=== PATIENT | female | born 1940 | race Caucasian/White ===

== ENCOUNTER → 2017-12-30 12:00 | Outpatient (REF) | payer MEDICARE, OTHER, SELFPAY ==
[2017-12-30 20:58] LABS: Anion Gap 12.4 mmol/L (3-11); BUN 18 mg/dL (7-18); CO2 23.6 mmol/L (21.0-32.0); CREATININE 1.13 mg/dL (0.55-1.02); Calcium 9.4 mg/dL (8.5-10.1); Chloride 106 mmol/L (98-107); Cholesterol 210 mg/dL (50-200); Estimated GFR 46.82 (mL/min/1.73m2); Glucose 87 mg/dL (70-100); HDL Cholesterol 91 mg/dL (40-60); LDL CHOLESTEROL 109 mg/dL (<100); Sodium 142 mmol/L (136-145); Triglyceride 83 mg/dL (30-150)
== END ==
LOC: NCHCN 12:00
PROVIDERS: PCP Physician Assistant Medical; Visit Provider Physician Assistant Medical
DX: I10 Essential (primary) hypertension (principal); N18.3 Chronic kidney disease, stage 3 (moderate)
CPT/HCPCS: 80048; 80061; 83721

== ENCOUNTER → 2018-01-01 09:00 | Outpatient (CLI) | payer MEDICARE, OTHER, SELFPAY ==
--- NOTE | 2018-01-01 09:00 | DI.REPORT_ITS ---
SYMPTOMS/DIAGNOSIS: F/U ORIF RIGHT WRIST: Two views were obtained and show previously described fractures of the distal radius and ulna with plate and screw fixation in place in the distal radius. The alignment appears essentially unchanged in comparison with previous films of December 04.
== END ==
PROVIDERS: PCP Physician Assistant Medical; Visit Provider Orthopaedic Surgery
DX: S52.501D Unspecified fracture of the lower end of right radius, subsequent encounter for closed fracture with routine healing (principal); S52.601D Unspecified fracture of lower end of right ulna, subsequent encounter for closed fracture with routine healing; W01.0XXD Fall on same level from slipping, tripping and stumbling without subsequent striking against object, subsequent encounter
CPT/HCPCS: 73100

== ENCOUNTER 2018-01-16 11:00 | Outpatient (RCR) | payer MEDICARE, OTHER, SELFPAY ==
--- NOTE | 2018-01-02 07:50 | IE_ITS ---
Date: 01/02/18 Referring: Sukhwinder Plummer MD M.D. Diagnosis: ORIF FX Distal Radius 11/20/17 P.T. Diagnosis: Same SUBJECTIVE: History of Present Illness: Pt is a 77 year old woman who presents to PT 6 weeks post op a ORIF Fx of the right distal radius/ulna on 11/07/17. Pt states that she was walking out on the two steps in her shed when she missed her step and fell on her right arm in the outstretched position. Pt reports that she presented to the emergency room that day where x rays were performed indicating a right distal radius/ulnar fx. On 11/20/[address] Mix who performed an ORIF fx surgery to her right wrist with insertion of plate. She was placed in a wrist cock up splint and followed up with Dr. Plummer on 01/01/18. Today she presents to PT no longer wearing the cock up splint as per Dr. 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 Pt states that she is right hand dominant. She also states that she falls a lot and this time was unable to catch her balance before she fell. Her incision is well healed with one 1cm spot of scabbing otherwise closed. Pain Rating: Pt reports that she has a movement induced pain which she would rate as a 2/10 on the VAS. Pain Location: Pain is located more centrally to the right wrist and also common on the ulnar side and volar aspect in supination/ pronation type movements. Prior Level of Function: (I) with all ADLs and IADLs. Current Level of Function: Difficulty with gardening tasks, she is currently using her left hand for the majority of tasks. 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 Previous Treatment: Nothing for this issue. 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 Her daughter lives next store and is able to help when needed. Comorbidities: Right knee replacement, left hip replacement x2, RA. Falls in the last year: ____ No __X__Yes - How many? __Pt is unable to quantify how many and states that she falls a lot. __ - (if over 2, balance SM needs to be completed) Reported hospitalizations in the last year - __X__ No ____ Yes - Dates of admission/reason: Medications: Hydroxychlor 200 mg, Methotrexate 2 mg tabs, Pramipexole 0.25mg. Quality of Life: __X__ Excellent Standardized Measures: DASH score: _27.7% Disability ___ OBJECTIVE: Posture: Pt has a slight rounded shoulder forward head posturing. Observation: (behavior, atrophy, skin color, etc.) Appropriate response to questions, pleasant. Palpation: Slight tenderness to palpation on the ulnar aspect of the right wrist. Edema: Circumferential measurements with tape measure were measured proximal to the ulnar styloid: Right : 16 cm Left: 17cm ROM: Right Forearm Supination: 70-75* Right Forearm Pronation: 80* Wrist Flexion: 20* Extension 10* Ulnar Deviation 10* Radial Deviation 5* Shoulder Flexion 145* Abduction 120* ER/IR WNL Elbow Flexion/ Extension WNL Tip of thumb to distal palmar crease right hand: 2.5cm Thumbs behind back to T9 Opposition WFL Strength: Dynamometer level 2 Field Ring Assembler strength: Right: 10-15# Left: 55# Lateral pinch strength: Right: 10# Left: 14# Neuro: Pt intact to light touch and sensation through volar and dorsal aspects of (B) wrists, along healed incision and throughout digits. Pt reports no numbness or tingling. Special Tests: Empty can testing negative, Tinels testing on right wrist negative. Treatment: Today s session consisted of initial evaluation and assessment of functional abilities. Pt was provided with a written, illustrated HEP consisting of PROM right wrist flexion and extension, AROM forearm supination/ pronation and AROM radial and ulnar deviation to the right wrist. Pt was able to perform exercises with minimal verbal cues. HEP can be found in pt s chart. IE: [id number] Therapeutic Exercise ([id number]) Patient Education: Pt was educated in proper arm positioning for HEP. Pt was informed to perform ROM until a stretch was felt but to avoid pain when possible. Full instructions for HEP can be found noted in chart. Pt was also instructed to continue to use her wrist cock up splint provided by Dr. Plummer when performing heavy activities around her home to avoid over use or strain to her right wrist. Direct treatment time: 60 minutes Total treatment time: 60 minutes ASSESSMENT: Patient is a 77-year-old female, referred for PT services with the diagnosis of ORIF FX Right Distal Radius/ Ulna on 11/20/17. Patient presents with clinical signs and symptoms consistent with this dx, as demonstrated by the following impairment level findings: Decreased ROM of the right wrist, decreased right cook room supervisor strength, decreased lateral pinch strength. Impairments are contributing to the following functional limitations: Difficulty grasping items, difficulty performing gardening tasks, difficulty performing heavy account support associate and activities. Patient is assessed as: __X__ Low 99402 ____ Moderate 86961 ____ High 84988 complexity, based on the following: History: See comorbidities and social history. Examination: See above for functional limitations and impairments. Presentation: X Evolving Decision-Making: X Low complexity 27.7 % Disability based on DASH __X__ Patient requires skilled PT intervention to remediate the above functional limitations to return to: __X__ Premorbid level of function Prognosis: __X__ Good G-Codes : Patient's primary functional limitation is in the category of: __X__ Carrying, moving and handling objects: [id number] based on DASH score of 27.7%. Projected goal: __X__ Carrying, moving, and handling objects [id number] to return pt to her premorbid level of function. GOALS: STG: __6__ weeks. 1.Pt will be (I) with HEP both verbally and with ideal technique demonstration. 2.Pt s right hand cook room supervisor strength will improve from 15# to 25# in order for her to perform better grasping of objects and household activities. LTG: __12__ weeks. __X__ Return to premorbid level of function including all heavy account support associate and activities, with increased ROM and strength. PLAN: Patient to be seen 2 x per week, for 12 weeks, adjusting frequency of visits per patient symptoms and response to treatment. Treatment to include: X Manual therapy - [id number]: Including AROM, PROM, muscle energy techniques, manual mobilization and soft tissue mobilization. X Therapeutic exercise - [id number]- For UE strengthening, fine motor strengthening and functional ROM. Next Session: Manual and soft tissue mobilization to the right wrist and forearm using muscle energy techniques. Review HEP and progress and modify as appropriate. Thank you for this referral. Please do not hesitate to contact me with any questions or concerns regarding this patient's plan of care. Dr. Plummer please sign below if you are in agreement with this pt s plan of care,
--- NOTE | 2018-01-06 14:30 | PTTR_ITS ---
DATE: 01/06/18 SUBJECTIVE: No new complaints. States she has been compliant with her HEP. OBJECTIVE: Had Pat demonstrate her HEP, had to tweak it around a little and give her some reminders on proper technique. I then proceed to mobilize her starting with the distal, radial, ulnar joint into supination/pronation, then radial carpal joint with mobilizing her accessory joints and working on flexion/extension. Digit motion is full. I upgrade her HEP to include some controlled weight bearing stretches into wrist extension and active wrist flexion/extension. Manual therapy: ([id number]). Direct treatment time: 30 mins Total treatment time: 30 mins Has a follow up later this week. DLW/dl
--- NOTE | 2018-01-09 07:30 | PTTR_ITS ---
DATE: 01/09/18 SUBJECTIVE: Tamy states she has been more active with her R hand. Minimal discomfort noted, other than some end range drawing. She has some questions about her HEP, particularly wrist extension, we review this. Manual therapy: ([id number]). Treatment today consisted of mobilizing her in the sitting position with her elbow flexed at 90 degrees, as well as isolate forearm supination/pronation. I mobilize the distal, radial, ulnar joint into supination and then pronation, followed by active movements. I then proceed to the wrist and perform PA glides to the radial carpal joints, then stretching into flexion, then finishing with extension. I also mobilize the CMC joint of the thumb, IP joint of the digits. Her IP flexion. Direct treatment time: 30 mins Total treatment time: 30 mins finishing with Rohithx in clinic (see her flow sheet). Has a follow up early next week. DLW/dl
--- NOTE | 2018-01-13 14:30 | PTTR_ITS ---
DATE: 01/13/18 SUBJECTIVE: Tamy notes she has been more active with her R UE. No significant pain noted other than occasional discomfort through the ulnar aspect of her distal forearm with end range movements. She notes she has been fairly compliant with her HEP. Manual therapy: ([id number]). I assess her movement patterns, she is little tight with her supination yet at around 70 degrees. I do some mobilization of the distal radial ulnar and the radial capitellum joint while applying some traction to the radial carpal joint. I can eventually get close to full supination. I then have her practice her active movements. We then transition to pronation, which is minimally limited. I mobilize her in this direction, then proceed to the wrist and perform PA glides to the radial carpal joint. Her accessory movements are greater than they were initially, although still hypomobile. I then work on her wrist flexion adding some light traction, then transition into extension while applying some light traction and a volar glide of the carpal row to assist the arthrokinematics of the joint. Direct treatment time: 30 mins Total treatment time: 50 mins with 20 mins of wellness (see her flow sheets) DLW/dl
--- NOTE | 2018-01-16 13:03 | PTTR_ITS ---
DATE: 01/16/18 OBJECTIVE: Co Treatment with PT Jayson Nguyễn Therapeutic procedures ([id number]). * X HEP review: Pt was issues peach T-Band and was shown how to complete biceps curls and triceps. Pt was also issued the yellow putty for hand inspector strengthening. Pt was educated to complete all exercises to fatigue. * X Provided skilled instruction in proper exercise performance: Pt completed UE strengthening, hand inspector strengthening, and cardio on the UBE. Please see flow sheet for specifics. Pt was able to tolerate a slight increase in her program today. Pt did require vc's for correction of her posture and mechanics with her ther ex. Direct treatment time: 20 Total treatment time: 30
--- NOTE | 2018-01-16 13:54 | PTTR_ITS ---
DATE: 01/16/18 SUBJECTIVE: Tamy states she is doing fine. No new complaints offered. She is doing more and more functionally everyday. She was vacuuming the other day for the first time and handled this fine. OBJECTIVE: Manual therapy: ([id number]).I begin with mobilizing her forearm by addressing the distal radial ulnar joint and supination is at around 60-65 degrees and eventually I can get close to 80, same with pronation. I then do some PA glides to the radial carpal joints and her joint play continues to be hypomobile. I then proceed to stretch her into flexion with a dorsal glide of the carpal row and then into extension with a volar stretch to the carpal row. Direct treatment time: 30 min Total treatment time: 30 min She is then seen by Palak Olguin PTA for therapeutic exercises for strengthening of elbow flexors/extensors, wrist flexor/extensors, as well as some putty for gripping. Assessment: Continues to improve. Plan: Have Tamy continue with her HEP with the new home exercises. She has a follow-up appt with CHERYLE Haddad next week. ANNEMARIE/brandon
== END 2018-01-16 23:59 | disposition home or self-care (01) ==
LOC: PT 11:00
PROVIDERS: PCP Physician Assistant Medical; Referring Provider Orthopaedic Surgery; Visit Provider Orthopaedic Surgery
DX: S52.571D Other intraarticular fracture of lower end of right radius, subsequent encounter for closed fracture with routine healing (principal); S52.611D Displaced fracture of right ulna styloid process, subsequent encounter for closed fracture with routine healing
CPT/HCPCS: 97110; 97140; 97161

== ENCOUNTER 2018-01-19 16:34 | Emergency (ER) | payer MEDICARE, OTHER, SELFPAY ==
[2018-01-19 16:36] VITALS: BP 142/78; PULSE 95; TEMP 37.4; O2SAT 98
--- NOTE | 2018-01-19 18:28 | W.ED.GENAD ---
Discharge Plan Disposition Patient Disposition: HOME Condition: Good Discharge Details Chief Complaint: Laceration Clinical Impression: Laceration of left upper arm Primary Care Provider: Marlene Pereira ED Provider: Andre Martinez Home Meds and New Rx's Prescriptions: Continue multivitamin 1 EACH tablet 1 ea PO DAILY Qty: 90 RF: 3 methotrexate sodium 2.5 MG tablet 10 mg PO WEEKLY Qty: 36 RF: 0 folic acid 1 MG tablet 1 mg PO DAILY Qty: 90 RF: 3 hydroxychloroquine [Plaquenil] 200 MG tablet PO as directed Qty: 180 RF: 3 latanoprost 2.5 ML drops 1 drp OU HS RF: 0 calcium carbonate [Tums] 200 MG tablet,chewable 500 mg PO PRN PRNRF: 0 acetaminophen [Tylenol] 325 MG tablet 650 mg PO Q4H PRN PRNRF: 0 tramadol 50 MG tablet 50 mg PO Q6H PRN (Reason: Pain) Qty: 8 RF: 0 hydrocodone-acetaminophen 1 EACH tablet 1 tab PO Q6H PRN PRNQty: 14 RF: 0 No Action triamterene-hydrochlorothiazid [Maxzide-25mg] 1 EACH tablet 0.5 ea PO DAILY Qty: 45 RF: 3 pramipexole 0.25 MG tablet 0.25 mg PO HS Qty: 90 RF: 3 Discharge Instructions Instructions: Care For Your Stitches (ED), Laceration (ED) Additional Instructions: Watch for any signs of infection which include redness, purulent drainage, fever chills or significant swelling. If these occur return immediately to the emergency department for reassessment. Otherwise keep wound clean and dry and keep initial bandage in place for 24-48 hours and then change bandage twice daily. Return to the emergency department 10 days for suture removal Referrals: [facility] Emergency Dept. [Outside] (Return to the emergency department 10 days for suture) Discharge Data Discharge Date/Time-TO BE ENTERED AT DEPARTURE: 01/19/18 18:54 Medical Decision Making MDM Narrative Medical decision making narrative: Patient presenting to the emergency department for laceration to left arm. Patient has a 5 cm laceration that is into the adipose tissue but no deep tissue injury noted to the left AC. Patient gave verbal consent to wound closure. Concerning wound was cleansed with Hibiclens and wound itself was thoroughly and copiously irrigated with normal saline. 5 simple interrupted sutures were placed using 4-0 Prolene. Wound edges were well approximated. Bacitracin was applied to the wound and sterile dressing on top of that. She was encouraged to watch for any signs of infection and return immediately if these occur. Patient's tetanus was 6 years ago given significant size and depth of cut I do feel that updating tetanus is needed and patient was agreeable. So tetanus was ordered. Patient to return in 10 days for suture removal. After discussion of diagnosis plan of care patient states no further needs, questions, or concerns at this time HPI - General Adult General Mode of arrival: ambulatory. Date/Time Provider Initiated Documentation: 01/19/18 16:37. Limitations to Documentation: no limitations. Information obtained by: patient. History of Present Illness 77 year old F presents to the emergency department with the chief complaint of fall with laceration to left arm, described as mild, with intensity rated at 3. Quality is described as aching, and is localized to the left and upper extremity. Patient reports no radiation. Patient started experiencing this minute(s) (30) and it has been constant. Patient notes no other symptoms.. Patient did receive the following treatments prior to arrival, none Related Data Home Medications Medication Instructions Recorded Confirmed folic acid 1 mg PO DAILY #90 tab-cap 08/21/12 11/20/17 hydroxychloroquine [Plaquenil] 0 mg PO as directed #180 tab-cap 08/21/12 11/20/17 methotrexate sodium 10 mg PO WEEKLY #36 08/21/12 11/20/17 multivitamin 1 ea PO DAILY #90 08/21/12 11/20/17 calcium carbonate [Tums] 500 mg PO PRN PRN 12/15/12 11/20/17 latanoprost 1 drp OU HS drp 02/27/16 11/20/17 triamterene-hydrochlorothiazid 0.5 ea PO DAILY #45 tab 08/15/16 [Maxzide-25mg] pramipexole 0.25 mg PO HS #90 tab-cap 01/27/17 Previous Rx's Medication Instructions Recorded acetaminophen [Tylenol] 650 mg PO Q4H PRN PRN tab 04/22/16 tramadol 50 mg PO Q6H PRN #8 tab 11/07/17 hydrocodone-acetaminophen 1 tab PO Q6H PRN PRN #14 tablet 11/20/17 Allergies Allergy/AdvReac Type Severity Reaction Status Date / Time acetaminophen [From Vicodin] AdvReac Intermediate Other (See Unverified 01/19/18 16:42 Comment) hydrocodone [From Vicodin] AdvReac Intermediate Other (See Unverified 01/19/18 16:42 Comment) lovastatin AdvReac Intermediate MUSCLE Unverified 01/19/18 16:42 ACHES oxycodone [From Percocet] AdvReac Intermediate Other (See Unverified 01/19/18 16:42 Comment) simvastatin AdvReac Intermediate MUSCLE Unverified 01/19/18 16:42 ACHES niacin AdvReac Mild MUSCLE Unverified 01/19/18 16:42 ACHES General Stated Complaint: Laceration MAXIMILIAN: 4 Review of Systems Constitutional Denies body ache(s), Denies chills and Denies fever(s) Cardiovascular Denies chest pain, Denies syncope, Denies rapid heart rate and Denies dyspnea Respiratory Denies dyspnea Gastrointestinal Denies abdominal pain, Denies nausea and Denies vomiting Musculoskeletal Denies limited range of motion, Denies muscle weakness and Denies numbness Integumentary/Breasts Reports as per HPI and Denies rash Neurologic Denies confusion, Denies syncope, Denies numbness and Denies sensory deficit Psychiatric Denies confusion PFSH Family History Mother Substance abuse Father Heart disease Brother No problems noted. Social History Smoking/Tobacco Use Status: Never Surgical History Arthroplasty (12/23/12) Biopsy of breast (12/29/14) Colonoscopy - MAC (10/15/12) Colonoscopy - MAC (01/17/16) Tooth extraction (05/19/63) 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) left hip revision (04/10/16) Exam Const General: cooperative, no acute distress and not ill appearing Orientation: alert, awake and oriented x3 HENMT Head: normal to inspection, normocephalic and atraumatic Mouth: moist mucous membranes Eyes General: appearance normal, both eyes and all related structures Resp Effort & Inspection: normal respiratory effort, able to speak in complete sentences and no respiratory distress Cardio Rate: regular rate Rhythm: regular rhythm Heart Sounds: S1 normal and S2 normal Skin General skin exam: no rashes or lesions noted Rashes: no rashes Neuro General: alert, awake, oriented x3, moves all extremities and no focal motor deficits Sensory Exam: no sensory deficits noted Extrem General: full ROM Left upper extremity: normal capillary refill and elbow/forearm Details: normal ROM, laceration (AC), distal pulses intact and other (CMS intact distal to injury) Course Vital Signs Temperature 37.4 C 01/19/18 16:36 Pulse 95 H 01/19/18 16:36 Blood Pressure 142/78 H 01/19/18 16:36 Pulse Oximetry 98 01/19/18 16:36 Temperature 37.4 C 01/19/18 16:36 Pulse 95 H 01/19/18 16:36 Blood Pressure 142/78 H 01/19/18 16:36 Pulse Oximetry 98 01/19/18 16:36
--- NOTE | 2018-01-19 18:31 | ED.GENADUL_ITS ---
Discharge Plan Disposition Patient Disposition: HOME Condition: Good Discharge Details Chief Complaint: Laceration Clinical Impression: Laceration of left upper arm Primary Care Provider: Marlene Pereira ED Provider: Andre Martinez Home Meds and New Rx's Prescriptions: Continue multivitamin 1 EACH tablet 1 ea PO DAILY Qty: 90 RF: 3 methotrexate sodium 2.5 MG tablet 10 mg PO WEEKLY Qty: 36 RF: 0 folic acid 1 MG tablet 1 mg PO DAILY Qty: 90 RF: 3 hydroxychloroquine [Plaquenil] 200 MG tablet PO as directed Qty: 180 RF: 3 latanoprost 2.5 ML drops 1 drp OU HS RF: 0 calcium carbonate [Tums] 200 MG tablet,chewable 500 mg PO PRN PRNRF: 0 acetaminophen [Tylenol] 325 MG tablet 650 mg PO Q4H PRN PRNRF: 0 tramadol 50 MG tablet 50 mg PO Q6H PRN (Reason: Pain) Qty: 8 RF: 0 hydrocodone-acetaminophen 1 EACH tablet 1 tab PO Q6H PRN PRNQty: 14 RF: 0 No Action triamterene-hydrochlorothiazid [Maxzide-25mg] 1 EACH tablet 0.5 ea PO DAILY Qty: 45 RF: 3 pramipexole 0.25 MG tablet 0.25 mg PO HS Qty: 90 RF: 3 Discharge Instructions Instructions: Care For Your Stitches (ED), Laceration (ED) Additional Instructions: Watch for any signs of infection which include redness, purulent drainage, fever chills or significant swelling. If these occur return immediately to the emergency department for reassessment. Otherwise keep wound clean and dry and keep initial bandage in place for 24-48 hours and then change bandage twice daily. Return to the emergency department 10 days for suture removal Referrals: [facility] Emergency Dept. [Outside] (Return to the emergency department 10 days for suture) Discharge Data Discharge Date/Time-TO BE ENTERED AT DEPARTURE: 01/19/18 18:54 Medical Decision Making MDM Narrative Medical decision making narrative: Patient presenting to the emergency department for laceration to left arm. Patient has a 5 cm laceration that is into the adipose tissue but no deep tissue injury noted to the left AC. Patient gave verbal consent to wound closure. Concerning wound was cleansed with Hibiclens and wound itself was thoroughly and copiously irrigated with normal saline. 5 simple interrupted sutures were placed using 4-0 Prolene. Wound edges were well approximated. Bacitracin was applied to the wound and sterile dressing on top of that. She was encouraged to watch for any signs of infection and return immediately if these occur. Patient's tetanus was 6 years ago given significant size and depth of cut I do feel that updating tetanus is needed and patient was agreeable. So tetanus was ordered. Patient to return in 10 days for suture removal. After discussion of diagnosis plan of care patient states no further needs, questions, or concerns at this time HPI - General Adult General Mode of arrival: ambulatory . Date/Time Provider Initiated Documentation: 01/19/18 16:37 . Limitations to Documentation: no limitations . Information obtained by: patient . History of Present Illness 77 year old F presents to the emergency department with the chief complaint of fall with laceration to left arm, described as mild, with intensity rated at 3. Quality is described as aching, and is localized to the left and upper extremity. Patient reports no radiation. Patient started experiencing this minute(s) (30) and it has been constant. Patient notes no other symptoms.. Patient did receive the following treatments prior to arrival, none Related Data Home Medications Medication Instructions Recorded Confirmed folic acid 1 mg PO DAILY #90 tab-cap 08/21/12 11/20/17 hydroxychloroquine [Plaquenil] 0 mg PO as directed #180 tab-cap 08/21/12 methotrexate sodium 10 mg PO WEEKLY #36 08/21/12 11/20/17 multivitamin 1 ea PO DAILY #90 08/21/12 11/20/17 calcium carbonate [Tums] 500 mg PO PRN PRN 12/15/12 11/20/17 latanoprost 1 drp OU HS drp 02/27/16 11/20/17 triamterene-hydrochlorothiazid 0.5 ea PO DAILY #45 tab 08/15/16 [Maxzide-25mg] pramipexole 0.25 mg PO HS #90 tab-cap 01/27/17 Previous Rx's Medication Instructions Recorded acetaminophen [Tylenol] 650 mg PO Q4H PRN PRN tab 04/22/16 tramadol 50 mg PO Q6H PRN #8 tab 11/07/17 hydrocodone-acetaminophen 1 tab PO Q6H PRN PRN #14 tablet 11/20/17 Allergies Allergy/AdvReac Type Severity Reaction Status Date / Time acetaminophen [From Vicodin] AdvReac Intermediate Other (See Unverified 16:42 Comment) hydrocodone [From Vicodin] AdvReac Intermediate Other (See Unverified 01/19/18 16:42 Comment) lovastatin AdvReac Intermediate MUSCLE Unverified 01/19/18 16:42 ACHES oxycodone [From Percocet] AdvReac Intermediate Other (See Unverified 01/19/18 16 :42 Comment) simvastatin AdvReac Intermediate MUSCLE Unverified 01/19/18 16:42 ACHES niacin AdvReac Mild MUSCLE Unverified 01/19/18 16:42 ACHES General Stated Complaint: Laceration MAXIMILIAN: 4 Review of Systems Constitutional Denies body ache(s), Denies chills and Denies fever(s) Cardiovascular Denies chest pain, Denies syncope, Denies rapid heart rate and Denies dyspnea Respiratory Denies dyspnea Gastrointestinal Denies abdominal pain, Denies nausea and Denies vomiting Musculoskeletal Denies limited range of motion, Denies muscle weakness and Denies numbness Integumentary/Breasts Reports as per HPI and Denies rash Neurologic Denies confusion, Denies syncope, Denies numbness and Denies sensory deficit Psychiatric Denies confusion PFSH Family History Mother Substance abuse Father Heart disease Brother No problems noted. Social History Smoking/Tobacco Use Status: Never Surgical History Arthroplasty (12/23/12) Biopsy of breast (12/29/14) Colonoscopy - MAC (10/15/12) Colonoscopy - MAC (01/17/16) Tooth extraction (05/19/63) 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) left hip revision (04/10/16) Exam Const General: cooperative, no acute distress and not ill appearing Orientation: alert, awake and oriented x3 HENMT Head: normal to inspection, normocephalic and atraumatic Mouth: moist mucous membranes Eyes General: appearance normal, both eyes and all related structures Resp Effort & Inspection: normal respiratory effort, able to speak in complete sentences and no respiratory distress Cardio Rate: regular rate Rhythm: regular rhythm Heart Sounds: S1 normal and S2 normal Skin General skin exam: no rashes or lesions noted Rashes: no rashes Neuro General: alert, awake, oriented x3, moves all extremities and no focal motor deficits Sensory Exam: no sensory deficits noted Extrem General: full ROM Left upper extremity: normal capillary refill and elbow/forearm Details: normal ROM, laceration (AC), distal pulses intact and other (CMS intact distal to injury) Course Vital Signs Temperature 37.4 C 01/19/18 16:36 Pulse 95 H 01/19/18 16:36 Blood Pressure 142/78 H 01/19/18 16:36 Pulse Oximetry 98 01/19/18 16:36 Temperature 37.4 C 01/19/18 16:36 Pulse 95 H 01/19/18 16:36 Blood Pressure 142/78 H 01/19/18 16:36 Pulse Oximetry 98 01/19/18 16:36
[2018-01-19] MEDS: Tetanus & Diphtheria Tox,ADULT 0.5 ML VIAL IM (18:50)
== END 2018-01-19 18:54 | disposition home or self-care (01) ==
PROVIDERS: Emergency Provider Nurse Practitioner Family; PCP Physician Assistant Medical
DX: S41.112A Laceration without foreign body of left upper arm, initial encounter (principal); W01.198A Fall on same level from slipping, tripping and stumbling with subsequent striking against other object, initial encounter
CPT/HCPCS: 12001; 90471

== ENCOUNTER → 2018-02-12 09:01 | Outpatient (BNVA) | payer MEDICARE, OTHER, SELFPAY | PROVIDERS: Visit Provider Orthopaedic Surgery | DX: S52.501D Unspecified fracture of the lower end of right radius, subsequent encounter for closed fracture with routine healing (principal); S52.601D Unspecified fracture of lower end of right ulna, subsequent encounter for closed fracture with routine healing; X58.XXXD Exposure to other specified factors, subsequent encounter | CPT/HCPCS: 99213 ==

== ENCOUNTER 2018-02-12 11:44 | Outpatient (CLI) | payer MEDICARE, OTHER, SELFPAY ==
--- NOTE | 2018-02-12 09:16 | DI.RAD_ITS ---
SYMPTOM/DIAGNOSIS: F/U ORIF RIGHT WRIST: Two projections are provided. Again noted is the fracture of the distal radius and ulna unchanged in alignment. Distal radial plate and compression screw fixation device in place with no interval change.
== END 2018-02-12 12:04 ==
PROVIDERS: Visit Provider Orthopaedic Surgery
DX: S52.571D Other intraarticular fracture of lower end of right radius, subsequent encounter for closed fracture with routine healing (principal); S52.611D Displaced fracture of right ulna styloid process, subsequent encounter for closed fracture with routine healing
CPT/HCPCS: 73100

== ENCOUNTER 2018-02-17 13:50 | Outpatient (CLI) | payer MEDICARE, OTHER, SELFPAY ==
[2018-02-17 14:38] LABS: Abs Immature Grans 0.01 k/cumm (0.0-0.09); Absolute Basophil Count 0.03 k/cumm (0.0-0.2); Absolute Eosinophil Count 0.05 k/cumm (0.0-0.7); Absolute Lymphocyte Count 0.92 k/cumm (1.2-3.4); Absolute Monocyte Count 0.34 k/cumm (0.11-0.7); Absolute Neutrophil Count 4.53 k/cumm (1.2-6.7); Basophils % 0.5; Eosinophils % 0.9; HGB 12.5 g/dL (12.0-15.5); Immature Grans % 0.2; Lymphocytes % 15.6; Mean Corp. HGB Concentration 32.9 g/dL (32.0-36.0); Mean Corpuscular Hemoglobin 31.5 pg (27.0-33.0); Mean Corpuscular Volume 95.7 fL (80-95); Mean Platelet Volume 10.2 fL (8.0-11.0); Monocytes % 5.8; Platelet Count 267 x1000/uL (130-400); RBC 3.97 m/cumm (4.00-5.20); RBC Distribution Width 13.9 % (11.7-14.6); White Blood Cell Count 5.88 k/cumm (4.4-10.8)
[2018-02-17 15:04] LABS: ALT 33 U/L (12-78); AST 23 U/L (15-37); Albumin 3.7 g/dL (3.4-5.0); Alkaline Phosphatase 99 U/L (46-116); Anion Gap 9.7 mmol/L (3-11); BUN 29 mg/dL (7-18); Bilirubin, Total 0.5 mg/dL (0.2-1.0); C-Reactive Protein 0.09 mg/dL (0.0-0.3); CO2 27.3 mmol/L (21.0-32.0); Calcium 9.4 mg/dL (8.5-10.1); Chloride 103 mmol/L (98-107); Estimated GFR 43.68 (mL/min/1.73m2); Glucose 155 mg/dL (70-100); Potassium 3.8 mmol/L (3.5-5.1); Sodium 140 mmol/L (136-145); Total Protein 6.7 g/dL (6.4-8.2)
== END 2018-02-17 14:10 ==
PROVIDERS: PCP Physician Assistant Medical; Visit Provider Internal Medicine Rheumatology
DX: M06.9 Rheumatoid arthritis, unspecified (principal); Z79.899 Other long term (current) drug therapy
CPT/HCPCS: 36415; 80053; 85025; 86140

== ENCOUNTER 2018-06-23 11:22 | Outpatient (CLI) | payer MEDICARE, OTHER, SELFPAY ==
[2018-06-23 13:07] LABS: ALT 42 U/L (12-78); AST 27 U/L (15-37); Albumin 3.6 g/dL (3.4-5.0); Alkaline Phosphatase 91 U/L (46-116); Anion Gap 9.8 mmol/L (3-11); BUN 22 mg/dL (7-18); Bilirubin, Total 0.7 mg/dL (0.2-1.0); C-Reactive Protein 0.06 mg/dL (0.0-0.3); CO2 29.2 mmol/L (21.0-32.0); CREATININE 1.13 mg/dL (0.55-1.02); Calcium 9.5 mg/dL (8.5-10.1); Chloride 104 mmol/L (98-107); Estimated GFR 46.82 (mL/min/1.73m2); Glucose 116 mg/dL (70-100); Sodium 143 mmol/L (136-145); Total Protein 6.9 g/dL (6.4-8.2)
[2018-06-23 15:30] LABS: Abs Immature Grans 0.01 k/cumm (0.0-0.09); Absolute Basophil Count 0.02 k/cumm (0.0-0.2); Absolute Eosinophil Count 0.05 k/cumm (0.0-0.7); Absolute Lymphocyte Count 0.78 k/cumm (1.2-3.4); Absolute Monocyte Count 0.45 k/cumm (0.11-0.7); Absolute Neutrophil Count 3.81 k/cumm (1.2-6.7); Basophils % 0.4; HCT 39.1 % (36.0-46.0); HGB 12.5 g/dL (12.0-15.5); Immature Grans % 0.2; Lymphocytes % 15.2; Mean Corpuscular Hemoglobin 30.6 pg (27.0-33.0); Mean Corpuscular Volume 95.6 fL (80-95); Mean Platelet Volume 10.4 fL (8.0-11.0); Monocytes % 8.8; Neutrophils % 74.4; Platelet Count 285 x1000/uL (130-400); RBC 4.09 m/cumm (4.00-5.20); RBC Distribution Width 14.5 % (11.7-14.6); White Blood Cell Count 5.12 k/cumm (4.4-10.8)
== END 2018-06-23 11:42 ==
PROVIDERS: PCP Physician Assistant Medical; Visit Provider Internal Medicine Rheumatology
DX: M06.9 Rheumatoid arthritis, unspecified (principal); Z79.899 Other long term (current) drug therapy
CPT/HCPCS: 36415; 80053; 85025; 86140

== ENCOUNTER 2018-10-28 07:32 | Outpatient (CLI) | payer MEDICARE, OTHER, SELFPAY ==
[2018-10-28 08:04] LABS: Abs Immature Grans 0.01 k/cumm (0.0-0.09); Absolute Basophil Count 0.04 k/cumm (0.0-0.2); Absolute Eosinophil Count 0.07 k/cumm (0.0-0.7); Absolute Lymphocyte Count 0.75 k/cumm (1.2-3.4); Absolute Monocyte Count 0.36 k/cumm (0.11-0.7); Absolute Neutrophil Count 3.27 k/cumm (1.2-6.7); Basophils % 0.9; Eosinophils % 1.6; HCT 39.9 % (36.0-46.0); HGB 13.3 g/dL (12.0-15.5); Immature Grans % 0.2; Lymphocytes % 16.7; Mean Corp. HGB Concentration 33.3 g/dL (32.0-36.0); Mean Corpuscular Volume 96.1 fL (80-95); Mean Platelet Volume 9.8 fL (8.0-11.0); Neutrophils % 72.6; Platelet Count 239 x1000/uL (130-400); RBC 4.15 m/cumm (4.00-5.20); RBC Distribution Width 13.8 % (11.7-14.6)
[2018-10-28 09:02] LABS: C-Reactive Protein 0.05 mg/dL (0.0-0.3)
[2018-10-29 13:30] LABS: ALT 34 U/L (12-78); AST 26 U/L (15-37); Albumin 3.5 g/dL (3.4-5.0); Alkaline Phosphatase 91 U/L (46-116); Anion Gap 11.7 mmol/L (3-11); BUN 19 mg/dL (7-18); Bilirubin, Total 0.5 mg/dL (0.2-1.0); CO2 26.3 mmol/L (21.0-32.0); CREATININE 1.08 mg/dL (0.55-1.02); Calcium 9.3 mg/dL (8.5-10.1); Chloride 106 mmol/L (98-107); Estimated GFR 49.19 (mL/min/1.73m2); Glucose 81 mg/dL (70-100); Potassium 3.8 mmol/L (3.5-5.1); Sodium 144 mmol/L (136-145); Total Protein 6.6 g/dL (6.4-8.2)
== END 2018-10-28 07:52 ==
PROVIDERS: PCP Physician Assistant Medical; Visit Provider Internal Medicine Rheumatology
DX: M06.9 Rheumatoid arthritis, unspecified (principal); Z79.899 Other long term (current) drug therapy
CPT/HCPCS: 36415; 80053; 85025; 86140

== ENCOUNTER 2019-02-08 22:20 | Outpatient (REF) | payer MEDICARE, OTHER, SELFPAY ==
[2019-02-08 21:46] LABS: CREATININE 1.09 mg/dL (0.55-1.02); Estimated GFR 48.67 (mL/min/1.73m2)
[2019-02-10 11:22] LABS: Lyme Ab w Rflx to Lyme Confirm Negative
[2019-02-10 22:24] LABS: Anaplasma phagocytophilum Negative (Negative); B. miyamotoi PCR Negative (Negative); Babesia divergens/MO-1 Negative (Negative); Babesia duncani Negative (Negative); Babesia microti Negative (Negative); Ehrlichia chaffeensis Negative (Negative); Ehrlichia ewingii/canis Negative (Negative); Ehrlichia muris eauclairensis Negative (Negative)
== END 2019-02-08 22:40 ==
LOC: NCHCN 22:20
PROVIDERS: PCP Physician Assistant Medical; Visit Provider Physician Assistant Medical
DX: R19.7 Diarrhea, unspecified (principal); R63.4 Abnormal weight loss; W57.XXXA Bitten or stung by nonvenomous insect and other nonvenomous arthropods, initial encounter; T14.8XXA Other injury of unspecified body region, initial encounter
CPT/HCPCS: 87798; 82565; 86618

== ENCOUNTER 2019-03-03 01:36 | Outpatient (CLI) | payer MEDICARE, OTHER, SELFPAY ==
[2019-03-03] MEDS: Omnipaque 350 MG/ML 50 ML BTL PO (09:15)
[2019-03-03] MEDS: Breeza Beverage 473 ML BTL PO ×2 (09:16→09:17)
[2019-03-03] MEDS: Normal Saline Flush 10 ML SYR IVP (10:44)
[2019-03-03] MEDS: Omnipaque 350 MG/ML 100 ML BTL IJ (10:44)
--- NOTE | 2019-03-03 10:44 | DI.CT_ITS ---
EXAM: CT ABDOMEN PELVIS W CLINICAL HISTORY: DIARRHEA R19.7, WEIGHT LOSS R63.4 TECHNIQUE: Post IV and oral contrast. FINDINGS: The heart size is normal. The lung bases show mild scarring. There is a moderate sized hiatal herni a. The gallbladder, liver, spleen, pancreas and adrenals are unremarkable. There are bilateral timothy l cysts. No hydronephrosis or urinary tract calculi are seen. There are bilateral hip prostheses wh ich create artifact in the pelvis, partially obscuring the bladder, uterus and ovaries. There is inc reased stool seen throughout the colon. No mass is visible. There is no small bowel dilatation. No adenopathy is seen. There are mild compression fractures of T12 and L1. Degenerative disc changes are seen. IMPRESSION: Large quantity of stool seen throughout the colon. No mass or adenopathy is identified.
== END 2019-03-03 01:56 ==
PROVIDERS: PCP Physician Assistant Medical; Visit Provider Physician Assistant Medical
DX: R19.7 Diarrhea, unspecified (principal); R63.4 Abnormal weight loss; J98.4 Other disorders of lung; K44.9 Diaphragmatic hernia without obstruction or gangrene; Z96.643 Presence of artificial hip joint, bilateral
CPT/HCPCS: 74177; J3490; Q9967

== ENCOUNTER 2019-03-08 07:58 | Outpatient (CLI) | payer MEDICARE, OTHER, SELFPAY ==
[2019-03-08 08:36] LABS: Absolute Basophil Count 0.03 k/cumm (0.0-0.2); Absolute Eosinophil Count 0.06 k/cumm (0.0-0.7); Absolute Lymphocyte Count 0.82 k/cumm (1.2-3.4); Absolute Neutrophil Count 3.37 k/cumm (1.2-6.7); Basophils % 0.6; Eosinophils % 1.3; HCT 41.1 % (36.0-46.0); HGB 13.6 g/dL (12.0-15.5); Lymphocytes % 17.2; Mean Corp. HGB Concentration 33.1 g/dL (32.0-36.0); Mean Corpuscular Hemoglobin 31.9 pg (27.0-33.0); Mean Corpuscular Volume 96.5 fL (80-95); Mean Platelet Volume 9.6 fL (8.0-11.0); Monocytes % 10.5; Neutrophils % 70.4; Platelet Count 274 x1000/uL (130-400); RBC 4.26 m/cumm (4.00-5.20); RBC Distribution Width 13.5 % (11.7-14.6); White Blood Cell Count 4.78 k/cumm (4.4-10.8)
[2019-03-08 09:18] LABS: ALT 29 U/L (14-59); AST 21 U/L (15-37); Albumin 3.8 g/dL (3.4-5.0); Alkaline Phosphatase 89 U/L (46-116); Anion Gap 10.7 mmol/L (3-11); BUN 16 mg/dL (7-18); C-Reactive Protein 0.06 mg/dL (0.0-0.3); CO2 27.3 mmol/L (21.0-32.0); CREATININE 1.11 mg/dL (0.55-1.02); Calcium 9.5 mg/dL (8.5-10.1); Chloride 105 mmol/L (98-107); Estimated GFR 47.66 (mL/min/1.73m2); Glucose 94 mg/dL (70-100); Sodium 143 mmol/L (136-145); Total Protein 6.8 g/dL (6.4-8.2)
== END 2019-03-08 08:18 ==
PROVIDERS: PCP Physician Assistant Medical; Visit Provider Internal Medicine Rheumatology
DX: M06.9 Rheumatoid arthritis, unspecified (principal); Z79.899 Other long term (current) drug therapy
CPT/HCPCS: 36415; 80053; 85025; 86140

== ENCOUNTER 2019-08-02 08:04 | Outpatient (CLI) | payer MEDICARE, OTHER, SELFPAY ==
[2019-08-02 09:29] LABS: Abs Immature Grans 0.01 k/cumm (0.0-0.09); Absolute Basophil Count 0.03 k/cumm (0.0-0.2); Absolute Eosinophil Count 0.06 k/cumm (0.0-0.7); Absolute Lymphocyte Count 0.66 k/cumm (1.2-3.4); Absolute Monocyte Count 0.41 k/cumm (0.11-0.7); Absolute Neutrophil Count 3.07 k/cumm (1.2-6.7); Basophils % 0.7; Eosinophils % 1.4; HCT 40.7 % (36.0-46.0); HGB 13.4 g/dL (12.0-15.5); Immature Grans % 0.2 %; Lymphocytes % 15.6; Mean Corp. HGB Concentration 32.9 g/dL (32.0-36.0); Mean Corpuscular Hemoglobin 31.2 pg (27.0-33.0); Mean Corpuscular Volume 94.9 fL (80-95); Mean Platelet Volume 9.5 fL (8.0-11.0); Monocytes % 9.7; Neutrophils % 72.4; Platelet Count 272 x1000/uL (130-400); RBC 4.29 m/cumm (4.00-5.20); RBC Distribution Width 13.5 % (11.7-14.6); White Blood Cell Count 4.24 k/cumm (4.4-10.8)
[2019-08-02 10:25] LABS: ALT 37 U/L (14-59); AST 25 U/L (15-37); Albumin 3.7 g/dL (3.4-5.0); Alkaline Phosphatase 86 U/L (46-116); Anion Gap 8.1 mmol/L (3-11); BUN 18 mg/dL (7-18); C-Reactive Protein 0.08 mg/dL (0.0-0.3); CO2 30.9 mmol/L (21.0-32.0); CREATININE 1.07 mg/dL (0.55-1.02); Calcium 9.2 mg/dL (8.5-10.1); Chloride 106 mmol/L (98-107); Estimated GFR 49.72 (mL/min/1.73m2); Glucose 96 mg/dL (74-106); Potassium 4.1 mmol/L (3.5-5.1); Sodium 145 mmol/L (136-145); Total Protein 6.7 g/dL (6.4-8.2)
== END 2019-08-02 08:24 ==
PROVIDERS: PCP Physician Assistant Medical; Visit Provider Internal Medicine Rheumatology
DX: M06.9 Rheumatoid arthritis, unspecified (principal); Z79.899 Other long term (current) drug therapy
CPT/HCPCS: 36415; 80053; 85025; 86140

== ENCOUNTER 2019-10-14 11:05 | Outpatient (CLI) | payer MEDICARE, OTHER, SELFPAY ==
--- NOTE | 2019-10-14 | DI.RAD_ITS ---
EXAM: XR KNEE RT 3V AP,LAT,SOLEDAD CLINICAL HISTORY: RT KNEE PAIN, M25.561 TECHNIQUE: 2D digital imaging was performed. COMPARISON: No exams were available for comparison FINDINGS: There has been no change in the total knee prosthesis or surrounding bone. No joint effusion is vis ible.
== END 2019-10-14 11:25 ==
PROVIDERS: PCP Physician Assistant Medical; Visit Provider Physician Assistant Medical
DX: M25.561 Pain in right knee (principal); Z96.651 Presence of right artificial knee joint
CPT/HCPCS: 73562

== ENCOUNTER → 2019-10-25 10:55 | Outpatient (BNVA) | payer MEDICARE, OTHER, SELFPAY | PROVIDERS: PCP Physician Assistant Medical; Referring Provider Physician Assistant Medical; Visit Provider Surgery | DX: B07.8 Other viral warts (principal); L98.8 Other specified disorders of the skin and subcutaneous tissue; I12.9 Hypertensive chronic kidney disease with stage 1 through stage 4 chronic kidney disease, or unspecified chronic kidney disease; N18.3 Chronic kidney disease, stage 3 (moderate) | CPT/HCPCS: 11102; 99201; 99212 ==

== ENCOUNTER 2019-10-25 11:55 | Outpatient (REF) | payer MEDICARE, OTHER, SELFPAY ==
--- NOTE | 2019-10-25 11:35 | SKI_PTH ---
PATIENT: Jo Pavon I LOC: [facility] U#:[id number] AGE/SX: 79/F ROOM: RE10/25/[address]: Tania Ren MD : [id number] BED: DIS: 10/25/2019 SPEC #: [id number] RECD: 10/25/19 15:34 STATUS: KEITH REEduardo #: [id number] SAVANA: 10/25/19 11:[address]: Tania Ren DEPT: Surgical Specimen RECD BY: Paula Ge ENTERED: 10/25/19 15:35 SP TYPE: SHAUNA MARROQUIN DR: Marlene Pereira Tissues: 1 - SKIN BIOPSY(SHAVE/PUNCH) Procedures: SKIN LEVEL 4 Comments: [id number]
== END 2019-10-25 12:15 ==
LOC: LBN 11:55
PROVIDERS: PCP Physician Assistant Medical; Visit Provider Surgery
DX: B07.8 Other viral warts
CPT/HCPCS: 88305

== ENCOUNTER 2019-12-06 18:30 | Emergency (ER) | payer MEDICARE, OTHER, SELFPAY ==
[2019-12-06 18:37] VITALS: BP 176/79; PULSE 76; RESP 18; TEMP 37.5; O2SAT 97
--- NOTE | 2019-12-06 19:15 | ED.GENADUL_ITS ---
Discharge Plan Disposition Patient Disposition: HOME Condition: Stable Discharge Details Chief Complaint: Laceration Clinical Impression: Laceration, Hip pain Primary Care Provider: Marlene Pereira ED Provider: Dayana Cazares Home Meds and New Rx's Prescriptions: Continued multivitamin 1 EACH tablet 1 ea PO DAILY Qty: 90 RF: 3 methotrexate sodium 2.5 MG tablet 10 mg PO WEEKLY Qty: 36 RF: 0 folic acid 1 MG tablet 1 mg PO DAILY Qty: 90 RF: 3 hydroxychloroquine [Plaquenil] 200 MG tablet 0 mg PO as directed Qty: 180 RF: 3 latanoprost 2.5 ML drops 1 drp OU HS RF: 0 pramipexole 0.25 MG tablet 0.25 mg PO HS Qty: 90 RF: 3 calcium carbonate [Tums] 200 MG tablet,chewable 500 mg PO PRN PRNRF: 0 acetaminophen [Tylenol] 325 MG tablet 650 mg PO Q4H PRN PRNRF: 0 Discharge Instructions Instructions: Laceration (ED), Hip Pain (ED) Additional Instructions: Please return immediately to the emergency department if you develop any new or worsening symptoms, if your condition does not improve as expected, or if you become otherwise concerned. It is extremely important that you call soon as possible to make an appointment to be seen in follow-up for this visit by your primary care doctor. You will need to have your stitches removed in 10 days either here in the emergency department or by your primary care doctor. Referrals: Marlene Pereira PA [Primary Care Provider] - Discharge Data Discharge Date/Time-TO BE ENTERED AT DEPARTURE: 12/06/19 20:20 Medical Decision Making Jo Pavon is a 79-year-old woman presenting to the emergency department with right hip pain and laceration to right elbow after mechanical fall. On exam patient is very well and nontoxic-appearing. She has no bony tenderness of the right elbow, full range of motion of the right elbow. No tenderness of the right wrist or forearm. Right upper extremity is neurovascularly intact. There is a 2 cm superficial laceration to the lateral right elbow, no bleeding, does not communicate with the joint. Right hip with mild tenderness to palpation, full painless range of motion of the right hip. Right lower extremity neurovascularly intact. Concern for possible pelvic fracture. Exam/history is not consistent with right upper extremity fracture, acute emergent intracranial trauma, nonmechanical etiology of fall. Plan for right hip/pelvic x-rays, laceration repair. Patient reports that last tetanus was 2017. Laceration repaired without issue. X-rays reviewed and negative. Patient ambulating without issue. I had a lengthy discussion with Patient regarding return to emergency department precautions, home care, and importance of outpatient follow-up. Pt verbalizes understanding of the plan and is amenable. Patient discharged to home with clear plan for outpatient follow-up. All questions were answered. Disposition decision was made weighing the risks and benefits of hospitalization versus outpatient treatment, the risk for further decompensation, and the patient's wishes. Medical Records Medical records reviewed: Yes I reviewed the patient's medical records. Imaging Data Radiologic Study: Attestation: I personally reviewed and interpreted this imaging study as follows: Radiologist's impression: EXAM: XR HIP RT COMPLETE AP PELVIS CLINICAL HISTORY: trauma, right hip pain. TECHNIQUE: 2D digital imaging was performed. COMPARISON: No exams were available for comparison FINDINGS: BONES: No acute fracture is present. No bony destructive lesion is seen. JOINTS: Bilateral total hip arthroplasties. No evidence of hardware failure. The sacroiliac joints and symphysis pubis are intact. SOFT TISSUE: There is a large amount of stool visualized in the colon suggesting constipation. IMPRESSION: 1. No acute fracture or dislocation. 2. Constipation. HPI General Mode of arrival: ambulatory . Date/Time Provider Initiated Documentation: 12/06/19 18:31 . Limitations to Documentation: no limitations . Information obtained by: patient, RN notes reviewed and old records reviewed . HPI Narrative: Jo Pavon is a 79-year-old woman with a history of GERD, rheumatoid arthritis, hyperlipidemia presenting to the emergency department after fall with elbow laceration and hip pain. Patient reports that just prior to arrival she was walking into her garage when she tripped and fell into her gardening tools landing on her right elbow and right hip. Patient reports that she had no preceding symptoms, including no lightheadedness, dizziness, or palpitations. She states that fall was mechanical secondary to tripping. Patient reports that she did not hit her head, did not lose consciousness. She reports that she has pain at the site of a cut on her right elbow, and also pain in her right hip. Patient reports that initially right hip pain was somewhat severe and it took her a few minutes to also walk, but she has walked since the fall without much difficulty. She denies any other pain. She denies any recent illness or preceding symptoms: No fever, shortness of breath, cough, vomiting, diarrhea, numbness, weakness. Patient denies elbow pain other than directly at the site of her cut. Related Data Home Medications Medication Instructions Recorded Confirmed folic acid 1 mg PO DAILY #90 tab-cap 08/21/12 12/06/19 hydroxychloroquine [Plaquenil] 0 mg PO as directed #180 tab-cap 08/21/12 12/06/19 methotrexate sodium 10 mg PO WEEKLY #36 08/21/12 12/06/19 multivitamin 1 ea PO DAILY #90 08/21/12 12/06/19 calcium carbonate [Tums] 500 mg PO PRN PRN 12/15/12 12/06/19 latanoprost 1 drp OU HS drp 02/27/16 12/06/19 acetaminophen [Tylenol] 650 mg PO Q4H PRN PRN tab 04/22/16 12/06/19 pramipexole 0.25 mg PO HS #90 tab-cap 01/27/17 12/06/19 Previous Rx's Medication Instructions Recorded acetaminophen [Tylenol] 650 mg PO Q4H PRN PRN tab 04/22/16 Allergies Allergy/AdvReac Type Severity Reaction Status Date / Time hydrocodone [From Vicodin] AdvReac Intermediate Other (See Unverified 12/06/19 18:43 Comment) lovastatin AdvReac Intermediate MUSCLE Unverified 12/06/19 18:43 ACHES oxycodone [From Percocet] AdvReac Intermediate Other (See Unverified 12/06/19 18:43 Comment) simvastatin AdvReac Intermediate MUSCLE Unverified 12/06/19 18:43 ACHES niacin AdvReac Mild MUSCLE Unverified 12/06/19 18:43 ACHES General Stated Complaint: Laceration MAXIMILIAN: 3 Review of Systems Narrative: Constitutional: denies fevers Eyes: denies eye pain ENT: denies ear pain, dental pain, sore throat Cardiovascular: denies chest pain, edema Respiratory: denies SOB, cough GI: denies abdominal pain, vomiting, diarrhea : denies flank pain MSK: denies back pain, neck pain, reports right hip pain Skin: denies rash, reports wound as per HPI Neuro: denies headaches, numbness, weakness [facility] Medical History Chronic kidney disease, stage 3 (Acute) Gastroesophageal reflux disease (Active) History of surgery (Active) T & A. Appendectomy. RTH arthroplasty 12/2007. LTH arthroplasty 03/2012. Right distal clavical excision 11/05/2009. Right bunionectomy x 2. Right leg venous ligation. Colonoscopy October 15 - found to have tubular adenoma. Hyperlipidemia (Active) Hypertension (Chronic) Nausea with vomiting (Inactive) Osteoarthritis of knee (Active 12/23/12) Rhematoid arthritis and DJD right knee wqith mild valgus deformity and flexion contracture. Right total knee arthroplasty, cemented by Dr. Case Valenzuela 12-23-2012 Osteoporosis (Inactive) Periprosthetic fracture around internal prosthetic left hip joint (Inactive) Postoperative anemia due to acute blood loss (Inactive) Restless legs (Active) Managed with Sinemet Rheumatoid arthritis (Active 12/23/12) Splenic mass (Acute) Tubular adenoma of colon (Acute) Weight loss (Acute) Surgical History (Updated 03/04/18 @ 14:35 by Liiiike DC) Arthroplasty (12/23/12) R total knee arthroplasty,cemented Dr Valenzuela Biopsy of breast (12/29/14) Left breast, [facility] [place], benign intraductal papilloma Colonoscopy - MAC (10/15/12) Colonoscopy - MAC (01/17/16) left hip revision (04/10/16) Dr Kang, periprosthetic fracture, revision, [facility] Tooth extraction (05/19/1963) COMPLETE UPPER AND LOWER EXTRACTIONS 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) POLO; LEFT; ALSO R HIP 01/06/08 Social History Smoking/Tobacco Use Status: Never Alcohol Intake: current Alcohol Intake frequency: 0-2 drinks per day Alcohol type: hard liquor Drug use: Never Do you feel safe at home: Yes Do you feel safe in your relationship?: Yes Exam Narrative Exam Narrative: Constitutional: well and [id number], pleasant, conversing normally HENT: head atraumatic/normocephalic/normal inspection, mucous membranes moist Eyes: conjunctiva normal, sclera normal, pupils 3mm b/l Neck: no stridor, normal ROM, trachea midline Chest: normal inspection Resp: normal work of breathing, LCTAB Cardio: normal rate, normal rhythm, no murmur appreciated GI: abdomen soft, non-tender, non-distended Back: normal inspection, no rash Skin: warm, dry, normal color, no rash Neuro: alert, not altered, grossly non-focal, normal tone, normal sensation of the right upper and lower extremity Ext: no edema, full range of motion of the right shoulder/elbow/wrist, no bony tenderness palpation of the right shoulder/humerus/elbow/forearm/wrist, radial pulses intact and symmetric, 1.5 cm laceration to right elbow, superficial, no bleeding, does not penetrate to joint capsule, no apparent contamination, right hip mildly tender to lateral palpation without overlying skin changes to the hip, nontender to anterior palpation, pelvis stable to anterior lateral compression, full range of motion bilateral hips, DP pulses intact and symmetric Psych: normal mood, normal affect, normal behavior Course Vital Signs Vital signs: Vital Signs Temperature 37.5 C 12/06/19 18:37 Pulse 76 12/06/19 18:37 Respiratory Rate 18 12/06/19 18:37 Blood Pressure 176/79 H 12/06/19 18:37 Pulse Oximetry 97 12/06/19 18:37 Temperature 37.5 C 12/06/19 18:37 Temperature Source Temporal Artery Scan 12/06/19 18:37 Pulse 76 12/06/19 18:37 Respiratory Rate 18 12/06/19 18:37 Respiratory Effort Non-Labored 12/06/19 18:42 Blood Pressure 176/79 H 12/06/19 18:37 Blood Pressure Position Supine 12/06/19 18:37 Pulse Oximetry 97 12/06/19 18:37 Oxygen Delivery Method Room Air 12/06/19 18:37 Oxygen Flow Rate 0 12/06/19 18:37 Pain Level 2 12/06/19 18:37 Procedures Laceration Laceration 1: Site: upper extremity Side (If applicable): right Size (cm): 1.5 Description: linear Depth: simple, single layer Local Anesthetic: Lidocaine 1% Amount of anesthesia used (mL): 4 Pre-repair: wound explored and irrigated extensively Skin layer closed with: nylon Size (cm): 4-0 Technique: simple, interrupted
--- NOTE | 2019-12-06 19:30 | DI.RAD_ITS ---
EXAM: XR HIP RT COMPLETE AP PELVIS CLINICAL HISTORY: trauma, right hip pain. TECHNIQUE: 2D digital imaging was performed. COMPARISON: No exams were available for comparison FINDINGS: BONES: No acute fracture is present. No bony destructive lesion is seen. JOINTS: Bilateral total hip arthroplasties. No evidence of hardware failure. The sacroiliac joints and symphysis pubis are intact. SOFT TISSUE: There is a large amount of stool visualized in the colon suggesting constipation. IMPRESSION: 1. No acute fracture or dislocation. 2. Constipation. DATA REPOSITORY: RADIATION DOSE DELIVERED:
--- NOTE | 2019-12-06 19:43 | DI.VRAD_ITS ---
PROCEDURE INFORMATION: Exam: XR Right Hip with Pelvis when Performed Exam date and time: 12/06/2019 7:28 PM Age: 79 years old Clinical indication: Hip pain; Right hip; Prior surgery; Surgery date: 6+ months; Surgery type: Replacement TECHNIQUE: Imaging protocol: XR Right hip with pelvis when performed. Views: 2 or 3 views. COMPARISON: CT ABDOMEN PELVIS W 03/03/2019 10:38 FINDINGS: Bones/joints: Total right hip arthroplasty. Soft tissues: Unremarkable. Vasculature: Vascular calcification. IMPRESSION: 1. No acute finding. 2. If clinical symptoms persist recommend followup film in 7-10 days. Dictated and Authenticated by: Ivy Shahid MD. Ordering:ILENE Anne MD
--- NOTE | 2019-12-06 20:03 | DI.VRAD_ITS ---
PROCEDURE INFORMATION: Exam: XR Right Hip with Pelvis when Performed Exam date and time: 12/06/2019 7:27 PM Age: 79 years old Clinical indication: Hip pain; Right hip; Prior surgery; Surgery date: 6+ months; Surgery type: Replacement TECHNIQUE: Imaging protocol: XR Right hip with pelvis when performed. Views: 2 or 3 views. COMPARISON: CT ABDOMEN PELVIS W 03/03/2019 10:38 FINDINGS: Bones/joints: Symmetric SI joints. Bilateral total hip arthroplasties. Osteophytes involving the left lesser trochanter. No acute bony injury. The distal aspect of the right and left femoral prosthesis is not identified on the AP view of the pelvis. Soft tissues: Unremarkable. Gastrointestinal tract: Constipation. Vasculature: Vascular calcification. IMPRESSION: 1. No evidence for acute bony injury of the right hip. 2. Total bilateral hip arthroplasties. 3. Constipation. Dictated and Authenticated by: Ivy Shahid MD. Ordering:ILENE Anne MD
== END 2019-12-06 20:20 | disposition home or self-care (01) ==
LOC: ER 20:24
PROVIDERS: Emergency Provider Student in an Organized Health Care Education/Training Program; PCP Physician Assistant Medical
DX: S51.011A Laceration without foreign body of right elbow, initial encounter (principal); M25.551 Pain in right hip; W01.118A Fall on same level from slipping, tripping and stumbling with subsequent striking against other sharp object, initial encounter; I12.9 Hypertensive chronic kidney disease with stage 1 through stage 4 chronic kidney disease, or unspecified chronic kidney disease; N18.3 Chronic kidney disease, stage 3 (moderate)
CPT/HCPCS: 12001; 99283; 73502

== ENCOUNTER 2019-12-13 02:23 | Outpatient (CLI) | payer MEDICARE, OTHER, SELFPAY ==
[2019-12-13 09:00] LABS: Absolute Basophil Count 0.02 k/cumm (0.0-0.2); Absolute Eosinophil Count 0.07 k/cumm (0.0-0.7); Absolute Lymphocyte Count 0.72 k/cumm (1.2-3.4); Absolute Monocyte Count 0.59 k/cumm (0.11-0.7); Basophils % 0.4; Eosinophils % 1.6; HGB 13.2 g/dL (12.0-15.5); Mean Corpuscular Volume 93.9 fL (80-95); Mean Platelet Volume 10.1 fL (8.0-11.0); Monocytes % 13.1; Neutrophils % 68.9; Platelet Count 281 x1000/uL (130-400); RBC 4.26 m/cumm (4.00-5.20)
[2019-12-13 09:55] LABS: ALT 38 U/L (14-59); AST 27 U/L (15-37); Albumin 3.7 g/dL (3.4-5.0); Alkaline Phosphatase 89 U/L (46-116); Anion Gap 9.3 mmol/L (3-11); BUN 28 mg/dL (7-18); CO2 26.7 mmol/L (21.0-32.0); CREATININE 1.14 mg/dL (0.55-1.02); Calcium 9.3 mg/dL (8.5-10.1); Chloride 105 mmol/L (98-107); Glucose 97 mg/dL (74-106); Potassium 4.3 mmol/L (3.5-5.1); Sodium 141 mmol/L (136-145); Total Protein 6.9 g/dL (6.4-8.2)
== END 2019-12-13 02:43 ==
PROVIDERS: PCP Physician Assistant Medical; Visit Provider Internal Medicine Rheumatology
DX: Z79.899 Other long term (current) drug therapy (principal); M06.9 Rheumatoid arthritis, unspecified
CPT/HCPCS: 36415; 80053; 85025; 86140

== ENCOUNTER 2019-12-16 12:01 | Emergency (ER) | payer MEDICARE, OTHER, SELFPAY ==
[2019-12-16 12:08] VITALS: BP 177/76; PULSE 87; RESP 12; TEMP 36.4; O2SAT 97
--- NOTE | 2019-12-16 12:20 | ED.GENADUL_ITS ---
Discharge Plan Disposition Patient Disposition: HOME Condition: Stable Discharge Details Chief Complaint: SutureRem Clinical Impression: Encounter for removal of sutures Primary Care Provider: Marlene Pereira ED Provider: Víctor Rose Home Meds and New Rx's Prescriptions: Continued multivitamin 1 EACH tablet 1 ea PO DAILY Qty: 90 RF: 3 methotrexate sodium 2.5 MG tablet 10 mg PO WEEKLY Qty: 36 RF: 0 folic acid 1 MG tablet 1 mg PO DAILY Qty: 90 RF: 3 hydroxychloroquine [Plaquenil] 200 MG tablet 0 mg PO as directed Qty: 180 RF: 3 latanoprost 2.5 ML drops 1 drp OU HS RF: 0 pramipexole 0.25 MG tablet 0.25 mg PO HS Qty: 90 RF: 3 calcium carbonate [Tums] 200 MG tablet,chewable 500 mg PO PRN PRNRF: 0 acetaminophen [Tylenol] 325 MG tablet 650 mg PO Q4H PRN PRNRF: 0 Discharge Instructions Instructions: Stitches Removal (ED) Additional Instructions: Sutures removed without difficulty. Keep the area clean and dry. May continue applying antibiotic ointment topically. Please watch for new or worsening symptoms and return to the ER for any concerns Medical Decision Making 4 sutures removed without difficulty. Patient has no additional questions or concerns and is comfortable discharge Medical Records Medical records reviewed: Yes I reviewed the patient's medical records. HPI General Mode of arrival: ambulatory . Date/Time Provider Initiated Documentation: 12/16/19 12:20 . Limitations to Documentation: no limitations . Information obtained by: patient . HPI Narrative: Patient seen in the ER 10 days ago status post mechanical fall and right arm laceration. She presents today for suture removal. She denies any pain, redness, discharge. She denies any fevers. No signs of infection. No numbness, tingling, weakness in the right arm. She has no additional questions or concerns Related Data Home Medications Medication Instructions Recorded Confirmed folic acid 1 mg PO DAILY #90 tab-cap 08/21/12 12/06/19 hydroxychloroquine [Plaquenil] 0 mg PO as directed #180 tab-cap 08/21/12 12/06/19 methotrexate sodium 10 mg PO WEEKLY #36 08/21/12 12/06/19 multivitamin 1 ea PO DAILY #90 08/21/12 12/06/19 calcium carbonate [Tums] 500 mg PO PRN PRN 12/15/12 12/06/19 latanoprost 1 drp OU HS drp 02/27/16 12/06/19 acetaminophen [Tylenol] 650 mg PO Q4H PRN PRN tab 04/22/16 12/06/19 pramipexole 0.25 mg PO HS #90 tab-cap 01/27/17 12/06/19 Previous Rx's Medication Instructions Recorded acetaminophen [Tylenol] 650 mg PO Q4H PRN PRN tab 04/22/16 Allergies Allergy/AdvReac Type Severity Reaction Status Date / Time hydrocodone [From Vicodin] AdvReac Intermediate Other (See Unverified 12/06/19 18:43 Comment) lovastatin AdvReac Intermediate MUSCLE Unverified 12/06/19 18:43 ACHES oxycodone [From Percocet] AdvReac Intermediate Other (See Unverified 12/06/19 18:43 Comment) simvastatin AdvReac Intermediate MUSCLE Unverified 12/06/19 18:43 ACHES niacin AdvReac Mild MUSCLE Unverified 12/06/19 18:43 ACHES General Stated Complaint: SutureRem MAXIMILIAN: 4 Review of Systems Constitutional Constitutional: Denies fever(s) Integumentary/Breasts Skin/Breast: Denies erythema [facility] Medical History Chronic kidney disease, stage 3 (Acute) Gastroesophageal reflux disease (Active) History of surgery (Active) T & A. Appendectomy. RT arthroplasty 12/2007. LT arthroplasty 03/2012. Right distal clavical excision 11/05/2009. Right bunionectomy x 2. Right leg venous ligation. Colonoscopy October 15 - found to have tubular adenoma. Hyperlipidemia (Active) Hypertension (Chronic) Nausea with vomiting (Inactive) Osteoarthritis of knee (Active 12/23/12) Rhematoid arthritis and DJD right knee wqith mild valgus deformity and flexion contracture. Right total knee arthroplasty, cemented by Dr. Case Valenzuela 12-23-2012 Osteoporosis (Inactive) Periprosthetic fracture around internal prosthetic left hip joint (Inactive) Postoperative anemia due to acute blood loss (Inactive) Restless legs (Active) Managed with Sinemet Rheumatoid arthritis (Active 12/23/12) Splenic mass (Acute) Tubular adenoma of colon (Acute) Weight loss (Acute) Surgical History Arthroplasty (12/23/12) R total knee arthroplasty,cemented Dr Valenzuela Biopsy of breast (12/29/14) [place] [facility] [place]rad[place] Colonoscopy - MAC (10/15/12) Colonoscopy - MAC (01/17/16) left hip revision (04/10/16) Dr Kang, periprosthetic fracture, revision, [facility] Tooth extraction (05/19/1963) COMPLETE UPPER AND LOWER EXTRACTIONS 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) POLO; LEFT; ALSO R HIP 01/06/08 Family History Mother , COPD at age 73. Substance abuse Father , heart at age 70. Heart disease Brother , accident at age 47. No problems noted. Social History Smoking/Tobacco Use Status: Never Alcohol Intake: current Alcohol Intake frequency: 0-2 drinks per day Alcohol type: hard liquor Drug use: Never Substance use type: does not use Do you feel safe at home: Yes Do you feel safe in your relationship?: Yes Exam Const General: cooperative, healthy appearing, comfortable and no acute distress Orientation: alert and awake HENMT Head: normal to inspection, normocephalic and atraumatic Mouth: moist mucous membranes Eyes Conjunctivae: conjunctivae normal Neck Neck: normal visual inspection, trachea midline and supple Resp Effort & Inspection: normal respiratory effort and able to speak in complete sentences Cardio Rate: regular rate Rhythm: regular rhythm Skin General skin exam: no rashes or lesions noted Neuro General: patient alert, patient awake, moves all extremities and no focal motor deficits Sensory Exam: no sensory deficits noted Extrem Other: Right proximal forearm with a well-healed laceration. Well approximated. No tenderness, warmth, erythema, drainage. 4 sutures intact. Neuro, vascular, tendon intact Psych Appearance: grossly normal Mental Status: mental status grossly normal Course Vital Signs Vital signs: Vital Signs Temperature 36.4 C L 12/16/19 12:08 Pulse 87 12/16/19 12:08 Respiratory Rate 12 12/16/19 12:08 Blood Pressure 177/76 H 12/16/19 12:08 Pulse Oximetry 97 12/16/19 12:08 Temperature 36.4 C L 12/16/19 12:08 Temperature Source Tympanic 12/16/19 12:08 Pulse 87 12/16/19 12:08 Respiratory Rate 12 12/16/19 12:08 Respiratory Effort Non-Labored 12/16/19 12:10 Blood Pressure 177/76 H 12/16/19 12:08 Blood Pressure Position Sitting 12/16/19 12:08 Pulse Oximetry 97 12/16/19 12:08 Oxygen Delivery Method Room Air 12/16/19 12:08 Oxygen Flow Rate 0 12/16/19 12:08 Pain Level 0 12/16/19 12:10
== END 2019-12-16 12:30 | disposition home or self-care (01) ==
PROVIDERS: Emergency Provider Physician Assistant; PCP Physician Assistant Medical
DX: Z48.02 Encounter for removal of sutures (principal); S51.011D Laceration without foreign body of right elbow, subsequent encounter; W19.XXXD Unspecified fall, subsequent encounter

== ENCOUNTER 2020-07-08 19:01 | Emergency (ER) | payer MEDICARE, OTHER, SELFPAY ==
[2020-07-08 19:15] VITALS: PULSE 80; RESP 19; TEMP 37.1; O2SAT 97
--- NOTE | 2020-07-08 20:12 | W.ED.GENAD ---
Discharge Plan Disposition Patient Disposition: HOME Condition: Good Discharge Details Clinical Impression: Nausea and vomiting in adult, Diarrhea Primary Care Provider: Marlene Pereira ED Provider: Paula Brantley Home Meds and New Rx's Prescriptions: No Action multivitamin 1 EACH tablet 1 ea PO DAILY Qty: 90 RF: 3 methotrexate sodium 2.5 MG tablet 10 mg PO WEEKLY Qty: 36 RF: 0 folic acid 1 MG tablet 1 mg PO DAILY Qty: 90 RF: 3 hydroxychloroquine [Plaquenil] 200 MG tablet 0 mg PO as directed Qty: 180 RF: 3 latanoprost 2.5 ML drops 1 drp OU HS RF: 0 pramipexole 0.25 MG tablet 0.25 mg PO HS Qty: 90 RF: 3 calcium carbonate [Tums] 200 MG tablet,chewable 500 mg PO PRN PRNRF: 0 acetaminophen [Tylenol] 325 MG tablet 650 mg PO Q4H PRN PRNRF: 0 Discharge Instructions Instructions: Acute Nausea and Vomiting (ED), Acute Diarrhea (ED) Additional Instructions: You have been given a tablet of Reglan, take this if you need it for nausea and vomiting supplied you with the prescription as well should you need Clear liquid diet as tolerated solid food tomorrow Recommend you bring a stool sample should you have persistent diarrhea Return earlier with intractable nausea, vomiting, diarrhea, or with any new or worsening complaints Medical Decision Making Patient is alert, oriented, of decisional capacity, she appears significantly improved after a liter and half of fluid, she is able to tolerate p.o. Her BUN is 30, consistent with dehydration, likely prerenal Creatinine initially 1.2, a liter and half of fluid initiated, patient is able to tolerate p.o. I do believe she is safe for discharge home She is comfortable with discharge and will be discharged home in care of daughter who will stay with her this evening She given a dose of Reglan for home although she is not been nauseous throughout the entirety of this visit She was not able to supply a stool sample, she has not had diarrhea or vomiting Durasphere evaluation in the emergency room She given the specialist return for new or complaints Discharge home condition No imaging was ordered as patient has a completely nontender evaluation and feels significantly symptomatically improved Differential Diagnosis Differential Diagnosis: Dehydration, gastroenteritis, colitis, bowel obstruction Medical Records Medical records reviewed: Yes I reviewed the patient's medical records. HPI This 79-year-old female who is otherwise healthy aside from history of hyperlipidemia presents for nausea, vomiting, diarrhea which started at approximately 10:00 morning. She has had many episodes of vomiting and diarrhea, too many to count per patient. She denies known sick contacts. She lives independently. She denies any known Covid exposure. She has not had antibiotics for the past 2 months. She denies any abdominal discomfort, chest pain, shortness of breath. She denies dysuria or frequency. She denies any blood in stool or vomitus. Her last episode of diarrhea was at 6:00 and her last episode of vomiting was at 12:00. She is not currently nauseous. She does feel slightly lightheaded but denies any dizziness or weakness. General Date/Time Provider Initiated Documentation: 07/08/20 20:09. Related Data Home Medications Medication Instructions Recorded Confirmed folic acid 1 mg PO DAILY #90 tab-cap 08/21/12 07/08/20 hydroxychloroquine [Plaquenil] 0 mg PO as directed #180 tab-cap 08/21/12 07/08/20 methotrexate sodium 10 mg PO WEEKLY #36 08/21/12 07/08/20 multivitamin 1 ea PO DAILY #90 08/21/12 07/08/20 calcium carbonate [Tums] 500 mg PO PRN PRN 12/15/12 07/08/20 latanoprost 1 drp OU HS drp 02/27/16 07/08/20 acetaminophen [Tylenol] 650 mg PO Q4H PRN PRN tab 04/22/16 07/08/20 pramipexole 0.25 mg PO HS #90 tab-cap 01/27/17 07/08/20 Previous Rx's Medication Instructions Recorded acetaminophen [Tylenol] 650 mg PO Q4H PRN PRN tab 04/22/16 Allergies Allergy/AdvReac Type Severity Reaction Status Date / Time hydrocodone [From Vicodin] AdvReac Intermediate Other (See Unverified 07/08/20 19:19 Comment) lovastatin AdvReac Intermediate MUSCLE Unverified 07/08/20 19:19 ACHES oxycodone [From Percocet] AdvReac Intermediate Other (See Unverified 07/08/20 19:19 Comment) simvastatin AdvReac Intermediate MUSCLE Unverified 07/08/20 19:19 ACHES niacin AdvReac Mild MUSCLE Unverified 07/08/20 19:19 ACHES General Stated Complaint: Nausea/Vomit/Diar MAXIMILIAN: 3 Review of Systems Narrative: Review of systems negative x7 aside from where indicated in HPI [facility] Medical History (Updated 07/08/20 @ 22:24 by LARRY Driver) Chronic kidney disease, stage 3 Gastroesophageal reflux disease History of surgery T & A. Appendectomy. RTH arthroplasty 12/2007. LTH arthroplasty 03/2012. Right distal clavical excision 11/05/2009. Right bunionectomy x 2. Right leg venous ligation. Colonoscopy October 15 - found to have tubular adenoma. Hyperlipidemia Hypertension Nausea with vomiting Osteoarthritis of knee (12/23/12) Rhematoid arthritis and DJD right knee wqith mild valgus deformity and flexion contracture. Right total knee arthroplasty, cemented by Dr. Case Valenzuela 12-23-2012 Osteoporosis Periprosthetic fracture around internal prosthetic left hip joint Postoperative anemia due to acute blood loss Restless legs Managed with Sinemet Rheumatoid arthritis (12/23/12) Splenic mass Tubular adenoma of colon Weight loss Surgical History Arthroplasty (12/23/12) R total knee arthroplasty,cemented Dr Valenzuela Biopsy of breast (12/29/14) Left breast, [facility], benign intraductal papilloma Colonoscopy - MAC (10/15/12) Colonoscopy - MAC (01/17/16) left hip revision (04/10/16) Dr Kang, periprosthetic fracture, revision, [facility] Tooth extraction (05/19/1963) COMPLETE UPPER AND LOWER EXTRACTIONS 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) POLO; LEFT; ALSO R HIP 01/06/08 Family History Mother , COPD at age 73. Substance abuse Father , heart at age 70. Heart disease Brother , accident at age 47. No problems noted. Social History Smoking/Tobacco Use Status: Never Smoking risk assessment performed?: Yes Alcohol Intake: current Alcohol Intake frequency: 0-2 drinks per day Alcohol type: hard liquor Drug use: Never Substance use type: does not use Do you feel safe at home: Yes Do you feel safe in your relationship?: Yes Exam Const General: cooperative, healthy appearing and comfortable HENMT Mouth: oral mucosae normal Eyes Pupils: PERRL Resp Effort & Inspection: normal respiratory effort Auscultation: clear to auscultation bilaterally Cardio Rate: regular rate Rhythm: regular rhythm GI Inspection: normal to inspection Palpation: nontender Skin Other: Pallor Neuro General: patient alert and patient oriented x3 Course Vital Signs Vital signs: Vital Signs Temperature 37.1 C 07/08/20 19:15 Pulse 80 07/08/20 19:15 Respiratory Rate 07/08/20 19:15 Pulse Oximetry 97 07/08/20 19:15 Temperature 37.1 C 07/08/20 19:15 Pulse 80 07/08/20 19:15 Respiratory Rate 07/08/20 19:15 Respiratory Effort 07/08/20 19:21 Blood Pressure Position Supine 07/08/20 19:15 Pulse Oximetry 97 07/08/20 19:15 Oxygen Delivery Method Room Air 07/08/20 19:15 Oxygen Flow Rate 0 07/08/20 19:15
[2020-07-08] MEDS: Normal Saline 1,000 ML 1000 ML IV (20:16)
[2020-07-08 20:28] LABS: Abs Immature Grans 0.02 10^3/uL (0.0-0.06); Absolute Basophil Count 0.05 10^3/uL (0.0-0.2); Absolute Eosinophil Count 0.05 10^3/uL (0.0-0.7); Absolute Lymphocyte Count 0.47 10^3/uL (1.2-3.4); Absolute Neutrophil Count 6.52 10^3/uL (1.2-6.7); Basophils % 0.6; Eosinophils % 0.6; HCT 38.8 % (36.0-46.0); HGB 13.1 g/dL (11.2-15.7); Immature Grans % 0.3; MCH 31.8 pg (27.0-33.0); MCHC 33.8 % (32.0-36.0); MCV 94.2 fL (80-95); MPV 10.5 fL (8.0-11.0); Neutrophils % 83.5; Nucleated RBC 0 %; Platelet Count 240 10^3/uL (130-400); RBC 4.12 10^6/uL (3.93-5.22); RDW-SD 45.1 fL; WBC 7.81 10^3/uL (4.4-10.8)
[2020-07-08 20:39] LABS: ALT 34 U/L (14-59); AST 31 U/L (15-37); Albumin 3.5 g/dL (3.4-5.0); Alkaline Phosphatase 95 U/L (46-116); BUN 30 mg/dL (7-18); Bilirubin, Total 0.5 mg/dL (0.2-1.0); CREATININE 1.2 mg/dL (0.55-1.02); Calcium 9.2 mg/dL (8.5-10.1); Chloride 105 mmol/L (98-107); Estimated GFR 43.45 (mL/min/1.73m2); Glucose 120 mg/dL (74-106); Lipase 231 U/L (73-393); Potassium 4.7 mmol/L (3.5-5.1); Sodium 140 mmol/L (136-145)
[2020-07-08] MEDS: Normal Saline 500 ML IV (21:38)
[2020-07-08 22:04] LABS: Bilirubin Negative (Negative); Blood Negative (Negative); Clarity Clear (Clear); Glucose Negative (Negative); Ketones Negative (Negative); Leukocyte Esterase Negative (Negative); Nitrite Negative (Negative)
[2020-07-08 22:35] VITALS: BP 170/70; PULSE 72; RESP 18; TEMP 36.8; O2SAT 98
[2020-07-08] MEDS: Metoclopramide 10 MG TAB PO (22:35)
== END 2020-07-08 22:40 | disposition home or self-care (01) ==
LOC: ER 22:39
PROVIDERS: Emergency Provider Physician Assistant; PCP Physician Assistant Medical
DX: R11.2 Nausea with vomiting, unspecified (principal); R19.7 Diarrhea, unspecified; E87.5 Hyperkalemia
CPT/HCPCS: 80053; 83690; 99283; 81003; 85025

== ENCOUNTER 2020-08-17 03:19 | Outpatient (CLI) | payer MEDICARE, OTHER, SELFPAY ==
[2020-08-17 10:33] LABS: HCT 41.3 % (36.0-46.0); HGB 13.5 g/dL (11.2-15.7); MCH 31.2 pg (27.0-33.0); MCHC 32.7 % (32.0-36.0); MCV 95.4 fL (80-95); MPV 9.8 fL (8.0-11.0); Platelet Count 296 10^3/uL (130-400); RBC 4.33 10^6/uL (3.93-5.22); RDW-SD 45.2 fL; WBC 5.07 10^3/uL (4.4-10.8)
[2020-08-17 11:46] LABS: ALT 46 U/L (14-59); AST 29 U/L (15-37); Albumin 3.9 g/dL (3.4-5.0); Alkaline Phosphatase 92 U/L (46-116); Anion Gap 9.8 mmol/L (3-11); BUN 24 mg/dL (7-18); Bilirubin, Total 0.8 mg/dL (0.2-1.0); C-Reactive Protein < 0.05 mg/dL (0.0-0.3); CO2 27.2 mmol/L (21.0-32.0); CREATININE 1.2 mg/dL (0.55-1.02); Calcium 10.1 mg/dL (8.5-10.1); Chloride 105 mmol/L (98-107); Estimated GFR 43.45 (mL/min/1.73m2); Glucose 91 mg/dL (74-106); Potassium 4.3 mmol/L (3.5-5.1); Sodium 142 mmol/L (136-145); Total Protein 7.2 g/dL (6.4-8.2)
== END 2020-08-17 03:20 | disposition home or self-care (01) ==
LOC: LBO 03:19
PROVIDERS: PCP Physician Assistant Medical; Visit Provider Internal Medicine Rheumatology
DX: M06.9 Rheumatoid arthritis, unspecified (principal); Z79.899 Other long term (current) drug therapy
CPT/HCPCS: 36415; 80053; 85027; 86140

== ENCOUNTER 2021-03-07 03:52 | Outpatient (CLI) | payer MEDICARE, OTHER, SELFPAY ==
[2021-03-07 12:44] LABS: Abs Immature Grans 0.01 10^3/uL (0.0-0.06); Absolute Basophil Count 0.04 10^3/uL (0.0-0.2); Absolute Eosinophil Count 0.06 10^3/uL (0.0-0.7); Absolute Lymphocyte Count 1.11 10^3/uL (1.2-3.4); Absolute Monocyte Count 0.61 10^3/uL (0.1-0.8); Absolute Neutrophil Count 4.96 10^3/uL (1.2-6.7); Basophils % 0.6; Eosinophils % 0.9; HCT 40.3 % (36.0-46.0); HGB 13.2 g/dL (11.2-15.7); Immature Grans % 0.1; Lymphocytes % 16.3; MCH 30.9 pg (27.0-33.0); MCHC 32.8 % (32.0-36.0); MCV 94.4 fL (80-95); MPV 9.9 fL (8.0-11.0); Neutrophils % 73.1; Nucleated RBC 0 %; Platelet Count 303 10^3/uL (130-400); RBC 4.27 10^6/uL (3.93-5.22); RDW 13.8 % (11.7-14.6); RDW-SD 47.3 fL; WBC 6.79 10^3/uL (4.4-10.8)
[2021-03-07 13:33] LABS: ALT 34 U/L (14-59); AST 25 U/L (15-37); Albumin 4.1 g/dL (3.4-5.0); Alkaline Phosphatase 90 U/L (46-116); Anion Gap 11.9 mmol/L (3-11); BUN 22 mg/dL (7-18); Bilirubin, Total 0.8 mg/dL (0.2-1.0); CO2 25.1 mmol/L (21.0-32.0); CREATININE 1.2 mg/dL (0.55-1.02); Calcium 9.6 mg/dL (8.5-10.1); Chloride 106 mmol/L (98-107); Estimated GFR 43.34 (mL/min/1.73m2); Glucose 93 mg/dL (74-106); Potassium 4.2 mmol/L (3.5-5.1); Sodium 143 mmol/L (136-145); Total Protein 7.2 g/dL (6.4-8.2)
[2021-03-07 13:34] LABS: C-Reactive Protein < 0.05 mg/dL (0.0-0.3)
== END 2021-03-07 03:53 | disposition home or self-care (01) ==
LOC: LBO 03:53
PROVIDERS: PCP Physician Assistant Medical; Visit Provider Internal Medicine Rheumatology
DX: M05.9 Rheumatoid arthritis with rheumatoid factor, unspecified (principal); Z79.899 Other long term (current) drug therapy
CPT/HCPCS: 36415; 80053; 85025; 86140

== ENCOUNTER 2021-03-30 08:57 | Emergency (ER) | payer MEDICARE, OTHER, SELFPAY ==
[2021-03-30] VITALS (12 sets, daily range): BP systolic 166–193; BP diastolic 62–92; PULSE 60–79; RESP 18; TEMP 37.2; O2SAT 98–100
--- NOTE | 2021-03-30 10:45 | DI.RAD_ITS ---
Exam(s) XR SACRUM COCCYX XR PELVIS AP EXAM: XR PELVIS AP CLINICAL HISTORY: trauma, pain with sitting TECHNIQUE: COMPARISON: CR,XR XR HIP RT COMPLETE AP PELVIS from 12/06/2019 CR XR SACRUM COCCYX from 03/30/2021 CR XR SACRUM COCCYX from 03/30/2021 FINDINGS: Single AP view of the pelvis was obtained along with three views of the sacrum. The sacrum is diffic ult to evaluate due to generalized bony demineralization. Sacral fracture not reliably excluded on t hese films. No pelvic fracture identified AP view. Bilateral hip prostheses are in place bilaterall y and these appear seated in the acetabula E and femurs. IMPRESSION: No gross fracture seen. If there is a high clinical suspicion of sacral fracture additional evaluati on with CT would be recommended. RADIATION DOSE DELIVERED: Total DLP
--- NOTE | 2021-03-30 11:23 | W.ED.GENAD ---
Discharge Plan Disposition Patient Disposition: HOME Condition: Stable Discharge Details Clinical Impression: Closed sacral fracture Primary Care Provider: Marlene Pereira ED Provider: Dayana Cazares Home Meds and New Rx's Prescriptions: Continued multivitamin 1 EACH tablet 1 ea PO DAILY Qty: 90 RF: 3 methotrexate sodium 2.5 MG tablet 10 mg PO WEEKLY Qty: 36 RF: 0 folic acid 1 MG tablet 1 mg PO DAILY Qty: 90 RF: 3 hydroxychloroquine [Plaquenil] 200 MG tablet 0 mg PO as directed Qty: 180 RF: 3 latanoprost 2.5 ML drops 1 drp OU HS RF: 0 pramipexole 0.25 MG tablet 0.25 mg PO HS Qty: 90 RF: 3 calcium carbonate [Tums] 200 MG tablet,chewable 500 mg PO PRN PRNRF: 0 acetaminophen [Tylenol] 325 MG tablet 650 mg PO Q4H PRN PRNRF: 0 Discharge Instructions Instructions: Sacral Fracture (ED) Additional Instructions: Please return immediately to the emergency department if you develop any new or worsening symptoms, if your condition does not improve as expected, or if you become otherwise concerned. It is extremely important that you call soon as possible to make an appointment to be seen in follow-up for this visit by your primary care doctor. Referrals: Marlene Pereira PA [Primary Care Provider] - Discharge Data Discharge Date/Time-TO BE ENTERED AT DEPARTURE: 03/30/21 13:41 Medical Decision Making Jo Pavon is a 80-year-old woman with history of hyperlipidemia, GERD, rheumatoid arthritis who presented to the emergency department with tailbone pain that began after fall 1-2 weeks ago. On exam Pt is very well and non-toxic appearing. Neurologically non-focal. No lumbar or sacral TTP. Suspect coccyx fracture. Doubt other pelvic pathology. Exam/hx at this time not c/w cauda equina syndrome, epidural abscess/hematoma, UTI, sepsis. Plan for sacral xrays. xrays negative for acute process. Given Pt's reported level of pain, plan for CT to ensure coccyx fx as etiology. CT shows occyx fracture. Plan for donut pillow for comfort. Pt reports that she feels she will be able to manage her pain at home without issue. I had a lengthy discussion with Patient regarding return to emergency department precautions, home care, and importance of outpatient follow-up. Pt verbalizes understanding of the plan and is amenable. Patient discharged to home with clear plan for outpatient follow-up. All questions were answered. Disposition decision was made weighing the risks and benefits of hospitalization versus outpatient treatment, the risk for further decompensation, and the patient's wishes. Medical Records Medical records reviewed: Yes I reviewed the patient's medical records. Imaging Data Radiologic Study: Attestation: I personally reviewed and interpreted this imaging study as follows: Radiologist's impression: EXAM: XR PELVIS AP CLINICAL HISTORY: trauma, pain with sitting TECHNIQUE: COMPARISON: CR,XR XR HIP RT COMPLETE AP PELVIS from 12/06/2019 CR XR SACRUM COCCYX from 03/30/2021 CR XR SACRUM COCCYX from 03/30/2021 FINDINGS: Single AP view of the pelvis was obtained along with three views of the sacrum. The sacrum is difficult to evaluate due to generalized bony demineralization. Sacral fracture not reliably excluded on these films. No pelvic fracture identified AP view. Bilateral hip prostheses are in place bilaterally and these appear seated in the acetabula E and femurs. IMPRESSION: No gross fracture seen. If there is a high clinical suspicion of sacral fracture additional evaluation with CT would be recommended. EXAM: CT PELVIC WO CLINICAL HISTORY: tailbone pain, trauma TECHNIQUE: COMPARISON: CT CT ABDOMEN PELVIS W from 03/03/2019 FINDINGS: CT examination of pelvis was without contrast administration. Urinary bladder appears intact as visualized. No adenopathy or bowel obstruction. There are bilateral hip prostheses which appear seated in the acetabulum femurs. There is deformity of the sacrum at the junction of the 3rd and 4th sacral segments, this appears to represent a fracture of uncertain age, probably acute, with some impaction at the fracture site. This was not present on prior CT examination of February 2019. IMPRESSION: Minimally displaced sacral fracture as described above, this is probably acute. HPI General Mode of arrival: ambulatory. Date/Time Provider Initiated Documentation: 03/30/21 09:17. Limitations to Documentation: no limitations. Information obtained by: patient, family, RN notes reviewed and old records reviewed. HPI Narrative: Jo Pavon is a 80-year-old woman with history of hyperlipidemia, GERD, rheumatoid arthritis presenting to emergency department with tailbone pain. Patient reports that some point between 1 and 2 weeks ago she lost her balance and fell. She believes that she landed on her left hip. Pt reports that ever since fall she has had pain in her tailbone area, worse mostly with sitting though sometimes aggravated by walking. Has been able to go about her activities as usual. She reports that fall was mechanical, had no preceding symptoms, did not lose consciousness, did not hit her head, no vomiting. She denies any other injury or pain, no back pain. No recent illness. Denies fever, SOB, cough, vomiting, diarrhea, constipation, numbness, weakness, rash. Related Data Home Medications Medication Instructions Recorded Confirmed folic acid 1 mg PO DAILY #90 tab-cap 08/21/12 03/30/21 hydroxychloroquine [Plaquenil] 0 mg PO as directed #180 tab-cap 08/21/12 03/30/21 methotrexate sodium 10 mg PO WEEKLY #36 08/21/12 03/30/21 multivitamin 1 ea PO DAILY #90 08/21/12 03/30/21 calcium carbonate [Tums] 500 mg PO PRN PRN 12/15/12 03/30/21 latanoprost 1 drp OU HS drp 02/27/16 03/30/21 acetaminophen [Tylenol] 650 mg PO Q4H PRN PRN tab 04/22/16 03/30/21 pramipexole 0.25 mg PO HS #90 tab-cap 01/27/17 03/30/21 Previous Rx's Medication Instructions Recorded acetaminophen [Tylenol] 650 mg PO Q4H PRN PRN tab 04/22/16 Allergies Allergy/AdvReac Type Severity Reaction Status Date / Time hydrocodone [From Vicodin] AdvReac Intermediate Other (See Unverified 03/30/21 09:13 Comment) lovastatin AdvReac Intermediate MUSCLE Unverified 03/30/21 09:13 ACHES oxycodone [From Percocet] AdvReac Intermediate Other (See Unverified 03/30/21 09:13 Comment) simvastatin AdvReac Intermediate MUSCLE Unverified 03/30/21 09:13 ACHES niacin AdvReac Mild MUSCLE Unverified 03/30/21 09:13 ACHES General Stated Complaint: Orthopedic MAXIMILIAN: 4 Review of Systems Narrative: Constitutional: denies fevers Eyes: denies eye pain ENT: denies ear pain, dental pain, sore throat Cardiovascular: denies chest pain, edema Respiratory: denies SOB, cough GI: denies abdominal pain, vomiting, diarrhea, constipation, pain with bowel movements : denies flank pain, dysuria, urinary changes MSK: denies back pain, neck pain, arthralgias, myalgias, reports tailbone pain Skin: denies rash Neuro: denies headaches, numbness, weakness [facility] Active Problem List (Updated 03/30/21 @ 13:05 by Dayana Cazares MD) Osteoarthritis of knee (Active 12/23/12) Rheumatoid arthritis (Active 12/23/12) Hyperlipidemia (Active) Gastroesophageal reflux disease (Active) Restless legs (Active) History of surgery (Active) Closed sacral fracture (Acute) Skin lesion (Acute) Medical History (Updated 03/30/21 @ 13:05 by Dayana Cazares MD) Chronic kidney disease, stage 3 Hypertension Nausea with vomiting Osteoporosis Periprosthetic fracture around internal prosthetic left hip joint Postoperative anemia due to acute blood loss Splenic mass Tubular adenoma of colon Weight loss Surgical History Arthroplasty (12/23/12) R total knee arthroplasty,cemented Dr Valenzuela Biopsy of breast (12/29/14) Left breast, [facility] [place], benign intraductal papilloma Colonoscopy - MAC (10/15/12) Colonoscopy - MAC (01/17/16) left hip revision (04/10/16) Dr Kang, periprosthetic fracture, revision, [facility] Tooth extraction (05/19/1963) COMPLETE UPPER AND LOWER EXTRACTIONS 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) POLO; LEFT; ALSO R HIP 01/06/08 Family History Mother , COPD at age 73. Substance abuse Father , heart at age 70. Heart disease Brother , accident at age 47. No problems noted. Social History Smoking/Tobacco Use Status: Never Smoking risk assessment performed?: Yes Alcohol Intake: current Alcohol Intake frequency: 0-2 drinks per day Alcohol type: hard liquor Drug use: Never Substance use type: does not use Do you feel safe at home: Yes Do you feel safe in your relationship?: Yes Exam Narrative Exam Narrative: Constitutional: well and [id number]-qjtjwojaq, pleasant, conversing normally HENT: head atraumatic/normocephalic/normal inspection, mucous membranes moist Eyes: conjunctiva normal, sclera normal, pupils 3mm b/l Neck: no stridor, normal ROM, trachea midline Resp: normal work of breathing, speaking in full sentences Cardio: normal rate, normal rhythm GI: abdomen soft, non-tender, non-distended Back: normal inspection, no rash, no tenderness to palpation of the lumbar spine or paraspinals, or of the sacral spine Skin: warm, dry, normal color, no rash Neuro: alert, not altered, grossly non-focal, normal tone Ext: no edema Psych: normal mood, normal affect, normal behavior Course Vital Signs Vital signs: Vital Signs Pulse 79 03/30/21 09:05 Respiratory Rate 18 03/30/21 09:05 Blood Pressure 193/84 H 03/30/21 09:05 Pulse Oximetry 98 03/30/21 09:05 Pulse 60 03/30/21 10:01 Respiratory Rate 18 03/30/21 09:05 Respiratory Effort 03/30/21 09:10 Blood Pressure 172/67 H 03/30/21 10:01 Blood Pressure Mean 93 03/30/21 10:01 Blood Pressure Position Supine 03/30/21 09:05 Pulse Oximetry 100 03/30/21 10:10 Oxygen Delivery Method Room Air 03/30/21 09:05 Oxygen Flow Rate 0 03/30/21 09:05 Pain Level 8 03/30/21 09:05 Comment 03/30/21 09:05
--- NOTE | 2021-03-30 12:32 | DI.CT_ITS ---
Exam(s) CT PELVIC WO EXAM: CT PELVIC WO CLINICAL HISTORY: tailbone pain, trauma TECHNIQUE: COMPARISON: CT CT ABDOMEN PELVIS W from 03/03/2019 FINDINGS: CT examination of pelvis was without contrast administration. Urinary bladder appears intact as visualized. No adenopathy or bowel obstruction. There are bilateral hip prostheses which appear seated in the acetabulum femurs. There is deformity of the sacrum at the junction of the 3rd and 4th sacral segments, this appears to represent a fracture of uncertain age, probably acute, with some impaction at the fracture site. Thi s was not present on prior CT examination of February 2019. IMPRESSION: Minimally displaced sacral fracture as described above, this is probably acute. RADIATION DOSE DELIVERED: 399.11mGy.cm Total DLP CTDIvol RADIATION OPTIMIZATION: All CT scans at this facility use at least one of these dose optimization te chniques: automated exposure control; mA and/or kV adjustment per patient size (includes targeted exa ms where dose is matched to clinical indication); or iterative reconstruction.
== END 2021-03-30 13:41 | disposition home or self-care (01) ==
PROVIDERS: Emergency Provider Student in an Organized Health Care Education/Training Program; PCP Physician Assistant Medical
DX: S32.19XA Other fracture of sacrum, initial encounter for closed fracture (principal); W01.0XXA Fall on same level from slipping, tripping and stumbling without subsequent striking against object, initial encounter
CPT/HCPCS: 99284; 72170; 72192; 72220; 99283

== ENCOUNTER 2021-04-20 15:03 | Outpatient (REF) | payer MEDICARE, OTHER, SELFPAY ==
[2021-04-20 14:53] LABS: Anion Gap 8.5 mmol/L (3-11); BUN 20 mg/dL (7-18); CO2 28.5 mmol/L (21.0-32.0); Calcium 9.6 mg/dL (8.5-10.1); Chloride 104 mmol/L (98-107); Estimated GFR 53.48 (mL/min/1.73m2); Glucose 85 mg/dL (74-106); Potassium 4.2 mmol/L (3.5-5.1); Sodium 141 mmol/L (136-145)
== END 2021-04-20 15:04 | disposition home or self-care (01) ==
LOC: NCHCN 15:03
PROVIDERS: PCP Physician Assistant Medical; Visit Provider Physician Assistant Medical
DX: I10 Essential (primary) hypertension (principal)
CPT/HCPCS: 80048

== ENCOUNTER 2021-08-30 02:19 | Outpatient (CLI) | payer MEDICARE, OTHER, SELFPAY ==
[2021-08-30 13:39] LABS: Abs Immature Grans 0.01 10^3/uL (0.0-0.06); Absolute Basophil Count 0.06 10^3/uL (0.0-0.2); Absolute Eosinophil Count 0.05 10^3/uL (0.0-0.7); Absolute Lymphocyte Count 1.09 10^3/uL (1.2-3.4); Absolute Monocyte Count 0.59 10^3/uL (0.1-0.8); Absolute Neutrophil Count 4.07 10^3/uL (1.2-6.7); Eosinophils % 0.9; HCT 39.4 % (36.0-46.0); HGB 12.7 g/dL (11.2-15.7); Immature Grans % 0.2; Lymphocytes % 18.6; MCH 31.6 pg (27.0-33.0); MCHC 32.2 % (32.0-36.0); MPV 9.4 fL (8.0-11.0); Monocytes % 10.1; Neutrophils % 69.2; Nucleated RBC 0 %; Platelet Count 283 10^3/uL (130-400); RBC 4.02 10^6/uL (3.93-5.22); RDW 13.2 % (11.7-14.6); RDW-SD 46.6 fL; WBC 5.87 10^3/uL (4.4-10.8)
[2021-08-30 14:32] LABS: ALT 38 U/L (14-59); AST 29 U/L (15-37); Alkaline Phosphatase 104 U/L (46-116); Anion Gap 10.7 mmol/L (3-11); BUN 25 mg/dL (7-18); Bilirubin, Total 0.5 mg/dL (0.2-1.0); C-Reactive Protein 0.06 mg/dL (0.0-0.3); CO2 26.3 mmol/L (21.0-32.0); Calcium 9.3 mg/dL (8.5-10.1); Chloride 105 mmol/L (98-107); Estimated GFR 53.48 (mL/min/1.73m2); Glucose 87 mg/dL (74-106); Sodium 142 mmol/L (136-145)
== END 2021-08-30 02:20 | disposition home or self-care (01) ==
LOC: LBO 02:19
PROVIDERS: PCP Physician Assistant Medical; Visit Provider Internal Medicine Rheumatology
DX: M05.9 Rheumatoid arthritis with rheumatoid factor, unspecified (principal); Z79.899 Other long term (current) drug therapy
CPT/HCPCS: 36415; 80053; 85025; 86140

== ENCOUNTER 2021-10-14 08:37 | Emergency (ER) | payer MEDICARE, OTHER, SELFPAY ==
[2021-10-14 08:45] VITALS: BP 152/70; PULSE 91; RESP 16; TEMP 36.4; O2SAT 99
--- NOTE | 2021-10-14 09:44 | ED.GENADUL_ITS ---
Discharge Plan Disposition Patient Disposition: HOME Condition: Stable Discharge Details Clinical Impression: Coccyx pain Primary Care Provider: Marlene Pereira ED Provider: Víctor Rose Home Meds and New Rx's Prescriptions: Continued multivitamin 1 EACH tablet 1 ea PO DAILY Qty: 90 methotrexate sodium 2.5 MG tablet 10 mg PO WEEKLY Qty: 36 Label Comments: reduce dose due to elevated creatinine 09/17/16 Rx Instructions: Dr. Meadows; dose decr 09/2016 due to Cr folic acid 1 MG tablet 1 mg PO DAILY Qty: 90 hydroxychloroquine [Plaquenil] 200 MG tablet 0 mg PO as directed Qty: 180 Label Comments: takes 1 tablet in AM, 1/2 tablet in evening Rx Instructions: 1 tab AM, 1/[address] Meadows 6.26.18 pt states she believes she only takes in AM.HE latanoprost 2.5 ML drops 1 drp OU HS pramipexole 0.25 MG tablet 0.25 mg PO HS Qty: 90 Rx Instructions: for restless leg syndrome calcium carbonate [Tums] 200 MG tablet,chewable 500 mg PO PRN PRN acetaminophen [Tylenol] 325 MG tablet 650 mg PO Q4H PRN PRN0RF lisinopril 10 mg tablet 10 tab PO DAILY Discharge Instructions Instructions: Coccyx Injury (ED) Additional Instructions: X-ray does not reveal any obvious fracture. Cool and/or warm compresses every 2 hours for 20 minutes. Continue [id number] Tylenol as directed. Watch for new or worsening symptoms and return to the ER for any concerns. Lastly, please contact your primary care provider tomorrow to discuss your ER visit and need for outpatient reevaluation Medical Decision Making This is an 81-year-old female, not anticoagulated, presenting to the ER for evaluation of potential tailbone injury. She states that yesterday she slipped when getting up off the commode from a sitting position, landing downward onto her buttocks. She denies any other injury. She does tell me that she fairly recently had a similar injury, told she had a slightly broken tailbone. She did not like using the donut sitting device that was provided. She has not taken any lqbr-oof-auknuqs medications for her symptoms. Denies striking her head head, LOC, headache, neck pain, chest pain, shortness of breath, any symptoms prior to the fall, numbness or weakness. Reports baseline paresthesias to her left leg status post surgery nearly 6 years ago. Clinically she appears well, nontoxic. Plan is to give p.o. Tylenol and obtain an x-ray of her sacrum- coccyx. Patient and daughter are comfortable with this plan X-ray unremarkable for acute pathology per radiology. MRI may be indicated if symptoms were to persist. Clinically patient appears well, nontoxic, neurologically intact. Patient reports some relief with Tylenol. She has no additional questions or concerns, relieved the x-ray is unremarkable, and comfortable discharge Standard discharge and return precautions were provided. Patient understands, is agreeable to this plan, and has no additional questions or concerns upon discharge. This documentation was generated using [employer] system, please disregard any oddities of phrase or misspellings. Medical Records Medical records reviewed: Yes I reviewed the patient's medical records. Imaging Data Radiologic Study: Attestation: I personally reviewed and interpreted this imaging study as follows: Imaging: X-Ray Radiologist's impression: PROCEDURE INFORMATION: Exam: XR Sacrum and Coccyx, 2 or More Views Exam date and time: 10/14/2021 10:01 AM Age: 81 years old Clinical indication: Mass, lump, or swelling sacral or coccyx; Prior surgery; Surgery date: 6+ months; Patient HX: Fall/pain TECHNIQUE: Imaging protocol: XR of the sacrum and coccyx, 2 or more views. COMPARISON: XR SACRUM COCCYX 03/30/2021 11:24 AM FINDINGS: Bones/joints: No definite fracture is identified. The bones again appear osteopenic. Bilateral hip prostheses are again present. Lower lumbar spondylosis is again partially included. Soft tissues: The soft tissues appear grossly unremarkable. IMPRESSION: No definite fracture identified with the bones appearing osteopenic. MRI would be more sensitive to sacral fracture as clinically appropriate. Thank you for allowing us to participate in the care of your patient. HPI General Mode of arrival: ambulatory . Date/Time Provider Initiated Documentation: 10/14/21 09:03 . Limitations to Documentation: no limitations . Information obtained by: patient and family . History of Present Illness 81 year old F presents to the emergency department with the chief complaint of Tailbone pain, described as moderate, with intensity rated at 6. Quality is described as aching, and is localized to the buttocks. Patient reports no radiation. Patient started experiencing this day(s) (1) and it has been constant. Immobilization improves symptom(s), Movement worsens symptoms . Patient notes no other symptoms.. Patient did receive the following treatmen ts prior to arrival, none Related Data Home Medications Medication Instructions Recorded Confirmed folic acid 1 mg tablet 1 mg PO DAILY #90 tab-caps 08/21/12 10/14/21 hydroxychloroquine 200 mg tablet 0 mg PO as directed #180 tab-caps 08/21/12 10/14/21 (Plaquenil) methotrexate sodium 2.5 mg tablet 10 mg PO WEEKLY ##36 08/21/12 10/14/21 multivitamin 1 ea PO DAILY ##90 08/21/12 10/14/21 calcium carbonate 200 mg calcium 500 mg PO PRN PRN 12/15/12 10/14/21 (500 mg) chewable tablet (Tums) latanoprost 0.005 % eye drops 1 drp OU HS 02/27/16 10/14/21 acetaminophen 325 mg tablet 650 mg PO Q4H PRN PRN 04/22/16 10/14/21 (Tylenol) pramipexole 0.25 mg tablet 0.25 mg PO HS #90 tab-caps 01/27/17 10/14/21 lisinopril 10 mg tablet 10 tab PO DAILY 10/14/21 10/14/21 Previous Rx's Medication Instructions Recorded acetaminophen 325 mg tablet 650 mg PO Q4H PRN PRN 04/22/16 (Tylenol) Allergies Allergy/AdvReac Type Severity Reaction Status Date / Time hydrocodone [From Vicodin] AdvReac Intermediate N/V Unverified 10/14/21 08:55 lovastatin AdvReac Intermediate MUSCLE Unverified 10/14/21 08:51 ACHES oxycodone [From Percocet] AdvReac Intermediate N/V Unverified 10/14/21 08:55 simvastatin AdvReac Intermediate MUSCLE Unverified 10/14/21 08:51 ACHES niacin AdvReac Mild MUSCLE Unverified 10/14/21 08:51 ACHES General Stated Complaint: Nk/Back Pain MAXIMILIAN: 3 Review of Systems Constitutional Constitutional: Denies fever(s) ENT Ears, Nose, Mouth, and Throat: Denies neck pain Cardiovascular Cardiovascular: Denies chest pain and Denies dyspnea Respiratory Respiratory: Denies cough and Denies dyspnea Gastrointestinal Gastrointestinal: Denies abdominal pain, Denies nausea and Denies vomiting Genitourinary Genitourinary: Denies dysuria Musculoskeletal Musculoskeletal: Reports back pain, Denies deformity, Denies neck pain, Denies numbness, Reports stiffness and Reports tingling (L leg, baseline) Integumentary/Breasts Skin/Breast: Denies rash Neurologic Neurologic: Denies numbness and Reports tingling (L leg, baseline) [facility] All Active Problems (Updated 10/14/21 @ 10:43 by LARRY Delaney) Osteoarthritis of knee (Active 12/23/12) Rhematoid arthritis and DJD right knee wqith mild valgus deformity and flexion contracture. Right total knee arthroplasty, cemented by Dr. Case Valenzuela 12-23-2012 Rheumatoid arthritis (Active 12/23/12) Hyperlipidemia (Active) Gastroesophageal reflux disease (Active) Restless legs (Active) Managed with Sinemet History of surgery (Active) T & A. Appendectomy. [facility] arthroplasty 12/2007. [facility] arthroplasty 03/2012. Right distal clavical excision 11/05/2009. Right bunionectomy x 2. Right leg venous ligation. Colonoscopy October 15 - found to have tubular adenoma. Closed sacral fracture (Acute) Coccyx pain (Acute) Skin lesion (Acute) Medical History (Updated 10/14/21 @ 10:43 by LARRY Delaney) Chronic kidney disease, stage 3 Hypertension Nausea with vomiting Osteoporosis Periprosthetic fracture around internal prosthetic left hip joint Postoperative anemia due to acute blood loss Splenic mass Tubular adenoma of colon Weight loss Surgical History Arthroplasty (12/23/12) R total knee arthroplasty,cemented Dr Valenzuela Biopsy of breast (12/29/14) Left breast, [facility] [place], benign intraductal papilloma Colonoscopy - MAC (10/15/12) Colonoscopy - MAC (01/17/16) left hip revision (04/10/16) Dr Kang, periprosthetic fracture, revision, [facility] Tooth extraction (05/19/1963) COMPLETE UPPER AND LOWER EXTRACTIONS 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) POLO; LEFT; ALSO R HIP 01/06/08 Family History Mother , COPD at age 73. Substance abuse Father , heart at age 70. Heart disease Brother , accident at age 47. No problems noted. Social History Smoking/Tobacco Use Status: Never Smoking risk assessment performed?: Yes Alcohol Intake: current Alcohol Intake frequency: 0-2 drinks per day Alcohol type: hard liquor Drug use: Never Substance use type: does not use Do you feel safe at home: Yes Do you feel safe in your relationship?: Yes Exam Const General: cooperative, healthy appearing, comfortable and no acute distress Orientation: alert and awake [facility] Head: normal to inspection, normocephalic and atraumatic Mouth: moist mucous membranes Eyes General: appearance normal, both eyes and all related structures Conjunctivae: conjunctivae normal Neck Neck: normal visual inspection, full ROM, trachea midline, supple and nontender Resp Effort & Inspection: normal respiratory effort and able to speak in complete sentences Auscultation: clear to auscultation bilaterally Cardio Rate: regular rate Rhythm: regular rhythm GI Palpation: soft and nontender Back/Spine/Pelvis Back: no CVA tenderness and No back tenderness Coccyx: tenderness Skin General skin exam: no rashes or lesions noted Neuro General: patient alert, patient awake, patient oriented x3, moves all extremit ies and no focal motor deficits Cognition: normal cognition Speech: speech normal Gait: antalgic Sensory Exam: no sensory deficits noted Extrem General: normal to inspection, full ROM and capillary refill normal Psych Appearance: grossly normal Mental Status: mental status grossly normal Course Vital Signs Vital signs: Vital Signs Temperature 36.4 C L 10/14/21 08:45 Pulse 91 H 10/14/21 08:45 Respiratory Rate 16 10/14/21 08:45 Blood Pressure 152/70 H 10/14/21 08:45 Pulse Oximetry 99 10/14/21 08:45 Temperature 36.4 C L 10/14/21 08:45 Temperature Source Oral 10/14/21 08:45 Pulse 91 H 10/14/21 08:45 Respiratory Rate 16 10/14/21 08:45 Respiratory Effort 10/14/21 08:45 Blood Pressure 152/70 H 10/14/21 08:45 Blood Pressure Position Sitting 10/14/21 08:45 Pulse Oximetry 99 10/14/21 08:45 Oxygen Delivery Method Room Air 10/14/21 08:45 Oxygen Flow Rate 0 10/14/21 08:45 Pain Level 4 10/14/21 08:45
--- NOTE | 2021-10-14 09:45 | DI.RAD_ITS ---
Exam(s) XR SACRUM COCCYX EXAM: XR SACRUM COCCYX CLINICAL HISTORY: fall/pain. TECHNIQUE: 2D digital imaging was performed. Four images were obtained. COMPARISON: CR XR SACRUM COCCYX from 03/30/2021 FINDINGS: BONES: No acute fracture is present. No bony destructive lesion is seen. The bones are osteopenic. JOINTS: No dislocation present. The patient has bilateral incompletely imaged total hip replacements . SOFT TISSUE: Normal. IMPRESSION: No acute fracture is identified. DATA REPOSITORY: RADIATION DOSE DELIVERED:
[2021-10-14] MEDS: Acetaminophen 325 MG TAB (10:28)
--- NOTE | 2021-10-14 10:29 | DI.VRAD_ITS ---
PROCEDURE INFORMATION: Exam: XR Sacrum and Coccyx, 2 or More Views Exam date and time: 10/14/2021 10:01 AM Age: 81 years old Clinical indication: Mass, lump, or swelling sacral or coccyx; Prior surgery; Surgery date: 6+ months; Patient HX: Fall/pain TECHNIQUE: Imaging protocol: XR of the sacrum and coccyx, 2 or more views. COMPARISON: XR SACRUM COCCYX 03/30/2021 11:24 AM FINDINGS: Bones/joints: No definite fracture is identified. The bones again appear osteopenic. Bilateral hip prostheses are again present. Lower lumbar spondylosis is again partially included. Soft tissues: The soft tissues appear grossly unremarkable. IMPRESSION: No definite fracture identified with the bones appearing osteopenic. MRI would be more sensitive to sacral fracture as clinically appropriate. Dictated and Authenticated by: Michael Monroy MD. Ordering:YARED Renee MD
== END 2021-10-14 10:47 | disposition home or self-care (01) ==
PROVIDERS: Emergency Provider Physician Assistant; PCP Physician Assistant Medical
DX: S39.82XA Other specified injuries of lower back, initial encounter (principal); W01.0XXA Fall on same level from slipping, tripping and stumbling without subsequent striking against object, initial encounter
CPT/HCPCS: 99283; 72220

== ENCOUNTER 2021-12-14 02:00 | Outpatient (CLI) | payer MEDICARE, OTHER, SELFPAY ==
[2021-12-14 14:50] LABS: Abs Immature Grans 0.02 10^3/uL (0.0-0.06); Absolute Basophil Count 0.05 10^3/uL (0.0-0.2); Absolute Eosinophil Count 0.05 10^3/uL (0.0-0.7); Absolute Lymphocyte Count 1.01 10^3/uL (1.2-3.4); Absolute Monocyte Count 0.48 10^3/uL (0.1-0.8); Absolute Neutrophil Count 4.44 10^3/uL (1.2-6.7); Basophils % 0.8; Eosinophils % 0.8; HCT 37.7 % (36.0-46.0); HGB 12.7 g/dL (11.2-15.7); Immature Grans % 0.3; Lymphocytes % 16.7; MCHC 33.7 % (32.0-36.0); MCV 95 fL (80-95); MPV 10.2 fL (8.0-11.0); Monocytes % 7.9; Neutrophils % 73.5; Platelet Count 294 10^3/uL (130-400); RBC 3.97 10^6/uL (3.93-5.22); RDW 14.8 % (11.7-14.6); RDW-SD 50.6 fL; WBC 6.05 10^3/uL (4.4-10.8)
[2021-12-14 15:29] LABS: ALT 46 U/L (14-59); AST 26 U/L (15-37); Albumin 3.7 g/dL (3.4-5.0); Alkaline Phosphatase 142 U/L (46-116); Anion Gap 8.5 mmol/L (3-11); BUN 24 mg/dL (7-18); Bilirubin, Total 0.5 mg/dL (0.2-1.0); C-Reactive Protein 0.06 mg/dL (0.0-0.3); CO2 26.5 mmol/L (21.0-32.0); Calcium 9.3 mg/dL (8.5-10.1); Chloride 105 mmol/L (98-107); Estimated GFR 53.35 (mL/min/1.73m2); Glucose 108 mg/dL (74-106); Potassium 3.9 mmol/L (3.5-5.1); Sodium 140 mmol/L (136-145); Total Protein 7.2 g/dL (6.4-8.2)
== END 2021-12-14 02:01 | disposition home or self-care (01) ==
LOC: LBO 02:01
PROVIDERS: PCP Physician Assistant Medical; Visit Provider Internal Medicine Rheumatology
DX: M05.9 Rheumatoid arthritis with rheumatoid factor, unspecified (principal); Z79.899 Other long term (current) drug therapy
CPT/HCPCS: 36415; 80053; 85025; 86140

== ENCOUNTER → 2021-12-26 02:05 | Outpatient (CLI) | payer MEDICARE, OTHER, SELFPAY ==
--- NOTE | 2021-12-26 | DI.DEXA_ITS ---
Exam(s) XR DEXA BONE DENSITY W/WO OSCAR EXAM: XR DEXA BONE DENSITY W/WO OSCAR CLINICAL HISTORY: POSTMENOPAUSAL STATE, Z78.0, OSTEOPOROSIS, M81.0 TECHNIQUE: COMPARISON: CT CT ABDOMEN PELVIS W from 03/03/[address] PELVIC WO from 03/30/2021 CR XR SACRUM COCCYX from 03/30/2021 CR,XR XR SACRUM COCCYX from 10/14/2021 FINDINGS: DEXA scan was performed according to the usual protocol. Please see the accompanying data sheets. H ip scanning was obtained due to the presence of bilateral hip prostheses. Lateral vertebral scanogram shows a mild anterior compression fracture of L1 which is chronic and was previously present on CT of February 2019. Lumbar spine scanning shows T-score -0.9. This is unchanged from prior examination of October 2013. Left forearm scanning shows T-score -4.5. Prior examination of October 2013 showed left forearm T-score -4.1. IMPRESSION: Measurements are consistent with osteoporosis according to the WHO criteria. Chronic L1 vertebral compression fracture noted. Prior CT also showed T12 vertebral compression frac ture. RADIATION DOSE DELIVERED: Total DLP
== END ==
PROVIDERS: PCP Physician Assistant Medical; Visit Provider Physician Assistant Medical
DX: Z78.0 Asymptomatic menopausal state (principal); Z13.820 Encounter for screening for osteoporosis; M81.0 Age-related osteoporosis without current pathological fracture; S32.010A Wedge compression fracture of first lumbar vertebra, initial encounter for closed fracture; X58.XXXA Exposure to other specified factors, initial encounter
CPT/HCPCS: 77080

== ENCOUNTER 2022-03-21 19:15 | Emergency (ER) | payer MEDICARE, OTHER, SELFPAY ==
[2022-03-21 19:58] VITALS: BP 168/72; PULSE 80; RESP 16; TEMP 36.6; O2SAT 99
--- NOTE | 2022-03-21 20:00 | DI.RAD_ITS ---
Exam(s) XR ANKLE LT COMPLETE EXAM: XR ANKLE LT COMPLETE CLINICAL HISTORY: lateral pain. TECHNIQUE: 2D digital imaging was performed. COMPARISON: No exams were available for comparison FINDINGS: 3 views Mild soft tissue swelling noted laterally but no evidence of acute fracture or widening of the mortis e. Talar dome unremarkable. Base of the 5th metatarsal unremarkable. No osseous lesions. IMPRESSION: No significant osseous findings. DATA REPOSITORY: RADIATION DOSE DELIVERED:
--- NOTE | 2022-03-21 20:05 | W.ED.GENAD ---
Discharge Plan Disposition Patient Disposition: HOME Condition: Improving Discharge Details Clinical Impression: Sprain of ankle, left Primary Care Provider: Marlene Pereira ED Provider: Sukhwinder Carreno Home Meds and New Rx's Prescriptions: Continued multivitamin 1 EACH tablet 1 ea PO DAILY Qty: 90 methotrexate sodium 2.5 MG tablet 10 mg PO WEEKLY Qty: 36 Label Comments: reduce dose due to elevated creatinine 09/17/16 Rx Instructions: Dr. Meadows; dose aprr 09/2016 due to Cr folic acid 1 MG tablet 1 mg PO DAILY Qty: 90 hydroxychloroquine [Plaquenil] 200 MG tablet 0 mg PO as directed Qty: 180 Label Comments: takes 1 tablet in AM, 1/2 tablet in evening Rx Instructions: 1 tab AM, 1/[address] Meadows 6.26.18 pt states she believes she only takes in AM.HE latanoprost 2.5 ML drops 1 drp OU HS pramipexole 0.25 MG tablet 0.25 mg PO HS Qty: 90 Rx Instructions: for restless leg syndrome calcium carbonate [Tums] 200 MG tablet,chewable 500 mg PO PRN PRN acetaminophen [Tylenol] 325 MG tablet 650 mg PO Q4H PRN PRN0RF lisinopril 10 mg tablet 10 tab PO DAILY Discharge Instructions Instructions: Ankle Sprain (ED) Additional Instructions: May remove boot at bedtime and for bathing. May remove to apply ice to decrease pain and swelling. You may have spreading of bruising throughout the ankle and foot. Tylenol and/or ibuprofen as needed for pain. Continue your routine medications. Anticipate 7 to 10 days time in walking boot. We have placed a referral to orthopedics on your behalf. Please call the office for a follow-up time. The office #[phone]. Discharge Data Discharge Date/Time-TO BE ENTERED AT DEPARTURE: 03/21/22 21:56 Medical Decision Making 81-year-old female with left ankle pain after she twisted the joint and stumbled to the floor over a threshold on level ground today. She was not injured in any other way. She developed left lateral malleolus pain and swelling. Referred for x-ray: No evidence of bony injury. Will trial walking boot HPI General Mode of arrival: ambulatory. Date/Time Provider Initiated Documentation: 03/21/22 20:05. Limitations to Documentation: no limitations. Information obtained by: patient. History of Present Illness 81 year old F presents to the emergency department with the chief complaint of Left ankle pain after fall this afternoon/twist, described as mild, and is localized to the left and lower extremity. Patient reports no radiation. Patient started experiencing this hour(s) and it has been constant. Rest improves symptom(s), Movement worsens symptoms . Patient notes denies syncope and weakness. Patient did receive the following treatments prior to arrival, none Related Data Home Medications Medication Instructions Recorded Confirmed folic acid 1 mg tablet 1 mg PO DAILY #90 tab-caps 08/21/12 10/14/21 hydroxychloroquine 200 mg tablet 0 mg PO as directed #180 tab-caps 08/21/12 10/14/21 (Plaquenil) methotrexate sodium 2.5 mg tablet 10 mg PO WEEKLY ##36 08/21/12 10/14/21 multivitamin 1 ea PO DAILY ##90 08/21/12 10/14/21 calcium carbonate 200 mg calcium 500 mg PO PRN PRN 12/15/12 10/14/21 (500 mg) chewable tablet (Tums) latanoprost 0.005 % eye drops 1 drp OU HS 02/27/16 10/14/21 acetaminophen 325 mg tablet 650 mg PO Q4H PRN PRN 04/22/16 10/14/21 (Tylenol) pramipexole 0.25 mg tablet 0.25 mg PO HS #90 tab-caps 01/27/17 10/14/21 lisinopril 10 mg tablet 10 tab PO DAILY 10/14/21 10/14/21 Previous Rx's Medication Instructions Recorded acetaminophen 325 mg tablet 650 mg PO Q4H PRN PRN 04/22/16 (Tylenol) Allergies Allergy/AdvReac Type Severity Reaction Status Date / Time hydrocodone [From Vicodin] AdvReac Intermediate N/V Unverified 10/14/21 08:55 lovastatin AdvReac Intermediate MUSCLE Unverified 10/14/21 08:51 ACHES oxycodone [From Percocet] AdvReac Intermediate N/V Unverified 10/14/21 08:55 simvastatin AdvReac Intermediate MUSCLE Unverified 10/14/21 08:51 ACHES niacin AdvReac Mild MUSCLE Unverified 10/14/21 08:51 ACHES General Stated Complaint: Orthopedic MAXIMILIAN: 4 Review of Systems Narrative: Otherwise healthy. No other injury. [facility] Active Problems (Updated 03/21/22 @ 21:12 by Sukhwinder Carreno MD) Osteoarthritis of knee (Active 12/23/12) Rhematoid arthritis and DJD right knee wqith mild valgus deformity and flexion contracture. Right total knee arthroplasty, cemented by Dr. Case Valenzuela 12-23-2012 Rheumatoid arthritis (Active 12/23/12) Hyperlipidemia (Active) Gastroesophageal reflux disease (Active) Restless legs (Active) Managed with Sinemet History of surgery (Active) T & A. Appendectomy. RTH arthroplasty 12/2007. LTH arthroplasty 03/2012. Right distal clavical excision 11/05/2009. Right bunionectomy x 2. Right leg venous ligation. Colonoscopy October 15 - found to have tubular adenoma. Closed sacral fracture (Acute) Sprain of ankle, left (Acute) Skin lesion (Acute) Medical History (Updated 03/21/22 @ 21:12 by Sukhwinder Carreno MD) Chronic kidney disease, stage 3 Hypertension Nausea with vomiting Osteoporosis Periprosthetic fracture around internal prosthetic left hip joint Postoperative anemia due to acute blood loss Splenic mass Tubular adenoma of colon Weight loss Surgical History Arthroplasty (12/23/12) R total knee arthroplasty,cemented Dr Valenzuela Biopsy of breast (12/29/14) Left breast, [facility] [place], benign intraductal papilloma Colonoscopy - MAC (10/15/12) Colonoscopy - MAC (01/17/16) left hip revision (04/10/16) Dr Kang, periprosthetic fracture, revision, [facility] Tooth extraction (05/19/1963) COMPLETE UPPER AND LOWER EXTRACTIONS 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) POLO; LEFT; ALSO R HIP 01/06/08 Family History Mother , COPD at age 73. Substance abuse Father , heart at age 70. Heart disease Brother , accident at age 47. No problems noted. Social History Smoking/Tobacco Use Status: Never Smoking risk assessment performed?: Yes Alcohol Intake: current Alcohol Intake frequency: 0-2 drinks per day Alcohol type: hard liquor Drug use: Never Substance use type: does not use Do you feel safe at home: Yes Do you feel safe in your relationship?: Yes Exam Narrative Exam Narrative: GEN: awake, alert, oriented 3. Pleasant, well groomed, interactive. HEAD: Normocephalic, atraumatic ENT: Mucous membranes moist, oropharynx unremarkable, External ear exam unremarkable EYES: PERRL, EOMI NECK: Full ROM, no BUTCH, no menigismus CHEST/RESP: No respiratory distress EXT: Full ROM, edematous left lateral malleolus with tenderness present. Palpable DP. No bony crepitus Neuro: Grossly normal neurologic exam, conversant, interactive. Psych: Speech fluent, thoughts congruent, affect normal Course Vital Signs Vital signs: Vital Signs Temperature 36.6 C 03/21/22 19:58 Pulse 80 03/21/22 19:58 Respiratory Rate 16 03/21/22 19:58 Blood Pressure 168/72 H 03/21/22 19:58 Pulse Oximetry 99 03/21/22 19:58 Temperature 36.6 C 03/21/22 19:58 Temperature Source Oral 03/21/22 19:58 Pulse 80 03/21/22 19:58 Respiratory Rate 16 03/21/22 19:58 Respiratory Effort 03/21/22 20:03 Blood Pressure 168/72 H 03/21/22 19:58 Blood Pressure Position Sitting 03/21/22 19:58 Pulse Oximetry 99 03/21/22 19:58 Oxygen Delivery Method Room Air 03/21/22 19:58 Oxygen Flow Rate 0 03/21/22 19:58 Pain Level 5 03/21/22 19:58
--- NOTE | 2022-03-21 21:14 | DI.VRAD_ITS ---
PROCEDURE INFORMATION: Exam: XR Left Ankle Exam date and time: 03/21/2022 8:54 PM Age: 81 years old Clinical indication: Other: Lateral pain TECHNIQUE: Imaging protocol: Radiologic exam of the Left ankle. Views: 3 or more views. COMPARISON: No relevant prior studies available. FINDINGS: Bones/joints: Question joint effusion. No acute fracture or dislocation. Mild calcaneal enthesophyte/spur Soft tissues: Swelling noted laterally and anteriorly IMPRESSION: Swelling as described and possible joint effusion. No acute fracture detected Dictated and Authenticated by: Aayush Mike MD. Ordering:KATYA Pretty MD
--- NOTE | 2022-03-30 08:13 | NUR.NOTE ---
Nursing Note: Accessed patient chart to print provider note to fax to [facility] for billing purposes.
== END 2022-03-21 21:56 | disposition home or self-care (01) ==
PROVIDERS: Emergency Provider Emergency Medicine; PCP Physician Assistant Medical
DX: S93.492A Sprain of other ligament of left ankle, initial encounter (principal); X50.1XXA Overexertion from prolonged static or awkward postures, initial encounter
CPT/HCPCS: 29515; 99283; 73610; 99282

== ENCOUNTER 2022-06-20 04:21 | Outpatient (CLI) | payer MEDICARE, OTHER, SELFPAY ==
[2022-06-20 13:37] LABS: Abs Immature Grans 0.02 10^3/uL (0.0-0.06); Absolute Basophil Count 0.06 10^3/uL (0.0-0.2); Absolute Eosinophil Count 0.06 10^3/uL (0.0-0.7); Absolute Lymphocyte Count 0.95 10^3/uL (1.2-3.4); Absolute Monocyte Count 0.52 10^3/uL (0.1-0.8); Absolute Neutrophil Count 5.04 10^3/uL (1.2-6.7); Basophils % 0.9; Eosinophils % 0.9; HCT 36.5 % (36.0-46.0); HGB 12.2 g/dL (11.2-15.7); Immature Grans % 0.3; Lymphocytes % 14.3; MCH 31.8 pg (27.0-33.0); MCHC 33.4 % (32.0-36.0); MCV 95 fL (80-95); MPV 9.8 fL (8.0-11.0); Monocytes % 7.8; Neutrophils % 75.8; Platelet Count 297 10^3/uL (130-400); RBC 3.84 10^6/uL (3.93-5.22); RDW 14.1 % (11.7-14.6); WBC 6.65 10^3/uL (4.4-10.8)
[2022-06-20 13:48] LABS: ALT 31 U/L (14-59); AST 29 U/L (15-37); Albumin 3.7 g/dL (3.4-5.0); Alkaline Phosphatase 93 U/L (46-116); Anion Gap 7.7 mmol/L (3-11); BUN 32 mg/dL (7-18); Bilirubin, Total 0.4 mg/dL (0.2-1.0); CO2 29.3 mmol/L (21.0-32.0); CREATININE 1.2 mg/dL (0.55-1.02); Calcium 9.8 mg/dL (8.5-10.1); Chloride 107 mmol/L (98-107); Estimated GFR 45.76 (mL/min/1.73m2); Glucose 113 mg/dL (74-106); Potassium 4.2 mmol/L (3.5-5.1); Sodium 144 mmol/L (136-145); Total Protein 7.1 g/dL (6.4-8.2)
[2022-06-20 13:49] LABS: C-Reactive Protein < 0.05 mg/dL (0.0-0.3)
== END 2022-06-20 04:22 | disposition home or self-care (01) ==
LOC: LBO 04:22
PROVIDERS: PCP Physician Assistant Medical; Visit Provider Internal Medicine Rheumatology
DX: M05.9 Rheumatoid arthritis with rheumatoid factor, unspecified (principal); Z79.899 Other long term (current) drug therapy
CPT/HCPCS: 36415; 80053; 85025; 86140

== ENCOUNTER 2022-11-27 02:37 | Outpatient (CLI) | payer MEDICARE, OTHER, SELFPAY ==
[2022-11-27 07:39] LABS: Abs Immature Grans 0.01 10^3/uL (0.0-0.06); Absolute Basophil Count 0.06 10^3/uL (0.0-0.2); Absolute Eosinophil Count 0.09 10^3/uL (0.0-0.7); Absolute Lymphocyte Count 1.09 10^3/uL (1.2-3.4); Absolute Monocyte Count 0.42 10^3/uL (0.1-0.8); Basophils % 1.2; Eosinophils % 1.8; HCT 39.6 % (36.0-46.0); HGB 12.9 g/dL (11.2-15.7); Immature Grans % 0.2; Lymphocytes % 22.4; MCHC 32.6 % (32.0-36.0); MCV 92 fL (80-95); MPV 9.2 fL (8.0-11.0); Monocytes % 8.6; Neutrophils % 65.8; Platelet Count 243 10^3/uL (130-400); RDW 14.2 % (11.7-14.6); RDW-SD 47.5 fL; WBC 4.87 10^3/uL (4.4-10.8)
[2022-11-27 07:52] LABS: Hemoglobin A1C 5.6 % (<5.7)
[2022-11-27 08:17] LABS: ALT 37 U/L (14-59); AST 30 U/L (15-37); Albumin 3.8 g/dL (3.4-5.0); Alkaline Phosphatase 87 U/L (46-116); Anion Gap 9.7 mmol/L (3-11); BUN 30 mg/dL (7-18); Bilirubin, Total 0.8 mg/dL (0.2-1.0); CO2 27.3 mmol/L (21.0-32.0); CREATININE 1.1 mg/dL (0.55-1.02); Calcium 9.3 mg/dL (8.5-10.1); Chloride 107 mmol/L (98-107); Estimated GFR 50.48 (mL/min/1.73m2); Glucose 93 mg/dL (74-106); Potassium 4.3 mmol/L (3.5-5.1); Sodium 144 mmol/L (136-145); Total Protein 7.2 g/dL (6.4-8.2)
[2022-11-27 08:18] LABS: C-Reactive Protein < 0.05 mg/dL (0.0-0.3)
[2022-11-27 08:55] LABS: Calculated LDL 131 mg/dL (<100); Cholesterol 224 mg/dL (<200); HDL Cholesterol 80 mg/dL (40-60); Triglyceride 66 mg/dL (<150)
== END 2022-11-27 02:38 | disposition home or self-care (01) ==
LOC: LBO 02:38
PROVIDERS: Internal Medicine Rheumatology; PCP Physician Assistant Medical; Visit Provider Physician Assistant Medical
DX: I10 Essential (primary) hypertension (principal); R73.9 Hyperglycemia, unspecified; M05.9 Rheumatoid arthritis with rheumatoid factor, unspecified; Z79.899 Other long term (current) drug therapy
CPT/HCPCS: 36415; 80053; 80061; 83036; 85025; 86140

== ENCOUNTER 2022-12-09 04:02 | Outpatient (RCR) | payer MEDICARE, OTHER, SELFPAY ==
[2022-12-09] MEDS: ZOLEDRONIC ACID/MANNITOL/WATER 5 MG/100 ML BTL 300 MG IVPB (07:44)
[2022-12-09] MEDS: Normal Saline Flush 10 ML SYR IVP (07:44)
== END 2022-12-16 23:59 | disposition home or self-care (01) ==
LOC: INF 04:02
PROVIDERS: PCP Physician Assistant Medical; Visit Provider Nurse Practitioner Acute Care
DX: M81.0 Age-related osteoporosis without current pathological fracture (principal)
CPT/HCPCS: 96365; J3489

== ENCOUNTER 2023-06-18 13:17 | Outpatient (CLI) | payer MEDICARE, OTHER, SELFPAY ==
[2023-06-18 10:57] LABS: Abs Immature Grans 0.02 10^3/uL (0.0-0.06); Absolute Basophil Count 0.05 10^3/uL (0.0-0.2); Absolute Eosinophil Count 0.05 10^3/uL (0.0-0.7); Absolute Lymphocyte Count 1.36 10^3/uL (1.2-3.4); Absolute Neutrophil Count 4.38 10^3/uL (1.2-6.7); Basophils % 0.8; Eosinophils % 0.8; HCT 39.6 % (36.0-46.0); HGB 13.2 g/dL (11.2-15.7); Immature Grans % 0.3; Lymphocytes % 21.7; MCH 29.7 pg (27.0-33.0); MCHC 33.3 % (32.0-36.0); MCV 89 fL (80-95); MPV 10.1 fL (8.0-11.0); Monocytes % 6.4; Platelet Count 286 10^3/uL (130-400); RBC 4.45 10^6/uL (3.93-5.22); RDW 14.4 % (11.7-14.6); RDW-SD 46.8 fL; WBC 6.26 10^3/uL (4.4-10.8)
[2023-06-18 11:14] LABS: ALT 29 U/L (14-59); AST 24 U/L (15-37); Albumin 3.5 g/dL (3.4-5.0); Alkaline Phosphatase 72 U/L (46-116); BUN 26 mg/dL (7-18); Bilirubin, Total 0.6 mg/dL (0.2-1.0); CREATININE 1.1 mg/dL (0.55-1.02); Calcium 9.4 mg/dL (8.5-10.1); Chloride 106 mmol/L (98-107); Estimated GFR 50.48 (mL/min/1.73m2); Glucose 163 mg/dL (74-106); Potassium 4.4 mmol/L (3.5-5.1); Sodium 142 mmol/L (136-145); Total Protein 7.2 g/dL (6.4-8.2)
[2023-06-18 11:15] LABS: C-Reactive Protein < 0.05 mg/dL (0.0-0.3)
== END 2023-06-18 13:18 | disposition home or self-care (01) ==
LOC: LBO 13:18
PROVIDERS: PCP Physician Assistant Medical; Visit Provider Internal Medicine Rheumatology
DX: M05.79 Rheumatoid arthritis with rheumatoid factor of multiple sites without organ or systems involvement (principal); Z79.899 Other long term (current) drug therapy
CPT/HCPCS: 36415; 80053; 85025; 86140

== ENCOUNTER 2023-07-15 17:24 | Outpatient (REF) | payer MEDICARE, OTHER, SELFPAY | END 2023-07-15 17:25 | disposition home or self-care (01) | LOC: NCHCN 17:24 | PROVIDERS: PCP Physician Assistant Medical; Visit Provider Physician Assistant Medical | DX: F44.89 Other dissociative and conversion disorders (principal) | CPT/HCPCS: 87086 ==

== ENCOUNTER → 2023-08-05 03:28 | Outpatient (CLI) | payer MEDICARE, OTHER, SELFPAY ==
--- NOTE | 2023-08-05 | DI.MRI_ITS ---
Exam(s) MR BRAIN WO EXAM: MR BRAIN WO CLINICAL HISTORY: Unspecified dementia, unspecified severity, with mood disturbance, F03.93 TECHNIQUE: Multiplanar multisequence MRI of the brain was performed. COMPARISON: CT HEAD WITHOUT CONTRAST from 04/16/2016 FINDINGS: CEREBRAL PARENCHYMA: There is no evidence of intracranial hemorrhage, mass effect, or shift of midline structures. There are no extra-axial fluid collections. Ventricles are not enlarged or shifted. There is no significant focal signal abnormality in the cerebellar hemispheres nor within the parish, m idbrain, and thalami. There is abundant bilateral signal abnormality in the periventricular white matter consistent with ch ronic small vessel disease. No evidence of restricted diffusion to suggest acute territorial nor acu te lacunar infarct. SWI reveals no evidence of microhemorrhages in the brain.. PITUITARY GLAND: No mass nor parasellar abnormality. No obvious abnormality in the cavernous sinuses. FLOW VOIDS: The expected flow void are noted. No evidence of obvious aneurysm nor obvious vascular ma lformation. PARANASAL SINUSES: The visualized paranasal sinuses appear unremarkable. No obvious finding ORBITS: No obvious findings. IMPRESSION: There is abundant confluence bilateral periventricular signal abnormality consistent with chronic sma ll vessel disease. No evidence of acute infarct nor intracranial hemorrhage. There is symmetrical involutional change consistent with this patient's advanced age. DATA REPOSITORY:
== END ==
PROVIDERS: PCP Physician Assistant Medical; Visit Provider Physician Assistant Medical
DX: I67.89 Other cerebrovascular disease (principal)
CPT/HCPCS: 70551

== ENCOUNTER 2023-08-07 05:45 | Outpatient (CLI) | payer MEDICARE, OTHER, SELFPAY ==
[2023-08-07 09:04] LABS: TSH (W/Ref FT4) 1.35 uIU/mL (0.36-3.74); Vitamin B12 327 pg/mL (193-986)
[2023-08-07 09:05] LABS: Folate > 20.0 ng/mL (8.6-20.0)
[2023-08-07 09:22] LABS: Vitamin D 25 Total 44.6 ng/mL (30-100)
[2023-08-08 11:51] LABS: Syphilis Serology (RPR) Negative (Negative)
== END 2023-08-07 05:46 | disposition home or self-care (01) ==
LOC: LBO 05:45
PROVIDERS: PCP Physician Assistant Medical; Visit Provider Physician Assistant Medical
DX: F44.89 Other dissociative and conversion disorders
CPT/HCPCS: 36415; 82306; 82607; 82746; 84443; 86592

== ENCOUNTER 2023-10-06 05:33 | Outpatient (CLI) | payer MEDICARE, OTHER, SELFPAY ==
[2023-10-06 14:56] LABS: Abs Immature Grans 0.01 10^3/uL (0.0-0.06); Absolute Basophil Count 0.04 10^3/uL (0.0-0.2); Absolute Eosinophil Count 0.09 10^3/uL (0.0-0.7); Absolute Lymphocyte Count 1.57 10^3/uL (1.2-3.4); Absolute Monocyte Count 0.46 10^3/uL (0.1-0.8); Absolute Neutrophil Count 3.72 10^3/uL (1.2-6.7); Basophils % 0.7 %; Eosinophils % 1.5 %; HCT 38.7 % (36.0-46.0); HGB 12.9 g/dL (11.2-15.7); Immature Grans % 0.2 %; Lymphocytes % 26.7 %; MCH 29.9 pg (27.0-33.0); MCHC 33.3 % (32.0-36.0); MCV 90 fL (80-95); MPV 10.2 fL (8.0-11.0); Monocytes % 7.8 %; Neutrophils % 63.1 %; Platelet Count 244 10^3/uL (130-400); RBC 4.32 10^6/uL (3.93-5.22); RDW 13.4 % (11.7-14.6); RDW-SD 43.8 fL; WBC 5.89 10^3/uL (4.4-10.8)
[2023-10-06 16:00] LABS: ALT 40 U/L (14-59); AST 27 U/L (15-37); Albumin 3.7 g/dL (3.4-5.0); Alkaline Phosphatase 79 U/L (46-116); Anion Gap 11.1 mmol/L (3-11); BUN 32 mg/dL (7-18); Bilirubin, Total 0.6 mg/dL (0.2-1.0); C-Reactive Protein < 0.50 mg/dL (<or=0.5); CO2 23.9 mmol/L (21.0-32.0); CREATININE 1.1 mg/dL (0.55-1.02); Calcium 9.2 mg/dL (8.5-10.1); Chloride 107 mmol/L (98-107); Estimated GFR 50.17 (mL/min/1.73m2); Glucose 90 mg/dL (74-106); Potassium 4.3 mmol/L (3.5-5.1); Sodium 142 mmol/L (136-145); Total Protein 7.2 g/dL (6.4-8.2)
== END 2023-10-06 05:34 | disposition home or self-care (01) ==
LOC: LBO 05:33
PROVIDERS: PCP Physician Assistant Medical; Visit Provider Internal Medicine Rheumatology
DX: M05.79 Rheumatoid arthritis with rheumatoid factor of multiple sites without organ or systems involvement (principal)
CPT/HCPCS: 36415; 80053; 85025; 86140

== ENCOUNTER 2023-12-18 03:37 | Outpatient (RCR) | payer MEDICARE, OTHER, SELFPAY ==
[2023-12-18 07:30] VITALS: BP 144/80; PULSE 73; RESP 17; TEMP 35.7; O2SAT 97
[2023-12-18] MEDS: Normal Saline Flush 10 ML SYR IVP (07:34)
[2023-12-18] MEDS: ZOLEDRONIC ACID/MANNITOL/WATER 5 MG/100 ML BTL 200 MG IVPB (07:34)
== END 2024-01-17 23:59 | disposition home or self-care (01) ==
LOC: INF 03:37
PROVIDERS: PCP Physician Assistant Medical; Visit Provider Family Medicine
DX: M81.0 Age-related osteoporosis without current pathological fracture (principal)
CPT/HCPCS: 96365; J3489

== ENCOUNTER 2024-04-07 02:22 | Outpatient (CLI) | payer MEDICARE, OTHER, SELFPAY ==
[2024-04-07 08:51] LABS: Abs Immature Grans 0.03 10^3/uL (0.0-0.06); Absolute Basophil Count 0.05 10^3/uL (0.0-0.2); Absolute Eosinophil Count 0.06 10^3/uL (0.0-0.7); Absolute Lymphocyte Count 0.76 10^3/uL (1.2-3.4); Absolute Monocyte Count 0.47 10^3/uL (0.1-0.8); Absolute Neutrophil Count 5.43 10^3/uL (1.2-6.7); Basophils % 0.7 %; Eosinophils % 0.9 %; HCT 35.6 % (36.0-46.0); HGB 11.1 g/dL (11.2-15.7); Immature Grans % 0.4 %; Lymphocytes % 11.2 %; MCH 28.1 pg (27.0-33.0); MCHC 31.2 % (32.0-36.0); MCV 90 fL (80-95); MPV 9.7 fL (8.0-11.0); Monocytes % 6.9 %; Neutrophils % 79.9 %; Platelet Count 399 10^3/uL (130-400); RBC 3.95 10^6/uL (3.93-5.22); RDW 13.4 % (11.7-14.6); RDW-SD 44.4 fL
[2024-04-07 09:08] LABS: ALT 21 U/L (14-59); AST 17 U/L (15-37); Albumin 2.9 g/dL (3.4-5.0); Alkaline Phosphatase 122 U/L (46-116); Anion Gap 7.7 mmol/L (3-11); BUN 24 mg/dL (7-18); Bilirubin, Total 0.43 mg/dL (0.2-1.0); C-Reactive Protein 2.55 mg/dL (<or=0.5); CO2 28.3 mmol/L (21.0-32.0); Calcium 9.1 mg/dL (8.5-10.1); Chloride 107 mmol/L (98-107); Estimated GFR 56.25 (mL/min/1.73m2); Glucose 96 mg/dL (74-106); Potassium 4.1 mmol/L (3.5-5.1); Sodium 143 mmol/L (136-145); Total Protein 7.4 g/dL (6.4-8.2)
== END 2024-04-07 02:23 | disposition home or self-care (01) ==
LOC: LBO 02:22
PROVIDERS: PCP Physician Assistant Medical; Visit Provider Internal Medicine Rheumatology
DX: M05.79 Rheumatoid arthritis with rheumatoid factor of multiple sites without organ or systems involvement (principal)
CPT/HCPCS: 36415; 80053; 85025; 86140

== ENCOUNTER 2024-05-03 12:16 | Outpatient (REF) | payer MEDICARE, OTHER, SELFPAY | END 2024-05-03 12:17 | disposition home or self-care (01) | LOC: NCHCN 12:16 | PROVIDERS: PCP Physician Assistant Medical; Visit Provider Physician Assistant Medical | DX: F44.89 Other dissociative and conversion disorders (principal) | CPT/HCPCS: 87086 ==

== ENCOUNTER 2024-08-02 13:07 | Emergency (ER) | payer MEDICARE, OTHER, SELFPAY ==
[2024-08-02] VITALS (64 sets, daily range): BP systolic 111–202; BP diastolic 41–86; PULSE 48–95; RESP 13–22; TEMP 36.6; O2SAT 94–99
--- NOTE | 2024-08-02 13:00 | DI.RAD_ITS ---
Exam(s) XR CHEST 1V IN DI DEPT EXAM: XR CHEST 1V IN DI DEPT CLINICAL HISTORY: Fall TECHNIQUE: 2D digital imaging was performed. COMPARISON: CR CHEST 2 VIEWS PA,LAT from 02/02/2016 FINDINGS: LUNGS: Clear. No pleural abnormality seen. HEART: Normal size. AORTA: Normal diameter. BONES: Scoliosis degenerative changes. Prior right distal clavicular resection. Soft tissues: Unremarkable. IMPRESSION: No acute findings. DATA REPOSITORY: RADIATION DOSE DELIVERED:
--- NOTE | 2024-08-02 13:00 | DI.RAD_ITS ---
Exam(s) XR HIP RT COMPLETE AP PELVIS EXAM: XR HIP RT COMPLETE AP PELVIS CLINICAL HISTORY: Right hip pain fall. TECHNIQUE: 2D digital imaging was performed. Two views COMPARISON: CR XR PELVIS AP from 03/30/2021 FINDINGS: Exam is limited by overlying clothing. Stool and bowel gas also partially obscure the sacrum. BONES: There is a right total hip prosthesis. There is an acute fracture in the intertrochanteric re gion with mild displacement.. No bony destructive lesion is seen. JOINTS: No dislocation present. SOFT TISSUE: vascular calcifications. Large quantity of stool. IMPRESSION: Intertrochanteric fracture of the right femur, around the femoral component of the prosthesis. DATA REPOSITORY: RADIATION DOSE DELIVERED:
--- NOTE | 2024-08-02 13:14 | W.ED.GENAD ---
Discharge Plan Discharge Details Chief Complaint: Fall/Non TraumaCriteria Clinical Impression: Periprosthetic fracture around internal prosthetic right hip joint, Hx of falling, Laceration of left upper arm, Immunization, tetanus-diphtheria, Skin tear of right upper extremity Primary Care Provider: Marlene Pereira ED Provider: Derek Trujillo [place] Meds and New Rx's Prescriptions: No Action multivitamin 1 EACH tablet 1 ea PO DAILY Qty: 90 methotrexate sodium 2.5 MG tablet 10 mg PO WEEKLY Qty: 36 Patient Comments: reduce dose due to elevated creatinine 09/17/16 Rx Instructions: Dr. Meadows; dose aprr 09/2016 due to Cr folic acid 1 MG tablet 1 mg PO DAILY Qty: 90 hydroxychloroquine [Plaquenil] 200 MG tablet 0 mg PO as directed Qty: 180 Patient Comments: takes 1 tablet in AM, 1/2 tablet in evening Rx Instructions: 1 tab AM, 1/[address] Meadows 6.26.18 pt states she believes she only takes in AM.HE latanoprost 2.5 ML drops 1 drp OU HS pramipexole 0.25 MG tablet 0.25 mg PO HS Qty: 90 Rx Instructions: for restless leg syndrome Paxlovid 300 mg (150 mg x 2)-100 mg tablets,dose pack See Rx Instructions PO .COMPLEX Qty: 30 0RF Rx Instructions: take TWO 150 mg tablets of nirmatrelvir with ONE 100 mg tablet of ritonavir twice daily for 5 days PO calcium carbonate [Tums] 200 MG tablet,chewable 500 mg PO PRN PRN acetaminophen [Tylenol] 325 MG tablet 650 mg PO Q4H PRN PRN0RF lisinopril 10 mg tablet 10 tab PO DAILY HPI General Date/Time Provider Initiated Documentation: 08/02/24 13:13. HPI Narrative: MDM Primary survey intact. Reassuring shock index. On secondary survey patient has right groin pain decreased range of motion concerning for the possibility of hip fracture for which patient will undergo x-ray. No preceding chest pain to suggest ACS however will obtain ECG if patient is found to have a hip fracture to risk stratify preoperatively. No shortness of breath to suggest PE. No dysuria or frequency to suggest UTI. I considered sepsis however patient is not hypotensive nor febrile so did not treat empirically with broad-spectrum antibiotics. No head strike nor LOC to suggest increased risk for intracranial hemorrhage however the patient is confused so obtain head CT. No pain or proportion to suggest necrotizing soft tissue infection. Will assess basic electrolytes keep patient n.p.o. provide acetaminophen and fentanyl for pain and reassess following imaging. Daughter notes that confusion over date is not uncommon for patient. 4 PM I was in touch with Dr. Kang who reviewed the patient's intertrochanteric periprosthetic fracture. He advised that the patient would benefit from tertiary care transfer. I updated patient and her daughter. Wrist films negative for fracture and right elbow films negative for fracture. I obtained preprocedure ECG which showed normal sinus rhythm at a rate of 70. Normal axis. Intervals within normal limits. Repeat vitals showed improved hypertension with blood pressure 134/58. Injuries identified: Right intertrochanteric periprosthetic hip fracture closed, Left volar distal forearm laceration that is hemostatic and closed primarily with Prolene sutures, and Right elbow skin tear. 4:20 PM As a touch with Dr. Edward [place] [facility] [place] did not have capacity to accept the patient for revision arthroplasty. He did have the following recommendations: 1. Full-length femur films in the right, 2. DVT prophylaxis using enoxaparin 30 mg twice daily, and 3. CT scan of the patient's pelvis and right lower extremity. Will sign patient out to Dr. Adams pending [facility] consult for transfer. Will update family and patient. HPI This is a [id number] 83-year-old female with a remote prior left hip fracture right emergency department following a fall this morning at 7:30 AM now with right hip pain. Patient cannot recall exact exactly how she fell. She reports that she may have tripped. She did not lose consciousness. She denies preceding chest pain nausea vomiting shortness of breath. She denies abdominal pain dysuria and frequency. She lives alone. Patient's daughter reports remote history of bilateral hip replacements. Exam General: Elderly-appearing in no acute distress speaking in complete sentences. Head: Normocephalic, atraumatic. Eye: Extraocular eye movements intact. No conjunctival injection. No scleral icterus. Ear, nose, mouth, throat: Grossly normal inspection. Normal voice, handling secretions normally. Neck: Trachea midline. Cardiovascular: Well-perfused distal extremities. Respiratory: Nonlabored respiration. Gastrointestinal: Nondistended abdomen. Musculoskeletal: Right hip internally rotated. Pain with passive range of motion right hip. Pelvis stable. Posterior aspect of right hip well-healed surgical incision. 5 out of 5 bilateral lower extremity strength. 2+ PT and DP pulses. Left upper extremity with hemostatic approximately 2 x 2 cm laceration to the distal forearm, volar aspect ulnar side. Full range of motion left hand. No significant wrist tenderness. Sensation motor function intact in the left hand across the radial, median, and ulnar nerve distributions. Right upper extremity skin tear overlying the right elbow with no underlying bony tenderness. Full range of motion right upper extremity with intact sensation in the right hand across the radial, median, and ulnar nerve distributions. Skin: Normal for age and race, grossly normal temperature and turgor. No acute rash. Neurologic: Alert to person and place but not time. Related Data Home Medications ?Medication ?Instructions ?Recorded ?Confirmed folic acid 1 mg tablet 1 mg PO DAILY #90 tab-caps 08/21/12 08/02/24 hydroxychloroquine 200 mg tablet 0 mg PO as directed #180 tab-caps 08/21/12 08/02/24 (Plaquenil) methotrexate sodium 2.5 mg tablet 10 mg PO WEEKLY ##36 08/21/12 08/02/24 multivitamin 1 ea PO DAILY ##90 08/21/12 08/02/24 calcium carbonate (Tums) 500 mg PO PRN PRN 12/15/12 08/02/24 latanoprost 0.005 % eye drops 1 drp OU HS 02/27/16 08/02/24 acetaminophen 325 mg tablet 650 mg (2 x 325 mg) PO Q4H PRN PRN 04/22/16 08/02/24 (Tylenol) pramipexole 0.25 mg tablet 0.25 mg PO HS #90 tab-caps 01/27/17 08/02/24 lisinopril 10 mg tablet 10 tab PO DAILY 10/14/21 08/02/24 nirmatrelvir 300 mg (150 mg See Rx Instructions PO .COMPLEX 05/18/23 x2)-ritonavir 100 mg tablet,dose #30 tabs pack (Paxlovid) Previous Rx's ?Medication ?Instructions ?Recorded acetaminophen 325 mg tablet 650 mg (2 x 325 mg) PO Q4H PRN PRN 04/22/16 (Tylenol) nirmatrelvir 300 mg (150 mg See Rx Instructions PO .COMPLEX 05/18/23 x2)-ritonavir 100 mg tablet,dose #30 tabs pack (Paxlovid) Allergies Allergy/AdvReac Type Severity Reaction Status Date / Time hydrocodone (From Vicodin) AdvReac Intermediate N/V Unverified 08/02/24 13:19 lovastatin AdvReac Intermediate MUSCLE Unverified 08/02/24 13:19 ACHES oxycodone (From Percocet) AdvReac Intermediate N/V Unverified 08/02/24 13:19 simvastatin AdvReac Intermediate MUSCLE Unverified 08/02/24 13:19 ACHES niacin AdvReac Mild MUSCLE Unverified 08/02/24 13:19 ACHES General MAXIMILIAN: 4 Procedure Laceration Laceration 1: Date of Procedure: 08/02/24 Time of procedure: 15:57 Provider that performed the procedure: Derek Trujillo Patient Consented: Verbally Site: upper extremity Side (If applicable): left Description: linear Depth: simple, single layer Local anesthetic: Lidocaine 1%, with Epi and LET(lidocaine epinephrine tetracaine) Amount of anesthesia used (mL): 5 Pre-repair:: wound explored, irrigated extensively and deep structures intact Skin layer closed with: other (Prolene) Suture size: 4-0 Number of sutures:: 4 Technique: simple, interrupted Medical Decision Making Quality:SDOH Health Related Social Needs: No Data to Display PFSH All Active Problems (Updated 08/02/24 @ 16:26 by Derek Trujillo MD) Skin tear of right upper extremity (Acute) Immunization, tetanus-diphtheria (Acute) Laceration of left upper arm (Acute) Hx of falling (Acute) Periprosthetic fracture around internal prosthetic right hip joint (Acute) Closed sacral fracture (Acute) History of surgery (Active) T & A. Appendectomy. RTH arthroplasty 12/2007. LTH arthroplasty 03/2012. Right distal clavical excision 11/05/2009. Right bunionectomy x 2. Right leg venous ligation. Colonoscopy October 15 - found to have tubular adenoma. Restless legs (Active) Managed with Sinemet Gastroesophageal reflux disease (Active) Hyperlipidemia (Active) Rheumatoid arthritis (Active 12/23/12) Osteoarthritis of knee (Active 12/23/12) Rhematoid arthritis and DJD right knee wqith mild valgus deformity and flexion contracture. Right total knee arthroplasty, cemented by Dr. Case Valenzuela 12-23-2012 Skin lesion (Acute) Medical History (Updated 08/02/24 @ 16:26 by Derek Trujillo MD) Splenic mass Hypertension Chronic kidney disease, stage 3 Weight loss Tubular adenoma of colon Nausea with vomiting Postoperative anemia due to acute blood loss Osteoporosis Periprosthetic fracture around internal prosthetic left hip joint Surgical History left hip revision (04/10/16) Dr Kang, periprosthetic fracture, revision, [facility] 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) POLO; LEFT; ALSO R HIP 01/06/08 Tooth extraction (05/19/1963) COMPLETE UPPER AND LOWER EXTRACTIONS Colonoscopy - MAC (01/17/16) Colonoscopy - MAC (10/15/12) Biopsy of breast (12/29/14) [place] [facility] [place] intraductal papilloma Arthroplasty (12/23/12) R total knee arthroplasty,cemented Dr Valenzuela Family History Mother , COPD at age 73. Substance abuse Father , heart at age 70. Heart disease Brother , accident at age 47. No problems noted. Social History Smoking/Tobacco Use Status: Never Smoking risk assessment performed?: Yes Alcohol Intake: current Alcohol Intake frequency: 0-2 drinks per day Alcohol type: hard liquor Drug use: Never Substance use type: does not use Do you feel safe at home: Yes Do you feel safe in your relationship?: Yes
--- NOTE | 2024-08-02 13:15 | DI.RAD_ITS ---
Exam(s) XR ELBOW RT COMPLETE EXAM: XR ELBOW RT COMPLETE CLINICAL HISTORY: Right elbow pain. TECHNIQUE: 2D digital imaging was performed. Three views. COMPARISON: No exams were available for comparison FINDINGS: BONES: No acute fracture is present. No bony destructive lesion is seen. JOINTS: The elbow is normally aligned. No joint effusion is seen. SOFT TISSUE: IV catheter in place. Soft tissue swelling IMPRESSION: Soft tissue swelling. No evidence of fracture. DATA REPOSITORY: RADIATION DOSE DELIVERED:
--- NOTE | 2024-08-02 13:15 | DI.CT_ITS ---
Exam(s) CT HEAD WO EXAM: CT HEAD WO CLINICAL HISTORY: History of fall confused. TECHNIQUE: Imaging Protocol: Axial computed tomography images with coronal and sagittal reformatted images were created and reviewed COMPARISON: CT HEAD WITHOUT CONTRAST from 04/16/2016 FINDINGS: Ventricles and Extra axial spaces: Normal in size and morphology for the patient's age. Hemorrhage: None. Cerebral parenchyma: No evidence of acute infarct or mass. Mild atrophy consistent with the patient's age. White matter changes of microvascular disease. 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 Coarse calcifications again noted in the left frontal lobe and basal ganglia.. Midline shift: None. Brainstem/Cerebellum: Normal. Calvarium: Normal. Visualized Paranasal sinuses:Clear. Mastoids: Clear. Soft Tissues: Unremarkable. ORBITS: Unremarkable. PITUITARY: Not enlarged. IMPRESSION: No acute intracranial process. RADIATION DOSE DELIVERED: 826.59mGy.cm Total DLP DATA REPOSITORY: All CT scans at this facility are submitted to the National Radiology Data Registry (NRDR) Dose Index Registry (DIR) with the [employer] (ACR). RADIATION OPTIMIZATION: All CT scans at this facility use at least one of these dose optimization te chniques: automated exposure control; mA and/or kV adjustment per patient size (includes targeted exa ms where dose is matched to clinical indication); or iterative reconstruction.
--- NOTE | 2024-08-02 13:15 | DI.RAD_ITS ---
Exam(s) XR WRIST LT COMPLETE EXAM: XR WRIST LT COMPLETE CLINICAL HISTORY: Fall skin tear. TECHNIQUE: 2D digital imaging was performed. Three views. COMPARISON: CR XR wrist RT limited from 02/12/2018 FINDINGS: BONES: No acute fracture is present. No bony destructive lesion is seen. JOINTS: Severe degenerative changes throughout the carpal region. SOFT TISSUE: Swelling. Ventral skin laceration. There is gauze overlying the wrist. IMPRESSION: Severe degenerative changes. No visible fracture. Soft tissue injury. DATA REPOSITORY: RADIATION DOSE DELIVERED:
[2024-08-02 13:40] LABS: Abs Immature Grans 0.04 10^3/uL (0.0-0.06); Absolute Basophil Count 0.04 10^3/uL (0.0-0.2); Absolute Lymphocyte Count 0.32 10^3/uL (1.2-3.4); Absolute Monocyte Count 0.62 10^3/uL (0.1-0.8); Absolute Neutrophil Count 9.25 10^3/uL (1.2-6.7); Basophils % 0.4 %; HCT 36.2 % (36.0-46.0); HGB 11.6 g/dL (11.2-15.7); Immature Grans % 0.4 %; Lymphocytes % 3.1 %; MCH 27.2 pg (27.0-33.0); MCV 85 fL (80-95); MPV 10.7 fL (8.0-11.0); Neutrophils % 90.1 %; Platelet Count 199 10^3/uL (130-400); RBC 4.26 10^6/uL (3.93-5.22); RDW 16.8 % (11.7-14.6); RDW-SD 51.6 fL; WBC 10.27 10^3/uL (4.4-10.8)
[2024-08-02] MEDS: fentaNYL 100 MCG/2 ML VIAL 50 MCG IVP ×2 (13:45→16:24)
[2024-08-02] MEDS: ACETAMINOPHEN 1,000 MG/100 ML BAG 400 MG IVPB (13:48)
[2024-08-02] MEDS: Diph,Pertuss(Acell),Tet Vac/Pf 0.5 ML SYR IM (13:50)
[2024-08-02 13:53] LABS: Anion Gap 8.4 mmol/L (3-11); BUN 30 mg/dL (7-18); CO2 26.6 mmol/L (21.0-32.0); CREATININE 0.9 mg/dL (0.55-1.02); Calcium 9.5 mg/dL (8.5-10.1); Chloride 108 mmol/L (98-107); Estimated GFR 63.83 (mL/min/1.73m2); Glucose 129 mg/dL (74-106); Potassium 3.9 mmol/L (3.5-5.1); Sodium 143 mmol/L (136-145)
[2024-08-02 15:00] LABS: Bilirubin Negative (Negative); Blood Negative (Negative); Clarity Clear (Clear); Glucose Negative (Negative); Ketones 40 mg/dL (Negative); Leukocyte Esterase Negative (Negative); Nitrite Negative (Negative); Specific Gravity >= 1.030 (1.005-1.025); Urobilinogen 0.2 mg/dL (Up to 0.2)
--- NOTE | 2024-08-02 15:00 | RT.EKG_ITS ---
APPROVED REPORT Exam: Resting ECG Reason for Exam: Preop Patient Location: E HR:70 bpm ECG Measurements Heart Rate 70 AXIS CA 148 P 57 QRSd 99 QRS 6 QT 443 T 61 QTc 470 Conclusion Sinus rhythm...normal P axis, V-rate 60- 99 Ventricular premature complex...V complex w/ short R-R interval Probable left atrial enlargement...P >50mS, <-0.10mV V1 No STEMI
--- NOTE | 2024-08-02 16:15 | DI.RAD_ITS ---
Exam(s) XR FEMUR RT EXAM: XR FEMUR RT CLINICAL HISTORY: Fracture femur. TECHNIQUE: 2D digital imaging was performed of the right femur. Three images were obtained. AP and lateral views were obtained. COMPARISON: CR XR HIP RT COMPLETE AP PELVIS from 08/02/2024 FINDINGS: BONES: There is again seen a mildly displaced acute comminuted fracture involving the proximal femur. The fracture involves the lesser trochanter and the proximal metaphysis of the right femur. No bon y destructive lesion is seen. The patient has a right total hip arthroplasty. The patient has a righ t total knee arthroplasty which appears grossly unremarkable. No distal femoral fracture is identifi ed. SOFT TISSUE: Atherosclerotic calcification is seen. IMPRESSION: Comminuted mildly displaced periprosthetic fracture involving the proximal right femur. DATA REPOSITORY: RADIATION DOSE DELIVERED:
--- NOTE | 2024-08-02 16:15 | DI.CT_ITS ---
Exam(s) CT PELVIC WO EXAM: CT PELVIC WO CLINICAL HISTORY: Intertrochanteric right fracture. TECHNIQUE: Imaging Protocol: Axial computed tomography images with coronal and sagittal reformatted images were created and reviewed. COMPARISON: CR XR WRIST LT COMPLETE from 08/02/2024 CR XR HIP RT COMPLETE AP PELVIS from 08/02/2024 FINDINGS: Bones: The patient has bilateral total hip arthroplasties. The left hip arthroplasty is unremarkabl e. There are wire seen again around the proximal left femur. There is an acute comminuted intertroc hanteric fracture of the right femur. There is mild displacement of a few of the fracture fragments. The fracture curves around the femoral prosthesis. No other acute fractures identified. No cellul itic or osteomyelitic changes are identified. There is no dislocation. The sacroiliac joints and sy mphysis pubis are intact. No lytic or sclerotic lesions are identified. Soft Tissues: There is diverticulosis seen in the colon. There is a large amount of stool in the col on suggesting constipation. IMPRESSION: Acute mildly displaced intertrochanteric periprosthetic fracture of the right femur. RADIATION DOSE DELIVERED: Total DLP Total DLP DATA REPOSITORY: All CT scans at this facility are submitted to the National Radiology Data Registry (NRDR) Dose Index Registry (DIR) with the [employer] (ACR). RADIATION OPTIMIZATION: All CT scans at this facility use at least one of these dose optimization te chniques: automated exposure control; mA and/or kV adjustment per patient size (includes targeted exa ms where dose is matched to clinical indication); or iterative reconstruction.
[2024-08-02] MEDS: MORPHine IR 15 MG TAB PO ×2 (16:58→21:03)
--- NOTE | 2024-08-02 17:04 | W.EDPROG ---
Date of service: 08/02/24 Time of Service: 17:00 Medical Decision Making This is AN 83-year-old female patient who sustained a slip and fall today resulting in a periprosthetic right intertrochanteric hip fracture. Prior to my taking over her care she had imaging performed demonstrating that fracture, as well as a Noncon head CT with no acute changes. She had suture repair of a laceration on her wrist, and otherwise reassuring imaging. We consulted orthopedics who felt that this patient would be better served in a tertiary facility given the complexity of the operation required to repair the fracture. She did receive medications for management of her pain as well as a dose of Lovenox for DVT prevention. I took over this patient's care prior to acceptance to an alternative facility. I did keep the patient n.p.o. and she had controlled pain here in our emergency department while under my care. Betty Adams MD Medical Records Medical records reviewed: Yes I reviewed the patient's medical records. Lab Data Lab results reviewed: Yes I reviewed the patient's lab results. Quality:SDOH Health Related Social Needs: No Data to Display Discharge Plan Disposition Patient Disposition: Transfer-Acute Inpatient Care Specific Acute Inpt Facility: [facility] Condition: Stable Discharge Details Chief Complaint: Fall/Non TraumaCriteria Clinical Impression: Periprosthetic fracture around internal prosthetic right hip joint, Hx of falling, Laceration of left upper arm, Immunization, tetanus-diphtheria, Skin tear of right upper extremity Primary Care Provider: Marlene Pereira ED Provider: Betty Adams Home Meds and New Rx's Prescriptions: No Action multivitamin 1 EACH tablet 1 ea PO DAILY Qty: 90 methotrexate sodium 2.5 MG tablet 10 mg PO WEEKLY Qty: 36 Patient Comments: reduce dose due to elevated creatinine 09/17/16 Rx Instructions: Dr. Meadows; dose decr 09/2016 due to Cr folic acid 1 MG tablet 1 mg PO DAILY Qty: 90 hydroxychloroquine [Plaquenil] 200 MG tablet 0 mg PO as directed Qty: 180 Patient Comments: takes 1 tablet in AM, 1/2 tablet in evening Rx Instructions: 1 tab AM, 1/[address] Meadows 6.26.18 pt states she believes she only takes in AM.HE latanoprost 2.5 ML drops 1 drp OU HS pramipexole 0.25 MG tablet 0.25 mg PO HS Qty: 90 Rx Instructions: for restless leg syndrome Paxlovid 300 mg (150 mg x 2)-100 mg tablets,dose pack See Rx Instructions PO .COMPLEX Qty: 30 0RF Rx Instructions: take TWO 150 mg tablets of nirmatrelvir with ONE 100 mg tablet of ritonavir twice daily for 5 days PO calcium carbonate [Tums] 200 MG tablet,chewable 500 mg PO PRN PRN acetaminophen [Tylenol] 325 MG tablet 650 mg PO Q4H PRN PRN0RF lisinopril 10 mg tablet 10 tab PO DAILY
[2024-08-02] MEDS: Enoxaparin 30 MG/0.3 ML SYR SC (17:08)
== END 2024-08-02 21:08 | disposition short-term general hospital (02) ==
PROVIDERS: Emergency Medicine; Emergency Provider Emergency Medicine; PCP Physician Assistant Medical
DX: S41.112A Laceration without foreign body of left upper arm, initial encounter (principal); S41.111A Laceration without foreign body of right upper arm, initial encounter; Z23 Encounter for immunization; M97.01XA Periprosthetic fracture around internal prosthetic right hip joint, initial encounter; W19.XXXA Unspecified fall, initial encounter
CPT/HCPCS: 00123; 12002; 36416; 73552; 80048; 82962; 86850; 86900; 86901; 90471; 90715; 93005; 96365; 96372; 96375; 96376; 99285; 70450; 71045; 72192; 73080; 73110; 73502; 81003; 85025; 93010; J0131; J1650; J3010

== ENCOUNTER 2024-08-03 17:25 | Inpatient (IN) | payer MEDICARE, OTHER, SELFPAY ==
[2024-08-04 00:55] VITALS: BP 111/56; PULSE 85; RESP 17; TEMP 37.8; O2SAT 97
[2024-08-04 01:01] VITALS: BP 111/56; PULSE 85; RESP 17; TEMP 37.8; O2SAT 97
[2024-08-04] MEDS: Normal Saline Flush 10 ML SYR (01:31)
[2024-08-04] MEDS: Ketorolac 15 MG/ML VIAL IVP ×4 (01:32→18:04)
--- NOTE | 2024-08-04 06:02 | HPE_ITS ---
Date of service: 08/04/24 Time of Service: 06:03 Assessment and Plan Assessment and plan (1) Periprosthetic fracture around internal prosthetic right hip joint: Status: Acute Assessment and plan: Jo is an 83-year-old female has a complex fracture about the right hip. Initially, concerns were for the component being loose given the potting and sclerosis seen at the distal and the stem and the change in appearance of the shoulder from the greater trochanter proximally on the x-ray. Given the complexity of this case I would recommend tertiary referral but she has been transferred back due to the decision for nonoperative treatment. I did have long discussion with Jo. I also reviewed this case with her colleagues. Unfortunate there are no beds to transfer to and my concern is that this is an unstable fracture variety which will need stabilization. Jo also expresses concern that this is unstable and she has so much pain when she tries to move that she would lean towards having some form of stabilization performed. Interviewing the case from [facility] and with some colleagues, my suspicion is that fixation is going to be required. This would help stabilize the bony fragments around the stem, encouraging stem stability assuming it is still fixed and potted in the shaft of the femur. Revising the femur would add another level of complexity and difficulty with the case and I think it is reasonable to move forward with fixation only. I do think this is the best next step. I will need to have equipment called in which will be available by tomorrow. Therefore, we will continue a nonoperative protocol today. I will ask physical therapy to see her and assess if a nonoperative protocol would be possible. The goals for physical therapy will be to mobilize to the edge of the bed and potentially stand with walker support. She has hip abduction precautions which means no active abduction, particularly when trying to move in the bed. There should be no flexion greater than 90 degrees as there is an increased risk of dislocation with the fracture. She may bear weight on the right leg although should be protected with a walker at all times. She does have sensitivity with pain medications but is done well currently with the Toradol. Other medications are available if necessary. We will move forward with planning for surgical fixation tomorrow. However, if she does do well with physical therapy today we could repeat an x-ray to see if there is been any displacement and consider a brief trial of purely nonoperative treatment, although unlikely to be successful. She also seems to be more confused and I remember. She reorients fairly easily but does seem to be loosely connecting details and confused on what is going on at times. This is likely related to her hospitalization but could be exposing what may be going on a baseline. She did asked me to call her daughter to update her which I will do and discussed that with her. I have also asked for medicine consult to help out with optimization and management during this hospitalization for her complex periprosthetic fracture of the right femur. History of Present Illness Narrative: Jo is an 83-year-old female who I know previously from a periprosthetic fracture of the left femur in addition to other musculoskeletal complaints. She was in her usual state health when she fell at home early on the morning of August 02. She is not exactly sure what happened but she thinks she tripped as she went down, landing eventually on the right side. She had immediate pain and inability to bear weight. She is brought to the emergency department diagnosed with a periprosthetic fracture of the right proximal femur I was called in consultation about this fracture and given the apparent change in the position of the shoulder of the implant and the comminution of the proximal femur fracture around the ingrowth portion of the stem I recommended this be managed at a tertiary center for likely fracture fixation and potential revision of the femoral component. Due to bed shortages she was unable to stay anywhere locally including [facility] but eventually is transferred to [facility]. She was accepted at [facility] after review of the information in the literature. She was transferred there. However, received a call on the following day, August 03, they recommended nonoperative treatment with no intervention of the fracture and follow-up in 2 weeks. They requested transfer back. I excepted her back in transfer for management of her complex fracture about the right hip. She reports continued pain. She has pain with all motion in the bed. She has been able to move with nursing with the use of ketorolac. However, she still continues report severe, limiting pain with any attempted motion in the bed. She denies chest pain or shortness of breath. She has fatigue. She denies numbness or tingling. She did have lacerations to the right elbow and left forearm which were cleaned and closed and dressed in the emergency department on August 02. Review of Systems All systems reviewed & are unremarkable except as noted in HPI and below PFSH All Active Problems Skin tear of right upper extremity (Acute) Immunization, tetanus-diphtheria (Acute) Laceration of left upper arm (Acute) Hx of falling (Acute) Periprosthetic fracture around internal prosthetic right hip joint (Acute) Closed sacral fracture (Acute) History of surgery (Active) T & A. Appendectomy. RTH arthroplasty 12/2007. LTH arthroplasty 03/2012. Right distal clavical excision 11/05/2009. Right bunionectomy x 2. Right leg venous ligation. Colonoscopy October 15 - found to have tubular adenoma. Restless legs (Active) Managed with Sinemet Gastroesophageal reflux disease (Active) Hyperlipidemia (Active) Rheumatoid arthritis (Active 12/23/12) Osteoarthritis of knee (Active 12/23/12) Rhematoid arthritis and DJD right knee wqith mild valgus deformity and flexion contracture. Right total knee arthroplasty, cemented by Dr. Case Valenzuela 12-23-2012 Skin lesion (Acute) Medical History Splenic mass Hypertension Chronic kidney disease, stage 3 Weight loss Tubular adenoma of colon Nausea with vomiting Postoperative anemia due to acute blood loss Osteoporosis Periprosthetic fracture around internal prosthetic left hip joint Surgical History left hip revision (04/10/16) Dr Kang, periprosthetic fracture, revision, [facility] 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) POLO; LEFT; ALSO R HIP 01/06/08 Tooth extraction (05/19/1963) COMPLETE UPPER AND LOWER EXTRACTIONS Colonoscopy - MAC (01/17/16) Colonoscopy - MAC (10/15/12) Biopsy of breast (12/29/14) Left breast, [facility], benign intraductal papilloma Arthroplasty (12/23/12) R total knee arthroplasty,cemented Dr Valenzuela Family History Mother , COPD at age 73. Substance abuse Father , heart at age 70. Heart disease Brother , accident at age 47. No problems noted. Social History Smoking/Tobacco Use Status: Never Smoking risk assessment performed?: Yes Alcohol Intake: former Drug use: Never Substance use type: does not use Details: used alcohol in distant past Housing: house Do you feel safe at home: Yes Meds Allergies and Home Medications Allergies Allergy/AdvReac Type Severity Reaction Status Date / Time hydrocodone (From Vicodin) AdvReac Intermediate N/V Unverified 08/02/24 13:19 lovastatin AdvReac Intermediate MUSCLE Unverified 08/02/24 13:19 ACHES oxycodone (From Percocet) AdvReac Intermediate N/V Unverified 08/02/24 13:19 simvastatin AdvReac Intermediate MUSCLE Unverified 08/02/24 13:19 ACHES niacin AdvReac Mild MUSCLE Unverified 08/02/24 13:19 ACHES Home Medications ?Medication ?Instructions ?Recorded ?Confirmed ?Type folic acid 1 mg tablet 1 mg PO DAILY #90 tab-caps 08/21/12 08/02/24 History hydroxychloroquine 200 mg tablet 0 mg PO as directed #180 tab-caps 08/21/12 08/02/24 History (Plaquenil) methotrexate sodium 2.5 mg tablet 10 mg PO WEEKLY ##36 08/21/12 08/02/24 History multivitamin 1 ea PO DAILY ##90 08/21/12 08/02/24 History calcium carbonate (Tums) 500 mg PO PRN PRN 12/15/12 08/02/24 History latanoprost 0.005 % eye drops 1 drp OU HS 02/27/16 08/02/24 History acetaminophen 325 mg tablet 650 mg (2 x 325 mg) PO Q4H PRN PRN 04/22/16 08/02/24 Rx (Tylenol) pramipexole 0.25 mg tablet 0.25 mg PO HS #90 tab-caps 01/27/17 08/02/24 History lisinopril 10 mg tablet 10 tab PO DAILY 10/14/21 08/02/24 History nirmatrelvir 300 mg (150 mg See Rx Instructions PO .COMPLEX 05/18/23 Rx x2)-ritonavir 100 mg tablet,dose #30 tabs pack (Paxlovid) Exam Const General: cooperative, uncomfortable, no acute distress and well developed Orientation: alert, awake, oriented to person and confused (Slightly confused on details throughout the interview although reorients) Extrem Other: Evaluation of the right hip and right leg shows a well-healed incision over the posterior lateral aspect of the right hip. There is some generalized swelling about the right hip and right thigh. No injury to the skin. No overlying skin changes. No signs of infection. There is pain to palpation about the proximal aspect of the right thigh and the right hip, worse laterally. No significant pain with palpation of the knee, leg, ankle, foot. Sensation intact to light touch of the femoral nerve and sciatic nerve distributions. Palpable DP and PT pulse. I am able to passively internally and actually rotate the right leg without significant pain. She does have some pain with rotation more than 30 degree arc. She has pain with attempted active range of motion of the right hip. She does allow me to passively flex the right hip up to about 20 to 25 degrees although she does guard. As I talk her through this she does seem to tolerate it reasonably well. Adding in any rotation in this slightly flexed position though causes increase in pain. Results Imaging Imaging Studies: Previous x-ray of the right hip and femur demonstrates a previously placed cementless hip arthroplasty. There is seems to be significant sclerosis at the tip of the stem, significant for cold welding or potting of the stem. Evaluation of the shoulder the implant seems to show some gap of the shoulder to the greater trochanter compared to previous images. There is a comminuted fracture about the intertrochanteric region involving the base of the greater trochanter, extending through the proximal femur to the lesser trochanter. CT scan of the right hip demonstrates the previously mentioned fracture. Fracture lines hard to fully evaluate down the length of the implant. However, there is notable comminution of the bone around the proximal femur within the intertrochanteric region. The fracture lines difficult to appreciate but it seems to be at the base of the greater trochanter extending towards the medial surface of proximal femur with some displacement of the fracture fragments. However, no significant diastases of the fracture from the host bone in the coronal view, no proximal migration of the greater trochanter. Labs 08/04/24 06:02 08/04/24 06:02 Last Vital Signs Temp 37.8 C H 08/04/24 01:01 Pulse 85 08/04/24 01:01 Resp 17 08/04/24 01:01 BP 111/56 L 08/04/24 01:01 Pulse Ox 97 08/04/24 01:01 Time Spent Time spent with Patient: 40-54 minutes Time was spent: preparing to see the patient(eg.review tests), obtaining and/or reviewing separately otained hiistory, ordering medications,tests, procedures, indepentently interpreting results, counseling the patient and care coordination
[2024-08-04] MEDS: Normal Saline Flush 10 ML SYR IVP ×3 (06:25→18:05)
[2024-08-04 06:35] LABS: HCT 32.6 % (36.0-46.0); HGB 10.4 g/dL (11.2-15.7); MCH 27.1 pg (27.0-33.0); MCHC 31.9 % (32.0-36.0); MCV 85 fL (80-95); MPV 11.3 fL (8.0-11.0); Platelet Count 206 10^3/uL (130-400); RBC 3.84 10^6/uL (3.93-5.22); RDW 17.3 % (11.7-14.6); RDW-SD 52.5 fL
[2024-08-04 06:46] VITALS: BP 136/63; PULSE 77; RESP 16; TEMP 36.4; O2SAT 98
[2024-08-04 06:53] LABS: Anion Gap 9.6 mmol/L (3-11); BUN 36 mg/dL (7-18); CO2 25.4 mmol/L (21.0-32.0); CREATININE 1.1 mg/dL (0.55-1.02); Calcium 8.9 mg/dL (8.5-10.1); Chloride 110 mmol/L (98-107); Estimated GFR 50.17 (mL/min/1.73m2); Glucose 109 mg/dL (74-106); Potassium 4.3 mmol/L (3.5-5.1); Sodium 145 mmol/L (136-145)
--- NOTE | 2024-08-04 07:49 | W.PC.ACHO ---
Registration Status: Primary Language: Preferred Language: Medical / Surgical History (Last Reviewed 08/04/24 @ 06:05 by Malachi Kang MD) Splenic mass Hypertension Chronic kidney disease, stage 3 Weight loss Tubular adenoma of colon Nausea with vomiting Postoperative anemia due to acute blood loss Osteoporosis Periprosthetic fracture around internal prosthetic left hip joint (Last Reviewed 08/04/24 @ 06:05 by Malachi Kang MD) left hip revision (04/10/16) 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) Tooth extraction (05/19/1963) Colonoscopy - MAC (01/17/16) Colonoscopy - MAC (10/15/12) Biopsy of breast (12/29/14) Arthroplasty (12/23/12) Most Recent Vital Signs Temperature 36.4 C L 08/04/24 06:46 Temperature Source Temporal Artery Scan 08/04/24 06:46 Pulse 77 08/04/24 06:46 Pulse Rhythm Regular 08/04/24 01:01 Respiratory Rate 16 08/04/24 06:46 Respiratory Effort Normal, Non-Labored 08/04/24 01:01 Respiratory Depth Normal 08/04/24 01:01 Respiratory Pattern Normal 08/04/24 01:01 Blood Pressure 136/63 08/04/24 06:46 Pulse Oximetry 98 08/04/24 06:46 Oxygen Delivery Method Room Air 08/04/24 06:46 Oxygen Flow Rate 0 08/04/24 06:46 Pain Level 2 08/04/24 01:01 Allergies hydrocodone (From Vicodin) Adverse Reaction (Intermediate, Unverified 08/02/24 13:19) N/V pt. reports N/V, pt. states she get violently ill lovastatin Adverse Reaction (Intermediate, Unverified 08/02/24 13:19) MUSCLE ACHES oxycodone (From Percocet) Adverse Reaction (Intermediate, Unverified 08/02/24 13:19) N/V pt. reports N/V, pt. states she get violently ill simvastatin Adverse Reaction (Intermediate, Unverified 08/02/24 13:19) MUSCLE ACHES niacin Adverse Reaction (Mild, Unverified 08/02/24 13:19) MUSCLE ACHES Active Medications Generic Name Dose Route Start Last Admin Trade Name Freq PRN Reason Stop Dose Admin Ketorolac Tromethamine 15 mg 08/03/24 18:00 08/04/24 06:25 Ketorolac 15 Mg/Ml Vial IVP 08/08/24 17:59 15 mg Q6H SONIA Administration Sodium Chloride 0 ml 08/04/24 01:30 08/04/24 06:25 Normal Saline Flush 10 Ml Syr IVP 20 ml PRN PRN Administration IV IV Catheter Type [] Saline Lock IV Catheter Type [Left Saline Lock Antecubital] IV Catheter Gauge [Left 22 Antecubital] Diagnostics 08/04/24 Range/Units 06:02 WBC 9.70 (4.4-10.8) 10^3/uL RBC 3.84 L (3.93-5.22) 10^6/uL Hgb 10.4 L (11.2-15.7) g/dL Hct 32.6 L (36.0-46.0) % MCV 85 (80-95) fL MCH 27.1 (27.0-33.0) pg MCHC 31.9 L (32.0-36.0) % RDW 17.3 H (11.7-14.6) % Plt Count 206 (130-400) 10^3/uL MPV 11.3 H (8.0-11.0) fL Sodium Pending Potassium Pending Chloride Pending Carbon Dioxide Pending Anion Gap Pending BUN Pending Creatinine Pending Est GFR (CKD-EPI 2020) Pending Glucose Pending Calcium Pending Intake and Output - 24 Hour Total 08/03/24 thru 08/04/24 06:34 Intake Total 30 Output Total 400 Balance -370 Weight 58.4 kg Intake: IV 30 Output: Urine 400 Other: Urine Color Light Leah Urine Odor Strong Stool Size Small Stool Characteristics Soft Falls Risk Assessment History of Falls Admit Due to Fall 08/04/24 01:01 Contributing Factors Confusion,Impairments, 08/04/24 01:01 Incontinence,Medications Ambulatory Aids Uses ambulatory device + 08/04/24 01:01 Tubes/Lines None 08/04/24 01:01 Gait Evaluation W/any additional score 08/04/24 01:01 Cognition Cognitive impairment 08/04/24 01:01 Fall Total Score 102 08/04/24 01:01 Level of Risk Maximum Risk 08/04/24 01:01 Problems (Last Reviewed 08/04/24 @ 06:05 by Malachi Kang MD) Periprosthetic fracture around internal prosthetic right hip joint (Acute) v v v v v v v v v Sending and/or Receiving Nurses: Please use comment section below to note any information pertinent to the patient hand-off not included above. Information / Comments: Report received from: 08/03/24 @ [address] [place] ([facility]) R femur fx, RLE swollen, good pedal pulses, ortho recommends nonoperative management with PT and OT. Baseline confusion, calm and cooperative, VSS, RAC, no pain medications needed today, ? last BM, purewick, not oob at all, REG diet. Report from EMS: 0.4mg dilaudid given prior to transfer.
--- NOTE | 2024-08-04 09:22 | PDOC.CMIN ---
Date of service: 08/04/24 Time of Service: 09:22 Care Management Initial Assmt Initial Assessment Reason for Hospitalization: right hip fracture Functional Status/Living Situation Patient Presentation: Tamy was sitting up in bed visiting with her family when CM met with her. She was very pleasant and easily engaged with CM, however she was also forgetful and a bit confused. Tamy was admitted with a complex hip fracture. She was initially sent to [facility] for surgical repair but was sent back to [facility]. At this time it is not certain if she will have surgery. She had a PT evaluation today and did much better than expected. It is possible that she may continue with nonoperative management. Tamy lives alone in a single family home in [place]. Her daughter Reina lives next door and provides transportation and other assistance as needed. Tamy also has 2 sons, Sukhwinder and Case who are supportive. After CM met with Tamy, her son Sukhwinder and his and one of Tamy's granddaughters asked to meet with CM. They expressed concern about Tamy's mental acuity. They informed CM that she had been scheduled for a Neurological evaluation for memory loss at [facility] but reused to go. They requested that CM and/or the providers at [facility] encourage her to participate in the evaluation. Based on Tamys age, memory issues and complex unstable fracture, it is likely that she will need to transfer to a SNF for at least short term rehab following this admission. Tamy's family shared that her memory has been declining in the recent past and feel she may not be safe to live alone anymore. CM talked a bit about LTM with the family and provided them with an application. Town of Residence: [place] Resides with: Alone Significant Other/Family: [facility] Employment Status: Retired Instrumental Activities of Daily Living (ADLs): Independent Medications Medication Management: No Issues/Barriers identified Physical Functioning/Mobility Assistive Device: FWW Advance Directives Advance Directives: Do you have an Advance Directive: Y 02/09/19 12:00 AD On File at [facility]: Y 02/09/19 12:00 Date Asked 08/02/24 08/02/24 13:08 AD Date Reviewed 08/04/24 08/04/24 00:25 COLST On File at [facility] COLST Date Scanned Comment: health care agent daughter Reina Ricci Code Status Resuscitation Status Full Code Portal Pt does not currently have a portal and education provided: Yes Insurance Coverage/Financial Issues Insurance: Medicare [employer] Care Team Visit Care Team Role Provider Type LARRY Vale Primary Care Provider PHYSICIANS ASSISTANT [facility] Other Providers OTHER Malachi Kang MD Admit Provider MD MILLS STAFF PHYSICIAN Attending Provider Discharge Potential Discharge Needs: Surgical F/U Appt Anticipated Barriers to Discharge: Bed availability and Medical Status Patient/Family Education Needs: Review discharge instructions, discuss Ask Me Three Transportation: Other (to be determined by disposition) Plan: Anabela's discharge plan is unclear at this time. She has a very complex, unstable hip fracture which, at this time, is being managed without surgery. She will almost certainly require SNF placement for at least short term rehab. CM will follow and continue to assess for discharge needs. Social Determinants of Health Screening Social Determinants of Health last assessed: 08/04/24 Will the Patient Participate in the Screening?: Yes Do you worry about having a steady place to live?: no Problems where you live: no known problems In the past 12 months, have you had to go without electric, gas, oil or water in your home?: no Have you or anyone in your house had to go without enough food to eat?: no Has lack of transportation kept you from medical appointments or from doing things needed for daily living?: no Has anyone in your life made you feel unsafe or unsupported?: no How hard is it for you to pay for the very basics like food, housing, medical care, and heating? Would you say it is:: Not hard at all Do you want help finding or keeping work or a job?: I do not need or want help If for any reason you need help with day-to-day activities such as bathing, preparing meals, shopping, managing finances, etc., do you get the help you need?: I get all the help I need How often do you feel lonely or isolated from those around you?: Never Do you speak a language other than Nigerien at home?: No Does the patient want assistance with any of the above?: No PFSH All Active Problems Skin tear of right upper extremity (Acute) Immunization, tetanus-diphtheria (Acute) Laceration of left upper arm (Acute) Hx of falling (Acute) Periprosthetic fracture around internal prosthetic right hip joint (Acute) Closed sacral fracture (Acute) History of surgery (Active) T & A. Appendectomy. RTH arthroplasty 12/2007. LT arthroplasty 03/2012. Right distal clavical excision 11/05/2009. Right bunionectomy x 2. Right leg venous ligation. Colonoscopy October 15 - found to have tubular adenoma. Restless legs (Active) Managed with Sinemet Gastroesophageal reflux disease (Active) Hyperlipidemia (Active) Rheumatoid arthritis (Active 12/23/12) Osteoarthritis of knee (Active 12/23/12) Rhematoid arthritis and DJD right knee wqith mild valgus deformity and flexion contracture. Right total knee arthroplasty, cemented by Dr. Case Valenzuela 12-23-2012 Skin lesion (Acute) Medical History Splenic mass Hypertension Chronic kidney disease, stage 3 Weight loss Tubular adenoma of colon Nausea with vomiting Postoperative anemia due to acute blood loss Osteoporosis Periprosthetic fracture around internal prosthetic left hip joint Surgical History left hip revision (04/10/16) Dr Kang, periprosthetic fracture, revision, [facility] 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) [facility]O; LEFT; ALSO R HIP 01/06/08 Tooth extraction (05/19/1963) COMPLETE UPPER AND LOWER EXTRACTIONS Colonoscopy - MAC (01/17/16) Colonoscopy - MAC (10/15/12) Biopsy of breast (12/29/14) Left breast, [facility], benign intraductal papilloma Arthroplasty (12/23/12) R total knee arthroplasty,cemented Dr Valenzuela Family History Mother , COPD at age 73. Substance abuse Father , heart at age 70. Heart disease Brother , accident at age 47. No problems noted. Social History Smoking/Tobacco Use Status: Never Smoking risk assessment performed?: Yes Alcohol Intake: former Drug use: Never Substance use type: does not use Details: used alcohol in distant past Housing: house Do you feel safe at home: Yes
[2024-08-04] MEDS: Enoxaparin 40 MG/0.4 ML SYR SC (09:47)
--- NOTE | 2024-08-04 09:57 | IN_ITS ---
PT Notes Visit Reasons: Right Periprosthetic Hip Fracture Physical Therapy Inpatient Initial Evaluation Date: 08/04/2024 Referring Doctor: Dr Kang PT Orders: PT CONSULT: Safety Consult for D/C Precautions:RLE :Protective WB with walker, No Hip abduction No Hip flexion beyond 90 degrees , Standard, IV Access RUE Patient Profile/Admitting Diagnosis: Pt is an 83 yo female who fell at home on 08/02/2024 she presented to the ED with right lower extremity pain and unable to weight-bear x-rays revealed periprosthetic fracture of right femur. She was assessed by Ortho recommended transfer to [facility] for surgical repair. She was transferred to [facility] however Ortho there recommended nonoperative treatment and follow-up in 2 weeks therefore she returned to [facility]. Ortho recommended PT consult with repeat x-rays after consult to determine surgical intervention or continue with conservative nonoperative management. PMHX: Skin tear of right upper extremity (Acute) Immunization, tetanus-diphtheria (Acute) Laceration of left upper arm (Acute) Hx of falling (Acute) Periprosthetic fracture around internal prosthetic right hip joint (Acute) Closed sacral fracture (Acute) History of surgery (Active) T & A. Appendectomy. RT arthroplasty 12/2007. [facility] arthroplasty 03/2012. Right distal clavical excision 11/05/2009. Right bunionectomy x 2. Right leg venous ligation. Colonoscopy October 15 - found to have tubular adenoma.Restless legs (Active) Managed with SinemetGastroesophageal reflux disease (Active) Hyperlipidemia (Active) Rheumatoid arthritis (Active 12/23/12) Osteoarthritis of knee (Active 12/23/12) Rhematoid arthritis and DJD right knee wqith mild valgus deformity and flexion contracture. Right total knee arthroplasty, cemented by Dr. Case Valenzuela [id number] lesion (Acute) Medical History Splenic mass Hypertension Chronic kidney disease, stage 3 Weight loss Tubular adenoma of colon Nausea with vomiting Postoperative anemia due to acute blood loss Osteoporosis Periprosthetic fracture around internal prosthetic left hip joint Surgical History left hip revision (04/10/16) Dr [place], periprosthetic fracture, 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; LEFT; ALSO R HIP 01/06/08Tooth extraction (05/19/1963) COMPLETE UPPER AND LOWER EXTRACTIONSColonoscopy - MAC (01/17/16) Colonoscopy - MAC (10/15/12) Biopsy of breast (12/29/14) Left breast, [facility], benign intraductal papillomaArthroplasty (12/23/12) R total knee arthroplasty,cemented Dr Valenzuela Social History/Home Situation: Patient resides in a two-story home alone with 3 steps to enter with no rail. Patient stays on the first floor. Patient independent with ambulation intermittently use of a cane when in community. Her daughter lives next-door and assist with transportation to appointments. Patient reports she sponge bathes as she is afraid to get into her tub to take a shower. Equipment Owned/DME: FWW, cane Subjective: Patient reports she is doing well. She states her leg only hurts when she moves it. Patient's daughter reports recent increase in forgetfulness. Objective: [] General Observation: Female semireclined in bed with IV access left upper extremity. Right lower extremity shortened and externally rotated Mental Status: Alert and oriented to person and situation. Some confusion noted and forgetfulness unable to recall hip precautions. Patient appears to get anxious at times when she cannot remember something Pain: No pain right hip at rest; with mobility I can feel it but I have had worse pain patient unable to use numeric pain scale ROM: [] BUE: WNL Right Lower Extremity: Passive hip flexion to 90 degrees, abduction not tested, abduction 5 degrees rotation not assessed knee and ankle within normal limits Left Lower Extremity: WNL Strength: [] BUE: Grossly 4/5 Right Lower Extremity: Hip flexion 2+/5, abduction not tested, adduction 2 -/5, knee 3/5 ankle 3/5 Left Lower Extremity: Grossly 3+/5 Sensation: [] Intact Bed Mobility/Transfers: [] Supine to sit mod assist via left side of bed to prevent abduction Sit to stand min assist x 1 with verbal and tactile cues to prevent excessive hip flexion/maintain hip precautions Stand to sit min assist x 1 with verbal and tactile cues to prevent excessive hip flexion/maintain hip precautions Bed to chair min assist x 1 with FWW step turn toward the left. Gait: Deferred due to pending x-rays however patient able to perform step turn transfers as stated above. Balance: [] Static Sitting: Good Dynamic Sitting: Fair Static Standing: Fair minus Dynamic Standing: Poor plus Special Tests: [] Mobility Limitations Standardized Measure [] [facility] AM-PAC 6 clicks Basic Mobility Inpatient Short Form: [] Raw Score: 10 CMS Score: 76.75% Informed Consent/Education: Patient instructed in purpose of PT consult. Treatment 56104 patient education providing on hip precautions of no abduction and no hip flexion greater than 90 degrees. Patient with poor carryover within session but will benefit from ongoing education repetition Sidestepping with FWW toward the left in preparation for step turn transfers with min assist of 1 and continuous cues for rolling walker management and sequencing x 2 trials LNAbianca Espinoza and nurse Elinor educated on technique to assist patient while maintaining hip precautions. Both demonstrate safe technique. Assessment: Patient is 83-year-old female presenting status post periprosthetic fracture currently nonoperative management pending x-rays after this assessment. Patient demonstrates cognitive impairment with poor carryover of precautions. Patient at risk for further falls. Patient's functional mobility may be limited due to current nonoperative management with emphasis on maintaining alignment of right lower extremity. Patient presents with clinical signs and symptoms consistent with current/admitting diagnoses that have resulted to mobility limitations, gait instability, generalized weakness, and impairment of motor control as demonstrated by the following impairment level findings: 1. Decreased strength to right hip major muscle groups 2. Impaired standing balance 3. Limitation of joint range of motion in right hip 4. Impaired functional activity tolerance 5. Right hip range of motion precautions Impairments are contributing to the following functional limitations: 1. Inability to safely ambulate without assistive device 2. Increase completion time for mobility ADL performance 3. Increased fall risk 4. Decline in bed mobility skills 5. Declining transfer skills 6. Inability to perform stairs Patient is assessed as a moderate complexity based on the following: History: 83-year-old female with impairment level findings, functional limitations, and past medical history as indicated above Examination: Demonstrable impairment in strength, balance, and mobility level with underlying impairments and functional limitations as documented above Presentation: [] Evolving Decision Making: Moderate Goals: 1. Min assist bed mobility with use of leg nonfarm animal caretaker 2. Contact-guard assist transfers with FWW 3. Ambulate with FWW contact-guard assist with wheelchair follow greater than 20 feet 4. Patient will demonstrate carryover of hip precautions during functional tasks with minimal cues Plan of Care/Treatment Plan: 1-2x/day, 7 days/week x 1 week. Plan of care has been reviewed with the UNDERWRITING SUPPORT SPECIALIST providing the service under Physical Therapy direction. Initiate Physical Therapy intervention for strengthening, bed mobility, transfers, gait, stairs, balance training, use of assistive device. DISCHARGE RECOMMENDATIONS: SNF, question patient ability to return home safely due to cognitive impairment TREATMENT CODE/TIME: 96139, [id number] Thank you for the opportunity to participate in the care of this patient. Kelley Dyson, PT [facility]
--- NOTE | 2024-08-04 12:29 | DI.RAD_ITS ---
Exam(s) XR HIP RT AP LAT ONLY EXAM: XR HIP RT AP LAT ONLY INDICATION: post-mobilization periprosthetic hip fracture. COMPARISON: CR,XR XR HIP RT COMPLETE AP PELVIS from 12/06/2019 CR XR FEMUR RT from 08/02/2024 CR XR HIP RT COMPLETE AP PELVIS from 08/02/2024 TECHNIQUE: 2D digital imaging was performed. Two views. FINDINGS: There has been no change in the alignment of the periprosthetic fracture of the proximal femur. The right total hip prosthesis is unchanged in alignment. DATA REPOSITORY: RADIATION DOSE DELIVERED:
--- NOTE | 2024-08-04 15:33 | PT.INTREAT ---
PT Notes Visit Reasons: Right Periprosthetic Hip Fracture Inpatient Physical Therapy Treatment Note [facility] Date: 08/04/2024 (second session) PRECAUTIONS:RLE :Protective WB with walker, No Hip abduction No Hip flexion beyond 90 degrees , Standard, IV Access RUE SUBJECTIVE: Patient reports she is not having any pain at this time while sitting in chair. OBJECTIVE: Patient presented in chair with bilateral lower extremities elevated visiting with her daughter? PAIN: Denies at rest Therapeutic Activities (64570p[]): Direct one-on-one instruction in dynamic activities to improve functional performance. ?? Provided skilled cues and instruction on performance and technique throughout. ? BED MOBILITY/TRANSFERS? Rolling L/R: Max assist of 2 with pillow between legs to maintain right lower extremity hip in neutral position Supine-sit: Toward the left side of the bed to maintain no abduction of right lower extremity, mod assist of 1 with head of bed elevated ? Sit-supine: Max Assist for BLE and min A for trunk? Sit-stand: min A and cues for hand placement and maintaining hip flexion precaution ? Stand-sit:min A ?and cues for hand placement and maintaining hip flexion precaution ? Chair-bed: min A with FWW?and cues for hand placement and maintaining hip flexion precaution Side stepping with FWW toward the left only 6 steps for safe approach to bed in prep for sit to supine transfer ASSESSMENT: Patient tolerated session well with emphasis on performing transfers toward the left to reduce potential for abduction of right lower extremity. Patient demonstrates poor carryover of hip precautions and safe hand placement. Patient would benefit from repetition. Visual cue of precautions posted in room. PLAN: 1-2x/day, 7 days/week x 1 week. Plan of care has been reviewed with the DIRECTOR PROCESS IMPROVEMENT providing the service under Physical Therapy direction. Initiate Physical Therapy intervention for strengthening, bed mobility, transfers, gait, stairs, balance training, use of assistive device. TREATMENT CODE/TIME: [id number]/[id number], 1230?1245 DISCHARGE RECOMMENDATION: SNF
[2024-08-04 16:15] VITALS: BP 137/70; PULSE 82; RESP 16; TEMP 36.2; O2SAT 97
--- NOTE | 2024-08-04 16:48 | NUR.NOTE ---
Nursing Note: Dr. Kang in to see pt and family and discuss options: 1) can have surgery to secure fx 2) can hold off, work with PT to strengthen gently. At any time if she has more pain or mvmt issues, can go in to OR for fixation. Pt and family are leaning towards working with PT and holding off on surgery. Encouraged to ask questions.
[2024-08-04 19:54] VITALS: BP 122/59; PULSE 82; RESP 20; TEMP 37.4; O2SAT 96
[2024-08-05] MEDS: Ketorolac 15 MG/ML VIAL IVP ×4 (00:13→18:14)
[2024-08-05] MEDS: Normal Saline Flush 10 ML SYR IVP ×7 (00:14→22:24)
[2024-08-05 08:11] VITALS: BP 143/67; PULSE 71; RESP 18; TEMP 37.2; O2SAT 95
[2024-08-05] MEDS: Enoxaparin 40 MG/0.4 ML SYR SC (08:41)
--- NOTE | 2024-08-05 10:49 | PDOC.CMPRO ---
Date of service: 08/05/24 Time of Service: 10:49 Care Management Progress Note Progress Note Text Progress Note Text: Tamy was sitting up in bed when CM met with her. She appeared to be in good spirits and was quite talkative. Tamy stated that she is feeling really good today and has very little pain. She was able to ambulate for short distances today with PT using a FWW. Per her physical therapist, Tamy may have been experiencing visual hallucinating during her sessions, describing a little man in the corner staring at her. Tamy talked a bit about Dr. Kang today and how much she likes and trusts him. The current plan is to repeat her xrays tomorrow. If everything is stable, Dr. Kang plans to continue with non-operative treatment and pursue transfer to SNF for short term rehab. If fractures are not stable, surgery may be indicated. Tamy seems to be amenable to either plan and is agreeable to going to rehab. CM briefly discussed options but stated that it can be discussed in more detail when her family is present. Discharge Potential Discharge Needs: Other (likely SNF) Anticipated Barriers to Discharge: Medical Status Patient/Family Education Needs: Review discharge instructions, discuss Ask Me Three Transportation: Other (to be determined by disposition) Plan: Jo's discharge plan is unclear at this time. She has a very complex hip fracture which, at this time, is being managed without surgery. She will almost certainly require SNF placement for at least short term rehab. CM will follow and continue to assess for discharge needs. Social Determinants of Health Screening Social Determinants of Health last assessed: 08/05/24 Will the Patient Participate in the Screening?: Yes Do you worry about having a steady place to live?: no Problems where you live: no known problems In the past 12 months, have you had to go without electric, gas, oil or water in your home?: no Have you or anyone in your house had to go without enough food to eat?: no Has lack of transportation kept you from medical appointments or from doing things needed for daily living?: no Has anyone in your life made you feel unsafe or unsupported?: no How hard is it for you to pay for the very basics like food, housing, medical care, and heating? Would you say it is:: Not hard at all Do you want help finding or keeping work or a job?: I do not need or want help If for any reason you need help with day-to-day activities such as bathing, preparing meals, shopping, managing finances, etc., do you get the help you need?: I get all the help I need How often do you feel lonely or isolated from those around you?: Never Do you speak a language other than Macedonian at home?: No Does the patient want assistance with any of the above?: No
--- NOTE | 2024-08-05 10:53 | W.PM.PROGNOT ---
Date of Service Date of service: 08/05/24 Time of Service: 17:35 Objective Last Vital Signs Temp 37.2 C 08/05/24 08:11 Pulse 71 08/05/24 08:11 Resp 18 08/05/24 08:11 BP 143/67 H 08/05/24 08:11 Pulse Ox 95 08/05/24 08:11 Time Spent with Patient Time Spent with Patient: 25-34 minutes Time was spent: preparing to see the patient(eg.review tests), obtaining and/or reviewing separately otained hiistory, ordering medications,tests, procedures, referring, communicating with other health landcare facilitator, indepentently interpreting results, counseling the patient and care coordination
--- NOTE | 2024-08-05 14:41 | CHAPLAIN ---
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 She was very pleasant and easily engaged in conversation. She said she's felt confused at times, after being here, transferred to another hospital, then back here again. Her three granddaughters visited and she said that although she didn't keep up with all of their conversations, she was glad they were her to visit. According to Care Management notes, Tamy lives alone at her home in [place], with family nearby. I explained my role and offered support.
--- NOTE | 2024-08-05 15:43 | PT.INTREAT ---
PT Notes Visit Reasons: Right Periprosthetic Hip Fracture Inpatient Physical Therapy Treatment Note [facility] Date: 08/05/2024 PRECAUTIONS:RLE :Protective WB with walker, No Hip abduction No Hip flexion beyond 90 degrees , Standard, IV Access RUE SUBJECTIVE:(am) Patient reports she is not having any pain at this time while sitting in chair.Pt reporting the litle man over there with the one short leg just keeps looking at me. (Pt pointing to the wall there was not a man present) (pm) pt reporting she does not know how long she has been here. OBJECTIVE: (am) pt presented in bed with legs shifted toward right side of bed (pm)Patient presented in chair with bilateral lower extremities elevated visiting with her daughter? PAIN: Denies at rest Therapeutic Activities ([id number][]): Direct one-on-one instruction in dynamic activities to improve functional performance. ?? Provided skilled cues and instruction on performance and technique throughout. ? BED MOBILITY/TRANSFERS? Rolling L/R: Max assist of 2 with pillow between legs to maintain right lower extremity hip in neutral position (am)Supine-sit: Toward the left side of the bed to maintain no abduction of right lower extremity, mod assist of 1 with head of bed elevated ? (pm)Sit-supine: Max Assist for BLE ?legs moved together to prevent abduction ? (am/pm) Sit-stand: min A and cues for hand placement and maintaining hip flexion precaution ? ( am/pm)Stand-sit:min A ?and cues for hand placement and maintaining hip flexion precaution ? (am/pm) Surface to surface: x 3 trials min A with FWW?and cues for hand placement and maintaining hip flexion precaution Side stepping with FWW toward the left only 6 steps for safe approach to bed in prep for sit to supine transfer (pm)ambulated 10 feet with FWW with Min A for FWW mgmt and sequencing. Pt with narrow CONTRERAS with rle adducted, impaired step length, step to pattern (am) static stand at FWW facilitating ankle and hip strategies with CGA and cues for FWW placement slightly away from body to increase CONTRERAS. ASSESSMENT: Patient tolerated session well with emphasis on performing transfers toward the left to reduce potential for abduction of right lower extremity. Pt able to participate in ambulation this session with ability to advance RLE forward and adducted . Status discussed with Dr Kang who reported plan to continue PT and then repeat Xrays on Friday. If fractures remain stable then will continue with conservative mgmt and transition to SNF. If fractures have moved then discussion of surgical intervention. Patient demonstrates poor carryover of hip precautions and safe hand placement. Patient would benefit from repetition. Visual cue of precautions posted in room.MD and nurse notified of pt visual hallucination this am. No hallucinations noted during pm session. PLAN: 1-2x/day, 7 days/week x 1 week. Plan of care has been reviewed with the INTERIOR DESIGN PROGRAM CHAIR providing the service under Physical Therapy direction. Initiate Physical Therapy intervention for strengthening, bed mobility, transfers, gait, stairs, balance training, use of assistive device. TREATMENT CODE/TIME: 51645,71654/ [id number] second session) 49035/ [id number] DISCHARGE RECOMMENDATION: SNF
[2024-08-05 15:47] VITALS: BP 142/61; PULSE 70; RESP 20; TEMP 36.2; O2SAT 97
--- NOTE | 2024-08-05 16:46 | PGE_ITS ---
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 All initially the fracture extended around the proximal portion of the stem and seem to be unstable. She has been able to mobilize physical therapy. Her pain has been controlled. Post mobilization x- rays do not show any significant change in position of the fracture. Therefore, at this point I recommend we continue with a nonoperative course. I encouraged her to work with physical therapy twice per day. She will be weightbearing as tolerated with a walker. No active hip flexion or hip abduction. No hip flexion past 90 degrees. We will recheck x-rays on Friday to ensure that there is been no further displacement. If there is any worsening pain limiting motion or change in the x-ray then we will consider operative fixation of the fracture. Otherwise, we will continue with a nonoperative treatment course. Subjective Subjective Interval history since last seen: Overall Tamy reports be doing well. She was able to mobilize physical therapy this morning. She reports that her pain is controlled. She does have some pain when she tries to actively flex or abduct the right hip but otherwise has been able to mobilize. She denies any other acute issues. There was concern about potential visual hallucinations expressed to staff. Hospitalist team has been consulted. Exam Narrative Exam Narrative: Sitting up in the chair. No acute distress. Right lower extremity is slightly externally rotated although she tolerates internal and external rotation passively without significant increase in pain. Sensation to light touch over the femoral and sciatic nerve distributions. She is able to actively dorsiflex and plantarflex ankle as well as extend and flex the great toe. Objective Last Vital Signs Temp 36.2 C L 08/05/24 15:47 Pulse 70 08/05/24 15:47 Resp 20 08/05/24 15:47 BP 142/61 H 08/05/24 15:47 Pulse Ox 97 08/05/24 15:47 Time Spent with Patient Time Spent with Patient: 25-34 minutes Time was spent: obtaining and/or reviewing separately otained hiistory, indepentently interpreting results and counseling the patient
[2024-08-05 19:54] VITALS: BP 133/58; PULSE 88; RESP 17; TEMP 37.9; O2SAT 95
[2024-08-05] MEDS: MORPHine 4 MG/ML SYR IVP (22:23)
[2024-08-06] MEDS: Normal Saline Flush 10 ML SYR IVP ×3 (01:43→21:30)
[2024-08-06] MEDS: Ketorolac 15 MG/ML VIAL IVP ×4 (01:43→21:30)
--- NOTE | 2024-08-06 05:34 | NUR.NOTE ---
Spoke to Dr Albrecht, pt is asymptomatic with the irregular heart rhythm so will do EKG during day and consult with Dr Kang for plan of treatment.
--- NOTE | 2024-08-06 07:30 | RT.EKG_ITS ---
APPROVED REPORT Exam: Resting ECG Reason for Exam: irregular heart rhythm Patient Location: I HR:85 bpm ECG Measurements Heart Rate 85 AXIS SD 149 P 34 QRSd 97 QRS 21 QT 391 T 55 QTc 465 Conclusion Sinus rhythm...normal P axis, V-rate 50- 99 Ventricular premature complex...V complex w/ short R-R interval Otherwise unremarkable given baseline artifact
[2024-08-06 07:55] LABS: HCT 30.5 % (36.0-46.0); HGB 9.8 g/dL (11.2-15.7); MCH 27.5 pg (27.0-33.0); MCHC 32.1 % (32.0-36.0); MCV 85 fL (80-95); MPV 10.8 fL (8.0-11.0); Platelet Count 203 10^3/uL (130-400); RBC 3.57 10^6/uL (3.93-5.22); RDW 17.6 % (11.7-14.6); RDW-SD 54.2 fL; WBC 6.68 10^3/uL (4.4-10.8)
[2024-08-06 08:00] VITALS: BP 145/81; PULSE 77; RESP 20; TEMP 36.9; O2SAT 97
[2024-08-06 08:18] LABS: ALT 35 U/L (14-59); AST 29 U/L (15-37); Albumin 2.6 g/dL (3.4-5.0); Alkaline Phosphatase 69 U/L (46-116); Anion Gap 6.7 mmol/L (3-11); BUN 56 mg/dL (7-18); Bilirubin, Total 0.7 mg/dL (0.2-1.0); CO2 26.3 mmol/L (21.0-32.0); CREATININE 1.1 mg/dL (0.55-1.02); Calcium 8.7 mg/dL (8.5-10.1); Chloride 110 mmol/L (98-107); Estimated GFR 50.17 (mL/min/1.73m2); Glucose 106 mg/dL (74-106); Potassium 4.5 mmol/L (3.5-5.1); Sodium 143 mmol/L (136-145); Total Protein 6.3 g/dL (6.4-8.2)
[2024-08-06] MEDS: Enoxaparin 40 MG/0.4 ML SYR SC (09:08)
--- NOTE | 2024-08-06 09:20 | PTTR_ITS ---
PT Notes Visit Reasons: Right Periprosthetic Hip Fracture Inpatient Physical Therapy Treatment Note [facility] Date: 08/06/2024 PRECAUTIONS:RLE :Protective WB with walker, No Hip abduction No Hip flexion beyond 90 degrees , Standard, IV Access RUE SUBJECTIVE:Pt stating she has not seen Dr Kang in several days. (He saw her on 08/05) She is wondering what the plan will be moving forward. OBJECTIVE: PAIN: Denies at rest, It hurts when I stand up (pt given pain meds by Nurse Mo) Therapeutic Activities ([id number][]): Direct one-on-one instruction in dynamic activities to improve functional performance. ?? Provided skilled cues and instruction on performance and technique throughout. ? BED MOBILITY/TRANSFERS? Rolling L/R: Max assist of 2 with pillow between legs to maintain right lower extremity hip in neutral position Supine-sit: Toward the left side of the bed to maintain no abduction of right lower extremity, min assist of 1 with head of bed elevated ? Sit-stand: min A and cues for hand placement and maintaining hip flexion precaution by placing right foot slightly forward? Stand-sit:min A ?and cues for hand placement and maintaining hip flexion precaution by placing right foot slightly forward? Side stepping with FWW toward the left only 6 steps ambulated 12 feet x2 with FWW with Min A for FWW mgmt and sequencing. Pt with narrow CONTRERAS with RLE adducted, impaired step length, step to pattern static stand at FWW facilitating ankle and hip strategies with SBA and cues for FWW placement slightly away from body to increase CONTRERAS. ASSESSMENT: Pt noted with confusion this am stating she has not seen Dr Kang for several days. Pt needs to exit bed to the left to ensure no abduction. She is able to enter the bed from the left side of the bed if BLE are lifted at the same time maintaining neutral position of BLE. When entering from the right side pt has increase discomfort at this time. She responds well and is able to assist with RLE movement when staff count 1,2,3 then assist moving limb. Dr Kang updated on her ability to ambulate 12 feet x 2 today Xray showed no change in alignment therefore will continue with conservative management. Anticipate pt to transition to SNF to maximize functional mobility with these current restrictions. PLAN: 1-2x/day, 7 days/week x 1 week. Plan of care has been reviewed with the CREASING MACHINE OPERATOR providing the service under Physical Therapy direction. Initiate Physical Therapy intervention for strengthening, bed mobility, transfers, gait, stairs, balance training, use of assistive device. TREATMENT CODE/TIME: 12830/ [id number] DISCHARGE RECOMMENDATION: SNF
--- NOTE | 2024-08-06 10:51 | NUR.NOTE ---
patient AxOx4 this shift, reports pain is tolerable with IV toradol ATC, pt had xray of R hip this AM showing no changes/misalignment of fracture. Up to chair with PT this AM, EKG done and swnt to chart due to concern for irregular heart rate, PVCs noted but otherwise in NSR. Patient with crackles to bilateral bases of lungs, educated on I.S. and pulm hygiene. Hip flexion and abduction restrictions >90 degrees. Pending SNF placement. Chair alarm on, call stinson in reach, denies further needs. Nursing Note:
--- NOTE | 2024-08-06 12:23 | W.PM.PROGNOT ---
Date of Service Date of service: 08/06/24 Time of Service: 12:23 Assessment and Plan Assessment and plan (1) Periprosthetic fracture around internal prosthetic right hip joint: Status: Acute Assessment and plan: Tamy is doing well status post a periprosthetic fracture of her right hip. The fracture has remained unchanged despite being able to ambulate with physical therapy over the last couple of days. She is able to ambulate without considerable pain. At this point, the recommendation continues to be a nonoperative and she can plan to be discharged to a senior care facility where she continues to rehab as the fracture heals. If there is any change in her condition with continued conservative treatment including worsening pain or function, she is to have new x-rays and surgical options could be reconsidered. Subjective Subjective Interval history since last seen: Tamy states that she has been working well with PT and was able to mobilize with manageable pain. Pt has been transferred to the hospitalist service and they are following any heart rhythm issues she may have after reported irregular heartbeat last night. EKG read as normal today. Denies any acute issues today. Exam Narrative Exam Narrative: Pt is sitting comfortably in the chair and eating lunch. She is in no acute distress. Gentle internal and external rotation passively illicit very little pain. Objective Last Vital Signs Temp 98.4 F 08/06/24 08:00 Pulse 77 08/06/24 08:00 Resp 20 08/06/24 08:00 BP 145/81 H 08/06/24 08:00 Pulse Ox 97 08/06/24 08:00 Laboratory Results - last 24 hr 08/06/24 07:47 WBC 6.68 RBC 3.57 L Hgb 9.8 L Hct 30.5 L MCV 85 MCH 27.5 MCHC 32.1 RDW 17.6 H Plt Count 203 MPV 10.8 Sodium 143 Potassium 4.5 Chloride 110 H Carbon Dioxide 26.3 Anion Gap 6.7 BUN 56 H Creatinine 1.1 H Est GFR (CKD-EPI 2020) 50.17 Glucose 106 Calcium 8.7 Total Bilirubin 0.7 AST 29 ALT 35 Alkaline Phosphatase 69 Total Protein 6.3 L Albumin 2.6 L Objective Narrative Objective Narrative: X-rays taken today were reviewed and compared to previous x-rays, they reveal periprosthetic fracture of the right hip which remains unchanged when compared to x-rays taken previously. There is been no displacement of the fracture compared to previous x-rays. Time Spent with Patient Time Spent with Patient: <25 minutes Time was spent: preparing to see the patient(eg.review tests), indepentently interpreting results and counseling the patient
--- NOTE | 2024-08-06 13:51 | W.PM.PROGNOT ---
Date of Service Date of service: 08/06/24 Time of Service: 13:51 Assessment and Plan Assessment and plan (1) Periprosthetic fracture around internal prosthetic right hip joint: Status: Acute Assessment and plan: Pat is doing well status post a periprosthetic fracture of her right hip. The fracture has remained unchanged despite being able to ambulate with physical therapy over the last couple of days. She is able to ambulate without considerable pain. At this point, the recommendation continues to be a nonoperative and she can plan to be discharged to a half-way facility where she continues to rehab as the fracture heals. If there is any change in her condition with continued conservative treatment including worsening pain or function, she is to have new x-rays and surgical options could be reconsidered. 08/06/24 PT seeing pt this afternoon, will await formal eval report (2) Dysrhythmia: Status: Acute Assessment and plan: exact etiology and history is a bit of a mystery. I will place on telemetry for tonight and recheck strips in am. Subjective Subjective Interval history since last seen: Discussed with Ortho (Jorge Luis) yesterday about assuming care. Pt is non-operative at this time so the Hospitalist service with become the attending physician group. There was mention about a dysrhythmia last night but pt did not have any complaints and she was not on telemetry. EKG was essentially benign with some PVC's. Exam Narrative Exam Narrative: HEENT: NCAT MMM EOMI PERRLA NECK: NO LAD NO JVD NO THYROIDMEGALY CV: RRR NO MRG PULM: CTAB NO AMU NEURO: CN 2-12 INTACT TESTED/REFLEXES IN UE INTACT TESTED Objective Last Vital Signs Temp 36.9 C 08/06/24 08:00 Pulse 77 08/06/24 08:00 Resp 20 08/06/24 08:00 BP 145/81 H 08/06/24 08:00 Pulse Ox 97 08/06/24 08:00 Laboratory Results - last 24 hr 08/06/24 07:47 WBC 6.68 RBC 3.57 L Hgb 9.8 L Hct 30.5 L MCV 85 MCH 27.5 MCHC 32.1 RDW 17.6 H Plt Count 203 MPV 10.8 Sodium 143 Potassium 4.5 Chloride 110 H Carbon Dioxide 26.3 Anion Gap 6.7 BUN 56 H Creatinine 1.1 H Est GFR (CKD-EPI 2020) 50.17 Glucose 106 Calcium 8.7 Total Bilirubin 0.7 AST 29 ALT 35 Alkaline Phosphatase 69 Total Protein 6.3 L Albumin 2.6 L Time Spent with Patient Time Spent with Patient: 25-34 minutes Time was spent: preparing to see the patient(eg.review tests), obtaining and/or reviewing separately otained hiistory, ordering medications,tests, procedures, referring, communicating with other health palliative care nurse, indepentently interpreting results, counseling the patient and care coordination
--- NOTE | 2024-08-06 14:38 | PT.INTREAT ---
PT Notes Visit Reasons: Right Periprosthetic Hip Fracture Inpatient Physical Therapy Treatment Note [facility] Date: 08/06/24 PRECAUTIONS:No right hip flex >90, no active right hip abd. SUBJECTIVE: Jo reports that she is waiting for whats next. She is curious to know a plan of care. Grand daughter visiting and states that she seems antsy and maybe a walk will help. OBJECTIVE: []? PAIN: only hurts when I move on it. ? Therapeutic Activities (48369c3): Direct one-on-one instruction in dynamic activities to improve functional performance. ? BED MOBILITY/TRANSFERS? pt seated in recliner? Sit-stand: min A/CGA? Stand-sit: CGA ? Provided skilled cues and instruction on performance and technique throughout. GAIT? Assistive Device: FWW? Weight bearing: AT Assist: CGA ? Distance:?approx 15'x2? cues for proper gait sequencing and management of walker during turn ASSESSMENT:? tolerated session well. Seems a bit confused. She did not remember having PT in AM. She does not remember her precautions. PLAN: will continue to work on her functional mobility and gait to tolerance following PT POC. TREATMENT CODE/TIME: 23 min DISCHARGE RECOMMENDATION: SNF
--- NOTE | 2024-08-06 15:00 | DI.RAD_ITS ---
Exam(s) XR HIP RT AP LAT ONLY EXAM: XR HIP RT AP LAT ONLY INDICATION: f/u R periprosthetic femur frx. COMPARISON: CR XR HIP RT AP LAT ONLY from 08/04/2024 TECHNIQUE: 2D digital imaging was performed. Two views. FINDINGS: No change of alignment of periprosthetic fracture of the proximal femur. No new abnormalities. Hip prosthesis is unchanged. DATA REPOSITORY: RADIATION DOSE DELIVERED:
[2024-08-06 15:11] VITALS: BP 132/63; PULSE 82; RESP 18; TEMP 37; O2SAT 96
--- NOTE | 2024-08-06 17:21 | PDOC.CMPRO ---
Date of service: 08/06/24 Time of Service: 17:22 Care Management Progress Note Progress Note Text Progress Note Text: Grupo was sitting up in bed visiting with her family when CM met with her. She was in good spirits and was joking with her daughter and granddaughter. Pat continues to work with PT and is doing quite well. Repeat imaging done this morning shows a stable fracture despite ambulation with weight bearing as tolerated. She will continue with non-operative management and transition to a SNF for rehab. [facility]errals were sent to [facility] and [facility]. Grupo has already received bed offers from [facility] for Friday. CM will contact the other facilities on Friday and a final decision will be made at that time. CM met with Grupo's daughter Reina and granddaughter Adriana privately this afternoon. 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 CM encouraged them to complete as much as they could and submit it to the state. Inevitably there will be more information needed which they can provide at that time. Reina and Adriana also talked a bit more about Grupo's memory issues and their concerns for her safety at home by herself. They are pleased that she will be able to go to a SNF for a few weeks until a more permanent plan is made. Discharge Potential Discharge Needs: Other (SNF) Anticipated Barriers to Discharge: None Identified Patient/Family Education Needs: Review discharge instructions, discuss Ask Me Three Transportation: [facility] Plan: Grupo will likely transfer to a SNF for short term rehab prior to returning home. Referrals have been sent to the above facilities and bed offers have been received from the [facility]. In the meantime her family is working on a [place] [facility] medicaid application. If approved, it will afford the family more options for care as grupo's memory issues progress. Pat will follow up with the facility providers and plan of care and will transport with [facility]. CM will follow and continue to assess for discharge concerns. Social Determinants of Health Screening Social Determinants of Health last assessed: 08/06/24 Will the Patient Participate in the Screening?: Yes Do you worry about having a steady place to live?: no Problems where you live: no known problems In the past 12 months, have you had to go without electric, gas, oil or water in your home?: no Have you or anyone in your house had to go without enough food to eat?: no Has lack of transportation kept you from medical appointments or from doing things needed for daily living?: no Has anyone in your life made you feel unsafe or unsupported?: no How hard is it for you to pay for the very basics like food, housing, medical care, and heating? Would you say it is:: Not hard at all Do you want help finding or keeping work or a job?: I do not need or want help If for any reason you need help with day-to-day activities such as bathing, preparing meals, shopping, managing finances, etc., do you get the help you need?: I get all the help I need How often do you feel lonely or isolated from those around you?: Never Do you speak a language other than [place] at home?: No Does the patient want assistance with any of the above?: No
[2024-08-06 20:10] VITALS: BP 141/66; PULSE 80; RESP 18; TEMP 36.2; O2SAT 97
[2024-08-07] MEDS: MORPHine 4 MG/ML SYR IVP (00:03)
[2024-08-07] MEDS: Normal Saline Flush 10 ML SYR IVP ×3 (00:04→21:45)
[2024-08-07 06:43] LABS: Abs Immature Grans 0.02 10^3/uL (0.0-0.06); Absolute Basophil Count 0.04 10^3/uL (0.0-0.2); Absolute Eosinophil Count 0.25 10^3/uL (0.0-0.7); Absolute Lymphocyte Count 1.13 10^3/uL (1.2-3.4); Absolute Monocyte Count 0.53 10^3/uL (0.1-0.8); Absolute Neutrophil Count 3.47 10^3/uL (1.2-6.7); Basophils % 0.7 %; Eosinophils % 4.6 %; HCT 27.6 % (36.0-46.0); HGB 8.9 g/dL (11.2-15.7); Immature Grans % 0.4 %; Lymphocytes % 20.8 %; MCH 27.8 pg (27.0-33.0); MCHC 32.2 % (32.0-36.0); MCV 86 fL (80-95); MPV 10.8 fL (8.0-11.0); Monocytes % 9.7 %; Neutrophils % 63.8 %; Platelet Count 205 10^3/uL (130-400); RDW 17.9 % (11.7-14.6); WBC 5.44 10^3/uL (4.4-10.8)
[2024-08-07 07:09] LABS: ALT 33 U/L (14-59); AST 22 U/L (15-37); Albumin 2.2 g/dL (3.4-5.0); Alkaline Phosphatase 62 U/L (46-116); Anion Gap 7.7 mmol/L (3-11); BUN 60 mg/dL (7-18); Bilirubin, Total 0.6 mg/dL (0.2-1.0); CO2 26.3 mmol/L (21.0-32.0); CREATININE 1.1 mg/dL (0.55-1.02); Calcium 8.6 mg/dL (8.5-10.1); Chloride 111 mmol/L (98-107); Estimated GFR 50.17 (mL/min/1.73m2); Glucose 92 mg/dL (74-106); Potassium 5.2 mmol/L (3.5-5.1); Sodium 145 mmol/L (136-145); Total Protein 5.5 g/dL (6.4-8.2)
[2024-08-07] MEDS: Ketorolac 15 MG/ML VIAL IVP ×3 (07:27→21:44)
[2024-08-07] MEDS: Enoxaparin 40 MG/0.4 ML SYR SC (07:28)
[2024-08-07 07:50] VITALS: BP 150/70; PULSE 67; RESP 16; TEMP 36.4; O2SAT 99
--- NOTE | 2024-08-07 09:31 | NUR.NOTE ---
patient Axox3 this AM, mild confusion about her timeline/situation at times. Family has reported this is patient's recent baseline x2 months and is supposed to f/u outpatient with neurology at for head MRI. Otherwise pain is well controlled with toradol, encouraging PO intake based on kidney functions and concentrated urine. I.S. and pulm hygiene education completed, lungs sound improved since prior shift 08/06, patient ambulated in [place] with PT today and is currently sitting in chair. Tolerating diet well, hip precautions reinforced with pt, chair alarm on, SCDs on, call stnison in reach, denies needs at this time. R elbow dsg changed. Nursing Note:
[2024-08-07] MEDS: Docusate Sodium 100 MG CAP PO (10:45)
--- NOTE | 2024-08-07 13:09 | PTTR_ITS ---
PT Notes Visit Reasons: Right Periprosthetic Hip Fracture Inpatient Physical Therapy Treatment [facility] Date: 08/07/24 PRECAUTIONS:No right hip flex >90, no active right hip abd. SUBJECTIVE: Patient reports she is unsure whether she received pain meds prior to treatment today patient continues to report only having pain when she moves.(Patient did receive meds prior to treatment verified with nurse Yang ) OBJECTIVE: Patient presented seated in chair with ice pack to right lateral hip.? PAIN: only hurts when I move on it. ? Therapeutic Activities (45520z6): Direct one-on-one instruction in dynamic activities to improve functional performance. ? BED MOBILITY/TRANSFERS? pt seated in recliner? Sit-stand: min A/CGA? , patient min assist on initial stand 1/3 then required contact-guard and verbal cues for hand placement 2/3? Stand-sit: CGA ? Provided skilled cues and instruction on performance and technique throughout. GAIT? Assistive Device: FWW? Weight bearing: AT Assist: CGA ? Distance:?approx 36'x2? cues for proper gait sequencing and management of walker during turn ASSESSMENT:?Patient tolerated session well however remains confused and fo rgetful. With poor carryover of precautions and safe hand placement for sit to stand. Patient able to carryover within session proper hand placement once cues given. Patient with increased distance however noted increased hip flexion/antalgic gait with distance greater than 20 feet. Patient hesitant to stop and perform rest. Despite visible change in gait pattern. After rest patient again able to ambulate with FWW which was shortened to promote increased use of triceps to unweight lower extremity. Patient continues to benefit from SNF placement for strengthening, gait training, functional mobility training including self-care management and ADL management within restrictions prior to discharge to home. PLAN: will continue to work on her functional mobility and gait to tolerance silvio peguero PT POC. TREATMENT CODE/TIME: 05097, 65314/0830?0857 DISCHARGE RECOMMENDATION: SNF
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
[2024-08-07 14:47] VITALS: BP 114/69; PULSE 80; RESP 16; TEMP 37.4; O2SAT 95
--- NOTE | 2024-08-07 15:40 | PT.INTREAT ---
PT Notes Visit Reasons: Right Periprosthetic Hip Fracture Inpatient Physical Therapy Treatment Note [facility] Date: 08/07/24 pm session PRECAUTIONS:No right hip flex >90, no active right hip abd. SUBJECTIVE: Patient reports she is tired OBJECTIVE: Patient presents reclined in chair. Daughter visiting? PAIN: 2/10 with use of numeric/faces scale ? Therapeutic Activities (01243g5): Direct one-on-one instruction in dynamic activities to improve functional performance. ? BED MOBILITY/TRANSFERS? pt seated in recliner? Sit-stand: min A? x2 trials from chair, mod assist from toilet? Stand-sit: CGA at chair, min assist at toilet with grab bar? Provided skilled cues and instruction on performance and technique throughout. GAIT? Assistive Device: FWW? Weight bearing: AT Assist: CGA ? Distance:?approx 15'x2? cues for proper gait sequencing and management of walker during turn ASSESSMENT:?Patient noted with slight antalgic gait distance reduced due to report of pain 1-2 using the scale. Patient able to utilize triceps with shortened height of FWW to unweight with cueing for sequencing of step to pattern. Patient required increased assist for sit to stand this session. PLAN: will continue to work on her functional mobility and gait to tolerance following PT POC. TREATMENT CODE/TIME: 51543/0200-02:25 p.m. DISCHARGE RECOMMENDATION: SNF
[2024-08-07] MEDS: Acetaminophen 325 MG TAB 650 MG PO ×2 (16:20→21:44)
[2024-08-07] MEDS: Sodium Zirconium Cyclosilicate 10 GM PKT PO (16:20)
[2024-08-07 20:28] VITALS: BP 153/78; PULSE 73; RESP 18; TEMP 36; O2SAT 98
[2024-08-07] MEDS: Pramipexole 0.25 MG TAB PO (21:44)
[2024-08-08] MEDS: Acetaminophen 325 MG TAB 650 MG PO ×4 (04:18→21:10)
[2024-08-08 06:45] LABS: Abs Immature Grans 0.03 10^3/uL (0.0-0.06); Absolute Basophil Count 0.04 10^3/uL (0.0-0.2); Absolute Eosinophil Count 0.22 10^3/uL (0.0-0.7); Absolute Lymphocyte Count 0.98 10^3/uL (1.2-3.4); Absolute Monocyte Count 0.55 10^3/uL (0.1-0.8); Absolute Neutrophil Count 3.91 10^3/uL (1.2-6.7); Basophils % 0.7 %; Eosinophils % 3.8 %; HCT 29.2 % (36.0-46.0); HGB 9.2 g/dL (11.2-15.7); Immature Grans % 0.5 %; Lymphocytes % 17.1 %; MCH 27.3 pg (27.0-33.0); MCHC 31.5 % (32.0-36.0); MCV 87 fL (80-95); MPV 11.2 fL (8.0-11.0); Monocytes % 9.6 %; Neutrophils % 68.3 %; Platelet Count 234 10^3/uL (130-400); RBC 3.37 10^6/uL (3.93-5.22); RDW 17.9 % (11.7-14.6); RDW-SD 55.1 fL; WBC 5.73 10^3/uL (4.4-10.8)
[2024-08-08 07:12] LABS: BUN 61 mg/dL (7-18); CREATININE 1.1 mg/dL (0.55-1.02); Calcium 8.9 mg/dL (8.5-10.1); Chloride 109 mmol/L (98-107); Estimated GFR 50.17 (mL/min/1.73m2); Glucose 99 mg/dL (74-106); Potassium 5.2 mmol/L (3.5-5.1); Sodium 144 mmol/L (136-145)
[2024-08-08 07:15] LABS: Iron 34 ug/dL (50-170); Total Iron Binding Capacity 331 ug/dL (250-450); Transferrin Sat 10 % (15-50)
[2024-08-08 07:28] LABS: Ferritin 94 ng/mL (8-252)
[2024-08-08] MEDS: Ketorolac 15 MG/ML VIAL IVP ×2 (07:36→13:43)
[2024-08-08] MEDS: Folic Acid 1 MG TAB PO (07:36)
[2024-08-08] MEDS: Enoxaparin 40 MG/0.4 ML SYR SC (07:36)
[2024-08-08] MEDS: Normal Saline Flush 10 ML SYR IVP ×2 (07:36→19:57)
[2024-08-08 08:19] VITALS: BP 159/71; PULSE 72; RESP 20; TEMP 36.9; O2SAT 96
--- NOTE | 2024-08-08 12:06 | PT.INTREAT ---
PT Notes Visit Reasons: Right Periprosthetic Hip Fracture Inpatient Physical Therapy Treatment Note [facility] Date: 08/08/24 PRECAUTIONS:No right hip flex >90, no active right hip abd. SUBJECTIVE: Patient reports she is feeling okay, but has a light congestion OBJECTIVE: Patient presents upright in bed cheeks flushed? PAIN: 1-2/10 with use of numeric/faces scale ? Therapeutic Activities (21510x5): Direct one-on-one instruction in dynamic activities to improve functional performance. ? BED MOBILITY/TRANSFERS?semirecline to sit with CGA toward left side of bed. ? Sit-stand: CGA trials from chair and bed, min assist from commode over toilet? Stand-sit: CGA at chair, bed and commode over toilet? Provided skilled cues and instruction on performance and technique throughout. GAIT? Assistive Device: FWW? Weight bearing: AT Assist: CGA ? Distance:?approx 15'x2?, 48' x 1 ? cues for proper gait sequencing and management of walker during turn ASSESSMENT:?Patient tolerated session well. pt able to get to edge of left side of bed with cues and CGA. Commode placed over toilet for BUE support and to raise height. PLAN: will continue to work on her functional mobility and gait to tolerance following PT POC. TREATMENT CODE/TIME: 07882. 10626/0901?0924 DISCHARGE RECOMMENDATION: SNF
--- NOTE | 2024-08-08 15:03 | PT.INTREAT ---
PT Notes Visit Reasons: Right Periprosthetic Hip Fracture Inpatient Physical Therapy Treatment Note [facility] Date: 08/08/24 (pm Session) PRECAUTIONS:No right hip flex >90, no active right hip abd. SUBJECTIVE: Patient reports she is feeling good. OBJECTIVE: Patient presents in chair visiting with her dtr, grand dtr and son? PAIN: 1-2/10 with use of numeric/faces scale ? Therapeutic Activities (58000g1): Direct one-on-one instruction in dynamic activities to improve functional performance. ? BED MOBILITY/TRANSFERS? Sit-stand: min A x 1 trial then CGA 2trials from chair , min assist from wheelchair ? Stand-sit: CGA at chair,wheelchair? Provided skilled cues and instruction on performance and technique throughout. GAIT? Assistive Device: FWW? Weight bearing: AT Assist: CGA cues for sequencing walker right left? ?and for posture ? Distance:?approx 50 feet x2 ? ? ?stand rest at 25 feet to promote upright posture. ? ASSESSMENT:?Patient tolerated session well. Pt noted to require increased assist on initial stand from chair after sitting for greater than 2 hours. Patient can continues to present with forgetfulness inability to recall what she has eaten or if she has gone to the bathroom. Patient also poor carryover of hip restrictions/precautions PLAN: will continue to work on her functional mobility and gait to tolerance following PT POC. TREATMENT CODE/TIME: 15717. 30227/1355?1428 DISCHARGE RECOMMENDATION: SNF
[2024-08-08 15:13] VITALS: BP 150/70; PULSE 69; RESP 20; TEMP 36.4; O2SAT 99
--- NOTE | 2024-08-08 17:04 | PGE_ITS ---
Date of Service Date of service: 08/08/24 Time of Service: 17:04 Assessment and Plan Assessment and plan (1) Periprosthetic fracture around internal prosthetic right hip joint: Status: Acute Assessment and plan: likely mechanical fall with isolated right hip periprosthetic hip fracture Ortho consulted and plan for non- operative management at this time can bear weight on the right leg but protected with a walker at all times. safely re-ambulate with physical therapy without considerable pain. Discharge to a care home facility on Friday for ongoing rehab as the fracture heals. Consider re-imaging if changes in her condition, thus far has been stable Pain management: scheduled ketorolac completed today- now on scheduled APAP with oral morphine 7.5 mg Q4 PRN- give PRN prior to PT continue PT (2) Hypertension: Assessment and plan: blood pressures elevated with lisinopril on hold, will resume and continue to monitor (3) Anemia: Status: Chronic Assessment and plan: normocytic stable Iron deficient will add oral supplementation (4) Hyperkalemia: Status: Acute Assessment and plan: K 5.2 monitor (5) Chronic kidney disease, stage 3: Assessment and plan: Stable and at baseline continue to monitor and adjust meds as needed. (6) Discharge planning issues: Status: Acute Assessment and plan: anticipate discharge to SNF Friday if bed available. discussed with DR Beckman Subjective Subjective Patient reports: no new complaints, tolerating liquids well, tolerating a regular diet and afebrile Interval history since last seen: working with PT, medically stable, pain managed Exam Const General: cooperative, healthy appearing, comfortable and no acute distress Orientation: alert, awake, oriented to person and other (poor historian with cognitive impairment) [facility] Head: normal to inspection, normocephalic and atraumatic Mouth: moist mucous membranes Eyes General: appearance normal, both eyes and all related structures Conjunctivae: conjunctivae normal Neck Neck: normal visual inspection and full ROM Resp Effort & Inspection: normal respiratory effort and able to speak in complete sentences Auscultation: clear to auscultation bilaterally Cardio Rate: regular rate Rhythm: regular rhythm GI Palpation: soft and nontender Skin General skin exam: no rashes or lesions noted Neuro General: patient alert, patient awake, moves all extremities and no focal motor deficits Speech: speech normal Extrem General: normal to inspection, full ROM and capillary refill normal Psych Appearance: grossly normal Mental Status: mental status grossly normal Objective Last Vital Signs Temp 36.4 C L 08/08/24 15:13 Pulse 69 08/08/24 15:13 Resp 20 08/08/24 15:13 BP 150/70 H 08/08/24 15:13 Pulse Ox 99 08/08/24 15:13 Laboratory Results - last 24 hr 08/08/24 06:02 WBC 5.73 RBC 3.37 L Hgb 9.2 L Hct 29.2 L MCV 87 MCH 27.3 MCHC 31.5 L RDW 17.9 H Plt Count 234 MPV 11.2 H Immature Gran % 0.5 Neutrophils % 68.3 Lymphocytes % 17.1 Monocytes % 9.6 Eosinophils % 3.8 Basophils % 0.7 Nucleated RBC % 0.0 Absolute Neutrophils 3.91 Absolute Lymphocytes 0.98 L Absolute Monocytes 0.55 Absolute Eosinophils 0.22 Absolute Basophils 0.04 Sodium 144 Potassium 5.2 H Chloride 109 H Carbon Dioxide 26.0 Anion Gap 9.0 BUN 61 H Creatinine 1.1 H Est GFR (CKD-EPI 2020) 50.17 Glucose 99 Calcium 8.9 Iron 34 L TIBC 331 Transferrin % Sat 10 L Ferritin 94 Time Spent with Patient Time Spent with Patient: 35-49 minutes Time was spent: preparing to see the patient(eg.review tests), obtaining and/or reviewing separately otained hiistory, ordering medications,tests, procedures, indepentently interpreting results and counseling the patient
[2024-08-08] MEDS: Lisinopril 10 MG TAB PO (17:36)
[2024-08-08] MEDS: Pramipexole 0.25 MG TAB PO (19:56)
[2024-08-08] MEDS: Latanoprost 0.005% 2.5 ML BTL OU (19:56)
[2024-08-08 20:35] VITALS: BP 147/69; PULSE 80; RESP 15; TEMP 36.5; O2SAT 97
[2024-08-08 23:25] VITALS: BP 150/66; PULSE 64; RESP 15; TEMP 36.5; O2SAT 100
[2024-08-09] MEDS: Acetaminophen 325 MG TAB 650 MG PO ×2 (03:37→09:46)
[2024-08-09 03:49] VITALS: BP 160/74; PULSE 62; RESP 15; TEMP 36.9; O2SAT 100
[2024-08-09 06:10] LABS: Abs Immature Grans 0.02 10^3/uL (0.0-0.06); Absolute Basophil Count 0.05 10^3/uL (0.0-0.2); Absolute Eosinophil Count 0.19 10^3/uL (0.0-0.7); Absolute Lymphocyte Count 0.95 10^3/uL (1.2-3.4); Absolute Neutrophil Count 5.66 10^3/uL (1.2-6.7); Basophils % 0.7 %; Eosinophils % 2.5 %; HCT 30.5 % (36.0-46.0); HGB 9.5 g/dL (11.2-15.7); Immature Grans % 0.3 %; Lymphocytes % 12.7 %; MCH 27.4 pg (27.0-33.0); MCHC 31.1 % (32.0-36.0); MCV 88 fL (80-95); MPV 11.3 fL (8.0-11.0); Neutrophils % 75.8 %; Platelet Count 245 10^3/uL (130-400); RBC 3.47 10^6/uL (3.93-5.22); RDW 17.8 % (11.7-14.6); WBC 7.47 10^3/uL (4.4-10.8)
[2024-08-09 07:47] VITALS: BP 153/66; PULSE 73; RESP 18; TEMP 36.8; O2SAT 97
--- NOTE | 2024-08-09 07:58 | W.PM.PROGNOT ---
Date of Service Date of service: 08/09/24 Time of Service: 07:45 Assessment and Plan Assessment and plan (1) Periprosthetic fracture around internal prosthetic right hip joint: Status: Acute Assessment and plan: Jo is an 83-year-old female with a periprosthetic fracture about the right proximal femur. Fortunately, she has been able to manage physical therapy and weightbearing with restrictions without any significant displacement in the fracture. Repeat x-rays performed this morning do not show any displacement of the fracture fragments, no change from the previous x-rays. At this point we may continue with a nonoperative recovery protocol. She may be weightbearing as tolerated with an assistive device. No active abduction. No adduction past neutral, knees wider than hips. No flexion greater than 90 degrees. I will plan to see her back in 4 weeks for repeat evaluation and x-ray. Subjective Subjective Interval history since last seen: Tamy reportedly doing well. She did have more pain last night that she has had. She has been able to ambulate with PT and with nursing without any significant change. Previous x-ray on Friday did not show any displacement of the fracture fragments or change in position of the implant. Blood levels have been low but seem to be improving on their own. She has been without symptoms. Exam Narrative Exam Narrative: Evaluated in the chair. No acute distress. She tolerates passive internal and external rotation of the right hip without any significant pain. He is able demonstrate some active flexion with minimal pain. Sensation intact light touch over the femoral sided nerve distributions. No significant swelling. No notable bruising. Objective Last Vital Signs Temp 36.8 C 08/09/24 07:47 Pulse 73 08/09/24 07:47 Resp 18 08/09/24 07:47 BP 153/66 H 08/09/24 07:47 Pulse Ox 97 08/09/24 07:47 Laboratory Results - last 24 hr 08/09/24 05:59 WBC 7.47 RBC 3.47 L Hgb 9.5 L Hct 30.5 L MCV 88 MCH 27.4 MCHC 31.1 L RDW 17.8 H Plt Count 245 MPV 11.3 H Immature Gran % 0.3 Neutrophils % 75.8 Lymphocytes % 12.7 Monocytes % 8.0 Eosinophils % 2.5 Basophils % 0.7 Nucleated RBC % 0.0 Absolute Neutrophils 5.66 Absolute Lymphocytes 0.95 L Absolute Monocytes 0.60 Absolute Eosinophils 0.19 Absolute Basophils 0.05 Time Spent with Patient Time Spent with Patient: 25-34 minutes Time was spent: preparing to see the patient(eg.review tests), obtaining and/or reviewing separately otained hiistory, ordering medications,tests, procedures, indepentently interpreting results and counseling the patient
[2024-08-09] MEDS: Lisinopril 10 MG TAB PO (08:15)
[2024-08-09] MEDS: Enoxaparin 40 MG/0.4 ML SYR SC (08:15)
[2024-08-09] MEDS: Ferrous Sulfate 325 MG TAB PO (08:15)
[2024-08-09] MEDS: Folic Acid 1 MG TAB PO (08:16)
--- NOTE | 2024-08-09 08:49 | PDOC.CMPRO ---
Date of service: 08/09/24 Time of Service: 08:49 Care Management Progress Note Discharge Potential Discharge Needs: Other (SNF) Anticipated Barriers to Discharge: Bed availability Patient/Family Education Needs: Review discharge instructions, discuss [facility] Me [facility] Transportation: Other (to be determined by disposition) Plan: Jo's discharge plan is unclear at this time. She has a very complex, unstable hip fracture which, at this time, is being managed without surgery. She will almost certainly require SNF placement for at least short term rehab. CM will follow and continue to assess for discharge needs. Social Determinants of Health Screening Social Determinants of Health last assessed: 08/09/24 Will the Patient Participate in the Screening?: Yes Do you worry about having a steady place to live?: no Problems where you live: no known problems In the past 12 months, have you had to go without electric, gas, oil or water in your home?: no Have you or anyone in your house had to go without enough food to eat?: no Has lack of transportation kept you from medical appointments or from doing things needed for daily living?: no Has anyone in your life made you feel unsafe or unsupported?: no How hard is it for you to pay for the very basics like food, housing, medical care, and heating? Would you say it is:: Not hard at all Do you want help finding or keeping work or a job?: I do not need or want help If for any reason you need help with day-to-day activities such as bathing, preparing meals, shopping, managing finances, etc., do you get the help you need?: I get all the help I need How often do you feel lonely or isolated from those around you?: Never Do you speak a language other than [place] at home?: No Does the patient want assistance with any of the above?: No
--- NOTE | 2024-08-09 09:20 | DI.RAD_ITS ---
Exam(s) XR HIP RT AP LAT ONLY EXAM: XR HIP RT AP LAT ONLY CLINICAL HISTORY: f/u after mobilization, slight increase in pain. TECHNIQUE: 2D digital imaging was performed. COMPARISON: CR XR HIP RT AP LAT ONLY from 08/06/2024 FINDINGS: Two views Again noted is a right hip prosthesis. The previously described periprosthetic inter-subtrochanteric fracture appears radiographically uncha nged from . IMPRESSION: As above. Radiographically unchanged from 08/06/2024 DATA REPOSITORY: RADIATION DOSE DELIVERED:
--- NOTE | 2024-08-09 12:31 | PTTR_ITS ---
PT Notes Visit Reasons: Right Periprosthetic Hip Fracture Inpatient Physical Therapy Treatment Note [facility] Date: 08/09/24 PRECAUTIONS:No right hip flex >90, no active right hip abd. SUBJECTIVE: Patient reports she has more pain this morning.She reports the pain started lat night while moving in the bed OBJECTIVE: ? PAIN: 4/10 with use of numeric/faces scale ? Therapeutic Activities (30101e1): Direct one-on-one instruction in dynamic activities to improve functional performance. ? BED MOBILITY/TRANSFERS? supine to sit min A to left side of bed? Sit-stand: min A x 1 to stand with cues for hand placement and to increase knee flexion.x 3 trials? Stand-sit: CGA at chair,wheelchair,?toilet ? Provided skilled cues and instruction on performance and technique throughout. GAIT? Assistive Device: FWW? Weight bearing: AT Assist: CGA cues for sequencing walker right left? ?and for posture ? Distance:?10 feet x 2 ? ASSESSMENT:Pt with increase pain distance of ambulation limited by increase pain. Increased antalgic pattern Pt is awaiting follow up xray prior to discharge to SNF. Patient continues to present with forgetfulness inability to recall what she has eaten or if she has gone to the bathroom. Patient also poor carryover of hip restrictions/precautions PLAN: will continue to work on her functional mobility and gait to tolerance following PT POC. TREATMENT CODE/TIME: 92766m 25 mins. [phone], [id number] DISCHARGE RECOMMENDATION: SNF
--- NOTE | 2024-08-09 13:12 | DSE_ITS ---
Date of service: 08/09/24 Time of Service: 13:13 DS: Diagnosis Discharge Diagnosis (1) Periprosthetic fracture around internal prosthetic right hip joint: Status: Acute Discharge Plan Disposition Patient Disposition: Longterm Facility(SNF) Condition: Fair Discharge Details Reason For Visit: Right Periprosthetic Hip Fracture Admit Date/Time: 08/03/24 17:25 Admit Provider: Bakari Beckman Attending Provider: Bakari Beckman Primary Care Provider: Marlene Pereira Hospital Course Hospital Course: Clinical Impression: * Periprosthetic fracture around internal prosthetic right hip joint * History of falling * Laceration of left upper arm (hemostatic closure performed) * Skin tear of right upper extremity * Immunization, tetanus-diphtheria administered HPI and Course: Jo is an 83-year-old female with a history of a left hip periprosthetic fracture, who presented to the emergency department on 08/02/2024 after a fall at home. She fell early in the morning and landed on her right side, resulting in a right proximal femur periprosthetic fracture. Physical Therapy Consult: Physical therapy was initiated during the hospitalization. The primary goals of therapy were to improve functional mobility, gait, and bed mobility, while respecting hip precautions. Therapy sessions included: * Bed Mobility/Transfers: Jo required minimal assistance for [id number] and [id number] transfers. She also needed cues for proper hand placement and knee flexion during [id number]. * Gait Training: Jo used a front-wheeled walker (FWW) for support. She was able to ambulate 10 feet in two trials with contact guard assistance and cues for sequencing her steps and posture. * Pain and Function: Pain has been limiting the distance of ambulation and leading to an increased antalgic gait pattern. The patient's ability to mobilize was restricted due to increased pain. Additionally, there is a noted issue with poor carryover of hip precautions, and the patient displayed some cognitive confusion, such as forgetfulness about recent meals or bathroom use. Physical Therapy Recommendations: * Continued Focus on Functional Mobility: Jo will need continued work on improving bed mobility and gait, following her physical therapy plan of care (POC). * Gait Training: Continue using a front-wheeled walker (FWW) with contact guard assistance, working towards increased ambulation distance and independence as tolerated. * Precaution Awareness: Reinforce the importance of adhering to hip precautions, especially with active abduction and flexion restrictions to prevent further i njury or dislocation. * Pain Management: Address pain issues, potentially modifying or adjusting medication if necessary to allow for better functional participation in PT. * Cognitive and Physical Monitoring: Given her cognitive concerns and forgetfulness, it is important for caregivers or PT staff to monitor her ability to follow instructions and carry over safety measures. * Discharge to SNF: Given her complex fracture and cognitive status, she will be transferred to a care home facility (SNF) for further rehabilitation and support in managing mobility and cognitive challenges. Plan: * Monitor cognitive status and continue with care to optimize medication management. * Transfer to SNF for continued rehabilitation and recovery, where PT will continue to assist with mobility and precaution management. * Follow-up care: Regular follow-up with orthopedics and physical therapy after discharge from the hospital. Discharge Medications: * Continue current medications. Home Meds and New Rx's Prescriptions: Continued multivitamin 1 EACH tablet 1 ea PO DAILY Qty: 90 methotrexate sodium 2.5 MG tablet 10 mg PO WEEKLY Qty: 36 Patient Comments: reduce dose due to elevated creatinine 09/17/16 Rx Instructions: Dr. Meadows; dose decr 09/2016 due to Cr folic acid 1 MG tablet 1 mg PO DAILY Qty: 90 hydroxychloroquine [Plaquenil] 200 MG tablet 200 mg PO as directed Qty: 180 Rx Instructions: 1 tab AM, 1/[address] Meadows 6.26.18 pt states she believes she only takes in AM. latanoprost 2.5 ML drops 1 drp OU HS pramipexole 0.25 MG tablet 0.25 mg PO HS Qty: 90 Rx Instructions: for restless leg syndrome acetaminophen [Tylenol] 325 MG tablet 650 mg PO Q4H PRN PRN0RF lisinopril 10 mg tablet 10 tab PO DAILY Discharge Instructions Additional Instructions: Periprosthetic Hip Fracture Recommendations: - WBAT with walker at all times - No active abduction - No adduction past neutral, knees wider than hips - No flexion > 90 degrees - PT concentration on mobilizing with these restrictions, ADLs for safe return home. - F/U 4 weeks. Activity:: Activity as Tolerated Equipment/Supplies:: Walker Diet:: As Tolerated Discharge Orders Discharge Orders: Discharge Order (Routine); Ordered 08/09/24 Ordered By: Brina Pike DS: Summary Time Spent with Patient providing and/or coordinating discharge services: Greater than 30 minutes Status at Discharge Functional status at discharge: uses cane/walker Overall status at discharge: patient is progressing back to baseline Mental Status: mental status grossly normal Speech and Movement: speech and movement normal Mood: congruent mood Affect: normal affect Quality:SDOH Health Related Social Needs: No Data to Display Exam Const General: cooperative, healthy appearing, comfortable and no acute distress Orientation: alert, awake, oriented to person and other (poor historian with cognitive impairment) [facility] Head: normal to inspection, normocephalic and atraumatic Mouth: moist mucous membranes Eyes General: appearance normal, both eyes and all related structures Conjunctivae: conjunctivae normal Neck Neck: normal visual inspection and full ROM Resp Effort & Inspection: normal respiratory effort and able to speak in complete sentences Auscultation: clear to auscultation bilaterally Cardio Rate: regular rate Rhythm: regular rhythm GI Palpation: soft and nontender Skin General skin exam: no rashes or lesions noted Neuro General: patient alert, patient awake, moves all extremities and no focal motor deficits Speech: speech normal Extrem General: normal to inspection, full ROM and capillary refill normal Psych Appearance: grossly normal Mental Status: mental status grossly normal Speech and Movement: speech and movement normal Mood: congruent mood Affect: normal affect DS: Data Vitals/I&O Vitals and I&O: Vital Signs Temperature 36.8 C 08/09/24 07:47 Temperature Source Temporal Artery Scan 08/09/24 07:47 Pulse 73 08/09/24 07:47 Pulse Rhythm Regular 08/04/24 01:01 Respiratory Rate 18 08/09/24 07:47 Respiratory Effort Normal, Non-Labored 08/04/24 01:01 Respiratory Depth Normal 08/04/24 01:01 Respiratory Pattern Normal 08/04/24 01:01 Blood Pressure 153/66 H 08/09/24 07:47 Pulse Oximetry 97 08/09/24 07:47 Oxygen Delivery Method Room Air 08/09/24 07:47 Oxygen Flow Rate 0 08/09/24 07:47 Pain Level 0 08/08/24 23:25 Comment Rn notified. 08/06/24 08:00 Intake & Output 08/08/24 08/09/24 08/09/24 23:59 11:59 23:59 Intake Total 230 / 230 Output Total 450 / 850 950 / 950 Balance -440 / -840 -720 / -720 Intake: IV Oral 230 / 230 Output: Urine 450 / 850 950 / 950 Other: Urine Color Yellow Yellow Urine Appearance Clear Clear Urine Odor Normal Normal Comment Patient voided in the toilet with two person assist and a walker. Stool Size Small Stool Characteristics Soft Data Completed and Pending Labs on day of discharge: Labs from last 24 hours 08/09/24 05:59 WBC 7.47 RBC 3.47 L Hgb 9.5 L Hct 30.5 L MCV 88 MCH 27.4 MCHC 31.1 L RDW 17.8 H Plt Count 245 MPV 11.3 H Immature Gran % 0.3 Neutrophils % 75.8 Lymphocytes % 12.7 Monocytes % 8.0 Eosinophils % 2.5 Basophils % 0.7 Nucleated RBC % 0.0 Absolute Neutrophils 5.66 Absolute Lymphocytes 0.95 L Absolute Monocytes 0.60 Absolute Eosinophils 0.19 Absolute Basophils 0.05 PFSH All Active Problems (Updated 08/08/24 @ 17:19 by Collette Gurrola NP) Discharge planning issues (Acute) Hyperkalemia (Acute) Anemia (Chronic) Dysrhythmia (Acute) Skin tear of right upper extremity (Acute) Immunization, tetanus-diphtheria (Acute) Laceration of left upper arm (Acute) Hx of falling (Acute) Periprosthetic fracture around internal prosthetic right hip joint (Acute) Closed sacral fracture (Acute) History of surgery (Active) T & A. Appendectomy. RTH arthroplasty 12/2007. LTH arthroplasty 03/2012. Right distal clavical excision 11/05/2009. Right bunionectomy x 2. Right leg venous ligation. Colonoscopy October 15 - found to have tubular adenoma. Restless legs (Active) Managed with Sinemet Gastroesophageal reflux disease (Active) Hyperlipidemia (Active) Rheumatoid arthritis (Active 12/23/12) Osteoarthritis of knee (Active 12/23/12) Rhematoid arthritis and DJD right knee wqith mild valgus deformity and flexion contracture. Right total knee arthroplasty, cemented by Dr. Case Valenzuela 12-23-2012 Skin lesion (Acute) Medical History (Updated 08/08/24 @ 17:19 by Collette Gurrola NP) Splenic mass Hypertension Chronic kidney disease, stage 3 Weight loss Tubular adenoma of colon Nausea with vomiting Postoperative anemia due to acute blood loss Osteoporosis Periprosthetic fracture around internal prosthetic left hip joint Surgical History left hip revision (04/10/16) Dr Kang, periprosthetic fracture, revision, [facility] 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) POLO; LEFT; ALSO R HIP 01/06/08 Tooth extraction (05/19/1963) COMPLETE UPPER AND LOWER EXTRACTIONS Colonoscopy - MAC (01/17/16) Colonoscopy - MAC (10/15/12) Biopsy of breast (12/29/14) Left breast, [facility] [place], benign intraductal papilloma Arthroplasty (12/23/12) R total knee arthroplasty,cemented Dr Dreisbach Family History Mother , COPD at age 73. Substance abuse Father , heart at age 70. Heart disease Brother , accident at age 47. No problems noted. Social History Smoking/Tobacco Use Status: Never Smoking risk assessment performed?: Yes Alcohol Intake: former Drug use: Never Substance use type: does not use Details: used alcohol in distant past Housing: house Do you feel safe at home: Yes Time Spent with Patient Time Spent with Patient: <45 minutes Time was spent: preparing to see the patient(eg.review tests), ordering medications,tests, procedures, referring, communicating with other health progressive care manager, indepentently interpreting results, counseling the patient and care coordination
--- NOTE | 2024-08-09 15:30 | PT.INTREAT ---
PT Notes Visit Reasons: Right Periprosthetic Hip Fracture Inpatient Physical Therapy Treatment Note [facility] Date: 08/09/2024 p.m. session PRECAUTIONS:No right hip flex >90, no active right hip abd. SUBJECTIVE: OBJECTIVE: ? PAIN: 2/10 with use of numeric/faces scale ? Therapeutic Activities (83089h8): Direct one-on-one instruction in dynamic activities to improve functional performance. ?? Provided skilled cues and instruction on performance and technique throughout. ? BED MOBILITY/TRANSFERS? Sit-stand: CGA x 1 to stand with cues for hand placement and to increase knee flexion.x 3 trials? Stand-sit: CGA at ,wheelchair,? Car transfer performed to elevated seat height of daughters SUV: Patient required min assist and use of stepstool to boost up into vehicle patient required continuous 100% cueing for technique. Patient's daughter present and instructed on exiting vehicle patient will need to keep bilateral lower extremities together and rotate her legs to maintain no abduction of right lower extremity. ? ASSESSMENT: Patient able to perform car transfer into elevated seat height with use of stepstool without increase in pain. PLAN: Discharge to SNF TREATMENT CODE/TIME: 46233/ 1:30?1:54pm DISCHARGE RECOMMENDATION: SNF
--- NOTE | 2024-08-09 16:48 | CMDISCH_ITS ---
Date of service: 08/09/24 Time of Service: 16:48 LACE Index Scoring Tool Questions: Length of Stay (in days): 4 - 6 Was the patient admitted via the E.D.?: Yes Comorbidities: Dementia and Liver or Renal Disease E.D. Visits: 1 Answers: Total Score: 13 Risk of Readmission: High Risk Care Management Discharge Plan Reason for Hospitalization: hip fracture Discharge Plan: Tamy will be transferred to [facility] for short term rehab prior to returning home. She will follow up with the facility providers and plan of care and transport with family. Patient/Family Education Needs: review discharge instructions, limitations, follow up plan and discuss Ask Me Three. Services Needed at Discharge: Longterm Facility SDOH Health Related Social Needs: No Data to Display
== END 2024-08-09 13:45 | disposition skilled nursing facility (03) | DRG 536 ==
PROVIDERS: Nurse Practitioner Acute Care; Student in an Organized Health Care Education/Training Program; Admitting Provider Hospitalist; PCP Physician Assistant Medical; Responsible Provider Nurse Practitioner Family; Visit Provider Hospitalist
DX: S72.121A Displaced fracture of lesser trochanter of right femur, initial encounter for closed fracture (principal); M97.01XA Periprosthetic fracture around internal prosthetic right hip joint, initial encounter; E87.5 Hyperkalemia; N18.30 Chronic kidney disease, stage 3 unspecified; I12.9 Hypertensive chronic kidney disease with stage 1 through stage 4 chronic kidney disease, or unspecified chronic kidney disease; W01.0XXA Fall on same level from slipping, tripping and stumbling without subsequent striking against object, initial encounter; G25.81 Restless legs syndrome; K21.9 Gastro-esophageal reflux disease without esophagitis; Z96.651 Presence of right artificial knee joint; Z96.643 Presence of artificial hip joint, bilateral; I49.3 Ventricular premature depolarization; D50.9 Iron deficiency anemia, unspecified; M81.0 Age-related osteoporosis without current pathological fracture
CPT/HCPCS: 00123; 36415; 80048; 80053; 85027; 97112; 97116; 97162; 97530; 99222; 99231; 99232; J1650; 73502; 82728; 83540; 83550; 85025; 99233; 99239; J1885; J2270

== ENCOUNTER 2024-09-06 11:36 | Outpatient (CLI) | payer MEDICARE, OTHER, SELFPAY ==
--- NOTE | 2024-09-06 11:15 | DI.RAD_ITS ---
Exam(s) XR HIP RT AP LAT ONLY EXAM: XR HIP RT AP LAT ONLY CLINICAL HISTORY: fx f/u. TECHNIQUE: 2D digital imaging was performed. Two images were obtained. AP and lateral views were ob tained. COMPARISON: CR XR HIP RT AP LAT ONLY from 08/06/2024 CR XR HIP RT AP LAT ONLY from 08/09/2024 FINDINGS: BONES: There again seen postoperative changes of a right total hip arthroplasty. There does not appe ar to be significant change in alignment of the periprosthetic fracture involving the proximal right femur. There has been some callus formation developing about the fracture. The bones are osteopenic . JOINTS: The orthopedic hardware is in good position. No evidence of hardware loosening. SOFT TISSUE: Atherosclerotic calcification is present. IMPRESSION: Given the slight changes in positioning, there does not appear to be significant change in alignment of the periprosthetic fracture involving the proximal right femur. DATA REPOSITORY: RADIATION DOSE DELIVERED:
== END 2024-09-06 11:37 | disposition home or self-care (01) ==
LOC: DIORS 11:37
PROVIDERS: PCP Physician Assistant Medical; Referring Provider Physician Assistant Medical; Visit Provider Physician Assistant
DX: M97.01XD Periprosthetic fracture around internal prosthetic right hip joint, subsequent encounter; X58.XXXD Exposure to other specified factors, subsequent encounter
CPT/HCPCS: 99213; 73502

== ENCOUNTER 2024-09-11 22:28 | Outpatient (REF) | payer SELFPAY ==
[2024-09-11 20:00] LABS: HCT 35.1 % (36.0-46.0); HGB 10.8 g/dL (11.2-15.7); MCH 27.7 pg (27.0-33.0); MCHC 30.8 % (32.0-36.0); MCV 90 fL (80-95); MPV 10.6 fL (8.0-11.0); Platelet Count 319 10^3/uL (130-400); RDW 17.2 % (11.7-14.6); RDW-SD 56.1 fL
[2024-09-11 20:22] LABS: ALT 20 U/L (14-59); AST 17 U/L (15-37); Albumin 3.1 g/dL (3.4-5.0); Alkaline Phosphatase 178 U/L (46-116); Anion Gap 11.2 mmol/L (3-11); BUN 21 mg/dL (7-18); Bilirubin, Total 0.4 mg/dL (0.2-1.0); CO2 28.8 mmol/L (21.0-32.0); Calcium 9.5 mg/dL (8.5-10.1); Chloride 109 mmol/L (98-107); Estimated GFR 56.25 (mL/min/1.73m2); Glucose 156 mg/dL (74-106); NT-proBNP 918 pg/mL (<300); Sodium 149 mmol/L (136-145); Total Protein 6.7 g/dL (6.4-8.2)
== END 2024-09-11 22:29 | disposition home or self-care (01) ==
LOC: LBN 22:28
PROVIDERS: PCP Physician Assistant Medical; Visit Provider Physician Assistant Medical
DX: R60.9 Edema, unspecified (principal); N89.1 Moderate vaginal dysplasia
CPT/HCPCS: 80053; 85027; 87077; 83880; 87086; 87186

== ENCOUNTER 2024-10-05 18:27 | Outpatient (REF) | payer MEDICARE, OTHER, SELFPAY ==
[2024-10-05 16:52] LABS: Abs Immature Grans 0.03 10^3/uL (0.0-0.06); Absolute Basophil Count 0.06 10^3/uL (0.0-0.2); Absolute Eosinophil Count 0.09 10^3/uL (0.0-0.7); Absolute Lymphocyte Count 1.51 10^3/uL (1.2-3.4); Absolute Monocyte Count 0.62 10^3/uL (0.1-0.8); Absolute Neutrophil Count 8.16 10^3/uL (1.2-6.7); Basophils % 0.6 %; Eosinophils % 0.9 %; HCT 34.8 % (36.0-46.0); HGB 10.8 g/dL (11.2-15.7); Immature Grans % 0.3 %; Lymphocytes % 14.4 %; MCH 26.4 pg (27.0-33.0); MCV 85 fL (80-95); MPV 11.6 fL (8.0-11.0); Monocytes % 5.9 %; Neutrophils % 77.9 %; Platelet Count 391 10^3/uL (130-400); RBC 4.09 10^6/uL (3.93-5.22); RDW 15.9 % (11.7-14.6); RDW-SD 49.5 fL; WBC 10.47 10^3/uL (4.4-10.8)
[2024-10-05 17:14] LABS: ALT 15 U/L (14-59); AST 16 U/L (15-37); Albumin 2.8 g/dL (3.4-5.0); Alkaline Phosphatase 142 U/L (46-116); Anion Gap 13.1 mmol/L (3-11); BUN 19 mg/dL (7-18); Bilirubin, Total 0.4 mg/dL (0.2-1.0); CO2 23.9 mmol/L (21.0-32.0); CREATININE 0.8 mg/dL (0.55-1.02); Calcium 9.3 mg/dL (8.5-10.1); Chloride 104 mmol/L (98-107); Estimated GFR 73.06 (mL/min/1.73m2); Glucose 127 mg/dL (74-106); Potassium 4.3 mmol/L (3.5-5.1); Sodium 141 mmol/L (136-145); Total Protein 7.2 g/dL (6.4-8.2)
== END 2024-10-05 18:28 | disposition home or self-care (01) ==
LOC: LBN 18:27
PROVIDERS: PCP Physician Assistant Medical; Visit Provider Family Medicine
DX: M05.9 Rheumatoid arthritis with rheumatoid factor, unspecified (principal)
CPT/HCPCS: 80053; 85025

== ENCOUNTER 2024-10-17 14:18 | Emergency (ER) | payer MEDICARE, OTHER, SELFPAY ==
[2024-10-17 14:23] VITALS: BP 146/117; PULSE 90; RESP 14; O2SAT 95
--- NOTE | 2024-10-17 14:24 | ED.GENADUL_ITS ---
Discharge Plan Disposition Patient Disposition: Home Condition: Stable Discharge Details Clinical Impression: Contusion of right shoulder Primary Care Provider: Marlene Pereira ED Provider: La Fiore Home Meds and New Rx's Prescriptions: No Action multivitamin 1 EACH tablet 1 ea PO DAILY Qty: 90 methotrexate sodium 2.5 MG tablet 10 mg PO WEEKLY Qty: 36 Patient Comments: reduce dose due to elevated creatinine 09/17/16 Rx Instructions: Dr. Meadows; dose 09/2016 due to Cr folic acid 1 MG tablet 1 mg PO DAILY Qty: 90 hydroxychloroquine [Plaquenil] 200 MG tablet 200 mg PO as directed Qty: 180 Rx Instructions: 1 tab AM, 1/[address] Meadows 6.26.18 pt states she believes she only takes in AM. latanoprost 2.5 ML drops 1 drp OU HS pramipexole 0.25 MG tablet 0.25 mg PO HS Qty: 90 Rx Instructions: for restless leg syndrome acetaminophen [Tylenol] 325 MG tablet 650 mg PO Q4H PRN PRN0RF lisinopril 10 mg tablet 10 tab PO DAILY Discharge Instructions Instructions: Minor Contusion ED Additional Instructions: Please follow-up with your primary care provider. In the meantime if you do get worse or develop any new or concerning symptoms please return to the emergency department. HPI General Date/Time Provider Initiated Documentation: 10/17/24 14:20 . HPI Narrative: The patient is an 84-year-old female with a history of dementia who comes the emergency department for right shoulder pain. History is obtained from the patient and her family. Reports that she is at a rehab facility when they found her sitting up after having fallen without first asking for assistance. Reports this was unwitnessed. The patient does not think she hit her head. Reports that the injury happened last night. Reports that since then the patient has been complaining of right shoulder pain so the patient was brought to the emergency department. Reports that nothing else hurts out of the ordinary. Reports the patient is currently not on any blood thinning medication but had been on it with shots but discontinued last week. Reports that she is in rehab after recently suffering a fracture from a fall. Reports that the patient seems to be acting at baseline now. Reports that she gets worse at night when she sundowns but is fine right now. Patient denies any chest pain or shortness of breath. Denies abdominal pain, nausea or vomiting. Related Data Home Medications ?Medication ?Instructions ?Recorded ?Confirmed folic acid 1 mg tablet 1 mg PO DAILY #90 tab-caps 08/21/12 10/17/24 hydroxychloroquine 200 mg tablet 200 mg PO as directed #180 tab-caps 08/21/12 (Plaquenil) methotrexate sodium 2.5 mg tablet 10 mg PO WEEKLY ##36 08/21/12 10/17/24 multivitamin 1 ea PO DAILY ##90 08/21/12 10/17/24 latanoprost 0.005 % eye drops 1 drp OU HS 02/27/16 10/17/24 acetaminophen 325 mg tablet 650 mg (2 x 325 mg) PO Q4H PRN PRN 04/22/16 10/17/24 (Tylenol) pramipexole 0.25 mg tablet 0.25 mg PO HS #90 tab-caps 01/27/17 10/17/24 lisinopril 10 mg tablet 10 tab PO DAILY 10/14/21 10/17/24 Previous Rx's ?Medication ?Instructions ?Recorded acetaminophen 325 mg tablet 650 mg (2 x 325 mg) PO Q4H PRN PRN 04/22/16 (Tylenol) Allergies Allergy/AdvReac Type Severity Reaction Status Date / Time hydrocodone (From Vicodin) AdvReac Intermediate N/V Unverified 10/17/24 14:30 lovastatin AdvReac Intermediate MUSCLE Unverified 10/17/24 14:30 ACHES oxycodone (From Percocet) AdvReac Intermediate N/V Unverified 10/17/24 14:30 simvastatin AdvReac Intermediate MUSCLE Unverified 10/17/24 14:30 ACHES niacin AdvReac Mild MUSCLE Unverified 10/17/24 14:30 ACHES General MAXIMILIAN: 4 Review of Systems Narrative: Review of systems are negative except as mentioned. Exam Narrative Exam Narrative: General appearance: The patient is alert, has no immediate need for airway protection and no signs of toxicity. Eyes: Pupils are round, equal and reactive. Mouth: Oral mucosal membranes are moist. Neck: No midline C-spine tenderness is noted to palpation. Respiratory: There are no retractions, lung are clear to auscultation bilaterally. Cardiovascular: Regular in rate and rhythm. Radial pulses are intact and equal. Gastrointestinal: Abdomen is soft and non-tender to palpation throughout with normal bowel sounds. Neurologic: The patient is alert, awake and oriented to person and place. She has no facial asymmetry. Speech is clear. Skin: No scalp laceration or hematoma noted. Musculoskeletal: The patient has tenderness palpation along the right shoulder without obvious deformity. No tenderness is noted to palpation along the scapula, clavicle. She has tenderness palpation along the right proximal humerus without tenderness palpation along the elbow, forearm, wrist, hand. Range of motion testing to the shoulder is deferred secondary to discomfort but has no limitation in range of motion testing to the right elbow, wrist or hand. She has strong apartment maintenance technician strength on the right and intact station to light touch throughout the entire right upper extremity and hand in particular along the right deltoid distribution. She has strong right radial pulse. Back: No rib tenderness is noted to palpation throughout. No midline lumbar or thoracic spine tenderness is noted to palpation. The left upper extremity and bilateral lower extremities are nontender to palpation and range of motion testing. Medical Decision Making X-ray has been ordered in light of fall and trauma history. This was an unwitnessed fall from a patient with a history of dementia therefore I spoke with the patient's family regarding obtaining imaging study of her head in the form of CAT scan to rule out bleed. They are thinking about it at this point. The patient had x-ray done and she is found to have no acute osseous finding. I updated the patient and her family of workup result and they are relieved. They would like to hold off on CAT scan since has not been ordered. For the shoulder I recommended conservative management and outpatient follow-up. She is to be discharged shortly. In the meantime she is asked to return to the emergency department with any worsening symptoms or any other concerns Imaging Data Radiologic Study: Imaging: X-Ray Radiologist's impression: No acute osseous findings. Chronic widening of the right AC joint which is postsurgical. Quality:SDOH Health Related Social Needs: No Data to Display PFSH All Active Problems (Updated 10/17/24 @ 15:41 by La Fiore DO) Contusion of right shoulder (Acute) Skin tear of right upper extremity (Acute) Immunization, tetanus-diphtheria (Acute) Laceration of left upper arm (Acute) Hx of falling (Acute) Periprosthetic fracture around internal prosthetic right hip joint (Acute 08/02/24) Closed sacral fracture (Acute) History of surgery (Active) T & A. Appendectomy. RT arthroplasty 12/2007. LT arthroplasty 03/2012. Right distal clavical excision 11/05/2009. Right bunionectomy x 2. Right leg venous ligation. Colonoscopy October 15 - found to have tubular adenoma. Restless legs (Active) Managed with Sinemet Gastroesophageal reflux disease (Active) Hyperlipidemia (Active) Rheumatoid arthritis (Active 12/23/12) Osteoarthritis of knee (Active 12/23/12) Rhematoid arthritis and DJD right knee wqith mild valgus deformity and flexion contracture. Right total knee arthroplasty, cemented by Dr. Case Valenzuela 12-23-2012 Skin lesion (Acute) Medical History (Updated 10/17/24 @ 15:41 by La Fiore DO) Hyperkalemia Anemia Dysrhythmia Splenic mass Hypertension Chronic kidney disease, stage 3 Weight loss Tubular adenoma of colon Nausea with vomiting Postoperative anemia due to acute blood loss Osteoporosis Periprosthetic fracture around internal prosthetic left hip joint Surgical History left hip revision (04/10/16) Dr Kang, periprosthetic fracture, revision, [facility] 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) POLO; LEFT; ALSO R HIP 01/06/08 Tooth extraction (05/19/1963) COMPLETE UPPER AND LOWER EXTRACTIONS Colonoscopy - MAC (01/17/16) Colonoscopy - MAC (10/15/12) Biopsy of breast (12/29/14) Left breast, [facility] [place], benign intraductal papilloma Arthroplasty (12/23/12) R total knee arthroplasty,cemented Dr Valenzuela Family History Mother , COPD at age 73. Substance abuse Father , heart at age 70. Heart disease Brother , accident at age 47. No problems noted. Social History Smoking/Tobacco Use Status: Never Smoking risk assessment performed?: Yes Alcohol Intake: former Drug use: Never Substance use type: does not use Details: used alcohol in distant past Housing: house Do you feel safe at home: Yes Do you feel safe in your relationship?: Yes
[2024-10-17 14:29] VITALS: TEMP 36.6
--- NOTE | 2024-10-17 14:33 | DI.RAD_ITS ---
Exam(s) XR SHOULDER RT COMPLETE 2+V EXAM: XR SHOULDER RT COMPLETE 2+V CLINICAL HISTORY: pain after a fall. TECHNIQUE: 2D digital imaging was performed. COMPARISON: CR XR CHEST 1V IN DI DEPT from 08/02/2024 FINDINGS: 3 views No evidence of acute fracture or dislocation of the glenohumeral joint and no abnormal soft tissue ca lcifications. There is chronic widening of the AC joint, unchanged from 08/02/2024 and most probably postsurgical coracoid process appears intact. Adjacent ribs appear intact and there is no pneumotho rax nor obvious lung contusion IMPRESSION: No acute osseous findings. Chronic widening of the right AC joint which is postsurgical. DATA REPOSITORY: RADIATION DOSE DELIVERED:
[2024-10-17 15:03] VITALS: BP 135/73; PULSE 82; O2SAT 95
[2024-10-17 15:31] VITALS: BP 148/76; PULSE 81; O2SAT 96
== END 2024-10-17 15:59 | disposition home or self-care (01) ==
PROVIDERS: Emergency Provider Emergency Medicine; PCP Physician Assistant Medical
DX: S40.011A Contusion of right shoulder, initial encounter (principal); X58.XXXA Exposure to other specified factors, initial encounter
CPT/HCPCS: 99283 ×2; 73030

== ENCOUNTER 2024-11-22 13:33 | Outpatient (REF) | payer MEDICARE, OTHER, SELFPAY ==
[2024-11-22 13:52] LABS: Abs Immature Grans 0.04 10^3/uL (0.0-0.06); HCT 34.2 % (36.0-46.0); HGB 10.5 g/dL (11.2-15.7); Immature Grans % 0.3 %; MCH 24.2 pg (27.0-33.0); MCHC 30.7 % (32.0-36.0); MCV 79 fL (80-95); MPV 11.2 fL (8.0-11.0); Platelet Count 480 10^3/uL (130-400); RBC 4.34 10^6/uL (3.93-5.22); RDW 15.0 % (11.7-14.6); RDW-SD 43.2 fL; WBC 13.01 10^3/uL (4.4-10.8)
[2024-11-22 16:46] LABS: Anion Gap 12.7 mmol/L (3-11); BUN 16 mg/dL (7-18); CO2 25.3 mmol/L (21.0-32.0); Calcium 8.8 mg/dL (8.5-10.1); Chloride 97 mmol/L (98-107); Estimated GFR 89.01 (mL/min/1.73m2); Glucose 143 mg/dL (74-106); NT-proBNP 2810 pg/mL (<300); Potassium 3.8 mmol/L (3.5-5.1); Sodium 135 mmol/L (136-145)
== END 2024-11-22 13:34 | disposition home or self-care (01) ==
LOC: LBN 13:33
PROVIDERS: PCP Physician Assistant Medical; Visit Provider Nurse Practitioner Adult Health
DX: N18.30 Chronic kidney disease, stage 3 unspecified (principal)
CPT/HCPCS: 80048; 83880; 85025

== ENCOUNTER 2024-11-23 10:12 | Inpatient (IN) | payer MEDICARE, OTHER, SELFPAY ==
[2024-11-23] VITALS (50 sets, daily range): BP systolic 121–184; BP diastolic 51–96; PULSE 60–110; RESP 16–37; TEMP 36.9–37.2; O2SAT 88–98
--- NOTE | 2024-11-23 10:13 | ED.GENADUL_ITS ---
Discharge Plan Disposition Patient Disposition: Admit to [facility] Discharge Details Clinical Impression: Pneumonia Admit Date/Time: 11/23/24 13:35 Admit Provider: Jarrett Millan Attending Provider: Jarrett Millan Primary Care Provider: Marlene Pereira ED Provider: Lori Hay Discharge Data Discharge Date/Time-TO BE ENTERED AT DEPARTURE: 11/23/24 15:18 HPI General Date/Time Provider Initiated Documentation: 11/23/24 10:15 . HPI Narrative: Jo is a 84-year-old female who presents to the emergency department from [facility] for evaluation of 3-day history of cough producing yellow sputum and low energy. Brought in by EMS. Denies fevers/chills, headaches, dizziness, congestion, runny nose, sore throat, chest pain, difficulty breathing, nausea/vomiting, appetite changes, change in bowel or bladder function. Primary concern is persistent cough, productive of sputum. No history of cancer, blood clots, recent surgery, heart or lung problems, or diabetes. Not on hormone therapy. Usually walks independently but has not due to low energy. Never smoked and no history of breathing treatments. Albuterol treatment by EMS was beneficial. Related Data Home Medications ?Medication ?Instructions ?Recorded ?Confirmed folic acid 1 mg tablet 1 mg PO DAILY #90 tab-caps 0 08/21/12 11/23/24 hydroxychloroquine 200 mg tablet 200 mg PO as directed #180 tab-caps 08/21/12 11/23/24 (Plaquenil) methotrexate sodium 2.5 mg tablet 10 mg PO WEEKLY ##36 08/21/12 11/23/24 multivitamin 1 ea PO DAILY ##90 08/21/12 11/23/24 latanoprost 0.005 % eye drops 1 drp OU HS 02/27/1601/10 acetaminophen 325 mg tablet 650 mg (2 x 325 mg) PO Q4H PRN PRN 04/22/16 11/23/24 (Tylenol) pramipexole 0.25 mg tablet 0.25 mg PO HS #90 tab-caps 01/27/17 11/23/24 lisinopril 10 mg tablet 10 tab PO DAILY 10/14/2101/10 mirtazapine 7.5 mg tablet 7.5 mg PO .bedtime 11/23/24 11/23/24 Previous Rx's ?Medication ?Instructions ?Recorded acetaminophen 325 mg tablet 650 mg (2 x 325 mg) PO Q4H PRN PRN 04/22/16 (Tylenol) Allergies Allergy/AdvReac Type Severity Reaction Status Date / Time hydrocodone (From Vicodin) AdvReac Intermediate N/V Unverified 11/23/24 10:26 lovastatin AdvReac Intermediate MUSCLE Unverified 11/23/24 10:26 ACHES oxycodone (From Percocet) AdvReac Intermediate N/V Unverified 11/23/24 10:26 simvastatin AdvReac Intermediate MUSCLE Unverified 11/23/24 10:26 ACHES niacin AdvReac Mild MUSCLE Unverified 11/23/24 10:26 ACHES General MAXIMILIAN: 4 Exam Narrative Exam Narrative: General Appearance: Patient appears fatigued, is easily conversational, answers questions appropriate Vital signs: Mild tachycardia, HR 98. Respiratory: Coarse wheezes in all lung alejandro. Frequent coarse cough. Cardiovascular: Normal heart sounds, mild tachycardia noted. No obvious murmur Gastrointestinal: Abdomen is soft, nondistended, nontender to palpation. Back, Musculoskeletal: No new swelling in ankles or feet. Extremities: No new swelling in ankles or feet. Skin: Warm and dry, no rash. Psychiatric: Normal. Medical Decision Making Initial Assessment: 84-year-old female with a 3-day history of productive cough, mild tachycardia, and new O2 requirement Differential Diagnosis includes but is not limited to: Pneumonia, CHF, reactive airway/new onset lung disease, viral illness, ED Course: - HR 98, RR 23. - EMS reported O2 sat 89% on room air, up to mid 90s on 1 L O2 via nasal cannula - DuoNeb given with moderate improvement of symptoms; Solu-Medrol also given I independently interpreted the following tests: EKG shows sinus tachycardia, rate 100, occasional PVC, no changes consistent with acute ischemia, normal intervals CBC shows mild leukocytosis, 12.95. BUN slightly elevated at 24. BNP elevated at 3627, elevated from 2810 on 11/22/2024. X-ray shows infiltrates in both lung bases with moderate-sized bilateral pleural effusions, likely infectious versus neoplastic Inpatient treatment advised per PSI criteria. Initiated IV antibiotics-cefepime and Levaquin. Discussed case with Dr. Millan and Destini Bales, SHOVEL LOG LOADER OPERATOR, hospitalist team. Patient to be admitted for community-acquired pneumonia. Patient consented to the use of PAULO Quality:SDOH Health Related Social Needs: Health related social needs daily activities education Health related social needs details lives at [facility] All Active Problems (Updated 11/23/24 @ 16:51 by Lori Bourne) Sepsis (Acute) Bilateral pleural effusion (Acute) On deep vein thrombosis (DVT) prophylaxis (Acute) Pneumonia (Acute) Microcytic anemia (Acute) Hyponatremia (Acute) Skin tear of right upper extremity (Acute) Immunization, tetanus-diphtheria (Acute) Laceration of left upper arm (Acute) Hx of falling (Acute) Periprosthetic fracture around internal prosthetic right hip joint (Acute 08/02/24) Closed sacral fracture (Acute) History of surgery (Active) T & A. Appendectomy. [facility] arthroplasty 12/2007. LT arthroplasty 03/2012. Right distal clavical excision 11/05/2009. Right bunionectomy x 2. Right leg venous ligation. Colonoscopy October 15 - found to have tubular adenoma. Restless legs (Active) Managed with Sinemet Gastroesophageal reflux disease (Active) Hyperlipidemia (Active) Rheumatoid arthritis (Active 12/23/12) Osteoarthritis of knee (Active 12/23/12) Rhematoid arthritis and DJD right knee wqith mild valgus deformity and flexion contracture. Right total knee arthroplasty, cemented by Dr. Case Valenzuela 12-23-2012 Skin lesion (Acute) Medical History (Updated 11/23/24 @ 16:51 by Lori Bourne) Hyperkalemia Anemia Dysrhythmia Splenic mass Hypertension Chronic kidney disease, stage 3 Weight loss Tubular adenoma of colon Nausea with vomiting Postoperative anemia due to acute blood loss Osteoporosis Periprosthetic fracture around internal prosthetic left hip joint Surgical History left hip revision (04/10/16) Dr Kang, periprosthetic fracture, revision, [facility] 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) POLO; LEFT; ALSO R HIP 01/06/08 Tooth extraction (05/19/1963) COMPLETE UPPER AND LOWER EXTRACTIONS Colonoscopy - MAC (01/17/16) Colonoscopy - MAC (10/15/12) Biopsy of breast (12/29/14) Left breast, [facility], benign intraductal papilloma Arthroplasty (12/23/12) R total knee arthroplasty,cemented Dr Valenzuela Family History Mother , COPD at age 73. Substance abuse Father , heart at age 70. Heart disease Brother , accident at age 47. No problems noted. Social History Smoking/Tobacco Use Status: Never Smoking risk assessment performed?: Yes Alcohol Intake: former Drug use: Never Substance use type: does not use Details: used alcohol in distant past Housing: [facility] Do you feel safe at home: Yes Do you feel safe in your relationship?: Yes
--- NOTE | 2024-11-23 10:15 | RT.EKG_ITS ---
APPROVED REPORT Exam: Resting ECG Reason for Exam: Chest Pain Patient Location: E HR:100 bpm ECG Measurements Heart Rate 100 AXIS ME 124 P 5 QRSd 73 QRS 19 QT 346 T 48 QTc 450 Conclusion Sinus tachycardia...rate> 99 Ventricular premature complex...V complex w/ short R-R interval No Occlusion SC
--- NOTE | 2024-11-23 10:30 | DI.RAD_ITS ---
Exam(s) XR CHEST 2V PA LATERAL EXAM: XR CHEST 2V PA LATERAL CLINICAL HISTORY: cough, wheeze. TECHNIQUE: 2D digital imaging was performed. COMPARISON: CR XR CHEST 1V IN DI DEPT from 08/02/2024 FINDINGS: 2 views: There has been significant deterioration when compared to 08/02/2024. Heart size is upper normal. The mediastinum is unchanged However, there are now moderate size bilateral pleural effusions and there is an infiltrate in the lower right lung field which has a nodular configuration. There is also infiltrate in the lung bases. No fractures. IMPRESSION: Infiltrates in both lung bases. Moderate size bilateral pleural effusions. Also nodular infiltrate in the lower right lung field measuring approximately 2 cm. These findings were not evident on chest x-ray of 4 months ago. Therefore probably infectious as opposed neoplastic. DATA REPOSITORY: RADIATION DOSE DELIVERED:
[2024-11-23] MEDS: methylPREDNISolone SUCC 125 MG VIAL 80 MG IVP (10:53)
[2024-11-23] MEDS: Albuterol/Ipratropium 3 ML UPD VIAL UPD ×3 (10:53→23:21)
[2024-11-23 10:56] LABS: Abs Immature Grans 0.06 10^3/uL (0.0-0.06); HCT 32.6 % (36.0-46.0); HGB 10.2 g/dL (11.2-15.7); Immature Grans % 0.5 %; MCH 24.4 pg (27.0-33.0); MCHC 31.3 % (32.0-36.0); MCV 78 fL (80-95); MPV 10.8 fL (8.0-11.0); Platelet Count 471 10^3/uL (130-400); RBC 4.18 10^6/uL (3.93-5.22); RDW 15.2 % (11.7-14.6); RDW-SD 42.8 fL; WBC 12.95 10^3/uL (4.4-10.8)
[2024-11-23 11:37] LABS: COVID-19 PCR Negative (Negative); RSV PCR Negative (Negative)
[2024-11-23 11:39] LABS: ALT 17 U/L (14-59); AST 29 U/L (15-37); Albumin 2.0 g/dL (3.4-5.0); Alkaline Phosphatase 193 U/L (46-116); Anion Gap 11.5 mmol/L (3-11); BUN 24 mg/dL (7-18); Bilirubin, Total 0.8 mg/dL (0.2-1.0); CO2 26.5 mmol/L (21.0-32.0); Calcium 9.0 mg/dL (8.5-10.1); Chloride 97 mmol/L (98-107); Estimated GFR 63.43 (mL/min/1.73m2); Glucose 130 mg/dL (74-106); Potassium 3.7 mmol/L (3.5-5.1); Sodium 135 mmol/L (136-145); Total Protein 7.5 g/dL (6.4-8.2)
[2024-11-23 11:47] LABS: Magnesium 2.0 mg/dL (1.8-2.4); NT-proBNP 3627 pg/mL (<300)
[2024-11-23 13:00] LABS: BE (Venous) 3 mmol/L (-2-3); HCO3 (Venous) 28 mmol/L (23-28); O2 Sat (Venous) 79 %; TCO2 (Venous) 26 mmol/L (24-29); pCO2 (Venous) 41 mmHg (41-51); pO2 (Venous) 44 mmHg
[2024-11-23] MEDS: CEFEPIME 2 GM in Normal Saline 100 ML IVPB ×2 (13:04→21:38)
--- NOTE | 2024-11-23 13:18 | W.PM.HP.N ---
Date of service: 11/23/24 Time of Service: 13:19 Assessment and Plan Assessment and plan (1) Sepsis: Status: Acute Assessment and plan: WBC >12 and tachycardia > 100- Source respiratory as per XR and symptomatology Broad spectrum antibiotics: Cefepime and Levaquin MRSA PCR Blood cultures and sputum gram stain (2) Pneumonia: Status: Acute Assessment and plan: Infiltrates in both lung bases and nodular infiltrate in the lower right lung field measuring approximately 2 cm new finding from imaging taken 4 months ago. 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 (4) Bilateral pleural effusion: Status: Acute Assessment and plan: As per imaging might be d/t infectious process but in the setting of point 3 this might be linked to heart failure (5) Elevated brain natriuretic peptide (BNP) level: Status: Acute Assessment and plan: As per HPI Echo in AM (6) Gastroesophageal reflux disease: Status: Active Assessment and plan: On PPI (7) Hyperlipidemia: Status: Active Assessment and plan: Not on statin - allergy (8) Hyponatremia: Status: Acute Assessment and plan: Na 135 lab in AM (9) Microcytic anemia: Status: Acute Assessment and plan: Appear sstable will continue to monitor (10) On deep vein thrombosis (DVT) prophylaxis: Status: Acute Assessment and plan: On LMWH Discussed with Dr. Millan History of Present Illness History of Present Illness Chief Complaint: respiratory distress Narrative: This 84 years old female patient living at a local SNF presented to the ED for evaluation of respiratory distress, wheezing and cough. Past medical history includes bilateral hips arthoplasty,, right hip prosthetic fracture in 07/2024, tubular adenoma of the colon, GERD, hyperlipidemia,rheumatoid arthritis, CKD III, anemia, hypertension, family mentioned frequent bronchitis history.Work-up in the ED was positive for bilateral infiltrates to the lower lobes and pleural effusions of chest XR, in addition to a new nodular infiltrates pointing to pneumonia. CBC showed stable m acrocytic anemia and leukocytosis, chemistry was unremarkable except for a BNP at 3627 from 2810 the day prior. The patient was afebrile, tachycardic at HR 106, normotensive. The patient denied fevers, dizziness, chest pain, nausea , vomiting, diarrhea, dysuria but reported fatigue, shortness of breath , cough with green sputum production. The ED provider contacted the hospitalist and mentioned starting the patient on Levofloxacin IV and cefepime. The patient was accepted for admission to the medical surgical floor for sepsis in the setting of community acquired pneumonia, hypoxic respiratory failure, bronchitis. Review of Systems All systems reviewed & are unremarkable except as noted in HPI and below PFSH All Active Problems (Updated 11/23/24 @ 17:50 by Destini Bales APRN) Elevated brain natriuretic peptide (BNP) level (Acute) Acute hypoxic respiratory failure (Acute) Sepsis (Acute) Bilateral pleural effusion (Acute) On deep vein thrombosis (DVT) prophylaxis (Acute) Pneumonia (Acute) Microcytic anemia (Acute) Hyponatremia (Acute) Skin tear of right upper extremity (Acute) Immunization, tetanus-diphtheria (Acute) Laceration of left upper arm (Acute) Hx of falling (Acute) Periprosthetic fracture around internal prosthetic right hip joint (Acute 08/02/24) Closed sacral fracture (Acute) History of surgery (Active) T & A. Appendectomy. [facility] arthroplasty 12/2007. [facility] arthroplasty 03/2012. Right distal clavical excision 11/05/2009. Right bunionectomy x 2. Right leg venous ligation. Colonoscopy October 15 - found to have tubular adenoma. Restless legs (Active) Managed with Sinemet Gastroesophageal reflux disease (Active) Hyperlipidemia (Active) Rheumatoid arthritis (Active 12/23/12) Osteoarthritis of knee (Active 12/23/12) Rhematoid arthritis and DJD right knee wqith mild valgus deformity and flexion contracture. Right total knee arthroplasty, cemented by Dr. Case Valenzuela 12-23-2012 Skin lesion (Acute) Medical History (Updated 11/23/24 @ 17:50 by Destini Bales APRN) Hyperkalemia Anemia Dysrhythmia Splenic mass Hypertension Chronic kidney disease, stage 3 Weight loss Tubular adenoma of colon Nausea with vomiting Postoperative anemia due to acute blood loss Osteoporosis Periprosthetic fracture around internal prosthetic left hip joint Surgical History left hip revision (04/10/16) Dr Kang, periprosthetic fracture, revision, [facility] 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) POLO; LEFT; ALSO R HIP 01/06/08 Tooth extraction (05/19/1963) COMPLETE UPPER AND LOWER EXTRACTIONS Colonoscopy - MAC (01/17/16) Colonoscopy - MAC (10/15/12) Biopsy of breast (12/29/14) Left breast, [facility], benign intraductal papilloma Arthroplasty (12/23/12) R total knee arthroplasty,cemented Dr Valenzuela Family History Mother , COPD at age 73. Substance abuse Father , heart at age 70. Heart disease Brother , accident at age 47. No problems noted. Social History Smoking/Tobacco Use Status: Never Smoking risk assessment performed?: Yes Alcohol Intake: former Drug use: Never Substance use type: does not use Details: used alcohol in distant past Housing: group home Do you feel safe at home: Yes Do you feel safe in your relationship?: Yes Meds Allergies and Home Medications Allergies Allergy/AdvReac Type Severity Reaction Status Date / Time hydrocodone (From Vicodin) AdvReac Intermediate N/V Unverified 11/23/24 10:26 lovastatin AdvReac Intermediate MUSCLE Unverified 11/23/24 10:26 ACHES oxycodone (From Percocet) AdvReac Intermediate N/V Unverified 11/23/24 10:26 simvastatin AdvReac Intermediate MUSCLE Unverified 11/23/24 10:26 ACHES niacin AdvReac Mild MUSCLE Unverified 11/23/24 10:26 ACHES Home Medications ?Medication ?Instructions ?Recorded ?Confirmed ?Type folic acid 1 mg tablet 1 mg PO DAILY #90 tab-caps 08/21/12 11/23/24 History hydroxychloroquine 200 mg tablet 200 mg PO as directed #180 tab-caps 08/21/12 11/23/24 History (Plaquenil) methotrexate sodium 2.5 mg tablet 10 mg PO WEEKLY ##36 08/21/12 11/23/24 History multivitamin 1 ea PO DAILY ##90 08/21/12 11/23/24 History latanoprost 0.005 % eye drops 1 drp OU HS 02/27/16 11/23/24 History acetaminophen 325 mg tablet 650 mg (2 x 325 mg) PO Q4H PRN PRN 04/22/16 11/23/24 Rx (Tylenol) pramipexole 0.25 mg tablet 0.25 mg PO HS #90 tab-caps 01/27/17 11/23/24 History lisinopril 10 mg tablet 10 tab PO DAILY 10/14/21 11/23/24 History mirtazapine 7.5 mg tablet 7.5 mg PO .bedtime 11/23/24 11/23/24 History Exam Narrative Exam Narrative: 84 yo frail elderly female patient, somnolent but arousable to verbal stimuli , ongoing O2 via n.c.,no acute distress, no neurological focal deficits, bi-basilar crackles and scattered ronchi to ACW, regular heart, S1, S2, no murmur, Abdomen is soft non-tender, not distended, moves all 4 ext. Results Labs 11/23/24 10:41 11/23/24 10:41 Labs: Laboratory Results - last 24 hr 11/23/24 11/23/24 11/23/24 10:41 10:53 12:58 WBC 12.95 H RBC 4.18 Hgb 10.2 L Hct 32.6 L MCV 78 L MCH 24.4 L MCHC 31.3 L RDW 15.2 H Plt Count 471 H MPV 10.8 Immature Gran % 0.5 Neutrophils % 84.8 Lymphocytes % 6.9 Monocytes % 7.4 Eosinophils % 0.1 Basophils % 0.3 Nucleated RBC % 0.0 Absolute Neutrophils 10.98 H Absolute Lymphocytes 0.89 L Absolute Monocytes 0.96 H Absolute Eosinophils 0.01 Absolute Basophils 0.04 VBG pH 7.44 H VBG pCO2 41 VBG pO2 44 VBG HCO3 28 VBG Total CO2 26 VBG O2 Saturation 79 VBG Base Excess 3 Sodium 135 L Potassium 3.7 Chloride 97 L Carbon Dioxide 26.5 Anion Gap 11.5 H BUN 24 H Creatinine 0.9 Est GFR (CKD-EPI 2020) 63.43 Glucose 130 H Calcium 9.0 Magnesium 2.0 Total Bilirubin 0.8 AST 29 ALT 17 Alkaline Phosphatase 193 H NT-Pro-B Natriuret Pep 3627 H Total Protein 7.5 Albumin 2.0 L COVID-19 Source Nasopharynx SARS-CoV-2 (PCR) Negative Influenza Type A (PCR) Negative Influenza Type B (PCR) Negative RSV (PCR) Negative Last Vital Signs Temp 37.2 C 11/23/24 10:25 Pulse 106 H 11/23/24 10:53 Resp 21 11/23/24 10:53 BP 174/96 H 11/23/24 10:25 Pulse Ox 93 11/23/24 10:53 Time Spent Time spent with Patient: >75 minutes Time was spent: preparing to see the patient(eg.review tests), obtaining and/or reviewing separately otained hiistory, ordering medications,tests, procedures, referring, communicating with other health intensive care anaesthetist, indepentently interpreting results, counseling the patient and care coordination
--- NOTE | 2024-11-23 15:01 | W.PC.ACHO ---
Registration Status: REG ER Primary Language: Preferred Language: Azeri ED Information & Data Chief Complaint RespSymp 11/23/24 10:24 Chief Complaint RespSymp 11/23/24 10:17 Triage Note Brought in by Jyoti. Patient 11/23/24 10:17 reports that sinces yesterday she started feeling weak, and coughing with difficulty breathing had a duo-neb last night. upon on arrival EMS spo2 89% albuterol treatment oxygen 2L increased o2 to 96%. Patient state today she started feeling worst today Medical / Surgical History (Updated 11/23/24 @ 13:24 by Destini Bales APRN) Hyperkalemia Anemia Dysrhythmia Splenic mass Hypertension Chronic kidney disease, stage 3 Weight loss Tubular adenoma of colon Nausea with vomiting Postoperative anemia due to acute blood loss Osteoporosis Periprosthetic fracture around internal prosthetic left hip joint (Updated 03/04/18 @ 14:35 by [employer] MD) left hip revision (04/10/16) 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) Tooth extraction (05/19/1963) Colonoscopy - MAC (01/17/16) Colonoscopy - MAC (10/15/12) Biopsy of breast (12/29/14) Arthroplasty (12/23/12) Most Recent Vital Signs Temperature 37.2 C 11/23/24 10:25 Temperature Source Oral 11/23/24 10:25 Pulse 91 H 11/23/24 14:50 Pulse 92 H 11/23/24 14:50 Respiratory Rate 26 H 11/23/24 14:50 Blood Pressure 158/77 H 11/23/24 14:46 Blood Pressure Mean 105 11/23/24 14:46 Blood Pressure Position Sitting 11/23/24 10:25 Pulse Oximetry 93 11/23/24 14:50 Oxygen Delivery Method Room Air 11/23/24 10:53 Oxygen Flow Rate 0 11/23/24 10:53 Allergies hydrocodone (From Vicodin) Adverse Reaction (Intermediate, Unverified 11/23/24 10:26) N/V pt. reports N/V, pt. states she get violently ill lovastatin Adverse Reaction (Intermediate, Unverified 11/23/24 10:26) MUSCLE ACHES oxycodone (From Percocet) Adverse Reaction (Intermediate, Unverified 11/23/24 10:26) N/V pt. reports N/V, pt. states she get violently ill simvastatin Adverse Reaction (Intermediate, Unverified 11/23/24 10:26) MUSCLE ACHES niacin Adverse Reaction (Mild, Unverified 11/23/24 10:26) MUSCLE ACHES Precautions Isolation PUI 11/23/24 10:24 IV IV Catheter Type [Right Saline Lock Antecubital] IV Catheter Gauge [Right 18 Antecubital] Diagnostics 11/23/24 11/23/24 11/23/24 Range/Units 13:56 12:58 10:53 WBC (4.4-10.8) 10^3/uL RBC (3.93-5.22) 10^6/uL Hgb (11.2-15.7) g/dL Hct (36.0-46.0) % MCV (80-95) fL MCH (27.0-33.0) pg MCHC (32.0-36.0) % RDW (11.7-14.6) % Plt Count (130-400) 10^3/uL MPV (8.0-11.0) fL Immature Gran % % Neutrophils % % Lymphocytes % % Monocytes % % Eosinophils % % Basophils % % Nucleated RBC % (0.0-0.3) % Absolute Neutrophils (1.2-6.7) 10^3/uL Absolute Lymphocytes (1.2-3.4) 10^3/uL Absolute Monocytes (0.1-0.8) 10^3/uL Absolute Eosinophils (0.0-0.7) 10^3/uL Absolute Basophils (0.0-0.2) 10^3/uL VBG pH 7.44 H (7.31-7.41) VBG pCO2 41 (41-51) mmHg VBG pO2 44 mmHg VBG HCO3 28 (23-28) mmol/L VBG Total CO2 26 (24-29) mmol/L VBG O2 Saturation 79 % VBG Base Excess 3 (-2-3) mmol/L Sodium (136-145) mmol/L Potassium (3.5-5.1) mmol/L Chloride (98-107) mmol/L Carbon Dioxide (21.0-32.0) mmol/L Anion Gap (3-11) mmol/L BUN (7-18) mg/dL Creatinine (0.55-1.02) mg/dL Est GFR (CKD-EPI 2020) (mL/min/1.73m2) Glucose (74-106) mg/dL Calcium (8.5-10.1) mg/dL Magnesium (1.8-2.4) mg/dL Total Bilirubin (0.2-1.0) mg/dL AST (15-37) U/L ALT (14-59) U/L Alkaline Phosphatase (46-116) U/L NT-Pro-B Natriuret Pep (<300) pg/mL Total Protein (6.4-8.2) g/dL Albumin (3.4-5.0) g/dL COVID-19 Source Nasopharynx SARS-CoV-2 (PCR) Negative (Negative) Influenza Type A (PCR) Negative (Negative) Influenza Type B (PCR) Negative (Negative) RSV (PCR) Negative (Negative) MRSA (TEM-PCR) Pending 11/23/24 Range/Units 10:41 WBC 12.95 H (4.4-10.8) 10^3/uL RBC 4.18 (3.93-5.22) 10^6/uL Hgb 10.2 L (11.2-15.7) g/dL Hct 32.6 L (36.0-46.0) % MCV 78 L (80-95) fL MCH 24.4 L (27.0-33.0) pg MCHC 31.3 L (32.0-36.0) % RDW 15.2 H (11.7-14.6) % Plt Count 471 H (130-400) 10^3/uL MPV 10.8 (8.0-11.0) fL Immature Gran % 0.5 % Neutrophils % 84.8 % Lymphocytes % 6.9 % Monocytes % 7.4 % Eosinophils % 0.1 % Basophils % 0.3 % Nucleated RBC % 0.0 (0.0-0.3) % Absolute Neutrophils 10.98 H (1.2-6.7) 10^3/uL Absolute Lymphocytes 0.89 L (1.2-3.4) 10^3/uL Absolute Monocytes 0.96 H (0.1-0.8) 10^3/uL Absolute Eosinophils 0.01 (0.0-0.7) 10^3/uL Absolute Basophils 0.04 (0.0-0.2) 10^3/uL VBG pH (7.31-7.41) VBG pCO2 (41-51) mmHg VBG pO2 mmHg VBG HCO3 (23-28) mmol/L VBG Total CO2 (24-29) mmol/L VBG O2 Saturation % VBG Base Excess (-2-3) mmol/L Sodium 135 L (136-145) mmol/L Potassium 3.7 (3.5-5.1) mmol/L Chloride 97 L (98-107) mmol/L Carbon Dioxide 26.5 (21.0-32.0) mmol/L Anion Gap 11.5 H (3-11) mmol/L BUN 24 H (7-18) mg/dL Creatinine 0.9 (0.55-1.02) mg/dL Est GFR (CKD-EPI 2020) 63.43 (mL/min/1.73m2) Glucose 130 H (74-106) mg/dL Calcium 9.0 (8.5-10.1) mg/dL Magnesium 2.0 (1.8-2.4) mg/dL Total Bilirubin 0.8 (0.2-1.0) mg/dL AST 29 (15-37) U/L ALT 17 (14-59) U/L Alkaline Phosphatase 193 H (46-116) U/L NT-Pro-B Natriuret Pep 3627 H (<300) pg/mL Total Protein 7.5 (6.4-8.2) g/dL Albumin 2.0 L (3.4-5.0) g/dL COVID-19 Source SARS-CoV-2 (PCR) (Negative) Influenza Type A (PCR) (Negative) Influenza Type B (PCR) (Negative) RSV (PCR) (Negative) MRSA (TEM-PCR) 11/23/24 13:38 Blood Culture - Pending Blood 11/23/24 13:38 Blood Culture - Pending Blood Intake and Output - 24 Hour Total 11/23/24 10:08 thru 11/23/24 10:17 Weight 58.06 kg Problems (Updated 11/23/24 @ 13:24 by Destini Bales APRN) Sepsis (Acute) Bilateral pleural effusion (Acute) On deep vein thrombosis (DVT) prophylaxis (Acute) Pneumonia (Acute) Microcytic anemia (Acute) Hyponatremia (Acute) Gastroesophageal reflux disease (Active) Hyperlipidemia (Active) v v v v v v v v v Sending and/or Receiving Nurses: Please use comment section below to note any information pertinent to the patient hand-off not included above. Information / Comments:report was received at 1455 inpatient 1352 Report received from: Cheryl TRUJILLO RN
[2024-11-23 16:36] LABS: MRSA PCR Negative (Negative)
[2024-11-23] MEDS: levoFLOXacin 750 MG/150 ML BAG 100 MG IVPB (17:37)
[2024-11-23] MEDS: Pantoprazole 40 MG VIAL IVP (18:05)
[2024-11-23] MEDS: Normal Saline Flush 10 ML SYR IVP ×3 (18:06→21:39)
[2024-11-23] MEDS: Mirtazapine 15 MG TAB 7.5 MG PO (19:41)
[2024-11-23] MEDS: guaiFENesin 600 MG TABCR PO (19:41)
[2024-11-23] MEDS: Latanoprost 0.005% 2.5 ML BTL OU (19:42)
[2024-11-23] MEDS: Pramipexole 0.25 MG TAB PO (19:42)
[2024-11-23] MEDS: Benzonatate 100 MG CAP PO (19:42)
[2024-11-24] VITALS (9 sets, daily range): BP systolic 124–163; BP diastolic 69–95; PULSE 74–88; RESP 16–22; TEMP 36.5–37.1; O2SAT 91–97
[2024-11-24] MEDS: CEFEPIME 2 GM in Normal Saline 100 ML IVPB ×3 (04:42→23:17)
[2024-11-24] MEDS: Albuterol/Ipratropium 3 ML UPD VIAL UPD (06:05)
[2024-11-24 06:22] LABS: Abs Immature Grans 0.10 10^3/uL (0.0-0.06); HCT 30.4 % (36.0-46.0); HGB 9.5 g/dL (11.2-15.7); Immature Grans % 0.8 %; MCH 24.8 pg (27.0-33.0); MCHC 31.3 % (32.0-36.0); MCV 79 fL (80-95); MPV 11.4 fL (8.0-11.0); Platelet Count 377 10^3/uL (130-400); RBC 3.83 10^6/uL (3.93-5.22); RDW 15.2 % (11.7-14.6); RDW-SD 44.2 fL; WBC 11.85 10^3/uL (4.4-10.8)
[2024-11-24] MEDS: Lisinopril 10 MG TAB PO (08:02)
[2024-11-24] MEDS: guaiFENesin 600 MG TABCR PO ×2 (08:02→23:11)
[2024-11-24] MEDS: Pantoprazole 40 MG VIAL IVP (08:02)
[2024-11-24] MEDS: Enoxaparin 40 MG/0.4 ML SYR SC (08:02)
[2024-11-24] MEDS: Benzonatate 100 MG CAP PO ×3 (08:02→23:11)
[2024-11-24] MEDS: predniSONE 20 MG TAB 40 MG PO (08:03)
[2024-11-24] MEDS: Folic Acid 1 MG TAB PO (08:03)
[2024-11-24] MEDS: Hydroxychloroquine 200 MG TAB PO (08:03)
[2024-11-24] MEDS: Multivitamin TAB 1 TAB PO (08:03)
[2024-11-24] MEDS: Normal Saline Flush 10 ML SYR IVP ×3 (08:04→23:11)
[2024-11-24 08:34] LABS: Anion Gap 10.3 mmol/L (3-11); BUN 26 mg/dL (7-18); CO2 26.7 mmol/L (21.0-32.0); Calcium 8.7 mg/dL (8.5-10.1); Chloride 102 mmol/L (98-107); Estimated GFR 73.06 (mL/min/1.73m2); Glucose 145 mg/dL (74-106); Magnesium 2.1 mg/dL (1.8-2.4); Potassium 3.4 mmol/L (3.5-5.1); Sodium 139 mmol/L (136-145)
--- NOTE | 2024-11-24 09:00 | PDOC.CMIN ---
Date of service: 11/24/24 Time of Service: 09:00 Care Management Initial Assmt Initial Assessment Reason for Hospitalization: sepsis and pneumonia Functional Status/Living Situation Patient Presentation: Tamy was sitting up in a chair with her legs elevated, visiting with her granddaughter, when CM met with her. She was smiling and appeared to be in good spirits. She engaged well with CM, known to her form a previous admission. Tamy is still at [facility] and shared that she is pretty happy there. She enjoys the activities, especially Bingo (except when they get off track and it takes too long) Tamy was admitted with pneumonia but stated she is feeling better. Initially she required 2L/min of nasal oxygen, but is saturating at 92% on room air today. Town of Residence: [place] Resides with: Alone Significant Other/Family: Local Natural Supports: daughter Reina next door, 2 sons - Sukhwinder and Case Employment Status: Retired Instrumental Activities of Daily Living (ADLs): Requires support Medications Medication Management: No Issues/Barriers identified Physical Functioning/Mobility Assistive Device: uses a walker Advance Directives Advance Directives: Do you have an Advance Directive: Y 02/09/19, 12:00 AD On File at [facility]: Y 02/09/19, 12:00 Date Asked 11/22/24 11/22/24, 13:24 AD Date Reviewed 11/23/24 Today, 08:46 COLST On File at [facility] COLST Date Scanned Code Status Resuscitation Status DNR/DNI Portal Pt does not currently have a portal and education provided: Yes Insurance Coverage/Financial Issues Insurance: Medicare [employer] Care Team Visit Care Team Role Provider Type Destini Bales APRN MD [facility] STAFF PHYSICIAN LARRY Vale Primary Care Provider PHYSICIANS SAMPLE CLERK Lori Bourne Emergency Provider NURSE PRACTITIONER Jarrett Millan MD Admit Provider [facility] STAFF PHYSICIAN Attending Provider Discharge Potential Discharge Needs: PCP F/U Appt Anticipated Barriers to Discharge: None Identified Patient/Family Education Needs: Review discharge instructions, discuss Ask Me Three Transportation: RCT Plan: Anticipate Jo will return to [facility] when medically cleared. She will follow up with facility providers and plan of care and transport via RCT CM will follow. Social Determinants of Health Screening Social Determinants of health last assessed in clinic: 07/09/25 Will the Patient Participate in the Screening?: Yes Do you worry about having a steady place to live?: no Problems where you live: no known problems In the past 12 months, have you had to go without electric, gas, oil or water in your home?: no 1. Within the past 12 months, we worried whether our food would run out before we got money to buy more.: Never true 2. Within the past 12 months, the food we bought just didn't last and we didn't have money to get more.: Never true Has lack of transportation kept you from medical appointments or from doing things needed for daily living?: no Has anyone in your life made you feel unsafe or unsupported?: no How hard is it for you to pay for the very basics like food, housing, medical care, and heating? Would you say it is:: Not hard at all Do you want help finding or keeping work or a job?: I do not need or want help If for any reason you need help with day-to-day activities such as bathing, preparing meals, shopping, managing finances, etc., do you get the help you need?: I need a lot more help How often do you feel lonely or isolated from those around you?: Never Do you speak a language other than Nigerian at home?: No Does the patient want assistance with any of the above?: No Health Related Social Needs Health related social needs: problems with daily activities (Z73.9) Health related social needs details: lives at [facility] All Active Problems (Updated 11/24/24 @ 13:26 by Destini Bales APRN) Hypokalemia (Acute) Elevated brain natriuretic peptide (BNP) level (Acute) Acute hypoxic respiratory failure (Acute) Sepsis (Acute) Bilateral pleural effusion (Acute) On deep vein thrombosis (DVT) prophylaxis (Acute) Pneumonia (Acute) Microcytic anemia (Acute) Hyponatremia (Acute) Skin tear of right upper extremity (Acute) Immunization, tetanus-diphtheria (Acute) Laceration of left upper arm (Acute) Hx of falling (Acute) Periprosthetic fracture around internal prosthetic right hip joint (Acute 08/02/24) Closed sacral fracture (Acute) History of surgery (Active) T & A. Appendectomy. RT arthroplasty 12/2007. LT arthroplasty 03/2012. Right distal clavical excision 11/05/2009. Right bunionectomy x 2. Right leg venous ligation. Colonoscopy October 15 - found to have tubular adenoma. Restless legs (Active) Managed with Sinemet Gastroesophageal reflux disease (Active) Hyperlipidemia (Active) Rheumatoid arthritis (Active 12/23/12) Osteoarthritis of knee (Active 12/23/12) Rhematoid arthritis and DJD right knee wqith mild valgus deformity and flexion contracture. Right total knee arthroplasty, cemented by Dr. Case Valenzuela 12-23-2012 Skin lesion (Acute) Medical History (Updated 11/24/24 @ 13:26 by Destini Bales APRN) Hyperkalemia Anemia Dysrhythmia Splenic mass Hypertension Chronic kidney disease, stage 3 Weight loss Tubular adenoma of colon Nausea with vomiting Postoperative anemia due to acute blood loss Osteoporosis Periprosthetic fracture around internal prosthetic left hip joint Surgical History left hip revision (04/10/16) Dr Kang, periprosthetic fracture, revision, [facility] 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) POLO; LEFT; ALSO R HIP 01/06/08 Tooth extraction (05/19/1963) COMPLETE UPPER AND LOWER EXTRACTIONS Colonoscopy - MAC (01/17/16) Colonoscopy - MAC (10/15/12) Biopsy of breast (12/29/14) Left breast, [facility] [place], benign intraductal papilloma Arthroplasty (12/23/12) R total knee arthroplasty,cemented Dr Valenzuela Family History Mother , COPD at age 73. Substance abuse Father , heart at age 70. Heart disease Brother , accident at age 47. No problems noted. Social History Smoking/Tobacco Use Status: Never Smoking risk assessment performed?: Yes Alcohol Intake: former Drug use: Never Substance use type: does not use Details: used alcohol in distant past Housing: correction Do you feel safe at home: Yes Do you feel safe in your relationship?: Yes
--- NOTE | 2024-11-24 13:14 | PGE_ITS ---
Date of Service Date of service: 11/24/24 Time of Service: 13:14 Assessment and Plan Assessment and plan (1) Sepsis: Status: Acute Assessment and plan: On admission 640 admitted with WBC >12 and tachycardia > 100- Source respiratory as per XR and symptomatology Broad spectrum antibiotics: Ongoing cefepime and Levaquin while sputum Gram stain pending MRSA PCR negative Blood cultures are still pending Improving leukocytosis (2) Pneumonia: Status: Acute Assessment and plan: Infiltrates in both lung bases and nodular infiltrate in the lower right lung field measuring approximately 2 cm new finding from imaging taken 4 months ago. As above and Scheduled nebulizer now PRN Continue Mucinex and benzonatate Continue aggressive pulmonary toilet incentive symmetry and Acapella (3) Acute hypoxic respiratory failure: Status: Acute Assessment and plan: On admission in the setting of sepsis d/t pneumonia , requiring supplemental oxugen at 2 l/min in the ED; no previous oxygen requirement [employer] As resolved at this time no further need for oxygen supplementation (4) Bilateral pleural effusion: Status: Acute Assessment and plan: Admission date as per imaging report could have been d/t infectious process but in the setting of point 3 this might be linked to heart failure Echocardiogram ordered and pending for 11/25/2024 AM (5) Elevated brain natriuretic peptide (BNP) level: Status: Acute Assessment and plan: As per HPI BNP was over 3000 from 1999's the day prior As above (6) Gastroesophageal reflux disease: Status: Active Assessment and plan: Continue PPI (7) Hyperlipidemia: Status: Active Assessment and plan: Not on statin - allergy listed to simvastatin and lovastatin (8) Hyponatremia: Status: Acute Assessment and plan: Resolved (9) Microcytic anemia: Status: Acute Assessment and plan: Appear stable but trending down - dilutional -will continue to monitor First seen s/p OR this year thought to be blood loss related Occult blood stool Anemia study outpatient (10) Hypokalemia: Status: Acute Assessment and plan: supplementation given BMP in the morning (11) On deep vein thrombosis (DVT) prophylaxis: Status: Acute Assessment and plan: On LMWH Discussed with Dr. Millan Subjective Subjective Patient reports: no new complaints, feels better, tolerating liquids well, tolerating a regular diet, voiding w/o difficulty and no bowel movement; denies diarrhea, nausea, vomiting, shortness of breath or fever Exam Narrative Exam Narrative: 84 yo frail elderly female patient, in no acute distress, no neurological focal deficits, bi-basilar crackles right more than left , regular heart, S1, S2, no murmur, Abdomen is soft non-tender, not distended, moves all 4 ext. No CVA tenderness Objective Last Vital Signs Temp 37.1 C 11/24/24 11:46 Pulse 88 11/24/24 11:46 Resp 17 11/24/24 11:46 BP 130/77 11/24/24 11:46 Pulse Ox 93 11/24/24 11:46 Laboratory Results - last 24 hr 11/23/24 11/24/24 11/24/24 13:56 05:42 08:01 WBC 11.85 H RBC 3.83 L Hgb 9.5 L Hct 30.4 L MCV 79 L MCH 24.8 L MCHC 31.3 L RDW 15.2 H Plt Count 377 MPV 11.4 H Immature Gran % 0.8 Neutrophils % 92.1 Lymphocytes % 3.7 Monocytes % 3.0 Eosinophils % 0.1 Basophils % 0.3 Nucleated RBC % 0.0 Absolute Neutrophils 10.91 H Absolute Lymphocytes 0.44 L Absolute Monocytes 0.36 Absolute Eosinophils 0.01 Absolute Basophils 0.04 Sodium Cancelled 139 Potassium Cancelled 3.4 L Chloride Cancelled 102 Carbon Dioxide Cancelled 26.7 Anion Gap Cancelled 10.3 BUN Cancelled 26 H Creatinine Cancelled 0.8 Est GFR (CKD-EPI 2020) Cancelled 73.06 Glucose Cancelled 145 H Calcium Cancelled 8.7 Magnesium Cancelled 2.1 MRSA (TEM-PCR) Negative Time Spent with Patient Time Spent with Patient: >50 minutes Time was spent: preparing to see the patient(eg.review tests), obtaining and/or reviewing separately otained hiistory, ordering medications,tests, procedures, referring, communicating with other health hospice care sales consultant, indepentently interpreting results, counseling the patient and care coordination
--- NOTE | 2024-11-24 13:27 | W.NUTRFU ---
Date of service: 11/24/24 Time of Service: 11:45 Nutrition Note NOTE: Jo being treated for sepsis related to PNA and acute resp failure. Jo being visited by son and his . She currently resides and home health and rehab next door. Glucose labs a little elevated but expected on prednisone. Reports no significant changes in weight - family support this as well. Potassium 3.4 today. total protein lab wnl with low albumin yesterday at 2.0 - more congruent with inflammation than low protein status - can order prealbumin and retinolbinding protein for better protein status assessment. Jo states no ONS needed and just relayed food preferences and requests smaller portions at meals. Will continue to monitor po intake, weight, nutrition related labs for any delterious changes. Assessed at lower nutrition risk at this time Time Spent in Nutritional Counseling and Treatment: 5 min
[2024-11-24] MEDS: Docusate Sodium 100 MG CAP PO ×2 (14:37→23:11)
[2024-11-24] MEDS: Potassium Chloride 20 MEQ TABCR 40 MEQ PO (14:37)
--- NOTE | 2024-11-24 14:40 | CHAPLAIN ---
Jo was here a few months ago and we remembered each other from that admission. She lives currently at &. Her daughter Reina was with her this morning. Jo is a member of the [employer], hasn't been able to attend in a while and declined my offer to contact the [employer] for her. She has lived in the [place] area for many since she was a kid and knows many people there. Reina's works at [employer] in Maintenance. Jo seems comfortable, but is coughing some. I will continue to visit.
[2024-11-24] MEDS: levoFLOXacin 750 MG/150 ML BAG 100 MG IVPB (17:42)
[2024-11-24] MEDS: Mirtazapine 15 MG TAB 7.5 MG PO (23:10)
[2024-11-24] MEDS: Pramipexole 0.25 MG TAB PO (23:11)
[2024-11-24] MEDS: Latanoprost 0.005% 2.5 ML BTL OU (23:17)
[2024-11-25 04:32] VITALS: BP 153/69; PULSE 72; RESP 20; TEMP 36.7; O2SAT 93
[2024-11-25 07:37] VITALS: BP 135/72; PULSE 76; RESP 16; TEMP 36.3; O2SAT 92
--- NOTE | 2024-11-25 08:00 | DI.US_ITS ---
APPROVED REPORT EXAM: Comprehensive 2D, Doppler, and color-flow Echocardiogram Patient Location: In-Patient Room/Bed: [address] Stripper Helper: Sera Joyce RDCS (AE) Indications: CHF Pleural effusion Other Information Study Quality: Fair. Technically limited study due to body habitus, inability to position patient , exam done supine bedside. Conclusion Normal left ventricular wall thickness and chamber size. Ejection fraction is 55%. Wall motion is normal Normal right ventricular size and function Both atria are normal in size Aortic valve is sclerotic with mild regurgitation Mild mitral and tricuspid regurgitation. Mitral and tricuspid valves are structurally normal Estimated right ventricular systolic pressure is 32 mmHg Wall motion Left Ventricle The left ventricle is normal size. The left ventricular systolic function is normal. The left ventricular ejection fraction is within the normal range. There is normal left ventricular wall thickness. There is normal LV segmental wall motion. There is no ventricular septal defect visualized. LVEF is 55%. Right Ventricle The right ventricle is normal size. The right ventricular systolic function is normal. Atria The left atrium size is normal. The right atrium size is normal. The interatrial septum is intact with no evidence for an atrial septal defect. Aortic Valve The Aortic valve is sclerotic. Aortic valve is trileaflet. There is no aortic valvular stenosis. Mild aortic regurgitation. Mitral Valve The mitral valve is normal in structure. No evidence of mitral valve stenosis. Mild mitral regurgitation. Tricuspid Valve The tricuspid valve is normal in structure. There is no tricuspid valve stenosis. Mild tricuspid regurgitation. The RVSP is _32.4 mmHg. Pulmonic Valve The pulmonary valve is normal in structure. There is no pulmonic valvular stenosis. There is no pulmonic valvular regurgitation. Great Vessels The aortic root is normal in size. The ascending aorta is normal in size. Aortic arch is not well visualized. IVC is normal in size and collapses >50% with inspiration. Pericardium There is no pericardial effusion. 2D Dimensions IVSD d PLAX 1.00 cm F: 0.6-1.0 Ao Root d 3.33 cm F: 2.7 - 3.3 LVPW d PLAX 1.00 cm F: 0.6 - 1.0 Ao Asc Diam d 3.19 cm F: 2.3 - 3.1 LVID d PLAX 4.00 cm F: 3.8 - 5.2 LVDs 2.94 cm F: 2.2 - 3.5 LV EF Teichholz 51.5 % FS 25.89 % LV EDV (Teich) 68.8 mL LV ESV (Teich) 33.4 mL M-Mode TAPSE 1.74 cm (M/F) >1.7 Auto EF LV EDV A4C 140.0 mL LV EDV A2C 111.1 mL LV EDV BP 128.3 mL LV ESV A4C 67.9 mL LV ESV A2C 53.7 mL LV ESV BP 62.2 mL LVEF(%) A4C 51.5 % LVEF(%) A2C 51.6 % LVEF(%) BP 51.5 % LV SV A4C 72.1 ml LV SV A2C 57.4 ml LV SV BP 66.1 ml LV CO A4C 6.1 L/min LV CO A2C 4.7 L/min LV CO BP 5.4 L/min HR A4C 84.71 BPM HR A2C 81.27 BPM LV EDV Index (BP) LA Volume LA Length A4C 5.7 cm LA Length A2C 6.0 cm LA Area A4C s 18.23 cm2 LA Area A2C s 18.30 cm2 LA Vol A4C A-L 49.11 mL LA Vol A2C A-L 47.50 mL LA Vol Biplane A-L 49.3 mL LA Vol/BSA A4C A-L LA Vol/BSA A2C A-L LA Vol/BSA BP A-L 30.6 mL/m2 LA Vol A4C MOD 45.6 mL LA Vol A2C MOD 44.7 mL LA Vol BP MOD 46.0 mL RA Volume RA Area A4C 14.6 cm2 RA ESV A4C (A-L) 38.7mL RA Vol/BSA A4C A-L RA Length A4C 4.7 cm RA ESV A4C (MOD) 36.3mL LV Diastology MV E' medial 0.071 (>0.07 m/s) MV E Vmax 1.01 (0.4-1.3 m/s) MV E/E' MED 14.09 (<14) MV A Vmax 0.95 (0.4-1.3 m/s) MV E' lateral 0.071 (>0.1 m/s) E/A Ratio 1.1 MV E/E' LAT 14.09 (<14) MV E' Average 0.071 m/s MV E/E'(average) 14.09 Aortic Valve AoV Vmax 1.48 m/s LVOT Vmax 1.22 m/s AoV Peak Grad 33.0 mmHg LVOT Peak Grad 5.9 mmHg AoV Area (Vmax) 2.34 cm2 LVOT VTI 0.268 m AoV VTI 0.329 m LVOT Mean Grad 3.1 mmHg AoV Mean [place]. 1.04 m/s LVOT SV 76.02 mL AoV Mean Grad 4.9 mmHg LVOT Diam s 1.90 cm AoV Area (VTI) 2.31 cm2 AV Regurg Peak Gr. 8.71 mmHg Velocity Ratio 0.82 AR Decel [place] 1.1m/sec2 AR DT 3533 msec AR PHT 1025 msec AR Vmax 3.78 m/s Mitral Valve MV DT 171 (160-240 msec) MV Vmax TIPS 1.00 m/s MV Mean Grad 2.3 (<2mmHg) MV VTI 0.346 m Pulmonary Valve PV Vmax 0.91 (0.5-1.5 m/s) RVOT Vmax 0.75 m/s PV Peak Grad 3.3 mmHg RVOT Peak Gr. 2.2 mmHg PV Mean [place] 0.59 m/s RVOT VTI 0.155 m PV Mean Grad 1.6 mmHg RVOT Mean Gr. 1.4 mmHg Tricuspid Valve RA Pressure 3.00 mmHg TR Vmax 2.71 m/s TV S' 0.13 m/s TR Peak Grad 29.4 mmHg RVSP (TR) 32.4 mmHg
[2024-11-25] MEDS: CEFEPIME 2 GM in Normal Saline 100 ML IVPB (08:17)
[2024-11-25] MEDS: Pantoprazole 40 MG VIAL IVP (08:17)
[2024-11-25] MEDS: Enoxaparin 40 MG/0.4 ML SYR SC (08:18)
[2024-11-25] MEDS: predniSONE 20 MG TAB 40 MG PO (08:18)
[2024-11-25] MEDS: Lisinopril 10 MG TAB PO (08:18)
[2024-11-25] MEDS: guaiFENesin 600 MG TABCR PO (08:18)
[2024-11-25] MEDS: Hydroxychloroquine 200 MG TAB PO (08:18)
[2024-11-25] MEDS: Docusate Sodium 100 MG CAP PO (08:18)
[2024-11-25] MEDS: Multivitamin TAB 1 TAB PO (08:18)
[2024-11-25] MEDS: Benzonatate 100 MG CAP PO (08:19)
[2024-11-25] MEDS: Folic Acid 1 MG TAB PO (08:19)
[2024-11-25] MEDS: Normal Saline Flush 10 ML SYR IVP (08:19)
--- NOTE | 2024-11-25 09:20 | PDOC.CMPRO ---
Date of service: 11/25/24 Time of Service: 09:20 Care Management Progress Note Discharge Potential Discharge Needs: Other (return to SNF) Anticipated Barriers to Discharge: None Identified Patient/Family Education Needs: Review discharge instructions, discuss Ask Me Three Transportation: RCT Plan: Anticipate Jo will return to [facility] when medically cleared. She will follow up with facility providers and plan of care and transport via RCT CM will follow. Social Determinants of Health Screening Social Determinants of health last assessed in clinic: 11/24/24 Will the Patient Participate in the Screening?: Yes Do you worry about having a steady place to live?: no Problems where you live: no known problems In the past 12 months, have you had to go without electric, gas, oil or water in your home?: no Has lack of transportation kept you from medical appointments or from doing things needed for daily living?: no Has anyone in your life made you feel unsafe or unsupported?: no How hard is it for you to pay for the very basics like food, housing, medical care, and heating? Would you say it is:: Not hard at all Do you want help finding or keeping work or a job?: I do not need or want help If for any reason you need help with day-to-day activities such as bathing, preparing meals, shopping, managing finances, etc., do you get the help you need?: I need a lot more help How often do you feel lonely or isolated from those around you?: Never Do you speak a language other than Telugu at home?: No Does the patient want assistance with any of the above?: No Health Related Social Needs Health related social needs: problems with daily activities (Z73.9) Health related social needs details: lives at [facility]
[2024-11-25 11:39] VITALS: BP 148/84; PULSE 87; RESP 16; TEMP 36.5; O2SAT 94
--- NOTE | 2024-11-25 12:07 | DSE_ITS ---
Date of service: 11/25/24 Time of Service: 12:08 DS: Diagnosis Discharge Diagnosis (1) Sepsis: Status: Acute (2) Pneumonia: Status: Acute (3) Acute hypoxic respiratory failure: Status: Acute (4) Bilateral pleural effusion: Status: Acute (5) Elevated brain natriuretic peptide (BNP) level: Status: Acute (6) Gastroesophageal reflux disease: Status: Active (7) Hyperlipidemia: Status: Active (8) Hyponatremia: Status: Acute (9) Microcytic anemia: Status: Acute (10) Hypokalemia: Status: Acute (11) On deep vein thrombosis (DVT) prophylaxis: Status: Acute Discharge Plan Disposition [facility] Disposition[facility] Condition: Improving Discharge Details Reason For Visit: Sepsis, Pneumonia Admit Date/Time: 11/23/24 13:35 Admit Provider: Jarrett Millan Attending Provider: Jarrett Millan Primary Care Provider: Marlene Pereira Hospital Course Hospital Course: This 84 years old female patient living at a local SNF presented to the ED for evaluation of respiratory distress, wheezing and cough. Past medical history includes bilateral hips arthoplasty,, right hip prosthetic fracture in 07/2024, tubular adenoma of the colon, GERD, hyperlipidemia,rheumatoid arthritis, CKD III, anemia, hypertension, family mentioned frequent bronchitis history.Work-up in the ED was positive for bilateral infiltrates to the lower lobes and pleural effusions of chest XR, in addition to a new nodular infiltrates pointing to pneumonia. CBC showed anemia and leukocytosis, BNP at 3627 from 2810 the day prior. The patient was afebrile, tachycardic at HR 106, normotensive. The patient denied fevers, dizziness, chest pain, nausea , vomiting, diarrhea, dysuria but reported fatigue, shortness of breath , cough with green sputum production. The ED provider contacted the hospitalist and mentioned starting the patient on Levofloxacin IV and cefepime. The patient was accepted for admission to the medical surgical floor for sepsis in the setting of community acquired pneumonia, hypoxic respiratory failure, bronchitis. Blood cultures were neagative, hypoxia resolved and mentation returned to baseline. The patient will be discharged to her SNF and is hemodynamically satble and afebrile Echocardigram conclusion: Normal left ventricular wall thickness and chamber size. Ejection fraction is 55%. Wall motion is normal Normal right ventricular size and function Both atria are normal in size Aortic valve is sclerotic with mild regurgitation Mild mitral and tricuspid regurgitation. Mitral and tricuspid valves are structurally normal Estimated right ventricular systolic pressure is 32 mmHg Lasix 20 mg PO daily added to regimen s/p echo read. Recommendation for outpatient follow-up at discharge: Needs a cardiology referral Repeat images in the appropriate time frame and decisionab about pulmonology referral need Discussed with Dr Monty Long and New Rx's Prescriptions: New benzonatate 100 mg Capsule 100 mg PO TID Qty: 10 0RF furosemide 20 mg Tablet 20 mg PO DAILY Qty: 5 0RF guaifenesin [Mucus Relief ER] 600 mg Tablet Extended Release 12hr 600 mg PO BID Qty: 10 0RF prednisone 20 mg Tablet 40 mg PO DAILY Qty: 3 0RF pantoprazole [Protonix] 40 mg tablet,delayed release (DR/EC) 40 mg PO DAILY Qty: 5 0RF cefpodoxime 200 mg tablet 200 mg PO BID Qty: 6 0RF Rx Instructions: must administer with a meal/food levofloxacin 750 mg tablet 750 mg PO DAILY Qty: 3 0RF Continued multivitamin 1 EACH tablet 1 ea PO DAILY Qty: 90 folic acid 1 MG tablet 1 mg PO DAILY Qty: 90 hydroxychloroquine [Plaquenil] 200 MG tablet 200 mg PO as directed Qty: 180 Rx Instructions: 1 tab AM, 1/[address] Meadows 6.26.18 pt states she believes she only takes in AM. latanoprost 2.5 ML drops 1 drp OU HS pramipexole 0.25 MG tablet 0.25 mg PO HS Qty: 90 Rx Instructions: for restless leg syndrome acetaminophen [Tylenol] 325 MG tablet 650 mg PO Q4H PRN PRN0RF mirtazapine 7.5 mg tablet 7.5 mg PO .bedtime lisinopril 10 mg tablet 10 tab PO DAILY No Action methotrexate sodium 2.5 MG tablet 10 mg PO WEEKLY Qty: 36 Patient Comments: reduce dose due to elevated creatinine 09/17/16 Rx Instructions: Dr. Meadows; dose aprr 09/2016 due to Cr Discharge Instructions Referrals: Marlene Pereira PA [Primary Care Provider, Medicine] Referral Note: Follow-up within 7 days of discharge Activity:: Activity as Tolerated Equipment/Supplies:: Walker Diet:: heart healthy DS: Summary Time Spent with Patient providing and/or coordinating discharge services: Greater than 30 minutes Status at Discharge Functional status at discharge: uses cane/walker Overall status at discharge: patient is progressing back to baseline Mental Status: mental status grossly normal Speech and Movement: speech and movement normal Mood: congruent mood Affect: normal affect Quality:SDOH Health Related Social Needs: Health related social needs daily activities Health related social needs details lives at [facility] rehab Health related social needs details: lives at [facility] Exam Narrative Exam Narrative: 84 yo frail elderly female patient, in no acute distress, no neurological focal deficits, bi-basilar crackles right more than left , regular heart, S1, S2, no murmur, Abdomen is soft non-tender, not distended, moves all 4 ext. No CVA tenderness Psych Mental Status: mental status grossly normal Speech and Movement: speech and movement normal Mood: congruent mood Affect: normal affect DS: Data Vitals/I&O Vitals and I&O: Vital Signs Temperature 36.5 C 11/25/24 11:39 Temperature Source Temporal Artery Scan 11/25/24 11:39 Pulse 87 11/25/24 11:39 Pulse Rhythm Regular 11/23/24 15:18 Pulse 92 H 11/23/24 14:50 Respiratory Rate 16 11/25/24 11:39 Respiratory Effort Non-Labored 11/23/24 15:18 Respiratory Depth Normal 11/23/24 15:18 Respiratory Pattern Normal 11/23/24 15:18 Blood Pressure 148/84 H 11/25/24 11:39 Blood Pressure Mean 105 11/25/24 11:39 Blood Pressure Position Sitting 11/23/24 10:25 Pulse Oximetry 94 11/25/24 11:39 Oxygen Delivery Method Room Air 11/25/24 11:39 Oxygen Flow Rate 0 11/25/24 11:39 Pain Level 0 11/25/24 11:39 Comment Notified OLGA Willingham 11/24/24 03:29 Intake & Output 11/24/24 11/25/24 11/25/24 23:59 11:59 23:59 Intake Total 1030 / 1130 120 / 120 Output Total 300 / 550 150 / 150 Balance 730 / 580 -30 / -30 Intake: IV 350 / 450 120 / 120 Oral 680 / 680 Output: Urine 300 / 550 150 / 150 Other: Urine Color Yellow Yellow Urine Appearance Clear Clear Urine Odor Normal Comment nurse stated that she brought the patient to the bathroom. Data Completed and Pending Labs on day of discharge: Preliminary micro results at discharge 11/24/24 06:25 Sputum Sputum Culture - Preliminary Normal Yasmin 11/23/24 14:58 Blood Blood Culture - Preliminary NO GROWTH 24 HOURS 11/23/24 14:44 Blood Blood Culture - Preliminary NO GROWTH 24 HOURS [facility] All Active Problems (Updated 11/25/24 @ 13:58 by Destini Bales APRN) Hypokalemia (Acute) Elevated brain natriuretic peptide (BNP) level (Acute) Acute hypoxic respiratory failure (Acute) Sepsis (Acute) Bilateral pleural effusion (Acute) On deep vein thrombosis (DVT) prophylaxis (Acute) Pneumonia (Acute) Microcytic anemia (Acute) Hyponatremia (Acute) Skin tear of right upper extremity (Acute) Immunization, tetanus-diphtheria (Acute) Laceration of left upper arm (Acute) Hx of falling (Acute) Periprosthetic fracture around internal prosthetic right hip joint (Acute 08/02/24) Closed sacral fracture (Acute) History of surgery (Active) T & A. Appendectomy. [facility] arthroplasty 12/2007. [facility] arthroplasty 03/2012. Right distal clavical excision 11/05/2009. Right bunionectomy x 2. Right leg venous ligation. Colonoscopy October 15 - found to have tubular adenoma. Restless legs (Active) Managed with Sinemet Gastroesophageal reflux disease (Active) Hyperlipidemia (Active) Rheumatoid arthritis (Active 12/23/12) Osteoarthritis of knee (Active 12/23/12) Rhematoid arthritis and DJD right knee wqith mild valgus deformity and flexion contracture. Right total knee arthroplasty, cemented by Dr. Caes Valenzuela 12-23-2012 Skin lesion (Acute) Medical History (Updated 11/25/24 @ 13:58 by Destini Bales APRN) Hyperkalemia Anemia Dysrhythmia Splenic mass Hypertension Chronic kidney disease, stage 3 Weight loss Tubular adenoma of colon Nausea with vomiting Postoperative anemia due to acute blood loss Osteoporosis Periprosthetic fracture around internal prosthetic left hip joint Surgical History left hip revision (04/10/16) Dr Kang, periprosthetic fracture, revision, [facility] 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) POLO; LEFT; ALSO R HIP 01/06/08 Tooth extraction (05/19/1963) COMPLETE UPPER AND LOWER EXTRACTIONS Colonoscopy - MAC (01/17/16) Colonoscopy - MAC (10/15/12) Biopsy of breast (12/29/14) Left breast, [facility], benign intraductal papilloma Arthroplasty (12/23/12) R total knee arthroplasty,cemented Dr Valenzuela Family History Mother , COPD at age 73. Substance abuse Father , heart at age 70. Heart disease Brother , accident at age 47. No problems noted. Social History Smoking/Tobacco Use Status: Never Smoking risk assessment performed?: Yes Alcohol Intake: former Drug use: Never Substance use type: does not use Details: used alcohol in distant past Housing: skilled nursing Do you feel safe at home: Yes Do you feel safe in your relationship?: Yes Time Spent with Patient Time Spent with Patient: 70-84 minutes4 Time was spent: preparing to see the patient(eg.review tests), obtaining and/or reviewing separately otained hiistory, ordering medications,tests, procedures, referring, communicating with other health interior plant caretaker, indepentently interpreting results, counseling the patient and care coordination
--- NOTE | 2024-11-25 13:21 | CMDISCH_ITS ---
Date of service: 11/25/24 Time of Service: 13:21 LACE Index Scoring Tool Questions: Length of Stay (in days): 2 Was the patient admitted via the E.D.?: Yes Comorbidities: Chronic Pulmonary Disease and Liver or Renal Disease E.D. Visits: 3 Answers: Total Score: 13 Risk of Readmission: High Risk Care Management Discharge Plan Reason for Hospitalization: Pneumonia Discharge Plan: Tamy will be transferred back to the SNF where she resides ([facility]). She will follow up with the facility providers and plan of care and transport via RCT coordinated by CM. CM called her daughter Reina to notify her of the discharge but needed to leave a message. Patient/Family Education Needs: Review discharge instructions and discuss Ask Me Three Services Needed at Discharge: Nursing Home Facility SDOH Health Related Social Needs: Health related social needs daily activities Health related social needs details lives at [facility] ur rehab Health related social needs details: lives at [facility]
== END 2024-11-25 14:05 | disposition skilled nursing facility (03) | DRG 871 ==
LOC: ER 10:25 → MS 15:13
PROVIDERS: Admitting Provider Family Medicine; Emergency Provider Nurse Practitioner Family; PCP Physician Assistant Medical; Responsible Provider Nurse Practitioner Acute Care; Visit Provider Family Medicine
DX: A41.9 Sepsis, unspecified organism (principal); J18.9 Pneumonia, unspecified organism; J96.01 Acute respiratory failure with hypoxia; K21.9 Gastro-esophageal reflux disease without esophagitis; E78.5 Hyperlipidemia, unspecified; E87.1 Hypo-osmolality and hyponatremia; D50.9 Iron deficiency anemia, unspecified; E87.6 Hypokalemia; Z79.899 Other long term (current) drug therapy; J90 Pleural effusion, not elsewhere classified; Z96.643 Presence of artificial hip joint, bilateral; Z86.0101 Personal history of adenomatous and serrated colon polyps; M06.9 Rheumatoid arthritis, unspecified; N18.30 Chronic kidney disease, stage 3 unspecified; I12.9 Hypertensive chronic kidney disease with stage 1 through stage 4 chronic kidney disease, or unspecified chronic kidney disease; G25.81 Restless legs syndrome; Z96.651 Presence of right artificial knee joint; R79.89 Other specified abnormal findings of blood chemistry; I08.3 Combined rheumatic disorders of mitral, aortic and tricuspid valves
CPT/HCPCS: 00123; 36415; 80048; 80053; 82805; 87040; 87637; 87641; 93005; 93306; 94640; 96365; 96366; 96375; 99285; J1650; 71046; 83735; 83880; 85025; 87070; 87205; 93010; 94667; 94760; 99223; 99233; 99239; J0692; J1956; J2470; J2919; J7512; J7620

== ENCOUNTER 2024-12-02 13:46 | Outpatient (REF) | payer MEDICARE, OTHER, SELFPAY ==
[2024-12-02 14:18] LABS: Abs Immature Grans 0.25 10^3/uL (0.0-0.06); HCT 33.3 % (36.0-46.0); HGB 10.3 g/dL (11.2-15.7); Immature Grans % 1.9 %; MCH 24.9 pg (27.0-33.0); MCHC 30.9 % (32.0-36.0); MCV 80 fL (80-95); MPV 10.6 fL (8.0-11.0); Platelet Count 280 10^3/uL (130-400); RBC 4.14 10^6/uL (3.93-5.22); RDW 16.5 % (11.7-14.6); RDW-SD 47.6 fL; WBC 12.97 10^3/uL (4.4-10.8)
[2024-12-02 14:42] LABS: Anion Gap 11.1 mmol/L (3-11); BUN 22 mg/dL (7-18); CO2 27.9 mmol/L (21.0-32.0); Calcium 8.5 mg/dL (8.5-10.1); Chloride 103 mmol/L (98-107); Estimated GFR 63.43 (mL/min/1.73m2); Glucose 208 mg/dL (74-106); NT-proBNP 1444 pg/mL (<300); Potassium 3.4 mmol/L (3.5-5.1); Sodium 142 mmol/L (136-145)
== END 2024-12-02 13:47 | disposition home or self-care (01) ==
LOC: LBN 13:46
PROVIDERS: PCP Physician Assistant Medical; Visit Provider Nurse Practitioner Adult Health
DX: E78.5 Hyperlipidemia, unspecified (principal); I10 Essential (primary) hypertension
CPT/HCPCS: 80048; 83880; 85025

== ENCOUNTER 2024-12-17 12:39 | Outpatient (CLI) | payer MEDICARE, OTHER, SELFPAY ==
--- NOTE | 2024-12-17 12:30 | RT.EKG_ITS ---
APPROVED REPORT Exam: Resting ECG Reason for Exam: baseline Patient Location: O HR:103 bpm ECG Measurements Heart Rate 103 AXIS SD 160 P 31 QRSd 76 QRS -1 QT 359 T 43 QTc 470 Conclusion Sinus tachycardia...rate> 99 Ventricular premature complex...V complex w/ short R-R interval Probable left atrial enlargement...P >50mS, <-0.10mV V1 Left ventricular hypertrophy...multiple voltage criteria
== END 2024-12-17 12:40 | disposition home or self-care (01) ==
LOC: DI.CARD 12:45
PROVIDERS: PCP Physician Assistant Medical; Referring Provider Physician Assistant Medical; Visit Provider Internal Medicine Cardiovascular Disease
DX: N18.9 Chronic kidney disease, unspecified (principal); I10 Essential (primary) hypertension; I51.7 Cardiomegaly
CPT/HCPCS: 93010

== ENCOUNTER → 2024-12-17 12:39 | Outpatient (BNVA) | payer MEDICARE, OTHER, SELFPAY | PROVIDERS: PCP Physician Assistant Medical; Referring Provider Physician Assistant Medical; Visit Provider Internal Medicine Cardiovascular Disease | DX: I50.30 Unspecified diastolic (congestive) heart failure (principal); I12.9 Hypertensive chronic kidney disease with stage 1 through stage 4 chronic kidney disease, or unspecified chronic kidney disease; N18.9 Chronic kidney disease, unspecified | CPT/HCPCS: 99203; 93005 ==

== ENCOUNTER 2024-12-28 16:56 | Outpatient (REF) | payer MEDICARE, OTHER, SELFPAY ==
[2024-12-29 00:10] LABS: Legionella Ag Detection Urine Negative (Negative)
== END 2024-12-28 16:57 | disposition home or self-care (01) ==
LOC: LBN 16:56
PROVIDERS: PCP Physician Assistant Medical; Visit Provider Family Medicine
DX: A48.0 Gas gangrene (principal)
CPT/HCPCS: 87449

== ENCOUNTER 2025-01-24 07:44 | Outpatient (CLI) | payer MEDICARE, OTHER, SELFPAY ==
--- NOTE | 2025-01-24 11:07 | DI.RAD_ITS ---
Exam(s) XR CHEST 2V PA LATERAL EXAM: XR CHEST 2V PA LATERAL CLINICAL HISTORY: COUGH. TECHNIQUE: 2D digital imaging was performed. COMPARISON: CR XR CHEST 2V PA LATERAL from 11/23/2024 FINDINGS: 2 views: Mild cardiomegaly again noted. The mediastinum is not widened. Heart size is normal. The mediastinum is not widened. The size of the bilateral pleural effusions is unchanged from 11/23/2024. The nodular infiltrate in the lower right lung field has mostly resolved. There is still some remaining infiltrates in both lung bases. Also pulmonary venous hypertension pattern. IMPRESSION: Significant improvement in the nodular infiltrate in the lower right lung when compared to chest x-ray of 11/23/2024. However, there are still bilateral pleural effusions and pulmonary venous hypertension pattern. Both infectious etiology as well as pulmonary edema are main considerations here. DATA REPOSITORY: RADIATION DOSE DELIVERED:
== END 2025-01-24 08:04 ==
PROVIDERS: PCP Physician Assistant Medical; Visit Provider Physician Assistant Medical
DX: R05.9 Cough, unspecified (principal)
CPT/HCPCS: 71046

== ENCOUNTER 2025-01-24 21:20 | Outpatient (REF) | payer MEDICARE, SELFPAY ==
[2025-01-24 21:22] LABS: Abs Immature Grans 0.04 10^3/uL (0.0-0.06); HCT 25.6 % (36.0-46.0); HGB 7.6 g/dL (11.2-15.7); Immature Grans % 0.6 %; MCH 23.2 pg (27.0-33.0); MCHC 29.7 % (32.0-36.0); MCV 78 fL (80-95); MPV 10.1 fL (8.0-11.0); Platelet Count 445 10^3/uL (130-400); RBC 3.27 10^6/uL (3.93-5.22); RDW 17.3 % (11.7-14.6); RDW-SD 49.2 fL; WBC 6.52 10^3/uL (4.4-10.8)
[2025-01-24 21:35] LABS: ALT 10 U/L (14-59); AST 14 U/L (15-37); Albumin 1.9 g/dL (3.4-5.0); Alkaline Phosphatase 131 U/L (46-116); Anion Gap 14.0 mmol/L (3-11); BUN 54 mg/dL (7-18); Bilirubin, Total 0.5 mg/dL (0.2-1.0); CO2 25.0 mmol/L (21.0-32.0); Calcium 8.1 mg/dL (8.5-10.1); Chloride 98 mmol/L (98-107); Estimated GFR 13.84 (mL/min/1.73m2); Glucose 97 mg/dL (74-106); Potassium 3.5 mmol/L (3.5-5.1); Sodium 137 mmol/L (136-145); Total Protein 6.9 g/dL (6.4-8.2)
== END 2025-01-24 21:21 | disposition home or self-care (01) ==
LOC: LBN 21:20
PROVIDERS: PCP Physician Assistant Medical; Visit Provider Nurse Practitioner Adult Health
DX: J18.9 Pneumonia, unspecified organism (principal)
CPT/HCPCS: 80053; 85025

== ENCOUNTER 2025-01-26 19:57 | Outpatient (REF) | payer MEDICARE, SELFPAY ==
[2025-01-26 20:38] LABS: Glucose Negative (Negative)
[2025-01-26 21:02] LABS: RBC >50 HPF (0-2)
== END 2025-01-26 19:58 | disposition home or self-care (01) ==
LOC: LBN 19:57
PROVIDERS: PCP Physician Assistant Medical; Visit Provider Family Medicine
DX: N18.30 Chronic kidney disease, stage 3 unspecified (principal)
CPT/HCPCS: 87077; 81003; 81015; 87086; 87186

== ENCOUNTER 2025-02-03 15:02 | Observation (INO) | payer MEDICARE, OTHER, SELFPAY ==
[2025-02-03] VITALS (49 sets, daily range): BP systolic 170–270; BP diastolic 75–128; PULSE 64–89; RESP 15–20; TEMP 36.2–36.5; O2SAT 94–98
--- NOTE | 2025-02-03 15:00 | RT.EKG_ITS ---
APPROVED REPORT Exam: Resting ECG Reason for Exam: Confusion Patient Location: E HR:79 bpm ECG Measurements Heart Rate 79 AXIS ME 167 P 23 QRSd 88 QRS 7 QT 438 T 57 QTc 483 Conclusion Sinus rhythm...normal P axis, V-rate 60- 99 Ventricular premature complex...V complex w/ short R-R interval
[2025-02-03 15:34] LABS: Abs Immature Grans 0.02 10^3/uL (0.0-0.06); HCT 26.1 % (36.0-46.0); HGB 8.0 g/dL (11.2-15.7); Immature Grans % 0.3 %; MCH 23.3 pg (27.0-33.0); MCHC 30.7 % (32.0-36.0); MCV 76 fL (80-95); MPV 9.1 fL (8.0-11.0); Platelet Count 371 10^3/uL (130-400); RBC 3.43 10^6/uL (3.93-5.22); RDW 17.6 % (11.7-14.6); RDW-SD 48.6 fL; WBC 6.34 10^3/uL (4.4-10.8)
[2025-02-03 15:58] LABS: ALT 11 U/L (14-59); AST 20 U/L (15-37); Albumin 2.5 g/dL (3.4-5.0); Alkaline Phosphatase 127 U/L (46-116); Anion Gap 12.9 mmol/L (3-11); BUN 44 mg/dL (7-18); Bilirubin, Total 0.4 mg/dL (0.2-1.0); CO2 28.1 mmol/L (21.0-32.0); Calcium 8.8 mg/dL (8.5-10.1); Chloride 96 mmol/L (98-107); Estimated GFR 9.20 (mL/min/1.73m2); Glucose 90 mg/dL (74-106); Magnesium 1.7 mg/dL (1.8-2.4); Potassium 3.1 mmol/L (3.5-5.1); Sodium 137 mmol/L (136-145); TSH (W/Ref FT4) 2.71 uIU/mL (0.36-3.74); Total Protein 8.2 g/dL (6.4-8.2); Troponin I 22 ng/L (<or=51)
--- NOTE | 2025-02-03 16:12 | ED.GENADUL_ITS ---
Discharge Plan Disposition Patient Disposition: Admit to [facility] Condition: Serious Discharge Details Clinical Impression: CRYSTAL (acute kidney injury), Hypomagnesemia, Hypokalemia, Anemia Admit Date/Time: 02/03/25 18:41 Admit Provider: Bakari Beckman Attending Provider: Bakari Beckman Primary Care Provider: Marlene Pereira ED Provider: Maxi Cazares General Mode of arrival: ambulatory . Date/Time Provider Initiated Documentation: 02/03/25 15:08 . Limitations to Documentation: no limitations . Information obtained by: patient . HPI Narrative: 84 yo female with a history of chronic kidney disease presenting with confusion and an elevated creatinine level. History provided by nursing staff. The patient was brought in from her longterm due to an abnormal creatinine level of 4.4 this morning, which has increased from a recent elevated level of 3.2 on 01/24/2025. The patient has multiple medical conditions, including chronic kidney disease, edema, major depressive disorder, hyperlipidemia, repeated falls, and rheumatoid arthritis. She also has a history of contusions and intracranial traumatic hemorrhage from unwitnessed falls. The patient reports no pain at present. She appears mildly dehydrated with dry mucous membranes. Her legs are slightly swollen, which is a consistent symptom. The patient is unsure of the current month and year. The patient had a urinary tract infection recently and was on Bactrim, which was discontinued yesterday. Related Data Home Medications ?Medication ?Instructions ?Recorded ?Confirmed folic acid 1 mg tablet 1 mg PO DAILY #90 tab-caps 0 08/21/12 02/03/25 hydroxychloroquine 200 mg tablet 200 mg PO as directed #180 tab-caps 08/21/12 02/03/25 (Plaquenil) methotrexate sodium 2.5 mg tablet 10 mg PO WEEKLY ##36 08/21/12 02/03/25 multivitamin 1 ea PO DAILY ##90 08/21/12 02/03/25 latanoprost 0.005 % eye drops 1 drp OU HS 02/27/16 acetaminophen 325 mg tablet 650 mg (2 x 325 mg) PO Q4H PRN PRN 04/22/16 02/03/25 (Tylenol) pramipexole 0.25 mg tablet 0.25 mg PO HS #90 tab-caps 01/27/17 02/03/25 lisinopril 10 mg tablet 10 tab PO DAILY 10/14/21 mirtazapine 7.5 mg tablet 7.5 mg PO .bedtime 11/23/24 02/03/25 benzonatate 100 mg capsule 100 mg PO TID #10 caps 11/1602/03/25 furosemide 20 mg tablet 20 mg PO DAILY #5 tabs 11/2502/03/25 guaifenesin 600 mg tablet, 600 mg PO BID #10 tabs 11/1602/03/25 extended release 12 hr (Mucus Relief ER) pantoprazole 40 mg tablet,delayed 40 mg PO DAILY #5 ta bs 11/25/24 02/03/25 release (Protonix) prednisone 20 mg tablet 40 mg (2 x 20 mg) PO DAILY # 3 tabs 11/25/24 02/03/25 mirtazapine 15 mg tablet 15 mg PO DAILY 02/03/2501/17 sulfamethoxazole 800 1 tab PO DAILY 02/03/2501/17 mg-trimethoprim 160 mg tablet Previous Rx's ?Medication ?Instructions ?Recorded acetaminophen 325 mg tablet 650 mg (2 x 325 mg) PO Q4H PRN PRN 04/22/16 (Tylenol) benzonatate 100 mg capsule 100 mg PO TID #10 caps 11/16 furosemide 20 mg tablet 20 mg PO DAILY #5 tabs 11/25 guaifenesin 600 mg tablet, 600 mg PO BID #10 tabs 11/16 extended release 12 hr (Mucus Relief ER) pantoprazole 40 mg tablet,delayed 40 mg PO DAILY #5 ta bs 11/25/24 release (Protonix) prednisone 20 mg tablet 40 mg (2 x 20 mg) PO DAILY # 3 tabs 11/25/24 Allergies Allergy/AdvReac Type Severity Reaction Status Date / Time hydrocodone (From Vicodin) AdvReac Intermediate N/V Unverified 12/17/24 12:49 lovastatin AdvReac Intermediate MUSCLE Unverified 12/17/24 12:49 ACHES oxycodone (From Percocet) AdvReac Intermediate N/V Unverified 12/17/24 12:49 simvastatin AdvReac Intermediate MUSCLE Unverified 12/17/24 12:49 ACHES niacin AdvReac Mild MUSCLE Unverified 12/17/24 12:49 ACHES General Stated Complaint: GenMedical MAXIMILIAN: 3 Review of Systems Unobtainable due to mental condition Exam Const General: cooperative and no acute distress HENMT Mouth: mucous membranes dry Eyes Conjunctivae: normal conjunctivae Sclera: normal sclerae Neck Neck: supple Resp Auscultation: clear to auscultation bilaterally, no rales, no rhonchi and no wheezes Cardio Jugular venous pressure: no JVD Rate: regular rate and not tachycardic Rhythm: regular rhythm GI Palpation: soft, not firm, no guarding, no masses, not rigid and nontender Skin General skin exam: no rashes or lesions noted Neuro General: patient alert, patient awake, oriented Patient Orientation: Person, Place and Confused and tone normal Cognition: abnormal cognition Extrem General: edema Laterality: bilateral (1+ pitting up to knees) Course Vital Signs Vital signs: Vital Signs Temperature 36.5 C 02/03/25 15:01 Pulse 79 02/03/25 15:01 Respiratory Rate 20 02/03/25 15:01 Blood Pressure 216/88 H 02/03/25 15:01 Pulse Oximetry 96 02/03/25 15:01 Temperature 36.5 C 02/03/25 15:09 Pulse 78 02/03/25 15:15 Respiratory Rate 15 02/03/25 15:09 Respiratory Effort Normal 02/03/25 15:09 Respiratory Depth Normal 02/03/25 15:09 Respiratory Pattern Normal 02/03/25 15:09 Blood Pressure 170/128 H 02/03/25 15:15 Blood Pressure Mean 136 02/03/25 15:15 Blood Pressure Position Sitting 02/03/25 15:09 Pulse Oximetry 96 02/03/25 15:15 Oxygen Delivery Method Room Air 02/03/25 15:09 Oxygen Flow Rate 0 02/03/25 15:09 Lab/Test Results Lab/Test Results: Laboratory Tests Range/Units 02/03/25 15:21 WBC (4.4-10.8) 10^3/uL 6.34 RBC (3.93-5.22) 10^6/uL 3.43 L Hgb (11.2-15.7) g/dL 8.0 L Hct (36.0-46.0) % 26.1 L MCV (80-95) fL 76 L MCH (27.0-33.0) pg 23.3 L MCHC (32.0-36.0) % 30.7 L RDW (11.7-14.6) % 17.6 H Plt Count (130-400) 10^3/uL 371 MPV (8.0-11.0) fL 9.1 Immature Gran % % 0.3 Neutrophils % % 79.6 Lymphocytes % % 14.4 Monocytes % % 4.6 Eosinophils % % 0.6 Basophils % % 0.5 Nucleated RBC % (0.0-0.3) % 0.0 Absolute Neutrophils (1.2-6.7) 10^3/uL 5.05 Absolute Lymphocytes (1.2-3.4) 10^3/uL 0.91 L Absolute Monocytes (0.1-0.8) 10^3/uL 0.29 Absolute Eosinophils (0.0-0.7) 10^3/uL 0.04 Absolute Basophils (0.0-0.2) 10^3/uL 0.03 Sodium (136-145) mmol/L 137 Potassium (3.5-5.1) mmol/L 3.1 L Chloride (98-107) mmol/L 96 L Carbon Dioxide (21.0-32.0) mmol/L 28.1 Anion Gap (3-11) mmol/L 12.9 H BUN (7-18) mg/dL 44 H Creatinine (0.55-1.02) mg/dL 4.5 H* Est GFR (CKD-EPI 2020) (mL/min/1.73m2) 9.20 Glucose (74-106) mg/dL 90 Calcium (8.5-10.1) mg/dL 8.8 Magnesium (1.8-2.4) mg/dL 1.7 L Total Bilirubin (0.2-1.0) mg/dL 0.4 AST (15-37) U/L 20 ALT (14-59) U/L 11 L Alkaline Phosphatase (46-116) U/L 127 H Troponin I (<or=51) ng/L 22 Total Protein (6.4-8.2) g/dL 8.2 Albumin (3.4-5.0) g/dL 2.5 L TSH (0.36-3.74) uIU/mL 2.71 Ethyl Alcohol (<10) mg/dL < 3.0 Medical Decision Making ASSESSMENT AND PLAN Initial Assessment: 84-year-old female with multiple medical problems including history of dementia chronic kidney disease, here with elevated creatinine from baseline. Confusion may be baseline as reported by nursing. History of multiple medical problems including chronic kidney disease, edema, major depressive disorder, hyperlipidemia, repeated falls, and rheumatoid arthritis. Hypertensive with blood pressure 170/128, not tachycardic, saturating well on room air. Differential Diagnosis: - Acute on chronic renal insufficiency: Elevated creatinine level of 4.4 this morning, up from 3.2 on 01/24/2025. IV fluid bolus. Recheck creatinine levels today. - Continued urinary tract infection: Recent UTI, was on Bactrim, stopped yesterday. Consider continued UTI. - Consider intracranial traumatic hemorrhage given frequent falls, dementia, elevated blood pressure. ED Course: - Patient appears dehydrated. IV fluid bolus 500mL administered - Blood work obtained - CT scan of the head ordered - CT head interpreted by radiology: No acute process. Chronic white matter changes. - Labs show hypokalemia and hypomagnesemia. Plan to give IV replacement. - Patient remains hypertensive on reassessment. Clinical Impression: - Acute kidney injury with elevated creatinine - Uncontrolled hypertension - Hypokalemia - Hypomagnesemia Disposition: - Admit-I spoke with Dr. Beckman, discussed ED presentation and course, he will admit the patient. UA pending at time of admission. This document was written with the assistance of PAULO Diggs. The patient consented to its use. Lab Data Lab results reviewed: Yes I reviewed the patient's lab results. Labs: Laboratory Tests Range/Units 02/03/25 15:21 WBC (4.4-10.8) 10^3/uL 6.34 RBC (3.93-5.22) 10^6/uL 3.43 L Hgb (11.2-15.7) g/dL 8.0 L Hct (36.0-46.0) % 26.1 L MCV (80-95) fL 76 L MCH (27.0-33.0) pg 23.3 L MCHC (32.0-36.0) % 30.7 L RDW (11.7-14.6) % 17.6 H Plt Count (130-400) 10^3/uL 371 MPV (8.0-11.0) fL 9.1 Immature Gran % % 0.3 Neutrophils % % 79.6 Lymphocytes % % 14.4 Monocytes % % 4.6 Eosinophils % % 0.6 Basophils % % 0.5 Nucleated RBC % (0.0-0.3) % 0.0 Absolute Neutrophils (1.2-6.7) 10^3/uL 5.05 Absolute Lymphocytes (1.2-3.4) 10^3/uL 0.91 L Absolute Monocytes (0.1-0.8) 10^3/uL 0.29 Absolute Eosinophils (0.0-0.7) 10^3/uL 0.04 Absolute Basophils (0.0-0.2) 10^3/uL 0.03 Sodium (136-145) mmol/L 137 Potassium (3.5-5.1) mmol/L 3.1 L Chloride (98-107) mmol/L 96 L Carbon Dioxide (21.0-32.0) mmol/L 28.1 Anion Gap (3-11) mmol/L 12.9 H BUN (7-18) mg/dL 44 H Creatinine (0.55-1.02) mg/dL 4.5 H* Est GFR (CKD-EPI 2020) (mL/min/1.73m2) 9.20 Glucose (74-106) mg/dL 90 Calcium (8.5-10.1) mg/dL 8.8 Magnesium (1.8-2.4) mg/dL 1.7 L Total Bilirubin (0.2-1.0) mg/dL 0.4 AST (15-37) U/L 20 ALT (14-59) U/L 11 L Alkaline Phosphatase (46-116) U/L 127 H Troponin I (<or=51) ng/L 22 Total Protein (6.4-8.2) g/dL 8.2 Albumin (3.4-5.0) g/dL 2.5 L TSH (0.36-3.74) uIU/mL 2.71 Ethyl Alcohol (<10) mg/dL < 3.0 Quality:SDOH Health Related Social Needs: Health related social needs daily activities Health related social needs details lives at [facility] All Active Problems (Updated 02/03/25 @ 21:19 by LORENZA JACOBSON) Cough (Acute) CRYSTAL (acute kidney injury) (Acute) Anemia (Chronic) Hypokalemia (Acute) Hypomagnesemia (Acute) CRYSTAL (acute kidney injury) (Acute) Heart failure with preserved ejection fraction (Acute) CKD (chronic kidney disease) (Chronic) Hypertension, essential (Acute 05/24/11) high blood pressure in [place] with atypical chest pain; rx metoprolol Rheumatoid arthritis (Chronic 04/21/11) ONSET 04/2011; DX 08/28; MTX RX 09/20/11 DR CRAWFORD Hyperlipidemia (Acute 05/19/06) GOAL LDL<160; RISK 5% CALC IN 2006; INTOL SOME STATINS Bilateral pleural effusion (Acute) Microcytic anemia (Acute) Skin tear of right upper extremity (Acute) Immunization, tetanus-diphtheria (Acute) Laceration of left upper arm (Acute) Hx of falling (Acute) Periprosthetic fracture around internal prosthetic right hip joint (Acute 08/02/24) Closed sacral fracture (Acute) History of surgery (Active) T & A. Appendectomy. RT arthroplasty 12/2007. LT arthroplasty 03/2012. Right distal clavical excision 11/05/2009. Right bunionectomy x 2. Right leg venous ligation. Colonoscopy October 15 - found to have tubular adenoma. Restless legs (Active) Managed with Sinemet Gastroesophageal reflux disease (Active) Hyperlipidemia (Active) Rheumatoid arthritis (Active 12/23/12) Osteoarthritis of knee (Active 12/23/12) Rhematoid arthritis and DJD right knee wqith mild valgus deformity and flexion contracture. Right total knee arthroplasty, cemented by Dr. Case Valenzuela 12-23-2012 Skin lesion (Acute) Medical History Pneumonia Adenoma of large intestine (10/15/12) TUBULOVILLOUS ADENOMABob; repeat 3 yrs Tubular adenoma of colon (10/15/12) repeat 2016, Ascending colon-fragments of tubular adenomas Transverse colon-Fragments of sessile serrated adenoma; recheck 3 yrs Restless legs R only Hypokalemia Elevated brain natriuretic peptide (BNP) level Hyperkalemia Anemia Dysrhythmia Splenic mass Hypertension Chronic kidney disease, stage 3 Weight loss Tubular adenoma of colon Nausea with vomiting Postoperative anemia due to acute blood loss Osteoporosis Periprosthetic fracture around internal prosthetic left hip joint Surgical History left hip revision (04/10/16) Dr Kang, periprosthetic fracture, revision, [facility] 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) POLO; LEFT; ALSO R HIP 01/06/08 Tooth extraction (05/19/1963) COMPLETE UPPER AND LOWER EXTRACTIONS Colonoscopy - MAC (01/17/16) Colonoscopy - MAC (10/15/12) Biopsy of breast (12/29/14) Left breast, [facility], benign intraductal papilloma Arthroplasty (12/23/12) R total knee arthroplasty,cemented Dr Valenzuela Family History Mother , COPD at age 73. Substance abuse Father , heart at age 70. Heart disease Brother , accident at age 47. No problems noted. Social History Smoking/Tobacco Use Status: Never Smoking risk assessment performed?: Yes Alcohol Intake: former Drug use: Never Substance use type: does not use Details: used alcohol in distant past Housing: longterm Do you feel safe at home: Yes Do you feel safe in your relationship?: Yes
--- NOTE | 2025-02-03 16:15 | DI.CT_ITS ---
Exam(s) CT HEAD WO EXAM: CT HEAD WO CLINICAL HISTORY: altered. TECHNIQUE: Imaging Protocol: Axial computed tomography images with coronal and sagittal reformatted images were created and reviewed COMPARISON: CT CT HEAD WO from 08/02/2024 FINDINGS: There are no skull fractures. There is some mucosal thickening in the sphenoid sinuses and ethmoidal air cells. Maxillary and frontal sinuses are clear. Small amount of fluid in right mastoid air cells noted. There is no evidence of intracranial hemorrhage, mass effect, or shift of midline structures. There are no extra-axial fluid collections. The ventricles are not enlarged or shifted and there is no blood within the ventricular system nor within the basal cisterns. Size of the ventricles is consistent with the size of the overlying cortical sulci. Again noted is abundant bilateral periventricular hypodensity consistent with chronic small vessel disease and unchanged appearing lacunar infarcts are again noted in the right external capsule as well as calcification in the left basal ganglia region, more specifically adjacent to the left caudate nucleus. No calcifications seen in the right-side. There is heavy vascular calcification noted z both within the intra cavernous internal carotid arteries at the skull base as well as within both vertebral arteries at the skull base. IMPRESSION: Multilevel of chronic white matter ischemic changes as described above but without significant change compared to the CT scan of July 2024. If clinically indicated follow-up MRI with diffusion imaging can be performed. Report called by myself to ER physician on 02/03/2025 at 5:18 p.m. RADIATION DOSE DELIVERED: 845.73mGy.cm Total DLP DATA REPOSITORY: All CT scans at this facility are submitted to the National Radiology Data Registry (NRDR) Dose Index Registry (DIR) with the [employer] ([employer]). RADIATION OPTIMIZATION: All CT scans at this facility use at least one of these dose optimization techniques: automated exposure control; mA and/or kV adjustment per patient size (includes targeted exams where dose is matched to clinical indication); or iterative reconstruction.
[2025-02-03] MEDS: Lactated Ringers 500 ML 1000 ML IV (16:50)
[2025-02-03 18:31] LABS: Troponin I 21 ng/L (<or=51)
--- NOTE | 2025-02-03 18:47 | W.PM.HP.N ---
Date of service: 02/03/25 Time of Service: 18:47 Assessment and Plan Assessment and plan (1) CRYSTAL (acute kidney injury): Status: Acute Assessment and plan: Patient's CRYSTAL is most likely due to significant dehydration. Will continue with IV hydration D5 half-normal saline with potassium rider considering the fact the patient does have significant hypertension I am going to order renal ultrasound as well. Most likely this is prerenal but cannot rule out organic disease to the kidney or renal artery stenosis. Will hold her TAMMIE inhibitor as well as her Lasix. (2) Hypomagnesemia: Status: Acute Assessment and plan: Replaced orally (3) Hypokalemia: Status: Acute Assessment and plan: Replace with IV fluids (4) Anemia: Status: Chronic Assessment and plan: Patient does have an low MCV. Considering her history of heart failure will do iron studies as well as B12 folate. Some data suggest that optimizing iron studies will help heart failure symptoms (5) Microcytic anemia: Status: Acute Assessment and plan: As above (6) Rheumatoid arthritis: Status: Active Assessment and plan: Continue with her outpatient therapy which includes methotrexate. Will need to readdress in the a.m. whether the not patient is still taking prednisone. (7) Cough: Status: Acute Assessment and plan: Exact etiology is unknown but considering the patient is already dehydrated we will hold an TAMMIE inhibitor to see if this is due to a side effect. Consider ARB in the outpatient setting. (8) Heart failure with preserved ejection fraction: Status: Acute Assessment and plan: Echo 11/25/24 Conclusion Normal left ventricular wall thickness and chamber size. Ejection fraction is 55%. Wall motion is normal Normal right ventricular size and function Both atria are normal in size Aortic valve is sclerotic with mild regurgitation Mild mitral and tricuspid regurgitation. Mitral and tricuspid valves are structurally normal Estimated right ventricular systolic pressure is 32 mmHg History of Present Illness History of Present Illness Chief Complaint: confusion Narrative: Mrs Pavon is a 84-year-old female who currently resides at a local prison facility. Patient was admitted there in July of this year after sustaining a fall and since that time has had worsening health. In November she was seen in the hospital here for pneumonia and was treated and sent back to her prison facility. 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 As the patient continued to have declining health her family brought her over here for further evaluation and treatment and she was noted to have significant acute kidney injury. In November her creatinine was within normal limits at 0.9 is currently 4.5. Family states the patient does not drink water on a regular basis and is confused to the point where she cannot activate her call light. While in the ED he was also noted to have significant hypertension with a systolic pressure over 200. Her family also states that since November she has had a chronic productive cough. In reviewing her medication that she was noted to be on TAMMIE inhibitor as well as Lasix. The other concern is that she has had bilateral lower extremity edema over the last couple of months. Review of Systems Unobtainable due to mental condition [facility] All Active Problems (Updated 02/03/25 @ 18:56 by Bakari Beckman MD) Cough (Acute) CRYSTAL (acute kidney injury) (Acute) Anemia (Chronic) Hypokalemia (Acute) Hypomagnesemia (Acute) CRYSTAL (acute kidney injury) (Acute) Heart failure with preserved ejection fraction (Acute) CKD (chronic kidney disease) (Chronic) Hypertension, essential (Acute 05/24/11) high blood pressure in [place] with atypical chest pain; rx metoprolol Rheumatoid arthritis (Chronic 04/21/11) ONSET 04/2011; DX 08/28; MTX RX 09/20/11 DR CRAWFORD Hyperlipidemia (Acute 05/19/06) GOAL LDL<160; RISK 5% CALC IN 2006; INTOL SOME STATINS Bilateral pleural effusion (Acute) Microcytic anemia (Acute) Skin tear of right upper extremity (Acute) Immunization, tetanus-diphtheria (Acute) Laceration of left upper arm (Acute) Hx of falling (Acute) Periprosthetic fracture around internal prosthetic right hip joint (Acute 08/02/24) Closed sacral fracture (Acute) History of surgery (Active) T & A. Appendectomy. RTH arthroplasty 12/2007. LTH arthroplasty 03/2012. Right distal clavical excision 11/05/2009. Right bunionectomy x 2. Right leg venous ligation. Colonoscopy October 15 - found to have tubular adenoma. Restless legs (Active) Managed with Sinemet Gastroesophageal reflux disease (Active) Hyperlipidemia (Active) Rheumatoid arthritis (Active 12/23/12) Osteoarthritis of knee (Active 12/23/12) Rhematoid arthritis and DJD right knee wqith mild valgus deformity and flexion contracture. Right total knee arthroplasty, cemented by Dr. Case Valenzuela 12-23-2012 Skin lesion (Acute) Medical History Pneumonia Adenoma of large intestine (10/15/12) TUBULOVILLOUS ADENOMA, [place]; repeat 3 yrs Tubular adenoma of colon (10/15/12) repeat 2016, Ascending colon-fragments of tubular adenomas Transverse colon-Fragments of sessile serrated adenoma; recheck 3 yrs Restless legs R only Hypokalemia Elevated brain natriuretic peptide (BNP) level Hyperkalemia Anemia Dysrhythmia Splenic mass Hypertension Chronic kidney disease, stage 3 Weight loss Tubular adenoma of colon Nausea with vomiting Postoperative anemia due to acute blood loss Osteoporosis Periprosthetic fracture around internal prosthetic left hip joint Surgical History left hip revision (04/10/16) Dr Kang, periprosthetic fracture, revision, [facility] 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) POLO; LEFT; ALSO R HIP 01/06/08 Tooth extraction (05/19/1963) COMPLETE UPPER AND LOWER EXTRACTIONS Colonoscopy - MAC (01/17/16) Colonoscopy - MAC (10/15/12) Biopsy of breast (12/29/14) Left breast, [facility], benign intraductal papilloma Arthroplasty (12/23/12) R total knee arthroplasty,cemented Dr Valenzuela Family History Mother , COPD at age 73. Substance abuse Father , heart at age 70. Heart disease Brother , accident at age 47. No problems noted. Social History Smoking/Tobacco Use Status: Never Smoking risk assessment performed?: Yes Alcohol Intake: former Drug use: Never Substance use type: does not use Details: used alcohol in distant past Housing: senior living Do you feel safe at home: Yes Do you feel safe in your relationship?: Yes Meds Allergies and Home Medications Allergies Allergy/AdvReac Type Severity Reaction Status Date / Time hydrocodone (From Vicodin) AdvReac Intermediate N/V Unverified 12/17/24 12:49 lovastatin AdvReac Intermediate MUSCLE Unverified 12/17/24 12:49 ACHES oxycodone (From Percocet) AdvReac Intermediate N/V Unverified 12/17/24 12:49 simvastatin AdvReac Intermediate MUSCLE Unverified 12/17/24 12:49 ACHES niacin AdvReac Mild MUSCLE Unverified 12/17/24 12:49 ACHES Home Medications ?Medication ?Instructions ?Recorded ?Confirmed ?Type folic acid 1 mg tablet 1 mg PO DAILY #90 tab-caps 08/21/12 02/03/25 History hydroxychloroquine 200 mg tablet 200 mg PO as directed #180 tab-caps 08/21/12 02/03/25 History (Plaquenil) methotrexate sodium 2.5 mg tablet 10 mg PO WEEKLY ##36 08/21/12 02/03/25 History multivitamin 1 ea PO DAILY ##90 08/21/12 02/03/25 History latanoprost 0.005 % eye drops 1 drp OU HS 02/27/16 02/03/25 History acetaminophen 325 mg tablet 650 mg (2 x 325 mg) PO Q4H PRN PRN 04/22/16 02/03/25 Rx (Tylenol) pramipexole 0.25 mg tablet 0.25 mg PO HS #90 tab-caps 01/27/17 02/03/25 History lisinopril 10 mg tablet 10 tab PO DAILY 10/14/21 02/03/25 History mirtazapine 7.5 mg tablet 7.5 mg PO .bedtime 11/23/24 02/03/25 History benzonatate 100 mg capsule 100 mg PO TID #10 caps 11/25/24 02/03/25 Rx furosemide 20 mg tablet 20 mg PO DAILY #5 tabs 11/25/24 02/03/25 Rx guaifenesin 600 mg tablet, 600 mg PO BID #10 tabs 11/25/24 02/03/25 Rx extended release 12 hr (Mucus Relief ER) pantoprazole 40 mg tablet,delayed 40 mg PO DAILY #5 tabs 11/25/24 02/03/25 Rx release (Protonix) prednisone 20 mg tablet 40 mg (2 x 20 mg) PO DAILY #3 tabs 11/25/24 02/03/25 Rx mirtazapine 15 mg tablet 15 mg PO DAILY 02/03/25 02/03/25 History sulfamethoxazole 800 1 tab PO DAILY 02/03/25 02/03/25 History mg-trimethoprim 160 mg tablet Exam Narrative Exam Narrative: HEENT-normocephalic atraumatic mucous membranes dry extra motions are intact pupils equal round react light Neck-no lymphadenopathy no JVD no thyromegaly Cardiovascular-regular rate and rhythm no murmur rubs gallops Lungs-clear to auscultation bilaterally with good air exchange Abdomen-soft nontender nondistended -pure wick in place Extremities-1+ lower extremity edema bilaterally Neurologic-cranial nerves II through XII intact as tested reflexes upper extremity normal as tested Psych-she is alert, responds to verbal stimuli, but is oriented only to person. Patient cannot do simple arithmetic. Results Labs 02/03/25 15:21 02/03/25 15:21 Labs: Laboratory Results - last 24 hr 02/03/25 02/03/25 15:21 18:00 WBC 6.34 RBC 3.43 L Hgb 8.0 L Hct 26.1 L MCV 76 L MCH 23.3 L MCHC 30.7 L RDW 17.6 H Plt Count 371 MPV 9.1 Immature Gran % 0.3 Neutrophils % 79.6 Lymphocytes % 14.4 Monocytes % 4.6 Eosinophils % 0.6 Basophils % 0.5 Nucleated RBC % 0.0 Absolute Neutrophils 5.05 Absolute Lymphocytes 0.91 L Absolute Monocytes 0.29 Absolute Eosinophils 0.04 Absolute Basophils 0.03 Sodium 137 Potassium 3.1 L Chloride 96 L Carbon Dioxide 28.1 Anion Gap 12.9 H BUN 44 H Creatinine 4.5 H* Est GFR (CKD-EPI 2020) 9.20 Glucose 90 Calcium 8.8 Magnesium 1.7 L Total Bilirubin 0.4 AST 20 ALT 11 L Alkaline Phosphatase 127 H Troponin I 22 21 Total Protein 8.2 Albumin 2.5 L TSH 2.71 Ethyl Alcohol < 3.0 Last Vital Signs Temp 36.5 C 02/03/25 15:09 Pulse 74 02/03/25 16:50 Resp 15 02/03/25 15:09 BP 233/79 H 02/03/25 16:31 Pulse Ox 96 02/03/25 16:50 Time Spent Time spent with Patient: 40-54 minutes Time was spent: preparing to see the patient(eg.review tests), obtaining and/or reviewing separately otained hiistory, ordering medications,tests, procedures, referring, communicating with other health long term care administrator, indepentently interpreting results, counseling the patient and care coordination
[2025-02-03] MEDS: Heparin 5,000 UNITS/ML VIAL 5000 UNITS SC (19:07)
[2025-02-03] MEDS: MAGNESIUM SULFATE 1 GM/100 ML BAG IV_INF (19:07)
[2025-02-03] MEDS: POTASSIUM CHLORIDE 20 MEQ/100 ML BAG 50 MEQ IV_INF (19:07)
[2025-02-03] MEDS: guaiFENesin 600 MG TABCR PO (21:54)
[2025-02-03] MEDS: Mirtazapine 15 MG TAB 7.5 MG PO (21:54)
[2025-02-03] MEDS: Pramipexole 0.25 MG TAB PO (21:54)
[2025-02-03] MEDS: Normal Saline Flush 10 ML SYR IVP (21:55)
[2025-02-03] MEDS: POTASSIUM CHLORIDE/D5-0.9%NACL 1,000 ML 100 MEQ IV (21:59)
--- NOTE | 2025-02-03 23:21 | W.PC.ACHO ---
Registration Status: ADM PENG Primary Language: Preferred Language: Thai ED Information & Data Chief Complaint GenMedical 02/03/25 16:14 Triage Note snf concerned about 02/03/25 15:01 abnormal labs (creatinine). Brought to ED via EMS to assess and treat this issue. PT is confused (baseline) and has no complaints. is obviously anxious. Medical / Surgical History (Last Reviewed 02/03/25 @ 16:18 by Maxi Cazares MD) Pneumonia Adenoma of large intestine (10/15/12) Tubular adenoma of colon (10/15/12) Restless legs Hypokalemia Elevated brain natriuretic peptide (BNP) level Hyperkalemia Anemia Dysrhythmia Splenic mass Hypertension Chronic kidney disease, stage 3 Weight loss Tubular adenoma of colon Nausea with vomiting Postoperative anemia due to acute blood loss Osteoporosis Periprosthetic fracture around internal prosthetic left hip joint (Last Reviewed 02/03/25 @ 16:18 by Maxi Cazares MD) left hip revision (04/10/16) 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) Tooth extraction (05/19/1963) Colonoscopy - MAC (01/17/16) Colonoscopy - MAC (10/15/12) Biopsy of breast (12/29/14) Arthroplasty (12/23/12) Most Recent Vital Signs Temperature 36.2 C L 02/03/25 22:04 Pulse 88 02/03/25 22:04 Pulse Rhythm Regular 02/03/25 22:04 Respiratory Rate 17 02/03/25 22:04 Respiratory Effort Normal, Non-Labored 02/03/25 22:04 Respiratory Depth Normal 02/03/25 22:04 Respiratory Pattern Normal 02/03/25 22:04 Blood Pressure 186/83 H 02/03/25 22:04 Blood Pressure Mean 164 02/03/25 20:33 Blood Pressure Position Sitting 02/03/25 15:09 Pulse Oximetry 95 02/03/25 22:04 Oxygen Delivery Method Room Air 02/03/25 22:04 Oxygen Flow Rate 0 02/03/25 22:04 Pain Level 0 02/03/25 22:04 Allergies hydrocodone (From Vicodin) Adverse Reaction (Intermediate, Unverified 12/17/24 12:49) N/V pt. reports N/V, pt. states she get violently ill lovastatin Adverse Reaction (Intermediate, Unverified 12/17/24 12:49) MUSCLE ACHES oxycodone (From Percocet) Adverse Reaction (Intermediate, Unverified 12/17/24 12:49) N/V pt. reports N/V, pt. states she get violently ill simvastatin Adverse Reaction (Intermediate, Unverified 12/17/24 12:49) MUSCLE ACHES niacin Adverse Reaction (Mild, Unverified 12/17/24 12:49) MUSCLE ACHES Active Medications Generic Name Dose Route Start Last Admin Trade Name Freq PRN Reason Stop Dose Admin Guaifenesin 600 mg 02/03/25 21:27 02/03/25 21:54 Guaifenesin 600 Mg Tabcr PO 600 mg BID SONIA Administration Potassium Chloride/Dextrose/Sod Cl 1,000 mls @ 100 mls/hr 02/03/25 18:45 02/03/25 21:59 Kcl 20meq/D5-0.9% Nacl IV 100 mls/hr INFUSION SONIA Administration Latanoprost 0 ml 02/03/25 21:27 02/03/25 22:26 Latanoprost 0.005% 2.5 Ml Btl OU Not Given HS SONIA Mirtazapine 7.5 mg 02/03/25 22:00 02/03/25 21:54 Mirtazapine 15 Mg Tab PO 7.5 mg HS SONIA Administration Pramipexole Dihydrochloride 0.25 mg 02/03/25 21:27 02/03/25 21:54 Pramipexole 0.25 Mg Tab PO 0.25 mg HS SONIA Administration Sodium Chloride 0 ml 02/03/25 20:00 02/03/25 21:55 Normal Saline Flush 10 Ml Syr IVP 10 ml BID SONIA Administration IV IV Catheter Type [Left Saline Lock Antecubital] IV Catheter Gauge [Left 18 Antecubital] Diet Orders Category Date Time Status Regular/Normal [DIET] Nutrition 02/04/25 Breakfast Ordered Diagnostics 02/03/25 02/03/25 Range/Units 18:00 15:21 WBC 6.34 (4.4-10.8) 10^3/uL RBC 3.43 L (3.93-5.22) 10^6/uL Hgb 8.0 L (11.2-15.7) g/dL Hct 26.1 L (36.0-46.0) % MCV 76 L (80-95) fL MCH 23.3 L (27.0-33.0) pg MCHC 30.7 L (32.0-36.0) % RDW 17.6 H (11.7-14.6) % Plt Count 371 (130-400) 10^3/uL MPV 9.1 (8.0-11.0) fL Immature Gran % 0.3 % Neutrophils % 79.6 % Lymphocytes % 14.4 % Monocytes % 4.6 % Eosinophils % 0.6 % Basophils % 0.5 % Nucleated RBC % 0.0 (0.0-0.3) % Absolute Neutrophils 5.05 (1.2-6.7) 10^3/uL Absolute Lymphocytes 0.91 L (1.2-3.4) 10^3/uL Absolute Monocytes 0.29 (0.1-0.8) 10^3/uL Absolute Eosinophils 0.04 (0.0-0.7) 10^3/uL Absolute Basophils 0.03 (0.0-0.2) 10^3/uL Sodium 137 (136-145) mmol/L Potassium 3.1 L (3.5-5.1) mmol/L Chloride 96 L (98-107) mmol/L Carbon Dioxide 28.1 (21.0-32.0) mmol/L Anion Gap 12.9 H (3-11) mmol/L BUN 44 H (7-18) mg/dL Creatinine 4.5 H* (0.55-1.02) mg/dL Est GFR (CKD-EPI 2020) 9.20 (mL/min/1.73m2) Glucose 90 (74-106) mg/dL Calcium 8.8 (8.5-10.1) mg/dL Magnesium 1.7 L (1.8-2.4) mg/dL Total Bilirubin 0.4 (0.2-1.0) mg/dL AST 20 (15-37) U/L ALT 11 L (14-59) U/L Alkaline Phosphatase 127 H (46-116) U/L Troponin I 21 22 (<or=51) ng/L Total Protein 8.2 (6.4-8.2) g/dL Albumin 2.5 L (3.4-5.0) g/dL TSH 2.71 (0.36-3.74) uIU/mL Ethyl Alcohol < 3.0 (<10) mg/dL Intake and Output - 24 Hour Total 02/03/25 15:00 thru 02/03/25 22:04 Intake Total 600 Balance 600 Weight 56.7 kg Intake: IV 600 Other: Urine Appearance Clear Falls Risk Assessment History of Falls No History 02/03/25 15:09 Contributing Factors No Factors,Confusion, 02/03/25 22:04 Incontinence Ambulatory Aids Uses ambulatory device 02/03/25 15:09 Tubes/Lines None 02/03/25 22:04 Gait Evaluation No gait disturbance 02/03/25 22:04 Cognition Cognitive impairment 02/03/25 22:04 Fall Total Score 21 02/03/25 22:04 Level of Risk Standard/Low Risk 02/03/25 22:04 Problems (Last Reviewed 02/03/25 @ 16:18 by Maxi Cazares MD) Cough (Acute) CRYSTAL (acute kidney injury) (Acute) Anemia (Chronic) Hypokalemia (Acute) Hypomagnesemia (Acute) Heart failure with preserved ejection fraction (Acute) Microcytic anemia (Acute) Rheumatoid arthritis (Active 12/23/12) v v v v v v v v v Sending and/or Receiving Nurses: Please use comment section below to note any information pertinent to the patient hand-off not included above. Information / Comments: pt. transfer from ED to Room 209 via stretcher . Alert& Oriented x2 confused VSS , RA denied SOB . denied chest pain , denied N/V ABD . incontinent Both takes pills whole with thin liquid no issued . Report received from:gopi
--- NOTE | 2025-02-04 | DI.US_ITS ---
Exam(s) US RENAL EXAM: US RENAL CLINICAL HISTORY: CRYSTAL with severe htn. TECHNIQUE: Maxwell scale, color and spectral Doppler were used. COMPARISON: CT CT ABDOMEN PELVIS W from 03/03/[address] PELVIC WO from 03/30/2021 FINDINGS: Renal size in cm: Right: 10.0. Left: 9.6. Echogenicity: Normal. Hydronephrosis: There is mild left hydronephrosis. Cyst or mass: No. Nephrolithiasis: No. Other findings: None. Bladder:Normal. Ureteral jets: Right: Visualized and unremarkable. Left: Visualized and unremarkable. Prevoid vol:213 cc Postvoid vol:The patient was unable to void during the examination. Renal color flow: Symmetric and within normal limits. IMPRESSION: Mild left hydronephrosis. DATA REPOSITORY:
[2025-02-04] MEDS: Heparin 5,000 UNITS/ML VIAL 5000 UNITS SC (05:44)
[2025-02-04 07:05] LABS: Abs Immature Grans 0.03 10^3/uL (0.0-0.06); HCT 26.2 % (36.0-46.0); HGB 7.9 g/dL (11.2-15.7); Immature Grans % 0.5 %; MCH 23.1 pg (27.0-33.0); MCHC 30.2 % (32.0-36.0); MCV 77 fL (80-95); MPV 9.2 fL (8.0-11.0); Platelet Count 334 10^3/uL (130-400); RBC 3.42 10^6/uL (3.93-5.22); RDW 17.6 % (11.7-14.6); RDW-SD 48.5 fL; WBC 5.91 10^3/uL (4.4-10.8)
[2025-02-04 07:21] LABS: ALT 8 U/L (14-59); AST 21 U/L (15-37); Albumin 2.2 g/dL (3.4-5.0); Alkaline Phosphatase 116 U/L (46-116); Anion Gap 9.6 mmol/L (3-11); BUN 41 mg/dL (7-18); Bilirubin, Total 0.5 mg/dL (0.2-1.0); CO2 28.4 mmol/L (21.0-32.0); Calcium 8.5 mg/dL (8.5-10.1); Chloride 101 mmol/L (98-107); Estimated GFR 10.92 (mL/min/1.73m2); Glucose 115 mg/dL (74-106); Potassium 3.4 mmol/L (3.5-5.1); Sodium 139 mmol/L (136-145); Total Protein 7.3 g/dL (6.4-8.2)
[2025-02-04 07:29] LABS: Iron 39 ug/dL (50-170); Total Iron Binding Capacity 208 ug/dL (250-450); Transferrin Sat 19 % (15-50)
[2025-02-04 07:46] VITALS: BP 188/91; PULSE 78; RESP 16; TEMP 36.9; O2SAT 98
[2025-02-04 08:16] LABS: Vitamin B12 555 pg/mL (193-986)
[2025-02-04 08:28] LABS: Folate > 20.0 ng/mL (8.6-20.0)
[2025-02-04] MEDS: POTASSIUM CHLORIDE/D5-0.9%NACL 1,000 ML 100 MEQ IV ×2 (08:30→20:39)
[2025-02-04] MEDS: Pantoprazole 40 MG TABCR PO (08:37)
[2025-02-04] MEDS: Folic Acid 1 MG TAB PO (08:37)
[2025-02-04] MEDS: Multivitamin TAB 1 TAB PO (08:37)
[2025-02-04] MEDS: predniSONE 20 MG TAB 40 MG PO (08:38)
[2025-02-04] MEDS: guaiFENesin 600 MG TABCR PO (08:39)
--- NOTE | 2025-02-04 10:11 | INITIAL_ITS ---
Date of service: 02/04/25 Time of Service: 10:11 Care Management Initial Assmt Initial Assessment Reason for Hospitalization: CRYSTAL Functional Status/Living Situation Patient Presentation: Tamy was sitting up in bed visiting with her daughter Reina when CM met with her. She was alert and oriented X2 and seemed to recognize CM from previous admissions. Tamy is still staying at [facility]. According to her daughter, she is transitioning to hardness tester care. Reina has been working on the hardness tester Medicaid application. She commented on how much information is required and noted that several times she has had to supply the same information more than once. Fortunately she is keeping copies of everything to make it easier. Tamy was admitted with CRYSTAL. She has had 2 Utis in the recent past and was treated with Bactrim. The providers at [facility] as well as at [facility] are concerned that the decrease in her renal function may be a side effect of the drug. It was dis continued at the SNF on 02/02/25 after only 6 doses. Tamy's renal function at baseline is normal. Her Creatinine in November was 0.8; it is now over 4.0. According to Reina and the staff at the SNF, Tamy was able to ambulate until recently. Reina stated that she has pretty much stayed in a wheelchair for the past few weeks, which concerns her. She shared that Tamy used to have her legs elevated but in the wheelchair, they are dependent and she now has 1+ edema in her lower extremities. Tamy also carries a diagnosis of HF with preserved EF and is being followed by Cardiology. Town of Residence: [place] Resides with: Alone Significant Other/Family: Local Natural Supports: daughter and 2 sons, all local Employment Status: Retired Instrumental Activities of Daily Living (ADLs): Requires support Physical Functioning/Mobility Assistive Device: w/c, walker Advance Directives Advance Directives: Do you have an Advance Directive: Y , 12:00 AD On File at [facility]: Y 02/09/19, 12:00 Date Asked 02/03/25 02/03/25, 15:03 AD Date Reviewed 12/28/24 12/28/24, 16:59 COLST On File at [facility] COLST Date Scanned Comment: Reina Ricci, daughter HCA Code Status Resuscitation Status DNR/DNI Portal Pt does not currently have a portal and education provided: Yes Insurance Coverage/Financial Issues Insurance: Medicare Care Team Visit Care Team Role Provider Type Derek Petty MD [facility] STAFF PHYSICIAN LARRY Vale Primary Care Provider [employer] 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 She will follow up with the facility providers and plan of care and transport via [facility]. CM will follow and continue to support discharge planning. Social Determinants of Health Screening Social Determinants of health last assessed in clinic: 02/03/25 Will the Patient Participate in the Screening?: Unable to obtain Do you worry about having a steady place to live?: no Problems where you live: no known problems In the past 12 months, have you had to go without electric, gas, oil or water in your home?: no Has lack of transportation kept you from medical appointments or from doing things needed for daily living?: choose not to answer Has anyone in your life made you feel unsafe or unsupported?: choose not to answer PFSH All Active Problems (Updated 02/03/25 @ 21:19 by LORENZA JACOBSON) Cough (Acute) CRYSTAL (acute kidney injury) (Acute) Anemia (Chronic) Hypokalemia (Acute) Hypomagnesemia (Acute) CRYSTAL (acute kidney injury) (Acute) Heart failure with preserved ejection fraction (Acute) CKD (chronic kidney disease) (Chronic) Hypertension, essential (Acute 05/24/11) high blood pressure in [place] with atypical chest pain; rx metoprolol Rheumatoid arthritis (Chronic 04/21/11) ONSET 04/2011; DX 08/28; MTX RX 09/20/11 DR CRAWFORD Hyperlipidemia (Acute 05/19/06) GOAL LDL<160; RISK 5% CALC IN 2006; INTOL SOME STATINS Bilateral pleural effusion (Acute) Microcytic anemia (Acute) Skin tear of right upper extremity (Acute) Immunization, tetanus-diphtheria (Acute) Laceration of left upper arm (Acute) Hx of falling (Acute) Periprosthetic fracture around internal prosthetic right hip joint (Acute 08/02/24) Closed sacral fracture (Acute) History of surgery (Active) T & A. Appendectomy. RTH arthroplasty 12/2007. LTH arthroplasty 03/2012. Right distal clavical excision 11/05/2009. Right bunionectomy x 2. Right leg venous ligation. Colonoscopy October 15 - found to have tubular adenoma. Restless legs (Active) Managed with Sinemet Gastroesophageal reflux disease (Active) Hyperlipidemia (Active) Rheumatoid arthritis (Active 12/23/12) Osteoarthritis of knee (Active 12/23/12) Rhematoid arthritis and DJD right knee wqith mild valgus deformity and flexion contracture. Right total knee arthroplasty, cemented by Dr. Case Valenzuela 12-23-2012 Skin lesion (Acute) Medical History Pneumonia Adenoma of large intestine (10/15/12) TUBULOVILLOUS ADENOMA, [place]; repeat 3 yrs Tubular adenoma of colon (10/15/12) repeat 2015, Ascending colon-fragments of tubular adenomas Transverse colon-Fragments of sessile serrated adenoma; recheck 3 yrs Restless legs R only Hypokalemia Elevated brain natriuretic peptide (BNP) level Hyperkalemia Anemia Dysrhythmia Splenic mass Hypertension Chronic kidney disease, stage 3 Weight loss Tubular adenoma of colon Nausea with vomiting Postoperative anemia due to acute blood loss Osteoporosis Periprosthetic fracture around internal prosthetic left hip joint Surgical History left hip revision (04/10/16) Dr Kang, periprosthetic fracture, revision, [facility] 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) POLO; LEFT; ALSO R HIP 01/06/08 Tooth extraction (05/19/1963) COMPLETE UPPER AND LOWER EXTRACTIONS Colonoscopy - MAC (01/17/16) Colonoscopy - MAC (10/15/12) Biopsy of breast (12/29/14) Left breast, [facility], benign intraductal papilloma Arthroplasty (12/23/12) R total knee arthroplasty,cemented Dr Valenzuela Family History Mother , COPD at age 73. Substance abuse Father , heart at age 70. Heart disease Brother , accident at age 47. No problems noted. Social History Smoking/Tobacco Use Status: Never Smoking risk assessment performed?: Yes Alcohol Intake: former Drug use: Never Substance use type: does not use Details: used alcohol in distant past Housing: long term Do you feel safe at home: Yes Do you feel safe in your relationship?: Yes
--- NOTE | 2025-02-04 12:06 | PGE_ITS ---
Date of Service Date of service: 02/04/25 Time of Service: 12:06 Assessment and Plan Assessment and plan (1) CRYSTAL (acute kidney injury): Status: Acute Assessment and plan: Unclear etiology. Had normal renal function 12/02 at 0.9 creatinine and increased to 3.2 on 01/24. At that time she was given a course of TMP/SMX (Bactrim), which could have worsened renal failure She did seem to be dehydrated on admission and Cr trending down on fluids She is at risk for intrinsic disease with her h/o u/a, we need that done, also get Na/Cr of urine u/s done this am as well. holding TAMMIE (2) Hypomagnesemia: Status: Acute Assessment and plan: Replaced, follow in am (3) Hypokalemia: Status: Acute Assessment and plan: Replace with IV fluids conservatively. With severe HTN will add PRA/aldosterone in AM (4) Microcytic anemia: Status: Acute Assessment and plan: Patient does have an low MCV. borderline low iron, will give po. (5) Rheumatoid arthritis: Status: Active Assessment and plan: Continue with her outpatient therapy which includes methotrexate and hydroxycloroquine. Prednisone was an old script, stop this. This may be causing some agitation/paranoia. (6) Cough: Status: Acute Assessment and plan: Exact etiology is unknown, reaching out to [facility] to see if this is acute or chronic. Holding TAMMIE. (7) Heart failure with preserved ejection fraction: Status: Acute Assessment and plan: Last echo 11/25/24. No active CHF now. She may benefit from SGLT2i and MRA, though it may make incontence worse. (8) Hypertension: Assessment and plan: poor control at recent visits. Would like to control with her renal failure. With CRYSTAL holding TAMMIE. Start CCB nifedipine. Subjective Subjective Patient reports: no new complaints; denies diarrhea, vomiting or fever Interval history since last seen: She denies complaints, but also refusing exam. She wants to be left alone. She states she ate some, per RN didn't eat but drinking fluids. She denies pain including chest pain, denies SOB. She is incontinent of urine. Exam Narrative Exam Narrative: GEN: Alert, oriented to self, not place or time. She appears anxious, paranoid thought process, slightly tremulous Cardiovascular- no cyanosis, refuse exam Lungs- normal effort, speaking in full sentances Neurologic- normal speech and coordination, moving 4 extremities Objective Last Vital Signs Temp 36.9 C 02/04/25 07:46 Pulse 78 02/04/25 07:46 Resp 16 02/04/25 07:46 BP 188/91 H 02/04/25 07:46 Pulse Ox 98 02/04/25 07:46 Laboratory Results - last 24 hr 02/03/25 02/03/25 02/04/25 15:21 18:00 06:27 WBC 6.34 5.91 RBC 3.43 L 3.42 L Hgb 8.0 L 7.9 L Hct 26.1 L 26.2 L MCV 76 L 77 L MCH 23.3 L 23.1 L MCHC 30.7 L 30.2 L RDW 17.6 H 17.6 H Plt Count 371 334 MPV 9.1 9.2 Immature Gran % 0.3 0.5 Neutrophils % 79.6 80.3 Lymphocytes % 14.4 12.4 Monocytes % 4.6 4.9 Eosinophils % 0.6 1.4 Basophils % 0.5 0.5 Nucleated RBC % 0.0 0.0 Absolute Neutrophils 5.05 4.75 Absolute Lymphocytes 0.91 L 0.73 L Absolute Monocytes 0.29 0.29 Absolute Eosinophils 0.04 0.08 Absolute Basophils 0.03 0.03 Sodium 137 139 Potassium 3.1 L 3.4 L Chloride 96 L 101 Carbon Dioxide 28.1 28.4 Anion Gap 12.9 H 9.6 BUN 44 H 41 H Creatinine 4.5 H* 3.9 H* Est GFR (CKD-EPI 2020) 9.20 10.92 Glucose 90 115 H Calcium 8.8 8.5 Magnesium 1.7 L Iron 39 L TIBC 208 L Transferrin % Sat 19 Total Bilirubin 0.4 0.5 AST 20 21 ALT 11 L 8 L Alkaline Phosphatase 127 H 116 Troponin I 22 21 Total Protein 8.2 7.3 Albumin 2.5 L 2.2 L Vitamin B12 555 Folate > 20.0 H TSH 2.71 Ethyl Alcohol < 3.0 Time Spent with Patient Time Spent with Patient: >50 minutes Time was spent: preparing to see the patient(eg.review tests), obtaining and/or reviewing separately otained hiistory, ordering medications,tests, procedures, referring, communicating with other health manager critical care unit, indepentently interpreting results, counseling the patient and care coordination
[2025-02-04] MEDS: NIFEdipine-CR 30 MG TABCR PO (12:42)
[2025-02-04 12:47] LABS: Glucose Negative (Negative)
[2025-02-04 13:03] LABS: C & S Indicated? No; RBC 20-50 HPF (0-2); WBC 0-2 HPF (0-5)
--- NOTE | 2025-02-04 14:19 | IN_ITS ---
PT Notes Visit Reasons: crystal Inpatient Physical Therapy Evaluation Date: 02/04/25 Referring Doctor: Dr. Bakari Beckman PT Orders: PT CONSULT: Precautions: fall, standard Patient Profile/Admitting Diagnosis: aTmy is an 84 year old female admitted from [facility] for CRYSTAL (acute kidney injury), Hypomagnesemia, Hypokalemia; Microcytic anemia, with PMH also significant for Rheumatoid arthritis, Cough, Heart failure with preserved ejection fraction and Hypertension. Social History/Home Situation: Resident of [facility]. Daughter present at time of evaluation ,and reports that Tamy had stopped participating in PT and she does not think her mom has walked in about 2 months. Reports increasing weakness after a series of falls. Has had multiple bilat hip fractures and surgeries. Equipment Owned/DME: resident of [facility] Subjective: Tamy initially declines PT, but with encouragement from PT and her daughter, agrees to participate. She states that her legs are very weak, and that her left knee bothers her quite a bit. Objective: General Observation: Resting in bed, IV in LUE. Mental Status: Alert throughout. Requires frequent reminders for task completion, and unable to recall tasks after completed. Pleasantly confused throughout session. Able to identify her daughter and her son in law. Unable to provide any significant history regarding baseline mobility. ROM: Right Upper Extremity: Shoulder flexion 140*. Elbow and wrist motion WFL. Left Upper Extremity: Shoulder flexion 130*. Elbow and wrist motion WFL. Right Lower Extremity: Hip flexion 80* with apprehension. Functionally tolerates knee motion 0-100*. Left Lower Extremity: Hip flexion 80* with apprehension. Functionally tolerates knee motion 0-100*. Strength: Right Upper Extremity: Shoulder flexion 3-/5. Bicepss 4/5. Triceps 4/5. [employer]er is strong and equal. Left Upper Extremity: Shoulder flexion 3-/5. Bicepss 4/5. Triceps 4/5. [employer]er is strong and equal. Right Lower Extremity: Hip flexion 3-/5. Quads 3/5. HS 3/5. Ankle DF 3/5. Left Lower Extremity: Hip flexion 3-/5. Quads 3/5. HS 3/5. Ankle DF 3/5. Bed Mobility/Transfers: supine-sit: supervision with HOB at 30* sit-stand: mod A x 1, max cues and continued support at trunk to attain full upright position. stand-sit: max cues and mod A at the trunk sit-supine: mod A to RLE scooting in bed: mod A and max cues for technique Gait: unable Balance: Static Sitting: good Dynamic Sitting: fair Static Standing: poor Dynamic Standing: unable Special Tests: Mobility Limitations Standardized [facility] AM-PAC 6 clicks Basic Mobility Inpatient Short Form: Raw Score: 12 CMS Score: 69% impairment Informed Consent/Education: Patient instructed in purpose of PT consult and plan of care. Treatment: Initial Evaluation (11361) Therapeutic Activities (60321): Instructed in the following pre-gait activities: SLR 6 times each, with max cues for completion Ankle pumps 10 times Heel slides 5 times each LAQ 10 times each, with cues for trunk positioning Sit?stand 2 times. Initially requires mod assist of 1, increasing to max assist on second repetition, with patient expressing significant fatigue. She requires max cues for knee extension and hand placement. Static standing x 2. Initially tolerates x 90 seconds, beginning with mod assist of the trunk and progressing to CGA only. On second repetition, requires mod to max assist throughout, and tolerates only 10 seconds. Assessment: Patient is an 84 year old female referred to physical therapy services in acute care setting where she is being managed for acute medical issues in the presence of multiple chronic conditions including dementia. She is a long-term care resident at [facility], and will be appropriate for tra nsf back with resumption of PT services once medically appropriate. In the meantime she will benefit from PT intervention in acute care setting to maximize mobility and independence prior to discharge. She currently demonstrates the following impairment level findings: 1. Decreased lower extremity strength 2. Decreased upper extremity strength 3. Decreased balance 4. Fear of falling 5. Decreased bilateral hip range of motion Impairments are contributing to the following functional limitations: 1. Unable to ambulate 2. Unable to independently perform bed mobility 3. Unable to independently perform transfers Patient is assessed as Moderate 47284 [] complexity based on the following: History: as above, complicated by acute medical issues in the presence of several chronic issues, including dementia, RA, history of multiple hip surgeries. Examination: As above Presentation: Evolving Decision Making: Moderate complexity Goals: Goals X1 week 1. Supine-Sit : Min assist 2. Sit-Supine: Min assist 3. Sit-Stand: Mod assist 4. Stand-Sit : Mod assist 5. Bed-Chair : Mod assist with FWW 6. Chair-Bed : Mod assist with FWW 7. Gait 10' with Mod assist and FWW Plan of Care/Treatment Plan: 1-2x/day, 7 days/week x 1 week. Plan of care has been reviewed with the PIECE GOODS CLERK providing the service under Physical Therapy direction. Initiate Physical Therapy intervention for strengthening, bed mobility, transfers, gait, stairs, balance training, use of assistive device. DISCHARGE RECOMMENDATIONS: REturn to [facility] with resumption of skilled PT intervention TREATMENT CODE/TIME: [id number] (54123, 63708) Isabela Andrews, PT, DPT [facility] All Active Problems (Updated 02/03/25 @ 21:19 by LORENZA JACOBSON) Cough (Acute) CRYSTAL (acute kidney injury) (Acute) Anemia (Chronic) Hypokalemia (Acute) Hypomagnesemia (Acute) CRYSTAL (acute kidney injury) (Acute) Heart failure with preserved ejection fraction (Acute) CKD (chronic kidney disease) (Chronic) Hypertension, essential (Acute 05/24/11) high blood pressure in [place] with atypical chest pain; rx metoprolol Rheumatoid arthritis (Chronic 04/21/11) ONSET 04/2011; DX 08/28; MTX RX 09/20/11 DR CRAWFORD Hyperlipidemia (Acute 05/19/06) GOAL LDL<160; RISK 5% CALC IN 2006; INTOL SOME STATINS Bilateral pleural effusion (Acute) Microcytic anemia (Acute) Skin tear of right upper extremity (Acute) Immunization, tetanus-diphtheria (Acute) Laceration of left upper arm (Acute) Hx of falling (Acute) Periprosthetic fracture around internal prosthetic right hip joint (Acute 08/02/24) Closed sacral fracture (Acute) History of surgery (Active) T & A. Appendectomy. RT arthroplasty 12/2007. LTH arthroplasty 03/2012. Right distal clavical excision 11/05/2009. Right bunionectomy x 2. Right leg venous ligation. Colonoscopy October 15 - found to have tubular adenoma. Restless legs (Active) Managed with Sinemet Gastroesophageal reflux disease (Active) Hyperlipidemia (Active) Rheumatoid arthritis (Active 12/23/12) Osteoarthritis of knee (Active 12/23/12) Rhematoid arthritis and DJD right knee wqith mild valgus deformity and flexion contracture. Right total knee arthroplasty, cemented by Dr. Case Valenzuela 12-23-2012 Skin lesion (Acute) Medical History Pneumonia Adenoma of large intestine (10/15/12) TUBULOVILLOUS ADENOMA, [place]; repeat 3 yrs Tubular adenoma of colon (10/15/12) repeat 2016, Ascending colon-fragments of tubular adenomas Transverse colon-Fragments of sessile serrated adenoma; recheck 3 yrs Restless legs R only Hypokalemia Elevated brain natriuretic peptide (BNP) level Hyperkalemia Anemia Dysrhythmia Splenic mass Hypertension Chronic kidney disease, stage 3 Weight loss Tubular adenoma of colon Nausea with vomiting Postoperative anemia due to acute blood loss Osteoporosis Periprosthetic fracture around internal prosthetic left hip joint Surgical History left hip revision (04/10/16) Dr Kang, periprosthetic fracture, revision, [facility] 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) POLO; LEFT; ALSO R HIP 01/06/08 Tooth extraction (05/19/1963) COMPLETE UPPER AND LOWER EXTRACTIONS Colonoscopy - MAC (01/17/16) Colonoscopy - MAC (10/15/12) Biopsy of breast (12/29/14) Left breast, [facility], benign intraductal papilloma Arthroplasty (12/23/12) R total knee arthroplasty,cemented Dr Valenzuela
--- NOTE | 2025-02-04 15:51 | CHAPLAIN ---
Tamy was resting in bed when I visited. She is from & and previously lived in [place] and was part of the [place] [employer]. Pat told me she's just relaxing here and is in touch with family. I explained my role and offered support..
[2025-02-04 20:23] VITALS: BP 135/69; PULSE 88; RESP 22; TEMP 36.6; O2SAT 97
[2025-02-04] MEDS: Normal Saline Flush 10 ML SYR IVP (20:29)
[2025-02-04] MEDS: Pramipexole 0.25 MG TAB PO (20:29)
[2025-02-04] MEDS: Mirtazapine 15 MG TAB PO (20:29)
[2025-02-04] MEDS: Latanoprost 0.005% 2.5 ML BTL OU (20:35)
[2025-02-05] MEDS: POTASSIUM CHLORIDE/D5-0.9%NACL 1,000 ML 100 MEQ IV ×2 (06:28→18:17)
[2025-02-05 07:22] VITALS: BP 188/76; PULSE 75; RESP 16; TEMP 36.5; O2SAT 99
[2025-02-05 07:24] LABS: Creatinine,Urine 20.11 mg/dL; Sodium, Urine 105 mmol/L
[2025-02-05] MEDS: NIFEdipine-CR 30 MG TABCR PO (08:56)
[2025-02-05] MEDS: Folic Acid 1 MG TAB PO (08:56)
[2025-02-05] MEDS: Normal Saline Flush 10 ML SYR IVP ×3 (08:57→19:32)
--- NOTE | 2025-02-05 09:00 | PT.INTREAT ---
Date of service: 02/05/25 Time of Service: 08:45 PT Notes Visit Reasons: maya Inpatient Physical Therapy Treatment Note [facility] Date: 02/05/25 PRECAUTIONS:Standard SUBJECTIVE: Jo notes she is feeling better. Just got done with her breakfast. Is agreeable to PT this morning. Notes she is very weak for has not done any exercise or walking in quite some time. PM Session: Jo notes that she just finished lunch is up to performing some exercises however does not want to get out of bed. OBJECTIVE: ? Therapeutic Activities (64527b4): Direct one-on-one instruction in dynamic activities to improve functional performance. ? BED MOBILITY/TRANSFERS? ? supine-sit: supervision with HOB at 30* sit-stand: mod A x 1, max cues and continued support at trunk to attain full upright position. stand-sit: max cues and mod A at the trunk, fatgiues quickly in standing position. sit-supine: mod A to RLE scooting in bed: mod A and max cues for technique ? Provided skilled cues and instruction on performance and technique throughout. ? Therapeutic Exercises: Direct one-on-one instruction in therapeutic exercises to develop strength, endurance, range of motion and flexibility. ? Exercises ? SLR x10 R/L LAQ x10 R/L Seated march x10 R/L ankle pumps x10 R/L heel slides x10 R/L supine hip abduction slide x10 R/L hip adduction iso x10 PM Session: SLR x10 R/L SAQ x10 R/L Heel slides x10 R/L Ankle pumps x10 R/L supine hip abduction/adduction x10 R/L supine march x10 R/L elbow flexion x10 R/L shoulder flexion x10 R/L Provided skilled instruction in proper exercise performance Provided skilled manual cues to facilitate proper muscle recruitment and/or form ASSESSMENT:? Pat remains very weak in standing position. Fatigues quickly. Requires extensive cueing to promote truck positioning. PLAN: Continue with Physical Therapy intervention for strengthening, bed mobility, transfers, gait, stairs, balance training, use of assistive device. TREATMENT CODE/TIME: 37530b7-82 minutes, 28345x1-22 minutes 8:45-9:10 am [id number] minutes 13:15-13:30 DISCHARGE RECOMMENDATION: Return to [facility] with resumption of skilled PT intervention Divine Feliciano, MPT
[2025-02-05 09:09] LABS: Anion Gap 11.6 mmol/L (3-11); BUN 35 mg/dL (7-18); CO2 25.4 mmol/L (21.0-32.0); Calcium 8.6 mg/dL (8.5-10.1); Chloride 104 mmol/L (98-107); Estimated GFR 12.87 (mL/min/1.73m2); Glucose 128 mg/dL (74-106); Magnesium 1.6 mg/dL (1.8-2.4); Potassium 3.3 mmol/L (3.5-5.1); Sodium 141 mmol/L (136-145)
[2025-02-05] MEDS: Potassium Chloride 20 MEQ TABCR 40 MEQ PO (12:04)
--- NOTE | 2025-02-05 14:37 | W.PM.PROGNOT ---
Date of Service Date of service: 02/05/25 Time of Service: 14:37 Assessment and Plan Assessment and plan (1) CRYSTAL (acute kidney injury): Status: Acute Assessment and plan: -Unclear etiology; normal renal function 12/02 at 0.9 creatinine and increased to 3.2 on 01/24. At that time she was given a course of TMP/SMX (Bactrim), which could have worsened renal failure -She did seem to be dehydrated on admission -Cr has been improving with IV fluids, down to 3.4 as of AM 02/05 -also holding home ACEi (2) Hypomagnesemia: Status: Acute Assessment and plan: -Replaced (3) Hypokalemia: Status: Acute Assessment and plan: -Replace with IV fluids conservatively. -With severe HTN added PRA/aldosterone (4) Microcytic anemia: Status: Acute Assessment and plan: -Patient does have an low MCV. -borderline low iron, will give po. (5) Rheumatoid arthritis: Status: Active Assessment and plan: -Continue with her outpatient therapy which includes methotrexate and hydroxycloroquine. -Prednisone was an old script and it has been stopped (6) Cough: Status: Acute Assessment and plan: -appears to be chronic (7) Heart failure with preserved ejection fraction: Status: Acute Assessment and plan: -Last echo 11/25/24. No active CHF now. (8) Hypertension: Assessment and plan: -poor control at recent visits. Would like to control with her renal failure. -With CRYSTAL holding TAMMIE. -Started CCB nifedipine. Subjective Subjective Interval history since last seen: Patient states that she is feeling better and has no complaints or concerns at this time. Exam Narrative Exam Narrative: well apearing older female laying in bed in no acute distress, awake, alert, oriented to person place and situation, heart RRR, lungs CTAB, abdomen soft, non-tender, non-distended Objective Last Vital Signs Temp 97.7 F 02/05/25 07:22 Pulse 75 02/05/25 07:22 Resp 16 02/05/25 07:22 BP 188/76 H 02/05/25 07:22 Pulse Ox 99 02/05/25 07:22 Laboratory Results - last 24 hr 02/04/25 02/05/25 12:13 08:30 Sodium 141 Potassium 3.3 L Chloride 104 Carbon Dioxide 25.4 Anion Gap 11.6 H BUN 35 H Creatinine 3.4 H Est GFR (CKD-EPI 2020) 12.87 Glucose 128 H Calcium 8.6 Magnesium 1.6 L Ur Random Creatinine 20.11 Ur Random Sodium 105 Time Spent with Patient Time Spent with Patient: >50 minutes Time was spent: preparing to see the patient(eg.review tests), obtaining and/or reviewing separately otained hiistory, ordering medications,tests, procedures, referring, communicating with other health healthcare economics manager, indepentently interpreting results, counseling the patient and care coordination
[2025-02-05] MEDS: Mirtazapine 15 MG TAB PO (19:31)
[2025-02-05] MEDS: Latanoprost 0.005% 2.5 ML BTL OU (19:31)
[2025-02-05] MEDS: Pramipexole 0.25 MG TAB PO (19:31)
[2025-02-05 20:20] VITALS: BP 166/79; PULSE 82; RESP 22; TEMP 36.6; O2SAT 98
[2025-02-06] MEDS: POTASSIUM CHLORIDE/D5-0.9%NACL 1,000 ML 100 MEQ IV (03:57)
[2025-02-06 06:22] LABS: HCT 26.8 % (36.0-46.0); HGB 8.2 g/dL (11.2-15.7); MCH 24.3 pg (27.0-33.0); MCHC 30.6 % (32.0-36.0); MCV 80 fL (80-95); MPV 8.9 fL (8.0-11.0); Platelet Count 312 10^3/uL (130-400); RBC 3.37 10^6/uL (3.93-5.22); RDW 18.4 % (11.7-14.6); RDW-SD 53.4 fL; WBC 9.10 10^3/uL (4.4-10.8)
[2025-02-06 06:58] LABS: Anion Gap 8.2 mmol/L (3-11); BUN 29 mg/dL (7-18); CO2 24.8 mmol/L (21.0-32.0); Calcium 8.8 mg/dL (8.5-10.1); Chloride 110 mmol/L (98-107); Estimated GFR 15.58 (mL/min/1.73m2); Glucose 103 mg/dL (74-106); Sodium 143 mmol/L (136-145)
[2025-02-06 07:03] LABS: Potassium 4.5 mmol/L (3.5-5.1)
[2025-02-06 07:29] VITALS: BP 186/89; PULSE 84; RESP 16; TEMP 36.6; O2SAT 98
--- NOTE | 2025-02-06 08:46 | W.PM.DS.N ---
Date of service: 02/06/25 Time of Service: 08:47 DS: Diagnosis Discharge Diagnosis (1) CRYSTAL (acute kidney injury): Status: Acute (2) Hypomagnesemia: Status: Acute (3) Hypokalemia: Status: Acute (4) Microcytic anemia: Status: Acute (5) Rheumatoid arthritis: Status: Active (6) Cough: Status: Acute (7) Heart failure with preserved ejection fraction: Status: Acute (8) Hypertension: Discharge Plan Disposition Patient Disposition: Senior Living Facility(SNF) Condition: Serious Condition: Good Discharge Details Reason For Visit: crystal Admit Date/Time: 02/03/25 18:41 Admit Provider: Bakari Beckman Attending Provider: Bakari Beckman Primary Care Provider: Marlene Pereira Hospital Course Hospital Course: Patient presented to the hospital with concerns of ongoing decline and was found to have an CRYSTAL. During hospitalization her Lasix and TAMMIE inhibitor were held and she was given IV fluid and had significant improvement of her creatinine without signs of fluid overload. Additionally, help with her blood pressure she was started on Procardia XL 30 mg which was increased to 60 mg. Given the patient's creatinine significantly improved it was determined that she was stable for discharge. Would be recommended that lisinopril be discontinued, and that Lasix be restarted once creatinine returns to baseline and/or patient gets to develop signs of fluid overload. Home Meds and New Rx's Prescriptions: New nifedipine 30 mg Tablet Extended Release 24hr 60 mg PO DAILY Qty: 90 0RF Continued folic acid 1 MG tablet 1 mg PO DAILY Qty: 90 latanoprost 2.5 ML drops 1 drp OU HS pramipexole 0.25 MG tablet 0.25 mg PO HS Qty: 90 Rx Instructions: for restless leg syndrome acetaminophen [Tylenol] 325 MG tablet 650 mg PO Q4H PRN PRN0RF magnesium hydroxide [Milk of Magnesia] 400 mg/5 mL suspension 30 ml PO DAILY PRN PRN Rx Instructions: give 30 mL by mouth as needed for no BM for 3 days docusate sodium 100 mg capsule 100 mg PO BID PRN PRN (Reason: constipation) bisacodyl 10 mg suppository 10 mg NC DAILY PRN PRN Rx Instructions: 1 suppository as needed if no BM results 12 hours after administering milk of magnesia ferrous sulfate [FeroSul] 325 mg (65 mg iron) tablet 325 mg PO DAILY ondansetron 4 mg tablet,disintegrating 4 mg PO Q6H PRN PRN (Reason: nausea and vomiting) Discontinued hydralazine 10 mg tablet 10 mg PO BID Rx Instructions: 1 tab PO BID for hypertension. Hold for SBP <110 No Action mirtazapine 15 mg tablet 15 mg PO HS sodium phosphates 19-7 gram/118 mL enema 118 ml NC DAILY PRN PRN Rx Instructions: Use 1 emena as needed if no BM 24 hours after bisacodyl suppository Discharge Instructions Activity:: Activity as Tolerated Equipment/Supplies:: No Equipment Needed Diet:: As Tolerated Discharge Orders Discharge Orders: Discharge Order (Routine); Ordered 02/06/25 Ordered By: Rod Mendoza DS: Summary Time Spent with Patient providing and/or coordinating discharge services: Greater than 30 minutes Status at Discharge Functional status at discharge: independent ambulation Overall status at discharge: patient is back to baseline Mental Status: mental status grossly normal Speech and Movement: speech and movement normal Mood: congruent mood Affect: normal affect Quality:SDOH Health Related Social Needs: Health related social needs daily activities Health related [facility] Ex[facility] Narrative Exam Narrative: well apearing older female laying in bed in no acute distress, awake, alert, oriented to person place and situation, heart RRR, lungs CTAB, abdomen soft, non-tender, non-distended Psych Mental Status: mental status grossly normal Speech and Movement: speech and movement normal Mood: congruent mood Affect: normal affect DS: Data Vitals/I&O Vitals and I&O: Vital Signs Temperature 97.9 F 02/06/25 07:29 Temperature Source Temporal Artery Scan 02/06/25 07:29 Pulse 84 02/06/25 07:29 Pulse Rhythm Regular 02/03/25 22:04 Respiratory Rate 16 02/06/25 07:29 Respiratory Effort Normal, Non-Labored 02/03/25 22:04 Respiratory Depth Normal 02/03/25 22:04 Respiratory Pattern Normal 02/03/25 22:04 Blood Pressure 186/89 H 02/06/25 07:29 Blood Pressure Mean 121 02/06/25 07:29 Blood Pressure Position Sitting 02/03/25 15:09 Pulse Oximetry 98 02/06/25 07:29 Oxygen Delivery Method Room Air 02/06/25 07:29 Oxygen Flow Rate 0 02/06/25 07:29 Pain Level 0 02/05/25 20:20 Intake & Output 02/05/25 02/06/25 02/06/25 17:59 05:59 17:59 Intake Total 981.667 / 039.340 6638.667 / 4948.334 Balance 981.667 / 791.522 6912.667 / 4948.334 Weight 114 lb 10.246 oz Intake: IV 981.667 / 460.201 1043.667 / 4948.334 Other: Urine Color Yellow Urine Odor Normal Comment Pt was inc. of urine, [employer] changed brief. Data Completed and Pending Labs on day of discharge: Labs from last 24 hours 02/06/25 02/05/25 06:05 08:30 WBC 9.10 RBC 3.37 L Hgb 8.2 L Hct 26.8 L MCV 80 MCH 24.3 L MCHC 30.6 L RDW 18.4 H Plt Count 312 MPV 8.9 Sodium 143 141 Potassium 4.5 D 3.3 L Chloride 110 H 104 Carbon Dioxide 24.8 25.4 Anion Gap 8.2 11.6 H BUN 29 H 35 H Creatinine 2.9 H 3.4 H Est GFR (CKD-EPI 2020) 15.58 12.87 Glucose 103 128 H Calcium 8.8 8.6 Magnesium 1.6 L Renin Activity Pending Aldosterone Pending [facility] All Active Problems (Updated 02/06/25 @ 08:46 by Rod Mendoza MD) Cough (Acute) CRYSTAL (acute kidney injury) (Acute) Anemia (Chronic) Hypokalemia (Acute) Hypomagnesemia (Acute) CRYSTAL (acute kidney injury) (Acute) Heart failure with preserved ejection fraction (Acute) CKD (chronic kidney disease) (Chronic) Hypertension, essential (Acute 05/24/11) high blood pressure in [place] with atypical chest pain; rx metoprolol Rheumatoid arthritis (Chronic 04/21/11) ONSET 04/2011; DX 08/28; MTX RX 09/20/11 DR CRAWFORD Hyperlipidemia (Acute 05/19/06) GOAL LDL<160; RISK 5% CALC IN 2006; INTOL SOME STATINS Bilateral pleural effusion (Acute) Microcytic anemia (Acute) Skin tear of right upper extremity (Acute) Immunization, tetanus-diphtheria (Acute) Laceration of left upper arm (Acute) Hx of falling (Acute) Periprosthetic fracture around internal prosthetic right hip joint (Acute 08/02/24) Closed sacral fracture (Acute) History of surgery (Active) T & A. Appendectomy. RTH arthroplasty 12/2007. LT arthroplasty 03/2012. Right distal clavical excision 11/05/2009. Right bunionectomy x 2. Right leg venous ligation. Colonoscopy October 15 - found to have tubular adenoma. Restless legs (Active) Managed with Sinemet Gastroesophageal reflux disease (Active) Hyperlipidemia (Active) Rheumatoid arthritis (Active 12/23/12) Osteoarthritis of knee (Active 12/23/12) Rhematoid arthritis and DJD right knee wqith mild valgus deformity and flexion contracture. Right total knee arthroplasty, cemented by Dr. Case Valenzuela 12-23-2012 Skin lesion (Acute) Medical History Pneumonia Adenoma of large intestine (10/15/12) TUBULOVILLOUS ADENOMA, Bob; repeat 3 yrs Tubular adenoma of colon (10/15/12) repeat 2016, Ascending colon-fragments of tubular adenomas Transverse colon-Fragments of sessile serrated adenoma; recheck 3 yrs Restless legs R only Hypokalemia Elevated brain natriuretic peptide (BNP) level Hyperkalemia Anemia Dysrhythmia Splenic mass Hypertension Chronic kidney disease, stage 3 Weight loss Tubular adenoma of colon Nausea with vomiting Postoperative anemia due to acute blood loss Osteoporosis Periprosthetic fracture around internal prosthetic left hip joint Surgical History left hip revision (04/10/16) Dr Kang, periprosthetic fracture, revision, [facility] 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) POLO; LEFT; ALSO R HIP 01/06/08 Tooth extraction (05/19/1963) COMPLETE UPPER AND LOWER EXTRACTIONS Colonoscopy - MAC (01/17/16) Colonoscopy - MAC (10/15/12) Biopsy of breast (12/29/14) Left breast, [facility], benign intraductal papilloma Arthroplasty (12/23/12) R total knee arthroplasty,cemented Dr Valenzuela Family History Mother , COPD at age 73. Substance abuse Father , heart at age 70. Heart disease Brother , accident at age 47. No problems noted. Social History Smoking/Tobacco Use Status: Never Smoking risk assessment performed?: Yes Alcohol Intake: former Drug use: Never Substance use type: does not use Details: used alcohol in distant past Housing: detention Do you feel safe at home: Yes Do you feel safe in your relationship?: Yes Time Spent with Patient Time Spent with Patient: <45 minutes Time was spent: preparing to see the patient(eg.review tests), obtaining and/or reviewing separately otained hiistory, ordering medications,tests, procedures, referring, communicating with other health point of care specialist, indepentently interpreting results, counseling the patient and care coordination
[2025-02-06] MEDS: NIFEdipine-CR 30 MG TABCR 60 MG PO (09:20)
[2025-02-06] MEDS: Folic Acid 1 MG TAB PO (09:21)
[2025-02-06] MEDS: Normal Saline Flush 10 ML SYR IVP (09:21)
--- NOTE | 2025-02-06 09:21 | CMDISCH_ITS ---
Date of service: 02/06/25 Time of Service: 09:22 LACE Index Scoring Tool Questions: Length of Stay (in days): 3 Was the patient admitted via the E.D.?: Yes E.D. Visits: 3 Answers: Total Score: 9 Risk of Readmission: Low Risk Care Management Discharge Plan Reason for Hospitalization: CRYSTAL Discharge Plan: Pat will discharge back to [facility] later today. She will f/u with the facility provider and continue per her plan of care. Pat will transport via [facility] wheelchair van as coordinated by CM. Patient/Family Education Needs: Review of discharge instructions, activity, limitations, and discuss Ask me 3. SDOH Health Related Social Needs: Health related social needs daily activities Health related social needs details lives at [facility]
--- NOTE | 2025-02-06 09:35 | PT.INTREAT ---
Date of service: 02/06/25 Time of Service: 09:10 PT Notes Visit Reasons: maya Inpatient Physical Therapy Treatment Note [facility] Date: February 06, 2025 PRECAUTIONS:[place] SUBJECTIVE: Jo notes overall doing well. Agreeable to completing some exercises and trying to stand with PT this morning. OBJECTIVE: ? PAIN: no complaints of pain VITALS: monitored via nursing Therapeutic Activities (36789x8): Direct one-on-one instruction in dynamic activities to improve functional performance. ? BED MOBILITY/TRANSFERS? Rolling L/R: minAx1, scooting up in bed needed max x2 Supine-sit: supervision? Sit-supine: minAx1 ? Sit-stand: mod Ax1? Stand-sit: mod Ax1 ? Bed-Chair: maxA? Chair-bed: maxA Provided skilled cues and instruction on performance and technique throughout.? GAIT? Assistive Device: FWW? Weight bearing: FWB Assist: max x1 ? Distance:? 0 ft, stood bedside 1 minute, sat and rested while brief was changed, stood again for new brief to be pulled up via nursing. Very shaky secondary to weakness. ? Deviation: Extensive cueing for trunk control. Consistently leaning backward. ? Therapeutic Exercises (72294o5): Direct one-on-one instruction in therapeutic exercises to develop strength, endurance, range of motion and flexibility. ? Exercises ? Heel slides x10 R/L Ankle pumps x10 R/L Quad sets x10 R/L SLR x10 R/L Seated July x10 R/L LAQ x10 R/L Hip abduction/Adduction slides supine x10 R/L ? Provided skilled instruction in proper exercise performance Provided skilled manual cues to facilitate proper muscle recruitment and/or form ASSESSMENT:? Jo remains very weak B LE and unsteady on her feet. Requires continued strength promoting functional mobility and transfers. Plan: Continue with Physical Therapy intervention for strengthening, bed mobility, transfers, gait, stairs, balance training, use of assistive device. TREATMENT CODE/TIME: 13211o9-43 minutes, [id number] minutes 9:10-9:35 am DISCHARGE RECOMMENDATION: Return to [facility] with resumption of skilled PT intervention Divine Feliciano, MPT
--- NOTE | 2025-02-06 10:54 | NUR.NOTE ---
Nursing Note: Report to [facility]. Report on orientation, b/b incontience, labs, mobility, diet.
[2025-02-09 10:05] LABS: Renin Activity, Plasma <0.6 ng/mL/h
== END 2025-02-06 11:17 | disposition skilled nursing facility (03) ==
LOC: ER 18:17 → MS 21:19
PROVIDERS: Family Medicine; Admitting Provider Hospitalist; Emergency Provider Student in an Organized Health Care Education/Training Program; PCP Physician Assistant Medical; Responsible Provider Family Medicine; Visit Provider Hospitalist
DX: N17.9 Acute kidney failure, unspecified (principal); E87.6 Hypokalemia; E83.42 Hypomagnesemia; D50.9 Iron deficiency anemia, unspecified; I50.30 Unspecified diastolic (congestive) heart failure; R05.9 Cough, unspecified; Z86.73 Personal history of transient ischemic attack (TIA), and cerebral infarction without residual deficits; E86.0 Dehydration; I13.0 Hypertensive heart and chronic kidney disease with heart failure and stage 1 through stage 4 chronic kidney disease, or unspecified chronic kidney disease; M06.9 Rheumatoid arthritis, unspecified; E78.5 Hyperlipidemia, unspecified; G25.81 Restless legs syndrome; K21.9 Gastro-esophageal reflux disease without esophagitis; N18.30 Chronic kidney disease, stage 3 unspecified; M81.0 Age-related osteoporosis without current pathological fracture; Z79.899 Other long term (current) drug therapy
CPT/HCPCS: 00123; 36415; 76770; 80048; 80053; 85027; 93005; 96361; 96365; 96372; 97110; 97162; 97530; 99285; 70450; 80320; 81003; 81015; 82088; 82565; 82607; 82746; 83540; 83550; 83735; 84244; 84300; 84443; 84484; 85025; 93010; 99222; 99233; 99238; G0378; J1644; J3475; J3480; J7512

== ENCOUNTER 2025-02-03 15:53 | Outpatient (REF) | payer MEDICARE, SELFPAY ==
[2025-02-03 13:17] LABS: Abs Immature Grans 0.03 10^3/uL (0.0-0.06); HCT 24.4 % (36.0-46.0); HGB 7.5 g/dL (11.2-15.7); Immature Grans % 0.4 %; MCH 23.4 pg (27.0-33.0); MCHC 30.7 % (32.0-36.0); MCV 76 fL (80-95); MPV 9.8 fL (8.0-11.0); Platelet Count 353 10^3/uL (130-400); RBC 3.20 10^6/uL (3.93-5.22); RDW 17.5 % (11.7-14.6); RDW-SD 49.0 fL; WBC 6.79 10^3/uL (4.4-10.8)
[2025-02-03 13:32] LABS: Anion Gap 10.9 mmol/L (3-11); BUN 47 mg/dL (7-18); CO2 30.1 mmol/L (21.0-32.0); Calcium 8.3 mg/dL (8.5-10.1); Chloride 98 mmol/L (98-107); Estimated GFR 9.45 (mL/min/1.73m2); Glucose 105 mg/dL (74-106); Magnesium 1.7 mg/dL (1.8-2.4); NT-proBNP 8745 pg/mL (<300); Potassium 3.7 mmol/L (3.5-5.1); Sodium 139 mmol/L (136-145)
[2025-02-03 13:40] LABS: Hypochromasia 2+
== END 2025-02-03 15:54 | disposition home or self-care (01) ==
LOC: LBN 15:53
PROVIDERS: PCP Physician Assistant Medical; Visit Provider Family Medicine
DX: J90 Pleural effusion, not elsewhere classified (principal)
CPT/HCPCS: 80048; 83735; 83880; 85025

== ENCOUNTER 2025-02-07 21:10 | Inpatient (IN) | payer MEDICARE, OTHER, SELFPAY ==
--- NOTE | 2025-02-07 21:00 | DI.CT_ITS ---
Exam(s) CT HEAD WO EXAM: CT HEAD WO CLINICAL HISTORY: slow speech, recent CRYSTAL. TECHNIQUE: Imaging Protocol: Axial computed tomography images with coronal and sagittal reformatted images were created and reviewed COMPARISON: CT CT HEAD WO from 02/03/2025 FINDINGS: Ventricles and Extra axial spaces: Normal in size and morphology for the patient's age. Hemorrhage: None. Cerebral parenchyma: No evidence of acute infarct or mass. There is mild atrophy. Old lacunar infarct again noted in the right external capsule and left basal ganglia. There are patchy areas of decreased attenuation again noted in the white matter consistent with microvascular changes. Calcifications are again noted in the left basal ganglia. Midline shift: None. Brainstem/Cerebellum: Normal. Bones: No skull or facial fractures. Visualized Paranasal sinuses:Mild mucosal thickening in the ethmoid and sphenoid sinuses as well as inferior right mastoids. Soft Tissues: Unremarkable. ORBITS: Unremarkable. PITUITARY: Not enlarged. IMPRESSION: No acute intracranial process.Stable chronic findings as above. The preliminary [facility] report was reviewed. RADIATION DOSE DELIVERED: 849.82mGy.cm Total DLP DATA REPOSITORY: All CT scans at this facility are submitted to the National Radiology Data Registry (NRDR) Dose Index Registry (DIR) with the [employer] ([employer]). RADIATION OPTIMIZATION: All CT scans at this facility use at least one of these dose optimization techniques: automated exposure control; mA and/or kV adjustment per patient size (includes targeted exams where dose is matched to clinical indication); or iterative reconstruction.
[2025-02-07 21:15] VITALS: BP 155/64; PULSE 107; RESP 23; TEMP 37.2; O2SAT 99
--- NOTE | 2025-02-07 21:15 | RT.EKG_ITS ---
APPROVED REPORT Exam: Resting ECG Reason for Exam: AMS Patient Location: E HR:103 bpm ECG Measurements Heart Rate 103 AXIS OH 148 P 37 QRSd 81 QRS 7 QT 347 T 67 QTc 449 Conclusion Sinus tachycardia, rate 103 No interval abnormalities No STEMI Q wave lead III, V1, unchanged from prior Compared to prior, quadrigeminy now present
--- NOTE | 2025-02-07 21:15 | W.ED.GENAD ---
Discharge Plan Disposition Patient Disposition: Admit to [facility] Condition: Stable Discharge Details Clinical Impression: Observed seizure-like activity, Slow rate of speech, CRYSTAL (acute kidney injury), Hypomagnesemia Primary Care Provider: Marlene Pereira ED Provider: Betty Adams Home Meds and New Rx's Prescriptions: No Action folic acid 1 MG tablet 1 mg PO DAILY Qty: 90 latanoprost 2.5 ML drops 1 drp OU HS pramipexole 0.25 MG tablet 0.25 mg PO HS Qty: 90 Rx Instructions: for restless leg syndrome acetaminophen [Tylenol] 325 MG tablet 650 mg PO Q4H PRN PRN0RF mirtazapine 15 mg tablet 15 mg PO HS magnesium hydroxide [Milk of Magnesia] 400 mg/5 mL suspension 30 ml PO DAILY PRN PRN Rx Instructions: give 30 mL by mouth as needed for no BM for 3 days docusate sodium 100 mg capsule 100 mg PO BID PRN PRN (Reason: constipation) bisacodyl 10 mg suppository 10 mg IA DAILY PRN PRN Rx Instructions: 1 suppository as needed if no BM results 12 hours after administering milk of magnesia ferrous sulfate [FeroSul] 325 mg (65 mg iron) tablet 325 mg PO DAILY sodium phosphates 19-7 gram/118 mL enema 118 ml IA DAILY PRN PRN Rx Instructions: Use 1 emena as needed if no BM 24 hours after bisacodyl suppository ondansetron 4 mg tablet,disintegrating 4 mg PO Q6H PRN PRN (Reason: nausea and vomiting) nifedipine 30 mg Tablet Extended Release 24hr 60 mg PO DAILY Qty: 90 0RF HPI General Mode of arrival: EMS. Date/Time Provider Initiated Documentation: 02/07/25 21:24. Limitations to Documentation: no limitations. Information obtained by: patient, family, EMS and old records reviewed. HPI Narrative: This is an 84-year-old female patient with a past medical history significant for CKD, heart failure, hypertension, hyperlipidemia, rheumatoid arthritis, and a recent admission to this facility for CRYSTAL, discharged yesterday, brought in for change in mentation and speech. The patient resides at [facility] and [facility], and at 730 this evening a family member and staff member noticed that she seemed to just be staring into space. They noted that once she started responding again after several minutes, that she seemed slow of speech. No tonic-clonic or seizure-like activity noted, no seizure history. The patient was noted to have a low-grade temperature and mild tachycardia, has recently been treated for a urinary tract infection, and was transported by EMS for evaluation. Collateral information was able to be obtained from the patient's family member, daughter, who states that her brother actually saw the patient around dinnertime, which was closer to 5 PM. She had a similar episode at that time, which resolved and there was not brought to the attention of the nursing staff. The patient is staring towards the right side of the room, but with multiple prompts is able to turn towards the left to look at this provider. She speaks very slowly, is able to answer questions including her name, where she is, and states that she is not experiencing any pain. Related Data Home Medications ?Medication ?Instructions ?Recorded ?Confirmed folic acid 1 mg tablet 1 mg PO DAILY #90 tab-caps 08/21/12 02/03/25 latanoprost 0.005 % eye drops 1 drp OU HS 02/27/16 02/03/25 acetaminophen 325 mg tablet 650 mg (2 x 325 mg) PO Q4H PRN PRN 04/22/16 02/03/25 (Tylenol) pramipexole 0.25 mg tablet 0.25 mg PO HS #90 tab-caps 01/27/17 02/03/25 mirtazapine 15 mg tablet 15 mg PO HS 02/03/25 02/04/25 bisacodyl 10 mg rectal suppository 10 mg IA DAILY PRN PRN 02/04/25 02/04/25 docusate sodium 100 mg capsule 100 mg PO BID PRN PRN constipation 02/04/25 02/04/25 ferrous sulfate 325 mg (65 mg 325 mg PO DAILY 02/04/25 02/04/25 iron) tablet (FeroSul) magnesium hydroxide 400 mg/5 mL 30 ml PO DAILY PRN PRN 02/04/25 02/04/25 oral suspension (Milk of Magnesia) ondansetron 4 mg disintegrating 4 mg PO Q6H PRN PRN nausea and 02/04/25 02/04/25 tablet vomiting sodium phosphates 19 gram-7 118 ml IA DAILY PRN PRN 02/04/25 02/04/25 gram/118 mL enema nifedipine 30 mg tablet,extended 60 mg (2 x 30 mg) PO DAILY #90 tabs 02/06/25 release 24 hr Previous Rx's ?Medication ?Instructions ?Recorded acetaminophen 325 mg tablet 650 mg (2 x 325 mg) PO Q4H PRN PRN 04/22/16 (Tylenol) nifedipine 30 mg tablet,extended 60 mg (2 x 30 mg) PO DAILY #90 tabs 02/06/25 release 24 hr Allergies Allergy/AdvReac Type Severity Reaction Status Date / Time hydrocodone (From Vicodin) AdvReac Intermediate N/V Unverified 12/17/24 12:49 lovastatin AdvReac Intermediate MUSCLE Unverified 12/17/24 12:49 ACHES oxycodone (From Percocet) AdvReac Intermediate N/V Unverified 12/17/24 12:49 simvastatin AdvReac Intermediate MUSCLE Unverified 12/17/24 12:49 ACHES niacin AdvReac Mild MUSCLE Unverified 12/17/24 12:49 ACHES General MAXIMILIAN: 4 Exam Narrative Exam Narrative: Gen: awake and alert, in no apparent distress. Appears chronically ill HEENT: PERRL, EOMs full and without nystagmus. External ears and nose normal, mucous membranes moist. Neck: Supple, full range of motion Lungs: No increased work of breathing, lung sounds clear and equal bilaterally without wheezes, rhonchi, or rales. CV: Heart with tachycardic rate but regular rhythm. Strong and symmetrical radial pulses. Abdomen: Soft, nondistended, non-tender to palpation. No rigidity, rebound tenderness, or guarding. MSK: No joint swelling, no redness. Full ROM without limitation, no external traumatic findings. Skin: No rashes or lesions to visualized skin. Normal color, warm, and dry. Neuro: Cranial nerves II-XII intact and symmetrical bilaterally. 5/5 strength in all muscle groups x4 extremities. No apparent sensory deficits. Does not ambulate at baseline, very slow to follow commands, and slow to stop following commands. Speech is clear though the patient seems to have difficulty finding words. Psych: Appropriate for situation. Medical Decision Making This is an 84-year-old female patient presenting for evaluation of change in mentation and speech. My differential includes but is not limited to stroke, intracranial hemorrhage, mass effect, seizure, metabolic derangement, ACS, arrhythmia, CRYSTAL, liver injury. No reported trauma, patient is reassuringly afebrile, and maintaining an appropriate blood pressure. Her blood pressure is not so elevated that I am concerned for hypertensive emergency, press, etc. We obtained an EKG which shows a normal sinus rhythm with quadrigeminy, the PVC burden is increased from priors but otherwise similar are no significant changes or evidence of ischemia, interval abnormality, or ectopy. We will send the patient for Noncon CT, I was able to review her most recent laboratory studies and given her recent CRYSTAL with a GFR under 15 I will hold on empiric vascular imaging. The patient is out of the thrombolytic window, but we will consult teleneurology. I will also obtain labs to include CBC, CMP, lactate, INR, magnesium, troponin, BNP, and urinalysis. -CT scan reviewed by myself, radiology notes no significant changes from priors and specifically no evidence for large territory infarct, hemorrhage, mass effect. I reviewed the patient's laboratory studies, she has no significant leukocytosis, stable anemia and no thrombocytopenia. INR 1.0, lactate is low at 1.4. Magnesium was noted to be low at 1.4, and will be repleted intravenously. I do note that the patient has an elevation in her potassium to 6.0, though some hemolysis of the sample was noted. BUN and creatinine slightly increased from her baseline levels, 44 and 3.5 respectively. We will provide the patient with a 500 cc fluid bolus and recheck her BMP to assess her renal function and potassium. BGL 114, no liver enzyme abnormalities, troponin negative, and without interval increase at 1 hour delta recheck.. BNP is slightly elevated at 8400 but this is unchanged from most recent priors. Teleneurology evaluated the patient and I discussed the case with them. They note no true focal neurodeficits though she is very slow to respond, with some difficulty following commands. They are most concerned whether or not these episodes represent seizure, given her risk factor of dementia. Their recommendation is to obtain MRI/MRA tomorrow, load the patient with 1 g Keppra IV and initiate Keppra 500 mg twice daily, as well as a low-dose aspirin. The patient will require an EEG during this admission, unless her MRI demonstrates another etiology such as stroke. I spoke with the hospitalist who has graciously accepted this patient for admission to their service for ongoing workup and management. Remained hemodynamically appropriate while under my care. Her repeat BMP shows a normal potassium at 4.8, reassuring against hyperkalemia requiring treatment, and evidence of renal failure requiring dialysis. Betty Adams MD Quality:SDOH Health Related Social Needs: Health related social needs daily activities Health related social needs details lives at [facility] All Active Problems (Updated 02/07/25 @ 23:52 by Betty Adams MD) Hypomagnesemia (Acute) CRYSTAL (acute kidney injury) (Acute) Slow rate of speech (Acute) Observed seizure-like activity (Acute) Cough (Acute) Anemia (Chronic) CRYSTAL (acute kidney injury) (Acute) Heart failure with preserved ejection fraction (Acute) CKD (chronic kidney disease) (Chronic) Hypertension, essential (Acute 05/24/11) high blood pressure in [place] with atypical chest pain; rx metoprolol Rheumatoid arthritis (Chronic 04/21/11) ONSET 04/2011; DX 08/28; MTX RX 09/20/11 DR CRAWFORD Hyperlipidemia (Acute 05/19/06) GOAL LDL<160; RISK 5% CALC IN 2006; INTOL SOME STATINS Bilateral pleural effusion (Acute) Microcytic anemia (Acute) Skin tear of right upper extremity (Acute) Immunization, tetanus-diphtheria (Acute) Laceration of left upper arm (Acute) Hx of falling (Acute) Periprosthetic fracture around internal prosthetic right hip joint (Acute 08/02/24) Closed sacral fracture (Acute) History of surgery (Active) T & A. Appendectomy. RT arthroplasty 12/2007. LT arthroplasty 03/2012. Right distal clavical excision 11/05/2009. Right bunionectomy x 2. Right leg venous ligation. Colonoscopy October 15 - found to have tubular adenoma. Restless legs (Active) Managed with Sinemet Gastroesophageal reflux disease (Active) Hyperlipidemia (Active) Rheumatoid arthritis (Active 12/23/12) Osteoarthritis of knee (Active 12/23/12) Rhematoid arthritis and DJD right knee wqith mild valgus deformity and flexion contracture. Right total knee arthroplasty, cemented by Dr. Case Valenzuela 12-23-2012 Skin lesion (Acute) Medical History Pneumonia Adenoma of large intestine (10/15/12) TUBULOVILLOUS ADENOMA, [place]; repeat 3 yrs Tubular adenoma of colon (10/15/12) repeat 2016, Ascending colon-fragments of tubular adenomas Transverse colon-Fragments of sessile serrated adenoma; recheck 3 yrs Restless legs R only Hypokalemia Elevated brain natriuretic peptide (BNP) level Hyperkalemia Anemia Dysrhythmia Splenic mass Hypertension Chronic kidney disease, stage 3 Weight loss Tubular adenoma of colon Nausea with vomiting Postoperative anemia due to acute blood loss Osteoporosis Periprosthetic fracture around internal prosthetic left hip joint Surgical History left hip revision (04/10/16) Dr Kang, periprosthetic fracture, revision, [facility] 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) POLO; LEFT; ALSO R HIP 01/06/08 Tooth extraction (05/19/1963) COMPLETE UPPER AND LOWER EXTRACTIONS Colonoscopy - MAC (01/17/16) Colonoscopy - MAC (10/15/12) Biopsy of breast (12/29/14) Left breast, [facility] [place], benign intraductal papilloma Arthroplasty (12/23/12) R total knee arthroplasty,cemented Dr Valenzuela Family History Mother , COPD at age 73. Substance abuse Father , heart at age 70. Heart disease Brother , accident at age 47. No problems noted. Social History Smoking/Tobacco Use Status: Never Smoking risk assessment performed?: Yes Alcohol Intake: former Drug use: Never Substance use type: does not use Details: used alcohol in distant past Housing: alf Do you feel safe at home: Yes Do you feel safe in your relationship?: Yes
[2025-02-07 21:22] LABS: Abs Immature Grans 0.10 10^3/uL (0.0-0.06); HCT 27.3 % (36.0-46.0); HGB 8.3 g/dL (11.2-15.7); Immature Grans % 0.9 %; MCH 23.6 pg (27.0-33.0); MCHC 30.4 % (32.0-36.0); MCV 78 fL (80-95); MPV 9.1 fL (8.0-11.0); Platelet Count 325 10^3/uL (130-400); RBC 3.52 10^6/uL (3.93-5.22); RDW 18.7 % (11.7-14.6); RDW-SD 52.3 fL; WBC 11.47 10^3/uL (4.4-10.8)
[2025-02-07 21:39] LABS: INR 1.0 (0.9-1.1); Prothrombin Time 10.5 sec (9.1-11.1)
--- NOTE | 2025-02-07 21:46 | DI.VRAD_ITS ---
PROCEDURE INFORMATION: Exam: CT Head Without Contrast Exam date and time: 02/07/2025 9:35 PM Age: 84 years old Clinical indication: Stroke-like symptoms; Speech disturbance; Additional info: Slow speech, recent maya TECHNIQUE: Imaging protocol: Computed tomography of the head without contrast. Other technique: STROKE PROTOCOL was implemented. COMPARISON: CT HEAD WO 02/03/2025 4:57 PM FINDINGS: Brain: Significant generalized cerebral atrophy. Diffuse periventricular white matter hypoattenuation compatible with chronic microvascular ischemic changes. No intracranial mass or hemorrhage. Stable benign-appearing calcifications in the left caudate head. Cerebral ventricles: No ventriculomegaly. Paranasal sinuses: Mild diffuse mucosal thickening in the bilateral ethmoid air cells and sphenoid sinus. No fluid levels. Mastoid air cells: Visualized mastoid air cells are well aerated. Bones: Unremarkable. No acute fracture. Soft tissues: Unremarkable. Vasculature: Dense atherosclerotic calcification in the bilateral carotid siphons. IMPRESSION: No acute intracranial abnormality. Stable chronic findings as noted. ASSESSMENT: ASPECTS ([place] Stroke Program Early CT Score) is 10. Dictated and Authenticated by: Hussein Guzman MD. Orderin St. Rito Hernández MD
[2025-02-07 21:56] LABS: ALT 16 U/L (14-59); AST 26 U/L (15-37); Albumin 2.6 g/dL (3.4-5.0); Alkaline Phosphatase 152 U/L (46-116); Anion Gap 10.4 mmol/L (3-11); BUN 44 mg/dL (7-18); Bilirubin, Total 0.5 mg/dL (0.2-1.0); CO2 22.6 mmol/L (21.0-32.0); Calcium 9.1 mg/dL (8.5-10.1); Chloride 102 mmol/L (98-107); Estimated GFR 12.43 (mL/min/1.73m2); Glucose 114 mg/dL (74-106); Magnesium 1.4 mg/dL (1.8-2.4); NT-proBNP 8472 pg/mL (<300); Sodium 135 mmol/L (136-145); Total Protein 8.2 g/dL (6.4-8.2); Troponin I 16 ng/L (<or=51)
[2025-02-07 22:01] LABS: Potassium 6.0 mmol/L (3.5-5.1)
[2025-02-07 22:33] VITALS: PULSE 95; PULSE 97; RESP 23; O2SAT 99
[2025-02-07] MEDS: Lactated Ringers 500 ML IV (22:40)
[2025-02-07] MEDS: MAGNESIUM SULFATE 2 GM/50 ML BAG IV_INF (22:40)
[2025-02-07 22:49] LABS: Troponin I 16 ng/L (<or=51)
[2025-02-07] MEDS: levETIRAcetam 1,000 MG in Normal Saline 100 ML 400 MG IVPB (23:35)
[2025-02-07 23:45] LABS: Anion Gap 9.0 mmol/L (3-11); BUN 46 mg/dL (7-18); CO2 23.0 mmol/L (21.0-32.0); Calcium 8.5 mg/dL (8.5-10.1); Chloride 104 mmol/L (98-107); Estimated GFR 13.84 (mL/min/1.73m2); Glucose 113 mg/dL (74-106); Potassium 4.8 mmol/L (3.5-5.1); Sodium 136 mmol/L (136-145)
--- NOTE | 2025-02-07 23:50 | W.PM.HP.N ---
Date of service: 02/07/25 Time of Service: 23:55 Assessment and Plan Assessment and plan (1) New onset seizure: Start date: 02/07/25 Status: Acute Assessment and plan: This is an 84-year-old lady recent hospitalized for CRYSTAL and return to the long term at baseline. The evening of of admission the patient began to have change in mental status with staring to the right but no tonic-clonic seizure activity. She was more confused after these events. She also has slow speech. She appears to be slowly improving and teleneurology recommends treatment for possible seizure disorder with patient being at increased risk with dementia. CT of the head was negative and because of CKD, MRI of the brain will be performed and if negative MRA of the brain and neck will be performed. She is on a baby aspirin. She was loaded with Keppra IV 1000 mg and will continue Keppra 500 mg twice daily. Plans are for her to return to the long term. Rehabilitation potential may be minimal. She is approaching [facility] care. She is a DNR/DNI. (2) Hypomagnesemia: Start date: 02/07/25 Status: Acute Assessment and plan: Patient is chronically not on diuretics and takes no magnesium supplementation. This may be nutritional. Replete IV with 2 g of magnesium sulfate and trend labs. (3) Dementia: Status: Chronic Assessment and plan: Patient does have increased risk of seizures with dementia according to teleneurology. This appears to be a recent onset and progression most likely vascular. Alkaline phosphatase is chronically elevated may be secondary to increasing lack of mobility. (4) UTI (urinary tract infection): Start date: 02/07/25 Status: Acute Assessment and plan: Patient is chronically incontinent wearing and adult diaper and had Renee catheter placed in the ED because of incontinence and need to check a urine. Renee will be removed to soon as possible patient to be initiated on Rocephin IV with her change in mental status. She did have a slightly elevated white blood cell count but no fever. She was not complaining of urinary symptoms or pain. (5) CKD (chronic kidney disease): Status: Chronic Assessment and plan: Slightly exacerbated but near baseline. Patient also has a chronic anemia associate with this problem. (6) Hypertension, essential: Status: Chronic Assessment and plan: Stable on nifedipine with continuation of the same. (7) Hyperlipidemia: Status: Chronic Assessment and plan: Patient is not on statin and is allergic to simvastatin. Teleneurology did not recommend initiation of high-dose statin, but treatment of possible new onset seizures. (8) Heart failure with preserved ejection fraction: Status: Chronic Assessment and plan: Patient is off medical regimen at this time and has only slight peripheral edema with no evidence of fluid overload. Continue to monitor. BNP is at baseline. History of Present Illness History of Present Illness Chief Complaint: Staring spell with gazing to the right and slow speech. Narrative: This is an 84-year-old female patient who was recently hospitalized for CRYSTAL with history of CKD and discharged back to the long term 1 day ago. In the long term the family said that she was conversing with them normally the morning of admission and nursing staff at this facility stated that at baseline she could ambulate with assistance. The family noticed the patient having episodes starting in the evening while eating supper where she was there off past the person and for the right with no seizure-like activity but the patient was more confused than usual for period of time after the event. She had no focal tremors or tonic-clonic movements and no facial movements. She would answer simple questions when more awake but was speaking very slowly. She was brought to the ED for evaluation and CT of the head was negative for any acute process with MRI of the brain advised by teleneurology. They thought that she was most likely having seizure activity and she was loaded with Keppra 1000 mg IV with Keppra 500 mg twice daily to be taken. She also was placed on a baby aspirin. She is not on a statin and is allergic to these. At the time of the teleneurology visit the patient was not moving her legs but does move all of her extremities presently but appears weaker than her baseline. She is not able to give further history and family was interviewed by the ED provider. She does have an element of dementia with which the family is struggling. There is no apparent acute stroke on CT without contrast. Teleneurology note was reviewed and recommendations appreciated. Patient remains a DNR/DNI and may be approaching palliative care with her stuttering hospitalizations and decompensation. Review of Systems Narrative: 13 point review systems otherwise unobtainable, see ED HPI and report from family and long term. Patient was at baseline mentation this morning with family. Presently she is delirious and has baseline dementia. She does wear an adult diaper. She usually does ambulate with assistance according to the floor nurses by previous hospitalization. PFSH All Active Problems (Updated 02/08/25 @ 05:54 by Prabhakar Hui) UTI (urinary tract infection) (Acute) Dementia (Chronic) New onset seizure (Acute) Hypomagnesemia (Acute) CRYSTAL (acute kidney injury) (Acute) Slow rate of speech (Acute) Observed seizure-like activity (Acute) Cough (Acute) Anemia (Chronic) CRYSTAL (acute kidney injury) (Acute) Heart failure with preserved ejection fraction (Chronic) CKD (chronic kidney disease) (Chronic) Hypertension, essential (Chronic 05/24/11) high blood pressure in [place] with atypical chest pain; rx metoprolol Rheumatoid arthritis (Chronic 04/21/11) ONSET 04/2011; DX 08/28; MTX RX 09/20/11 DR CRAWFORD Hyperlipidemia (Acute 05/19/06) GOAL LDL<160; RISK 5% CALC IN 2006; INTOL SOME STATINS Bilateral pleural effusion (Acute) Microcytic anemia (Acute) Skin tear of right upper extremity (Acute) Immunization, tetanus-diphtheria (Acute) Laceration of left upper arm (Acute) Hx of falling (Acute) Periprosthetic fracture around internal prosthetic right hip joint (Acute 08/02/24) Closed sacral fracture (Acute) History of surgery (Active) T & A. Appendectomy. RTH arthroplasty 12/2007. LTH arthroplasty 03/2012. Right distal clavical excision 11/05/2009. Right bunionectomy x 2. Right leg venous ligation. Colonoscopy October 15 - found to have tubular adenoma. Restless legs (Active) Managed with Sinemet Gastroesophageal reflux disease (Active) Hyperlipidemia (Chronic) Rheumatoid arthritis (Active 12/23/12) Osteoarthritis of knee (Active 12/23/12) Rhematoid arthritis and DJD right knee wqith mild valgus deformity and flexion contracture. Right total knee arthroplasty, cemented by Dr. Case Valenzuela 12-23-2012 Skin lesion (Acute) Medical History Pneumonia Adenoma of large intestine (10/15/12) TUBULOVILLOUS ADENOMA, Bob; repeat 3 yrs Tubular adenoma of colon (10/15/12) repeat 2016, Ascending colon-fragments of tubular adenomas Transverse colon-Fragments of sessile serrated adenoma; recheck 3 yrs Restless legs R only Hypokalemia Elevated brain natriuretic peptide (BNP) level Hyperkalemia Anemia Dysrhythmia Splenic mass Hypertension Chronic kidney disease, stage 3 Weight loss Tubular adenoma of colon Nausea with vomiting Postoperative anemia due to acute blood loss Osteoporosis Periprosthetic fracture around internal prosthetic left hip joint Surgical History left hip revision (04/10/16) Dr Kang, periprosthetic fracture, revision, [facility] 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) POLO; LEFT; ALSO R HIP 01/06/08 Tooth extraction (05/19/1963) COMPLETE UPPER AND LOWER EXTRACTIONS Colonoscopy - MAC (01/17/16) Colonoscopy - MAC (10/15/12) Biopsy of breast (12/29/14) [place] [facility] [place]raductal papill[place] Arthroplasty (12/23/12) R total knee arthroplasty,cemented Dr Valenzuela Family History Mother , COPD at age 73. Substance abuse Father , heart at age 70. Heart disease Brother , accident at age 47. No problems noted. Social History Smoking/Tobacco Use Status: Never Smoking risk assessment performed?: Yes Alcohol Intake: former Drug use: Never Substance use type: does not use Details: used alcohol in distant past Housing: long term Do you feel safe at home: Yes Do you feel safe in your relationship?: Yes Meds Allergies and Home Medications Allergies Allergy/AdvReac Type Severity Reaction Status Date / Time hydrocodone (From Vicodin) AdvReac Intermediate N/V Unverified 12/17/24 12:49 lovastatin AdvReac Intermediate MUSCLE Unverified 12/17/24 12:49 ACHES oxycodone (From Percocet) AdvReac Intermediate N/V Unverified 12/17/24 12:49 simvastatin AdvReac Intermediate MUSCLE Unverified 12/17/24 12:49 ACHES niacin AdvReac Mild MUSCLE Unverified 12/17/24 12:49 ACHES Home Medications ?Medication ?Instructions ?Recorded ?Confirmed ?Type folic acid 1 mg tablet 1 mg PO DAILY #90 tab-caps 08/21/12 02/08/25 History latanoprost 0.005 % eye drops 1 drp OU HS 02/27/16 02/08/25 History acetaminophen 325 mg tablet 650 mg (2 x 325 mg) PO Q4H PRN PRN 04/22/16 02/08/25 Rx (Tylenol) pramipexole 0.25 mg tablet 0.25 mg PO HS #90 tab-caps 01/27/17 02/08/25 History mirtazapine 15 mg tablet 15 mg PO HS 02/03/25 02/08/25 History bisacodyl 10 mg rectal suppository 10 mg NE DAILY PRN PRN 02/04/25 02/08/25 History docusate sodium 100 mg capsule 100 mg PO BID PRN PRN constipation 02/04/25 02/08/25 History ferrous sulfate 325 mg (65 mg 325 mg PO DAILY 02/04/25 02/08/25 History iron) tablet (FeroSul) magnesium hydroxide 400 mg/5 mL 30 ml PO DAILY PRN PRN 02/04/25 02/08/25 History oral suspension (Milk of Magnesia) ondansetron 4 mg disintegrating 4 mg PO Q6H PRN PRN nausea and 02/04/25 02/08/25 History tablet vomiting sodium phosphates 19 gram-7 118 ml NE DAILY PRN PRN 02/04/25 02/08/25 History gram/118 mL enema nifedipine 30 mg tablet,extended 60 mg (2 x 30 mg) PO DAILY #90 tabs 02/06/25 02/08/25 Rx release 24 hr Exam Narrative Exam Narrative: General: Patient is moderately obese and obtunded lying in bed comfortably but opening her eyes to verbal stimulation. She speaks very slowly and is wandering into speech when questioned. She has simple yes no answers to questions as to where she is and how she feels which seem to be appropriate. She is in no acute distress. She is alert and oriented to person and place only. HEENT: Normocephalic, eyes with pupils equal and reactive to light symmetrically, extraocular movement intact and sclera anicteric. Oropharynx with moist mucosa and fair dentition. Neck: Supple without JVD. Back: Not examined patient not able to sit up. Lungs: Fair aeration and clear to auscultation over anterior lung alejandro without focalizing rales or rhonchi. No expiratory wheeze. Breast: Exam deferred. Heart: Distant heart sounds with regular rate and rhythm and no appreciable murmur or gallop. Abdomen: Obese contour, soft nontender to palpation no palpable hepatosplenomegaly. No guarding or rebound. Bowel sounds positive in all quadrants. Genitalia/rectal: Exam deferred. Patient has Renee catheter with clear urine draining. Extremities: 1+ pitting edema both lower extremities over the ankles with no clubbing or cyanosis. Fair capillary refill. Skin: Pale, warm and dry. Neuro: Cranial nerves II through XII appear to be grossly intact, no focalizing motor deficits but patient appears overall very weak moving all extremities against gravity and having decreased but present hand grasp. No Babinski's. DTRs fibrotic and symmetrical. No tremor. Psych: Flattened affect the patient appearing delusional which may be approaching baseline with her progressive dementia. Mood not testable. Remote and recent memory not testable. Results Imaging Imaging Studies: Exam: CT Head Without Contrast Exam date and time: 02/07/2025 9:35 PM Age: 84 years old Clinical indication: Stroke-like symptoms; Speech disturbance; Additional info: Slow speech, recent crystal COMPARISON: CT HEAD WO 02/03/2025 4:57 PM FINDINGS: Brain: Significant generalized cerebral atrophy. Diffuse periventricular white matter hypoattenuation compatible with chronic microvascular ischemic changes. No intracranial mass or hemorrhage. Stable benign-appearing calcifications in the left caudate head. Cerebral ventricles: No ventriculomegaly. Paranasal sinuses: Mild diffuse mucosal thickening in the bilateral ethmoid air cells and sphenoid sinus. No fluid levels. Mastoid air cells: Visualized mastoid air cells are well aerated. Bones: Unremarkable. No acute fracture. Soft tissues: Unremarkable. Vasculature: Dense atherosclerotic calcification in the bilateral carotid siphons. IMPRESSION: No acute intracranial abnormality. Stable chronic findings as noted. Labs 02/07/25 21:13 02/07/25 23:31 Labs: Laboratory Results - last 24 hr 02/07/25 02/07/25 02/07/25 21:13 22:24 23:31 WBC 11.47 H RBC 3.52 L Hgb 8.3 L Hct 27.3 L MCV 78 L MCH 23.6 L MCHC 30.4 L RDW 18.7 H Plt Count 325 MPV 9.1 Immature Gran % 0.9 Neutrophils % 77.3 Lymphocytes % 15.5 Monocytes % 4.2 Eosinophils % 1.8 Basophils % 0.3 Nucleated RBC % 0.0 Absolute Neutrophils 8.87 H Absolute Lymphocytes 1.78 Absolute Monocytes 0.48 Absolute Eosinophils 0.21 Absolute Basophils 0.03 PT 10.5 INR 1.0 VBG Lactate 1.4 Sodium 135 L 136 Potassium 6.0 H* D 4.8 D Chloride 102 104 Carbon Dioxide 22.6 23.0 Anion Gap 10.4 9.0 BUN 44 H 46 H Creatinine 3.5 H 3.2 H Est GFR (CKD-EPI 2020) 12.43 13.84 Glucose 114 H 113 H Calcium 9.1 8.5 Magnesium 1.4 L Total Bilirubin 0.5 AST 26 ALT 16 Alkaline Phosphatase 152 H Troponin I 16 16 NT-Pro-B Natriuret Pep 8472 H Total Protein 8.2 Albumin 2.6 L Last Vital Signs Temp 37.2 C 02/07/25 21:15 Pulse 95 H 02/07/25 22:33 Resp 23 02/07/25 22:33 BP 155/64 H 02/07/25 21:15 Pulse Ox 99 02/07/25 22:33 Time Spent Time spent with Patient: >75 minutes Time was spent: preparing to see the patient(eg.review tests), ordering medications,tests, procedures, referring, communicating with other health home health aide caregiver, indepentently interpreting results and care coordination
[2025-02-08] VITALS (7 sets, daily range): BP systolic 122–156; BP diastolic 62–74; PULSE 76–99; RESP 16–23; TEMP 35.8–36.8; O2SAT 97–99
[2025-02-08 00:35] LABS: Glucose Negative (Negative)
[2025-02-08 00:42] LABS: RBC 20-50 HPF (0-2)
[2025-02-08 00:43] LABS: C & S Indicated? Yes
[2025-02-08 00:50] LABS: COVID-19 PCR Negative (Negative); RSV PCR Negative (Negative)
--- NOTE | 2025-02-08 01:24 | W.PC.ACHO ---
Registration Status: ADM IN Primary Language: Preferred Language: Portuguese ED Information & Data Chief Complaint AMS/LOC 02/07/25 21:19 Chief Complaint AMS/LOC 02/07/25 21:15 Triage Note Pt MAXIMO from [facility] 02/07/25 21:15 Health. Staff reports tech went to check on pt and pt was staring off into space, and unable to state her name . Medical / Surgical History (Last Reviewed 02/08/25 @ 00:14 by Prabhakar Hui) Pneumonia Adenoma of large intestine (10/15/12) Tubular adenoma of colon (10/15/12) Restless legs Hypokalemia Elevated brain natriuretic peptide (BNP) level Hyperkalemia Anemia Dysrhythmia Splenic mass Hypertension Chronic kidney disease, stage 3 Weight loss Tubular adenoma of colon Nausea with vomiting Postoperative anemia due to acute blood loss Osteoporosis Periprosthetic fracture around internal prosthetic left hip joint (Last Reviewed 02/08/25 @ 00:14 by Prabhakar Hui) left hip revision (04/10/16) 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) Tooth extraction (05/19/1963) Colonoscopy - MAC (01/17/16) Colonoscopy - MAC (10/15/12) Biopsy of breast (12/29/14) Arthroplasty (12/23/12) Most Recent Vital Signs Temperature 36.2 C L 02/08/25 01:08 Temperature Source Tympanic 02/08/25 01:05 Pulse 80 02/08/25 01:08 Pulse Rhythm Regular 02/08/25 01:08 Pulse 97 H 02/07/25 22:33 Respiratory Rate 22 02/08/25 01:08 Respiratory Effort Normal, Non-Labored 02/08/25 01:08 Respiratory Depth Normal 02/08/25 01:08 Respiratory Pattern Normal 02/08/25 01:08 Blood Pressure 156/72 H 02/08/25 01:08 Blood Pressure Mean 100 02/08/25 01:05 Blood Pressure Position Supine 02/07/25 21:15 Pulse Oximetry 97 02/08/25 01:08 Oxygen Delivery Method Room Air 02/08/25 01:08 Oxygen Flow Rate 0 02/08/25 01:08 Pain Level 0 02/08/25 01:08 Allergies hydrocodone (From Vicodin) Adverse Reaction (Intermediate, Unverified 12/17/24 12:49) N/V pt. reports N/V, pt. states she get violently ill lovastatin Adverse Reaction (Intermediate, Unverified 12/17/24 12:49) MUSCLE ACHES oxycodone (From Percocet) Adverse Reaction (Intermediate, Unverified 12/17/24 12:49) N/V pt. reports N/V, pt. states she get violently ill simvastatin Adverse Reaction (Intermediate, Unverified 12/17/24 12:49) MUSCLE ACHES niacin Adverse Reaction (Mild, Unverified 12/17/24 12:49) MUSCLE ACHES Precautions Isolation Standard precaution 02/07/25 21:19 IV IV Catheter Type [Right Saline Lock Antecubital] IV Catheter Gauge [Right 18 Antecubital] Diet Orders Category Date Time Status Regular/Normal [DIET] Nutrition 02/08/25 Breakfast Active Diagnostics 02/08/25 02/08/25 02/08/25 Range/Units 05:35 01:03 00:25 WBC Pending (4.4-10.8) 10^3/uL RBC Pending (3.93-5.22) 10^6/uL Hgb Pending (11.2-15.7) g/dL Hct Pending (36.0-46.0) % MCV Pending (80-95) fL MCH Pending (27.0-33.0) pg MCHC Pending (32.0-36.0) % RDW Pending (11.7-14.6) % Plt Count Pending (130-400) 10^3/uL MPV Pending (8.0-11.0) fL Immature Gran % % Neutrophils % % Lymphocytes % % Monocytes % % Eosinophils % % Basophils % % Nucleated RBC % (0.0-0.3) % Absolute Neutrophils (1.2-6.7) 10^3/uL Absolute Lymphocytes (1.2-3.4) 10^3/uL Absolute Monocytes (0.1-0.8) 10^3/uL Absolute Eosinophils (0.0-0.7) 10^3/uL Absolute Basophils (0.0-0.2) 10^3/uL PT (9.1-11.1) sec INR (0.9-1.1) VBG Lactate (<or=2.0) mmol/L Sodium Pending (136-145) mmol/L Potassium Pending (3.5-5.1) mmol/L Chloride Pending (98-107) mmol/L Carbon Dioxide Pending (21.0-32.0) mmol/L Anion Gap Pending (3-11) mmol/L BUN Pending (7-18) mg/dL Creatinine Pending (0.55-1.02) mg/dL Est GFR (CKD-EPI 2020) Pending (mL/min/1.73m2) Glucose Pending (74-106) mg/dL Calcium Pending (8.5-10.1) mg/dL Magnesium Pending (1.8-2.4) mg/dL Total Bilirubin Pending (0.2-1.0) mg/dL AST Pending (15-37) U/L ALT Pending (14-59) U/L Alkaline Phosphatase Pending (46-116) U/L Troponin I (<or=51) ng/L NT-Pro-B Natriuret Pep (<300) pg/mL Total Protein Pending (6.4-8.2) g/dL Albumin Pending (3.4-5.0) g/dL TSH Pending Urine Color Yellow (Yellow) Urine Clarity Sl Cloudy (Clear) Urine pH 6.0 (5-8) Ur Specific [place] 1.015 (1.005-1.025) Urine Protein >=300 H (Neg-Trace) mg/dL Urine Ketones Negative (Negative) mg/dL Urine Blood Large H (Negative) Urine Nitrite Negative (Negative) Urine Bilirubin Negative (Negative) Urine Urobilinogen 0.2 (Up to 0.2) mg/dL Ur Leukocyte Esterase Negative (Negative) Urine RBC 20-50 H (0-2) HPF Urine WBC 10-20 H (0-5) HPF Ur Epithelial Cells Few (Negative) HPF Urine Crystals Few Amorphous (Negative) HPF Urine Bacteria Moderate (Negative) HPF Urine Casts 0-2 Coarse Granular (Negative) LPF Urine Mucus Moderate (Negative) Urine Other Few Renal (Negative) Ur Culture Indicated? Yes Urine Glucose Negative (Negative) mg/dL COVID-19 Source SARS-CoV-2 (PCR) (Negative) Influenza Type A (PCR) (Negative) Influenza Type B (PCR) (Negative) RSV (PCR) (Negative) 02/08/25 02/07/2525 Range/Units 00:08 23:31 22:24 WBC (4.4-10.8) 10^3/uL RBC (3.93-5.22) 10^6/uL Hgb (11.2-15.7) g/dL Hct (36.0-46.0) % MCV (80-95) fL MCH (27.0-33.0) pg MCHC (32.0-36.0) % RDW (11.7-14.6) % Plt Count (130-400) 10^3/uL MPV (8.0-11.0) fL Immature Gran % % Neutrophils % % Lymphocytes % % Monocytes % % Eosinophils % % Basophils % % Nucleated RBC % (0.0-0.3) % Absolute Neutrophils (1.2-6.7) 10^3/uL Absolute Lymphocytes (1.2-3.4) 10^3/uL Absolute Monocytes (0.1-0.8) 10^3/uL Absolute Eosinophils (0.0-0.7) 10^3/uL Absolute Basophils (0.0-0.2) 10^3/uL PT (9.1-11.1) sec INR (0.9-1.1) VBG Lactate (<or=2.0) mmol/L Sodium 136 (136-145) mmol/L Potassium 4.8 D (3.5-5.1) mmol/L Chloride 104 (98-107) mmol/L Carbon Dioxide 23.0 (21.0-32.0) mmol/L Anion Gap 9.0 (3-11) mmol/L BUN 46 H (7-18) mg/dL Creatinine 3.2 H (0.55-1.02) mg/dL Est GFR (CKD-EPI 2020) 13.84 (mL/min/1.73m2) Glucose 113 H (74-106) mg/dL Calcium 8.5 (8.5-10.1) mg/dL Magnesium (1.8-2.4) mg/dL Total Bilirubin (0.2-1.0) mg/dL AST (15-37) U/L ALT (14-59) U/L Alkaline Phosphatase (46-116) U/L Troponin I 16 (<or=51) ng/L NT-Pro-B Natriuret Pep (<300) pg/mL Total Protein (6.4-8.2) g/dL Albumin (3.4-5.0) g/dL TSH Urine Color (Yellow) Urine Clarity (Clear) Urine pH (5-8) Ur Specific [place] (1.005-1.025) Urine Protein (Neg-Trace) mg/dL Urine Ketones (Negative) mg/dL Urine Blood (Negative) Urine Nitrite (Negative) Urine Bilirubin (Negative) Urine Urobilinogen (Up to 0.2) mg/dL Ur Leukocyte Esterase (Negative) Urine RBC (0-2) HPF Urine WBC (0-5) HPF Ur Epithelial Cells (Negative) HPF Urine Crystals (Negative) HPF Urine Bacteria (Negative) HPF Urine Casts (Negative) LPF Urine Mucus (Negative) Urine Other (Negative) Ur Culture Indicated? Urine Glucose (Negative) mg/dL COVID-19 Source Nasopharynx SARS-CoV-2 (PCR) Negative (Negative) Influenza Type A (PCR) Negative (Negative) Influenza Type B (PCR) Negative (Negative) RSV (PCR) Negative (Negative) 02/07/25 Range/Units 21:13 WBC 11.47 H (4.4-10.8) 10^3/uL RBC 3.52 L (3.93-5.22) 10^6/uL Hgb 8.3 L (11.2-15.7) g/dL Hct 27.3 L (36.0-46.0) % MCV 78 L (80-95) fL MCH 23.6 L (27.0-33.0) pg MCHC 30.4 L (32.0-36.0) % RDW 18.7 H (11.7-14.6) % Plt Count 325 (130-400) 10^3/uL MPV 9.1 (8.0-11.0) fL Immature Gran % 0.9 % Neutrophils % 77.3 % Lymphocytes % 15.5 % Monocytes % 4.2 % Eosinophils % 1.8 % Basophils % 0.3 % Nucleated RBC % 0.0 (0.0-0.3) % Absolute Neutrophils 8.87 H (1.2-6.7) 10^3/uL Absolute Lymphocytes 1.78 (1.2-3.4) 10^3/uL Absolute Monocytes 0.48 (0.1-0.8) 10^3/uL Absolute Eosinophils 0.21 (0.0-0.7) 10^3/uL Absolute Basophils 0.03 (0.0-0.2) 10^3/uL PT 10.5 (9.1-11.1) sec INR 1.0 (0.9-1.1) VBG Lactate 1.4 (<or=2.0) mmol/L Sodium 135 L (136-145) mmol/L Potassium 6.0 H* D (3.5-5.1) mmol/L Chloride 102 (98-107) mmol/L Carbon Dioxide 22.6 (21.0-32.0) mmol/L Anion Gap 10.4 (3-11) mmol/L BUN 44 H (7-18) mg/dL Creatinine 3.5 H (0.55-1.02) mg/dL Est GFR (CKD-EPI 2020) 12.43 (mL/min/1.73m2) Glucose 114 H (74-106) mg/dL Calcium 9.1 (8.5-10.1) mg/dL Magnesium 1.4 L (1.8-2.4) mg/dL Total Bilirubin 0.5 (0.2-1.0) mg/dL AST 26 (15-37) U/L ALT 16 (14-59) U/L Alkaline Phosphatase 152 H (46-116) U/L Troponin I 16 (<or=51) ng/L NT-Pro-B Natriuret Pep 8472 H (<300) pg/mL Total Protein 8.2 (6.4-8.2) g/dL Albumin 2.6 L (3.4-5.0) g/dL TSH Urine Color (Yellow) Urine Clarity (Clear) Urine pH (5-8) Ur Specific [place] (1.005-1.025) Urine Protein (Neg-Trace) mg/dL Urine Ketones (Negative) mg/dL Urine Blood (Negative) Urine Nitrite (Negative) Urine Bilirubin (Negative) Urine Urobilinogen (Up to 0.2) mg/dL Ur Leukocyte Esterase (Negative) Urine RBC (0-2) HPF Urine WBC (0-5) HPF Ur Epithelial Cells (Negative) HPF Urine Crystals (Negative) HPF Urine Bacteria (Negative) HPF Urine Casts (Negative) LPF Urine Mucus (Negative) Urine Other (Negative) Ur Culture Indicated? Urine Glucose (Negative) mg/dL COVID-19 Source SARS-CoV-2 (PCR) (Negative) Influenza Type A (PCR) (Negative) Influenza Type B (PCR) (Negative) RSV (PCR) (Negative) 02/08/25 00:25 Urine Culture - Pending Urine - Reflex from Ua Intake and Output - 24 Hour Total 02/07/25 21:05 thru 02/08/25 01:18 Weight 54.9 kg Other: Urine Color Yellow Urine Appearance Clear Urinary Catheter Urinary Catheter Date of 02/08/25 Insertion [Urethral (Renee)] Time of insertion [Urethral ( 00:23 Renee)] Falls Risk Assessment History of Falls Previous History 02/08/25 01:08 Contributing Factors Confusion,Incontinence 02/08/25 01:08 Ambulatory Aids Uses ambulatory device + 02/07/25 21:19 Tubes/Lines With any additional score 02/07/25 21:19 Gait Evaluation W/no contributing factors 02/08/25 01:08 Cognition Cognitive impairment 02/08/25 01:08 Fall Total Score 46 02/08/25 01:08 Level of Risk Moderate Risk 02/08/25 01:08 Problems (Last Reviewed 02/08/25 @ 00:14 by Prabhakar Hui) Dementia (Chronic) New onset seizure (Acute) Hypomagnesemia (Acute) CRYSTAL (acute kidney injury) (Acute) Slow rate of speech (Acute) Observed seizure-like activity (Acute) CKD (chronic kidney disease) (Chronic) Hypertension, essential (Chronic 05/24/11) Hyperlipidemia (Chronic) v v v v v v v v v Sending and/or Receiving Nurses: Please use comment section below to note any information pertinent to the patient hand-off not included above. Information / Comments: pt transfer From ED to Room 210 Via stretcher . Alert&Oriented to placed and person ,pleasant . VSS . RA denied SOB , N/V Renee in placed Report received from:Dayana
[2025-02-08 06:26] LABS: HCT 23.0 % (36.0-46.0); MCH 24.2 pg (27.0-33.0); MCHC 30.9 % (32.0-36.0); MCV 79 fL (80-95); MPV 8.6 fL (8.0-11.0); Platelet Count 242 10^3/uL (130-400); RBC 2.93 10^6/uL (3.93-5.22); RDW 18.4 % (11.7-14.6); RDW-SD 52.4 fL; WBC 6.72 10^3/uL (4.4-10.8)
[2025-02-08] MEDS: cefTRIAXone 1 GM/50 ML BAG IVPB (06:27)
[2025-02-08 07:20] LABS: HGB 7.1 g/dL (11.2-15.7)
[2025-02-08 07:53] LABS: ALT 11 U/L (14-59); AST 16 U/L (15-37); Albumin 1.9 g/dL (3.4-5.0); Alkaline Phosphatase 112 U/L (46-116); Anion Gap 8.9 mmol/L (3-11); BUN 43 mg/dL (7-18); Bilirubin, Total 0.3 mg/dL (0.2-1.0); CO2 24.1 mmol/L (21.0-32.0); Calcium 8.4 mg/dL (8.5-10.1); Chloride 106 mmol/L (98-107); Estimated GFR 13.34 (mL/min/1.73m2); Glucose 90 mg/dL (74-106); Magnesium 1.9 mg/dL (1.8-2.4); Potassium 4.3 mmol/L (3.5-5.1); Sodium 139 mmol/L (136-145); Total Protein 6.3 g/dL (6.4-8.2)
[2025-02-08 07:58] LABS: TSH (W/Ref FT4) 2.77 uIU/mL (0.36-3.74)
[2025-02-08] MEDS: NIFEdipine-CR 30 MG TABCR 60 MG PO (08:07)
[2025-02-08] MEDS: levETIRAcetam 500 MG TAB PO (08:07)
[2025-02-08] MEDS: Aspirin 81 MG CHEW PO (08:07)
[2025-02-08] MEDS: Ferrous Sulfate 325 MG TAB PO (08:08)
[2025-02-08] MEDS: Folic Acid 1 MG TAB PO (08:08)
[2025-02-08] MEDS: Normal Saline Flush 10 ML SYR IVP ×3 (08:08→20:31)
--- NOTE | 2025-02-08 08:58 | PDOC.CMIN ---
Date of service: 02/08/25 Time of Service: 08:58 Care Management Initial Assmt Initial Assessment Reason for Hospitalization: seizure Functional Status/Living Situation Patient Presentation: Tamy was sitting up in a chair when CM met with her. She was awake and alert and easily engaged with CM, known to her from previous hospital stays. Pat was readmitted after only 2 days. Her initiasl hospitalization on 02/03 was for CRYSTAL however this time she was admitted for seizure-like activity, which was described as staring off to the right. An EEG and an MRI were done with no new findings. She will likely return to [facility] tomorrow. No additional eopisodes have been noted today. Town of Residence: [facility] Resides with: Other ([facility]) Significant Other/Family: Local Natural Supports: children Employment Status: Retired Instrumental Activities of Daily Living (ADLs): Requires support Medications Medication Management: No Issues/Barriers identified Physical Functioning/Mobility Assistive Device: walker Advance Directives Advance Directives: Do you have an Advance Directive: Y 02/09/19, 12:00 AD On File at [facility]: Y 02/09/19, 12:00 Date Asked 02/03/25 02/07/25, 21:05 AD Date Reviewed 02/08/25 Today, 01:38 COLST On File at [facility] No 02/07/25, 21:15 COLST Date Scanned Code Status Resuscitation Status DNR/DNI Portal Pt does not currently have a portal and education provided: Yes Insurance Coverage/Financial Issues Insurance: Medicare [employer] Care Team Visit Care Team Role Provider Type Rod Mendoza MD MD [facility] STAFF PHYSICIAN LARRY Vale Primary Care Provider PHYSICIANS ASSISTANT Shawna Hay Other Providers REG OCCUPATIONAL THERAPIST InPatient Jayson Nguyễn Other Providers OTHER Betty Adams MD Emergency Provider [facility] STAFF PHYSICIAN Prabhakar Hui Admit Provider NON-[facility] STAFF PHYSICIAN Attending Provider Discharge Potential Discharge Needs: Other (return to [facility]) Anticipated Barriers to Discharge: None Identified Patient/Family Education Needs: Review discharge instructions, discuss Ask Me Three Transportation: RCT Plan: Anticipate Tamy will be transferred back to [facility] where she resides, when medically ready. She will follow up with the facility providers and plan of care and transport via RCT. CM will follow and continue to support discharge planning. Social Determinants of Health Screening Will the Patient Participate in the Screening?: Unable to obtain Do you worry about having a steady place to live?: choose not to answer In the past 12 months, have you had to go without electric, gas, oil or water in your home?: choose not to answer Has lack of transportation kept you from medical appointments or from doing things needed for daily living?: choose not to answer Has anyone in your life made you feel unsafe or unsupported?: choose not to answer How hard is it for you to pay for the very basics like food, housing, medical care, and heating? Would you say it is:: Not hard at all Do you want help finding or keeping work or a job?: I do not need or want help If for any reason you need help with day-to-day activities such as bathing, preparing meals, shopping, managing finances, etc., do you get the help you need?: I don?t need any help How often do you feel lonely or isolated from those around you?: Never Do you speak a language other than [place] at home?: No Does the patient want assistance with any of the above?: No Health Related Social Needs Health related social needs: material hardship(utilities) (Z59.12) Health related social needs details: no further PFSH All Active Problems (Updated 02/08/25 @ 05:54 by Prabhakar Hui) UTI (urinary tract infection) (Acute) Dementia (Chronic) New onset seizure (Acute) Hypomagnesemia (Acute) CRYSTAL (acute kidney injury) (Acute) Slow rate of speech (Acute) Observed seizure-like activity (Acute) Cough (Acute) Anemia (Chronic) CRYSTAL (acute kidney injury) (Acute) Heart failure with preserved ejection fraction (Chronic) CKD (chronic kidney disease) (Chronic) Hypertension, essential (Chronic 05/24/11) high blood pressure in [place] with atypical chest pain; rx metoprolol Rheumatoid arthritis (Chronic 04/21/11) ONSET 04/2011; DX 08/28; MTX RX 09/20/11 DR CRAWFORD Hyperlipidemia (Acute 05/19/06) GOAL LDL<160; RISK 5% CALC IN 2006; INTOL SOME STATINS Bilateral pleural effusion (Acute) Microcytic anemia (Acute) Skin tear of right upper extremity (Acute) Immunization, tetanus-diphtheria (Acute) Laceration of left upper arm (Acute) Hx of falling (Acute) Periprosthetic fracture around internal prosthetic right hip joint (Acute 08/02/24) Closed sacral fracture (Acute) History of surgery (Active) T & A. Appendectomy. RT arthroplasty 12/2007. LTH arthroplasty 03/2012. Right distal clavical excision 11/05/2009. Right bunionectomy x 2. Right leg venous ligation. Colonoscopy October 15 - found to have tubular adenoma. Restless legs (Active) Managed with Sinemet Gastroesophageal reflux disease (Active) Hyperlipidemia (Chronic) Rheumatoid arthritis (Active 12/23/12) Osteoarthritis of knee (Active 12/23/12) Rhematoid arthritis and DJD right knee wqith mild valgus deformity and flexion contracture. Right total knee arthroplasty, cemented by Dr. Case Valenzuela 12-23-2012 Skin lesion (Acute) Medical History Pneumonia Adenoma of large intestine (10/15/12) TUBULOVILLOUS ADENOMA, Bob; repeat 3 yrs Tubular adenoma of colon (10/15/12) repeat 2016, Ascending colon-fragments of tubular adenomas Transverse colon-Fragments of sessile serrated adenoma; recheck 3 yrs Restless legs R only Hypokalemia Elevated brain natriuretic peptide (BNP) level Hyperkalemia Anemia Dysrhythmia Splenic mass Hypertension Chronic kidney disease, stage 3 Weight loss Tubular adenoma of colon Nausea with vomiting Postoperative anemia due to acute blood loss Osteoporosis Periprosthetic fracture around internal prosthetic left hip joint Surgical History left hip revision (04/10/16) Dr Kang, periprosthetic fracture, revision, [facility] 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) POLO; LEFT; ALSO R HIP 01/06/08 Tooth extraction (05/19/1963) COMPLETE UPPER AND LOWER EXTRACTIONS Colonoscopy - MAC (01/17/16) Colonoscopy - MAC (10/15/12) Biopsy of breast (12/29/14) Left breast, [facility], benign intraductal papilloma Arthroplasty (12/23/12) R total knee arthroplasty,cemented Dr Valenzuela Family History Mother , COPD at age 73. Substance abuse Father , heart at age 70. Heart disease Brother , accident at age 47. No problems noted. Social History Smoking/Tobacco Use Status: Never Smoking risk assessment performed?: Yes Alcohol Intake: former Drug use: Never Substance use type: does not use Details: used alcohol in distant past Housing: detention Do you feel safe at home: Yes Do you feel safe in your relationship?: Yes Readmission Within the Past 30 Days Yes or No: Yes Date of First Admission Date of 1st Admission: 02/03/25 Date of this Admission Date of Admission: 02/07/25 This admission was: Through ED Office Visit Since 1st Admission Have you seen your PCP in the office since discharge?: No Date of PCP Appointment: lives in a SNF If the patient came from [facility]. Facility Call the Facility to discuss the patient's admission: Patient's last admission was for Crystal. This admission is for a new seizure, Assessment for Readmission Summary of readmission circumstances, based upon interviews: Last admission was for crystal. This admission was for seizures which are new.
--- NOTE | 2025-02-08 09:00 | DI.MRI_ITS ---
Exam(s) MR BRAIN WO/W EXAM: MR BRAIN WO/W CLINICAL HISTORY: New onset seizures. TECHNIQUE: Multiplanar multisequence MRI of the brain was performed. CONTRAST MATERIAL: IV Contrast: 11 mL of Dotarem contrast administered. COMPARISON: MR MR BRAIN WO from 08/05/[address] HEAD WO from 02/07/2025 FINDINGS: The examination is limited due to patient motion artifact. VENTRICLES AND EXTRA AXIAL SPACES: Normal in size and morphology for the patient's age. HEMORRHAGE: None. CEREBRAL PARENCHYMA: No focus of restricted diffusion to suggest acute infarct. No space-occupying lesion identified. There are areas of hyperintense signal seen in the white matter on the FLAIR and T2 weighted images consistent with chronic microvascular ischemic disease. MIDLINE SHIFT: None. BRAINSTEM/CEREBELLUM: Normal. CALVARIUM: Normal. ENHANCEMENT: No suspicious enhancement identified. VISUALIZED PARANASAL SINUSES/MASTOIDS: There is mucosal thickening in the visualized paranasal sinuses. No air-fluid levels are seen. There is small amount of fluid seen in the mastoid air cells, right greater than left. [place]: Normal flow void. PITUITARY GLAND: Unremarkable. OTHER FINDINGS: IMPRESSION: 1. There is no evidence of an acute infarct, intracranial mass or enhancing lesion. 2. Age-related cerebral atrophy and chronic microvascular ischemic disease. DATA REPOSITORY:
[2025-02-08] MEDS: Enoxaparin 30 MG/0.3 ML SYR SC (12:06)
--- NOTE | 2025-02-08 12:28 | PDOC.EEG ---
Neurology EEG EEG: [facility] Department of Neurology INPATIENT EEG REPORT Date of Recordin02/08/25 Interpreting Physician: Dr. Betty Calzada Reason for study: Jo Pavon has known dementia and is admitted after staring spells concerning for seizure activity. Current Medications: Current Medications Acetaminophen (Acetaminophen 325 Mg Tab) 650 mg PO Q4H PRN PRN Al Hydrox/Mg Hydrox/Simethicone (Mylanta Suspension 30 Ml Cup) 30 ml PO Q2H PRN PRN Aspirin (Aspirin 81 Mg Chew) 81 mg PO DAILY [facility] Last Admin: 02/08/25 08:07 Dose: 81 mg Bisacodyl (Bisacodyl 10 Mg Supp) 10 mg [place] DAILY PRN PRN Cefpodoxime Proxetil (Cefpodoxime 200 Mg Tab) 200 mg PO BID [facility] Stop: 02/18/25 17:59 Docusate Sodium (Docusate Sodium 100 Mg Cap) 100 mg PO BID PRN PRN PRN Reason: Constipation Enoxaparin Sodium (Enoxaparin 30 Mg/0.3 Ml Syr) 30 mg SC DAILY [facility] Last Admin: 02/08/25 12:06 Dose: 30 mg Ferrous Sulfate (Ferrous Sulfate 325 Mg Tab) 325 mg PO DAILY [facility] Last Admin: 02/08/25 08:08 Dose: 325 mg Folic Acid (Folic Acid 1 Mg Tab) 1 mg PO DAILY [facility] Last Admin: 02/08/25 08:08 Dose: 1 mg IV Miscellaneous Supplies (Iv Access) 1 each IV DIRECTED [facility] Latanoprost (Latanoprost 0.005% 2.5 Ml Btl) 0 ml OU HS [facility] Levetiracetam (Levetiracetam 500 Mg Tab) 500 mg PO BID [facility] Last Admin: 02/08/25 08:07 Dose: 500 mg Magnesium Hydroxide (Milk Of Magnesia 30 Ml Cup) 30 ml PO DAILY PRN PRN Mirtazapine (Mirtazapine 15 Mg Tab) 15 mg PO HS [facility] Nifedipine (Nifedipine-Cr 30 Mg Tabcr) 60 mg PO DAILY [facility] Last Admin: 02/08/25 08:07 Dose: 60 mg Ondansetron HCl (Ondansetron O.D.T. 4 Mg Tabef) 4 mg PO Q6H PRN PRN PRN Reason: nausea and vomiting Polyethylene Glycol (Polyethylene Glycol 3350 17 Gm Packet) 17 gm PO DAILY PRN PRN PRN Reason: Constipation Pramipexole Dihydrochloride (Pramipexole 0.25 Mg Tab) 0.25 mg PO HS [facility]ON[facility] Sodium Biphosphate/Sodium Phosphate (Na Phosphate Enema-Adult 133 Ml Btl) 118 ml [place] DAILY PRN PRN Sodium Chloride (Normal Saline Flush 10 Ml Syr) 0 ml IVP PRN PRN Sodium Chloride (Normal Saline Flush 10 Ml Syr) 0 ml IVP BID [facility] Last Admin: 02/08/25 08:08 Dose: 30 ml Sodium Chloride (Normal Saline 10 Ml Vial) 0 ml IJ DIRECTED PRN METHODS: A 21 channel digitized electroencephalogram was performed in the [facility] Med/Surg Floor or ICU. The 10/20 international system of electrode placement was used and bipolar and referential electrode montages were recorded. In addition to EEG the patient was monitored for EKG and lateral/vertical eye movements. Activation procedures of photic stimulation and hyperventilation were performed if applicable. Video was used during activation procedures and during events where applicable. The duration of the recording was 30 minutes. DESCRIPTION OF EEG: The patient was noted to be awake, drowsy, and asleep during the recording. During maximal wakefulness a 9-Hz posterior background rhythm was present which was well-modulated, symmetrical, reactive to eye opening, and of moderate voltage. With eye opening the background activity changed to a low voltage mixture of alpha, beta, and occasional theta range frequencies. Faster frequencies were present in the bilateral anterior head regions. There was a normal anterior-posterior voltage gradient. During drowsiness, there was attenuation of the posterior dominant background rhythm and vertex waves. Stage II sleep was present with symmetrical sleep spindles, K-complexes, and vertex waves. During wakefulness, there was persistent, generalized, moderate-amplitude, non-rhythmic, generalized theta activity. During sleep at 11:00:41, there was a single F7 sharp wave that was not clearly epileptic. Activating Procedures: Photic stimulation was performed which produced no posterior driving response at various flash frequencies. Hyperventilation was not performed. EKG: EKG revealed normal sinus rhythm. INTERPRETATION: This EEG is abnormal due to: #1. Generalized, non-rhythmic theta slowing. #2. Single F7 sharp wave in sleep of uncertain significance. PRIOR EEG: none CLINICAL CORRELATION: The background slowing is suggestive of a mild diffuse cerebral encephalopathy of broad differential including toxic-metabolic etiology. No focal regions of cerebral dysfunction or epileptiform activity was present (the F7 sharp was not clearly epileptiform). Epilepsy remains a clinical diagnosis and a normal EEG does not rule out epilepsy. Clinical correlation is advised. Betty Calzada MD Date of service: 02/08/25
--- NOTE | 2025-02-08 13:18 | OTIE_ITS ---
Occupational Therapy Notes Inpatient Occupational Therapy Evaluation Date: 02/08/25 Referring Doctor: Dr. Hui OT Orders: Non Urgent Precautions: Fall, Standard, DNR/DNI PATIENT PROFILE/ADMITTING DIAGNOSIS: Pt is a 84 year old female who was admitted to Med Surg with the dx of clinical impression in the ED of Observed seizure- like activity, Slow rate of speech, CRYSTAL (acute kidney injury), Hypomagnesemia. Past Medical History: All Active Problems (Updated 02/08/25 @ 05:54 by Prabhakar Hui) UTI (urinary tract infection) (Acute) Dementia (Chronic) New onset seizure (Acute) Hypomagnesemia (Acute) CRYSTAL (acute kidney injury) (Acute) Slow rate of speech (Acute) Observed seizure-like activity (Acute) Cough (Acute) Anemia (Chronic) CRYSTAL (acute kidney injury) (Acute) Heart failure with preserved ejection fraction (Chronic) CKD (chronic kidney disease) (Chronic) Hypertension, essential (Chronic 05/24/11) high blood pressure in [place] with atypical chest pain; rx metoprolol Rheumatoid arthritis (Chronic 04/21/11) ONSET 04/2011; DX 08/28; MTX RX 09/20/11 DR CRAWFORD Hyperlipidemia (Acute 05/19/06) GOAL LDL<160; RISK 5% CALC IN 2006; INTOL SOME STATINS Bilateral pleural effusion (Acute) Microcytic anemia (Acute) Skin tear of right upper extremity (Acute) Immunization, tetanus-diphtheria (Acute) Laceration of left upper arm (Acute) Hx of falling (Acute) Periprosthetic fracture around internal prosthetic right hip joint (Acute 08/02/24) Closed sacral fracture (Acute) History of surgery (Active) T & A. Appendectomy. RT arthroplasty 12/2007. LT arthroplasty 03/2012. Right distal clavical excision 11/05/2009. Right bunionectomy x 2. Right leg venous ligation. Colonoscopy October 15 - found to have tubular adenoma.Restless legs (Active) Managed with SinemetGastroesophageal reflux disease (Active) Hyperlipidemia (Chronic) Rheumatoid arthritis (Active 12/23/12) Osteoarthritis of knee (Active 12/23/12) Rhematoid arthritis and DJD right knee wqith mild valgus deformity and flexion contracture. Right total knee arthroplasty, cemented by Dr. Case Valenzuela [id number] lesion (Acute) Medical History Pneumonia Adenoma of large intestine (10/15/12) TUBULOVILLOUS ADENOMA, Bob; repeat 3 yrs Tubular adenoma of colon (10/15/12) repeat 2016, Ascending colon-fragments of tubular adenomas Transverse colon-Fragments of sessile serrated adenoma; recheck 3 yrs Restless legs R only Hypokalemia Elevated brain natriuretic peptide (BNP) level Hyperkalemia Anemia Dysrhythmia Splenic mass Hypertension Chronic kidney disease, stage 3 Weight loss Tubular adenoma of colon Nausea with vomiting Postoperative anemia due to acute blood loss Osteoporosis Periprosthetic fracture around internal prosthetic left hip joint Surgical History left hip revision (04/10/16) Dr Kang, periprosthetic fracture, revision, NVRH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) POLO; LEFT; ALSO R HIP 01/06/08Tooth extraction (05/19/1963) COMPLETE UPPER AND LOWER EXTRACTIONSColonoscopy - MAC (01/17/16) Colonoscopy - MAC (10/15/12) Biopsy of breast (12/29/14) Left breast, [facility], benign intraductal papillomaArthroplasty (12/23/12) R total knee arthroplasty,cemented Dr Valenzuela Social History/Home Situation: Pt states that she is not sure where she lives but thinks that she lives at home. She notes that she is not sure where she is or why she is here. She is confused but very pleasant. EMR suggest that she is in a LTC or transitioning to a LTC facility but last known place of living is [facility]. She states that she needs help with getting herself ready but doesn't shower anymore. When asked how much help she needs at baseline she states that she is unsure. SUBJECTIVE: Pt was sitting in chair when OT arrived. She is pleasant and notes that she is willing to participate in consult. OBJECTIVE: General Observation: Pleasant, IV in the (R) UE with bruising slightly below Mental Status: Alert to name Pain: no c/o pain with OT consult. ROM: Right Upper Extremity: Shoulder flexion 140*. Elbow and wrist motion WFL Left Upper Extremity: Shoulder flexion 135*. Elbow and wrist motion WFL STRENGTH: Right Upper Extremity: Shoulder flexion 3+/5. Bicepss 4/5. Triceps 4/5. Cloth Printing Inspector is strong and equal. Left Upper Extremity: Shoulder flexion 3+/5. Bicepss 4/5. Triceps 4/5. Cloth Printing Inspector is strong and equal. SENSATION: Intact (B) UE FUNCTIONAL MOBILITY/ADLS: BATHING sitting in chair with max (A) Set up/clean up Bathing UE min vc (I) face, (B) UE and abdomen, hair was max (A) Bathing LE max (A) DRESSING seated in chair Dressing UE Mod (A) don and doffing hospital gown Dressing LE max (A) don and doffing (B) socks TOILETING pt denies EATING tray was present in the room when OT arrived. She notes that she is full and would like to skip on the rest of her meal. BALANCE: Static sitting Normal Dynamic Sitting Normal SPECIAL TESTS: Daily Activity Limitations Standardized Measure [facility] AM -PAC ?6 clicks? Daily Activity Inpatient Short Form: Raw score: 13 Standardized score: 32.03 CMS score: 63.03% INFORMED CONSENT/EDUCATION: Pt instructed in purpose of OT Consult and plan of care. ASSESSMENT: Patient is a 84-year-old female referred to occupational therapy services with diagnosis of UTI, Demenita, new onset seizure, ypomagnesemia, CRYSTAL . Patient presents with clinical signs and symptoms consistent with dx, as demonstrated by the following impairment level findings/functional limitations: Impairments in ADL/IADL and leisure activities, decreased gross and fine motor control, decreased functional activity tolerance, dementia dx decreasing cognition and task initiation. AMPAC score 13 Patient is assessed as a Moderate 45947 complexity based on the following: History: see above Examination: see functional limitations as noted above Presentation: evolving Decision Making: AMPAC score 13 GOALS Goals x1 week 1. Transfers min (A) 2. Dressing seated in chair (I) UE, mod (I) LE 3. Bathing seated in chair (I) UE, (I) LE 4. Toileting on toilet (I) 5. Eating seated in chair (I) PLAN OF CARE/TREATMENT PLAN: 1x/day, 3-5 days/ week x 1week Initiate Occupational Therapy Services for bathing, dressing, grooming, toileting, eating, transfer training. DISCHARGE RECOMMENDATIONS OT recommends that pt return to [facility] when medically cleared per MD with resumption of services at that time. TREATMENT TIME/MINUTES/CODES [id number], 15 minutes Shawna Hay OTR/[facility] [place], [place]
[2025-02-08] MEDS: Gadoterate meglumine 20 ML SYRINGE IVP (14:42)
--- NOTE | 2025-02-08 14:42 | PT.INNT ---
Date of service: 02/08/25 Time of Service: 14:43 PT Notes Visit Reasons: New onset seizures, Dementia Attempted to see patient but still at her MRI. Another therapist attempted at 2:00 pm and she was at MRI. Will attempt again patient and therapist are available.
--- NOTE | 2025-02-08 15:46 | W.PM.PROGNOT ---
Date of Service Date of service: 02/08/25 Time of Service: 15:46 Assessment and Plan Assessment and plan (1) New onset seizure: Start date: 02/07/25 Status: Acute Assessment and plan: -patient presented for concern of seizure-like activity -CT head in ED without acute findings -tele-neuro recommended MRI and EEG, both of which were without acute findings or witnessed seizure activity -patient was started on keppra 500mg BID -movement described does not appear to be seizure-like; patient reportedly would look to the right and stare off, but after a few seconds was redirectable. There was no mention of any observed seizure like movements - Keppra has been discontinued (2) Hypomagnesemia: Start date: 02/07/25 Status: Acute Assessment and plan: -s/p replacement -improved (3) Dementia: Status: Chronic Assessment and plan: -recent history of dementia which does put patient at risk of seizure as noted above (4) UTI (urinary tract infection): Start date: 02/07/25 Status: Acute Assessment and plan: -UA in ED leuk esterase and nitritate negative, though 10-20 WBC and moderate bacteria -started on CTX which has since been switched to cefpodoxime -f/u urine culture (5) CKD (chronic kidney disease): Status: Chronic Assessment and plan: -baseline (6) Hypertension, essential: Status: Chronic Assessment and plan: -contiune home nifedipine (7) Heart failure with preserved ejection fraction: Status: Chronic Assessment and plan: -without acute exacerbation Subjective Subjective Interval history since last seen: Patient states that she is doing well and has no complaints or concerns at this time. Exam Narrative Exam Narrative: well apearing older female laying in bed in no acute distress, awake, alert, oriented to person place, heart RRR, lungs CTAB, abdomen soft, non-tender, non-distended Objective Last Vital Signs Temp 96.8 F L 02/08/25 15:32 Pulse 99 H 02/08/25 15:32 Resp 16 02/08/25 15:32 BP 134/69 02/08/25 15:32 Pulse Ox 98 02/08/25 15:32 Laboratory Results - last 24 hr 02/07/25 02/07/25 02/07/25 21:13 22:24 23:31 WBC 11.47 H RBC 3.52 L Hgb 8.3 L Hct 27.3 L MCV 78 L MCH 23.6 L MCHC 30.4 L RDW 18.7 H Plt Count 325 MPV 9.1 Immature Gran % 0.9 Neutrophils % 77.3 Lymphocytes % 15.5 Monocytes % 4.2 Eosinophils % 1.8 Basophils % 0.3 Nucleated RBC % 0.0 Absolute Neutrophils 8.87 H Absolute Lymphocytes 1.78 Absolute Monocytes 0.48 Absolute Eosinophils 0.21 Absolute Basophils 0.03 PT 10.5 INR 1.0 VBG Lactate 1.4 Sodium 135 L 136 Potassium 6.0 H* D 4.8 D Chloride 102 104 Carbon Dioxide 22.6 23.0 Anion Gap 10.4 9.0 BUN 44 H 46 H Creatinine 3.5 H 3.2 H Est GFR (CKD-EPI 2020) 12.43 13.84 Glucose 114 H 113 H Calcium 9.1 8.5 Magnesium 1.4 L Total Bilirubin 0.5 AST 26 ALT 16 Alkaline Phosphatase 152 H Troponin I 16 16 NT-Pro-B Natriuret Pep 8472 H Total Protein 8.2 Albumin 2.6 L TSH Urine Color Urine Clarity Urine pH Ur Specific Leblanc Urine Protein Urine Ketones Urine Blood Urine Nitrite Urine Bilirubin Urine Urobilinogen Ur Leukocyte Esterase Urine RBC Urine WBC Ur Epithelial Cells Urine Crystals Urine Bacteria Urine Casts Urine Mucus Urine Other Ur Culture Indicated? Urine Glucose COVID-19 Source SARS-CoV-2 (PCR) Influenza Type A (PCR) Influenza Type B (PCR) RSV (PCR) 02/08/25 02/08/25 02/08/25 00:08 00:25 06:01 WBC 6.72 RBC 2.93 L Hgb 7.1 L Hct 23.0 L MCV 79 L MCH 24.2 L MCHC 30.9 L RDW 18.4 H Plt Count 242 MPV 8.6 Immature Gran % Neutrophils % Lymphocytes % Monocytes % Eosinophils % Basophils % Nucleated RBC % Absolute Neutrophils Absolute Lymphocytes Absolute Monocytes Absolute Eosinophils Absolute Basophils PT INR VBG Lactate Sodium 139 Potassium 4.3 Chloride 106 Carbon Dioxide 24.1 Anion Gap 8.9 BUN 43 H Creatinine 3.3 H Est GFR (CKD-EPI 2020) 13.34 Glucose 90 Calcium 8.4 L Magnesium 1.9 Total Bilirubin 0.3 AST 16 ALT 11 L Alkaline Phosphatase 112 Troponin I NT-Pro-B Natriuret Pep Total Protein 6.3 L Albumin 1.9 L TSH 2.77 Urine Color Yellow Urine Clarity Sl Cloudy Urine pH 6.0 Ur Specific Leblanc 1.015 Urine Protein >=300 H Urine Ketones Negative Urine Blood Large H Urine Nitrite Negative Urine Bilirubin Negative Urine Urobilinogen 0.2 Ur Leukocyte Esterase Negative Urine RBC 20-50 H Urine WBC 10-20 H Ur Epithelial Cells Few Urine Crystals Few Amorphous Urine Bacteria Moderate Urine Casts 0-2 Coarse Granular Urine Mucus Moderate Urine Other Few Renal Ur Culture Indicated? Yes Urine Glucose Negative COVID-19 Source Nasopharynx SARS-CoV-2 (PCR) Negative Influenza Type A (PCR) Negative Influenza Type B (PCR) Negative RSV (PCR) Negative Time Spent with Patient Time Spent with Patient: >50 minutes Time was spent: preparing to see the patient(eg.review tests), obtaining and/or reviewing separately otained hiistory, ordering medications,tests, procedures, referring, communicating with other health medicare sales representative, indepentently interpreting results, counseling the patient and care coordination
--- NOTE | 2025-02-08 17:24 | IN_ITS ---
PT Notes Visit Reasons: New onset seizures, Dementia Inpatient Physical Therapy Evaluation Date: 02/08/2025 Referring Doctor: Dr. Hui PT Orders: PT CONSULT: Exacerbation of chronic condition Precautions: fall, standard Patient Profile/Admitting Diagnosis: Tamy is an 84 year old female admitted from [facility] for altered mental status possible seizures, with PMH also significant for Rheumatoid arthritis, Cough, Heart failure with preserved ejection fraction and Hypertension. Teleneuro recommended Keppra which patient was started on. Patient underwent EEG and MRI of brain on 02/08/2025 with no significant acute changes noted. Social History/Home Situation: Resident of [facility]. Patient unable to give history of the last time she was able to walk. Notes from prior admission reviewed and patient daughter had reported 2-month since last ambulation. Equipment Owned/DME: resident of [facility] Subjective: Patient agreeable to participate in evaluation with encouragement she did note pain and weakness in her right lower extremity greater than left Objective: General Observation: Seated in chair, IV access in RUE. Mental Status: Alert throughout. Requires frequent reminders for task completion, and unable to recall tasks after completed. Pleasantly confused throughout session. . Unable to provide any significant history regarding baseline mobility. ROM: Right Upper Extremity: Shoulder flexion 140*. Elbow and wrist motion WFL. Left Upper Extremity: Shoulder flexion 130*. Elbow and wrist motion WFL. Right Lower Extremity: Hip flexion 100*. Functionally tolerates knee motion 0- 100*. Dorsiflexion to neutral Left Lower Extremity: Hip flexion 100* . Functionally tolerates knee motion 0- 100*. Dorsiflexion to neutral Strength: Right Upper Extremity: Shoulder flexion 3-/5. Biceps 4/5. Triceps 4/5. Optical Advisor is strong and equal. Left Upper Extremity: Shoulder flexion 3-/5. Biceps 4/5. Triceps 4/5. Optical Advisor is s stacie and equal. Right Lower Extremity: Hip flexion 3-/5. Glutes 3 -/5 quads 3-/5. HS 3/5. Ankle DF 3/5. Left Lower Extremity: Hip flexion 3-/5. Glutes 3 -/5 quads 3/5. HS 3/5. Ankle DF 3/5. Bed Mobility/Transfers: supine to sit: Mod assist with HOB at 30* sit-stand: mod A x 1, max cues and continued support at trunk to attain full upright position. stand-sit: max cues and mod A at the trunk sit-supine: mod A to RLE scooting in bed: mod A and max cues for technique Chair to bed: Max assist with FWW Max verbal cues for technique Gait: unable to perform Balance: Static Sitting: good Dynamic Sitting: fair Static Standing: poor Dynamic Standing: unable Special Tests: Mobility Limitations Standardized Measure [facility] AM-PAC 6 clicks Basic Mobility Inpatient Short Form: Raw Score: 11 CMS Score: 72.57 % deficit Informed Consent/Education: Patient instructed in purpose of PT consult and plan of care. Assessment: Jo is a long-term care resident at [facility], and will be appropriate for transfer back with resumption of PT services once medically appropriate. She will benefit from PT intervention in acute care setting to maximize mobility and independence prior to discharge. She currently demonstrates the following impairment level findings: 1. Decreased lower extremity strength 2. Decreased upper extremity strength 3. Decreased balance in standing 4. Fear of falling 5. Impaired functional activity tolerance 6. Impaired attention span 7. Cognitive status Impairments are contributing to the following functional limitations: 1. Unable to ambulate 2. Unable to independently perform bed mobility 3. Unable to independently perform transfers Patient is assessed as Moderate 18920 complexity based on the following: History: 84-year-old female with complicated acute medical issues in the presence of several chronic issues, including dementia, RA, history of multiple hip surgeries. Examination: As above Presentation: Evolving Decision Making: Moderate complexity Goals: Goals X1 week 1. Supine-Sit : Min assist 2. Sit-Supine: Min assist 3. Sit-Stand: Min assist 4. Stand-Sit : Min assist 5. Bed-Chair : Mod assist with FWW 6. Chair-Bed : Mod assist with FWW 7. Gait 10' with Mod assist and FWW Plan of Care/Treatment Plan: 1-2x/day, 7 days/week x 1 week. Plan of care has been reviewed with the SENIOR ORACLE ADF DEVELOPER providing the service under Physical Therapy direction. Initiate Physical Therapy intervention for strengthening, bed mobility, transfers, gait, stairs, balance training, use of assistive device. DISCHARGE RECOMMENDATIONS: Return to [facility] with resumption of skilled PT services TREATMENT CODE/TIME: 35148/4:50 PM?5:19 PM Kelley Dyson PT [facility]
[2025-02-08] MEDS: Cefpodoxime 200 MG TAB PO (17:28)
[2025-02-08] MEDS: Pramipexole 0.25 MG TAB PO (20:29)
[2025-02-08] MEDS: Latanoprost 0.005% 2.5 ML BTL OU (20:29)
[2025-02-08] MEDS: Mirtazapine 15 MG TAB PO (20:29)
[2025-02-09 03:37] VITALS: BP 156/81; PULSE 96; RESP 19; TEMP 36.6; O2SAT 100
[2025-02-09 07:07] LABS: HCT 21.4 % (36.0-46.0); MCH 23.7 pg (27.0-33.0); MCHC 30.4 % (32.0-36.0); MCV 78 fL (80-95); MPV 9.1 fL (8.0-11.0); Platelet Count 252 10^3/uL (130-400); RBC 2.74 10^6/uL (3.93-5.22); RDW 18.6 % (11.7-14.6); RDW-SD 52.2 fL; WBC 7.66 10^3/uL (4.4-10.8)
[2025-02-09 07:22] LABS: ALT 13 U/L (14-59); AST 15 U/L (15-37); Albumin 2.0 g/dL (3.4-5.0); Alkaline Phosphatase 119 U/L (46-116); Anion Gap 9.9 mmol/L (3-11); BUN 49 mg/dL (7-18); Bilirubin, Total 0.3 mg/dL (0.2-1.0); CO2 25.1 mmol/L (21.0-32.0); Calcium 8.8 mg/dL (8.5-10.1); Chloride 106 mmol/L (98-107); Estimated GFR 12.43 (mL/min/1.73m2); Glucose 87 mg/dL (74-106); Magnesium 1.8 mg/dL (1.8-2.4); Potassium 4.7 mmol/L (3.5-5.1); Sodium 141 mmol/L (136-145); Total Protein 6.8 g/dL (6.4-8.2)
[2025-02-09 07:28] VITALS: BP 171/78; PULSE 91; RESP 16; TEMP 36.5; O2SAT 98
[2025-02-09 07:31] LABS: HGB 6.5 g/dL (11.2-15.7)
[2025-02-09] MEDS: Enoxaparin 30 MG/0.3 ML SYR SC (09:01)
[2025-02-09] MEDS: Ferrous Sulfate 325 MG TAB PO (09:01)
[2025-02-09] MEDS: Cefpodoxime 200 MG TAB PO ×2 (09:01→11:44)
[2025-02-09] MEDS: NIFEdipine-CR 30 MG TABCR 60 MG PO (09:01)
[2025-02-09] MEDS: Aspirin 81 MG CHEW PO (09:01)
[2025-02-09] MEDS: Folic Acid 1 MG TAB PO (09:01)
[2025-02-09] MEDS: Normal Saline Flush 10 ML SYR IVP (09:03)
--- NOTE | 2025-02-09 09:13 | PDOC.CMDIS ---
Date of service: 02/09/25 Time of Service: 09:13 LACE Index Scoring Tool Questions: Length of Stay (in days): 2 Was the patient admitted via the E.D.?: Yes Comorbidities: Congestive Heart Failure, Dementia and Liver or Renal Disease E.D. Visits: 4 Answers: Total Score: 14 Risk of Readmission: High Risk Care Management Discharge Plan Reason for Hospitalization: seizures Discharge Plan: Tamy will be transferred back to [facility] where she resides. She will follow up with the facility providers and plan of care and transport via [facility]. Patient/Family Education Needs: Review discharge instructions, discuss Ask Me Three Services Needed at Discharge: Intermediate Facility SDOH Health Related Social Needs: Health related social needs material hardship Health related social needs details no further Health related social needs details: no further
[2025-02-09 09:44] LABS: HCT 27.6 % (36.0-46.0); HGB 8.4 g/dL (11.2-15.7)
--- NOTE | 2025-02-09 10:13 | W.PM.DS.N ---
Date of service: 02/09/25 Time of Service: 10:13 DS: Diagnosis Discharge Diagnosis (1) New onset seizure: Status: Acute (2) Hypomagnesemia: Status: Acute (3) Dementia: Status: Chronic (4) UTI (urinary tract infection): Status: Acute (5) CKD (chronic kidney disease): Status: Chronic (6) Hypertension, essential: Status: Chronic (7) Heart failure with preserved ejection fraction: Status: Chronic Discharge Plan Disposition Patient Disposition: [facility]NF) Condition: Good Discharge Details Reason For Visit: New onset seizures, Dementia Admit Date/Time: 02/07/25 23:57 Admit Provider: Prabhakar Hui Attending Provider: Prabhakar Hui Primary Care Provider: Marlene Pereira Hospital Course Hospital Course: Patient initially presented for concerns with seizure-like activity. Head CT, MRI and EEG that were without any acute findings or anything concerning for seizure-like activity. Additionally, patient's observed seizure-like activity, not convincing enough to continue Keppra, as it is described as patient looking to the right and staring off but was able to be redirected. Given the patient did not have any further episodes during hospitalization it was determined that she was stable for discharge back to rehab facility. Home Meds and New Rx's Prescriptions: New cefpodoxime 200 mg Tablet 200 mg PO BID Qty: 10 0RF Continued folic acid 1 MG tablet 1 mg PO DAILY Qty: 90 latanoprost 2.5 ML drops 1 drp OU HS pramipexole 0.25 MG tablet 0.25 mg PO HS Qty: 90 Rx Instructions: for restless leg syndrome acetaminophen [Tylenol] 325 MG tablet 650 mg PO Q4H PRN PRN0RF mirtazapine 15 mg tablet 15 mg PO HS magnesium hydroxide [Milk of Magnesia] 400 mg/5 mL suspension 30 ml PO DAILY PRN PRN Rx Instructions: give 30 mL by mouth as needed for no BM for 3 days docusate sodium 100 mg capsule 100 mg PO BID PRN PRN (Reason: constipation) bisacodyl 10 mg suppository 10 mg MI DAILY PRN PRN Rx Instructions: 1 suppository as needed if no BM results 12 hours after administering milk of magnesia ferrous sulfate [FeroSul] 325 mg (65 mg iron) tablet 325 mg PO DAILY sodium phosphates 19-7 gram/118 mL enema 118 ml MI DAILY PRN PRN Rx Instructions: Use 1 emena as needed if no BM 24 hours after bisacodyl suppository ondansetron 4 mg tablet,disintegrating 4 mg PO Q6H PRN PRN (Reason: nausea and vomiting) nifedipine 30 mg Tablet Extended Release 24hr 60 mg PO DAILY Qty: 90 0RF Discharge Instructions Activity:: Activity as Tolerated Equipment/Supplies:: No Equipment Needed Diet:: As Tolerated Discharge Orders Discharge Orders: Discharge Order (Routine); Ordered 02/09/25 Ordered By: Rod Mendoza DS: Summary Time Spent with Patient providing and/or coordinating discharge services: Greater than 30 minutes Status at Discharge Functional status at discharge: independent ambulation Overall status at discharge: patient is back to baseline Mental Status: mental status grossly normal Speech and Movement: speech and movement normal Mood: congruent mood Affect: normal affect Quality:SDOH Health Related Social Needs: Health related social needs material hardship Health related social needs details no further Health related social needs details: no further Exam Narrative Exam Narrative: well apearing older female laying in bed in no acute distress, awake, alert, oriented to person place, heart RRR, lungs CTAB, abdomen soft, non-tender, non-distended Psych Mental Status: mental status grossly normal Speech and Movement: speech and movement normal Mood: congruent mood Affect: normal affect DS: Data Vitals/I&O Vitals and I&O: Vital Signs Temperature 97.7 F 02/09/25 07:28 Temperature Source Temporal Artery Scan 02/09/25 07:28 Pulse 91 H 02/09/25 07:28 Pulse Rhythm Regular 02/08/25 01:08 Pulse 97 H 02/07/25 22:33 Respiratory Rate 16 02/09/25 07:28 Respiratory Effort Normal, Non-Labored 02/08/25 01:08 Respiratory Depth Normal 02/08/25 01:08 Respiratory Pattern Normal 02/08/25 01:08 Blood Pressure 171/78 H 02/09/25 07:28 Blood Pressure Mean 109 02/09/25 07:28 Blood Pressure Position Supine 02/07/25 21:15 Pulse Oximetry 98 02/09/25 07:28 Oxygen Delivery Method Room Air 02/09/25 07:28 Oxygen Flow Rate 0 02/09/25 07:28 Pain Level 0 02/08/25 05:29 Intake & Output 02/08/25 02/09/25 02/09/25 17:59 05:59 17:59 Intake Total 560 / 560 130 / 130 Output Total 650 / 650 Balance -90 / -90 130 / 130 Weight 115 lb 9.6 oz Intake: IV Oral 560 / 560 120 / 120 Output: Urine 650 / 650 Other: Urine Color Pale Yellow Yellow Straw Urine Appearance Clear Clear Urine Odor Strong Strong Data Completed and Pending Labs on day of discharge: Labs from last 24 hours 02/09/25 02/09/25 09:37 06:20 WBC 7.66 RBC 2.74 L Hgb 8.4 L 6.5 L* Hct 27.6 L 21.4 L MCV 78 L MCH 23.7 L MCHC 30.4 L RDW 18.6 H Plt Count 252 MPV 9.1 Sodium 141 Potassium 4.7 Chloride 106 Carbon Dioxide 25.1 Anion Gap 9.9 BUN 49 H Creatinine 3.5 H Est GFR (CKD-EPI 2020) 12.43 Glucose 87 Calcium 8.8 Magnesium 1.8 Total Bilirubin 0.3 AST 15 ALT 13 L Alkaline Phosphatase 119 H Total Protein 6.8 Albumin 2.0 L Preliminary micro results at discharge 02/08/25 00:25 Urine - Reflex from Ua Urine Culture - Preliminary PFSH All Active Problems (Updated 02/08/25 @ 05:54 by Prabhakar Hui) UTI (urinary tract infection) (Acute) Dementia (Chronic) New onset seizure (Acute) Hypomagnesemia (Acute) CRYSTAL (acute kidney injury) (Acute) Slow rate of speech (Acute) Observed seizure-like activity (Acute) Cough (Acute) Anemia (Chronic) CRYSTAL (acute kidney injury) (Acute) Heart failure with preserved ejection fraction (Chronic) CKD (chronic kidney disease) (Chronic) Hypertension, essential (Chronic 05/24/11) high blood pressure in [place] with atypical chest pain; rx metoprolol Rheumatoid arthritis (Chronic 04/21/11) ONSET 04/2011; DX 08/28; MTX RX 09/20/11 DR CRAWFORD Hyperlipidemia (Acute 05/19/06) GOAL LDL<160; RISK 5% CALC IN 2006; INTOL SOME STATINS Bilateral pleural effusion (Acute) Microcytic anemia (Acute) Skin tear of right upper extremity (Acute) Immunization, tetanus-diphtheria (Acute) Laceration of left upper arm (Acute) Hx of falling (Acute) Periprosthetic fracture around internal prosthetic right hip joint (Acute 08/02/24) Closed sacral fracture (Acute) History of surgery (Active) T & A. Appendectomy. RT arthroplasty 12/2007. LT arthroplasty 03/2012. Right distal clavical excision 11/05/2009. Right bunionectomy x 2. Right leg venous ligation. Colonoscopy October 15 - found to have tubular adenoma. Restless legs (Active) Managed with Sinemet Gastroesophageal reflux disease (Active) Hyperlipidemia (Chronic) Rheumatoid arthritis (Active 12/23/12) Osteoarthritis of knee (Active 12/23/12) Rhematoid arthritis and DJD right knee wqith mild valgus deformity and flexion contracture. Right total knee arthroplasty, cemented by Dr. Case Valenzuela 12-23-2012 Skin lesion (Acute) Medical History Pneumonia Adenoma of large intestine (10/15/12) TUBULOVILLOUS ADENOMA, Bob; repeat 3 yrs Tubular adenoma of colon (10/15/12) repeat 2016, Ascending colon-fragments of tubular adenomas Transverse colon-Fragments of sessile serrated adenoma; recheck 3 yrs Restless legs R only Hypokalemia Elevated brain natriuretic peptide (BNP) level Hyperkalemia Anemia Dysrhythmia Splenic mass Hypertension Chronic kidney disease, stage 3 Weight loss Tubular adenoma of colon Nausea with vomiting Postoperative anemia due to acute blood loss Osteoporosis Periprosthetic fracture around internal prosthetic left hip joint Surgical History left hip revision (04/10/16) Dr Kang, periprosthetic fracture, revision, [place] 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) POLO; LEFT; ALSO R HIP 01/06/08 Tooth extraction (05/19/1963) COMPLETE UPPER AND LOWER EXTRACTIONS Colonoscopy - MAC (01/17/16) Colonoscopy - MAC (10/15/12) Biopsy of breast (12/29/14) Left breast, [facility] [place], benign intraductal papilloma Arthroplasty (12/23/12) R total knee arthroplasty,cemented Dr Valenzuela Family History Mother , COPD at age 73. Substance abuse Father , heart at age 70. Heart disease Brother , accident at age 47. No problems noted. Social History Smoking/Tobacco Use Status: Never Smoking risk assessment performed?: Yes Alcohol Intake: former Drug use: Never Substance use type: does not use Details: used alcohol in distant past Housing: custodial Do you feel safe at home: Yes Do you feel safe in your relationship?: Yes Time Spent with Patient Time Spent with Patient: <45 minutes Time was spent: preparing to see the patient(eg.review tests), obtaining and/or reviewing separately otained hiistory, ordering medications,tests, procedures, referring, communicating with other health anesthesiologist and critical care, indepentently interpreting results, counseling the patient and care coordination
--- NOTE | 2025-02-09 11:12 | PT.INTREAT ---
PT Notes Visit Reasons: New onset seizures, Dementia Inpatient Physical Therapy Treatment Note [facility] Date: 02/09/2025 PRECAUTIONS:[place], [place] SUBJECTIVE: Jo notes overall doing well. Agreeable to try walking with PT this morning. OBJECTIVE: ? PAIN: no complaints of pain VITALS: monitored via nursing Therapeutic Activities ([id number]): Direct one-on-one instruction in dynamic activities to improve functional performance. ? BED MOBILITY/TRANSFERS? Sit-stand: mod Ax1? ?from recliner; min assist with cues for hand placement from wheelchair ? Stand-sit: CGA x1 to wheelchair and min assist x 1 to lower height of recliner? chair-Chair: Min A? ?with FWW ? Provided skilled cues and instruction on performance and technique throughout.? GAIT? Assistive Device: FWW? Weight bearing: FWB Assist: Min x1 ? Distance:? 40 ft, x 2 ? Deviation: Forward flexed trunk, cues to keep FWW closer to body to improve upright posture? ASSESSMENT:? patient with significant improvement in functional ability this session demonstrating ability to ambulate 40 feet x 2 with FWW with min assist of 1 and wheelchair follow. Patient would benefit from continued skilled PT when she returns to SNF to progress with ambulation Plan: Continue with Physical Therapy intervention for strengthening, bed mobility, transfers, gait, stairs, balance training, use of assistive device. TREATMENT CODE/TIME: 98195/[id number] DISCHARGE RECOMMENDATION: Return to [facility] with resumption of skilled PT intervention
[2025-02-09 11:34] VITALS: BP 132/91; PULSE 77; RESP 16; TEMP 36.5; O2SAT 99
== END 2025-02-09 12:55 | disposition skilled nursing facility (03) | DRG 101 ==
LOC: ER 23:16 → MS 02-08 00:43
PROVIDERS: Admitting Provider Family Medicine; Emergency Provider Emergency Medicine; PCP Physician Assistant Medical; Responsible Provider Family Medicine; Visit Provider Family Medicine
DX: R56.9 Unspecified convulsions (principal); E83.42 Hypomagnesemia; F01.B18 Vascular dementia, moderate, with other behavioral disturbance; E78.5 Hyperlipidemia, unspecified; G25.81 Restless legs syndrome; Z79.899 Other long term (current) drug therapy; I50.32 Chronic diastolic (congestive) heart failure; N17.9 Acute kidney failure, unspecified; I13.0 Hypertensive heart and chronic kidney disease with heart failure and stage 1 through stage 4 chronic kidney disease, or unspecified chronic kidney disease; N39.0 Urinary tract infection, site not specified; Z66 Do not resuscitate; D63.1 Anemia in chronic kidney disease; M06.9 Rheumatoid arthritis, unspecified; K21.9 Gastro-esophageal reflux disease without esophagitis; N18.30 Chronic kidney disease, stage 3 unspecified; Z59.87 Material hardship due to limited financial resources, not elsewhere classified
CPT/HCPCS: 00123; 36415; 51702; 70553; 80048; 80053; 85027; 87637; 93005; 95819; 96365; 96366; 96367; 97162; 97166; 97530; 99285; 70450; 81003; 81015; 83605; 83735; 83880; 84443; 84484; 85014; 85018; 85025; 85610; 87086; 93010; 99223; 99233; 99238; J0696; J1650; J1953; J3475

== ENCOUNTER → 2025-02-08 12:42 | Outpatient (BNVA) | payer MEDICARE, OTHER, SELFPAY | PROVIDERS: PCP Physician Assistant Medical; Referring Provider Physician Assistant Medical; Visit Provider Psychiatry & Neurology Neurology ==

== ENCOUNTER 2025-04-29 13:31 | Outpatient (REF) | payer MEDICARE, OTHER, SELFPAY ==
[2025-04-29 14:14] LABS: Abs Immature Grans 0.03 10^3/uL (0.0-0.06); HCT 27.2 % (36.0-46.0); HGB 8.5 g/dL (11.2-15.7); Immature Grans % 0.4 %; MCH 28.1 pg (27.0-33.0); MCHC 31.3 % (32.0-36.0); MCV 90 fL (80-95); MPV 10.5 fL (8.0-11.0); Platelet Count 364 10^3/uL (130-400); RBC 3.03 10^6/uL (3.93-5.22); RDW 14.7 % (11.7-14.6); RDW-SD 48.4 fL; WBC 7.00 10^3/uL (4.4-10.8)
[2025-04-29 14:55] LABS: Magnesium 2.0 mg/dL (1.6-2.6)
[2025-04-29 15:00] LABS: TSH 1.65 uIU/mL (0.55-4.78)
[2025-04-29 15:12] LABS: Anisocytosis 1+; Hypochromasia 1+; Microcytosis 1+
[2025-04-29 19:43] LABS: ALT 12 U/L (10-49); AST 15 U/L (<34); Albumin 4.0 g/dL (3.2-5.0); Alkaline Phosphatase 135 U/L (46-116); Anion Gap 11.7 mmol/L (3-11); BUN 61 mg/dL (9-23); Bilirubin, Total 0.2 mg/dL (0.2-1.2); CO2 24.3 mmol/L (20.0-31.0); Calcium 9.4 mg/dL (8.3-10.6); Chloride 108 mmol/L (98-107); Glucose 112 mg/dL (74-106); Potassium 4.3 mmol/L (3.5-5.1); Sodium 144 mmol/L (136-145); Total Protein 7.5 g/dL (5.7-8.2)
== END 2025-04-29 13:32 | disposition home or self-care (01) ==
LOC: LBN 13:31
PROVIDERS: PCP Physician Assistant Medical; Visit Provider Family Medicine
DX: I12.0 Hypertensive chronic kidney disease with stage 5 chronic kidney disease or end stage renal disease (principal); E83.42 Hypomagnesemia
CPT/HCPCS: 80048; 80053; 83735; 84100; 84443; 85025